=== PATIENT | female | born 1940 | race Caucasian/White ===

== ENCOUNTER → 2017-01-10 | Outpatient (CLI) | payer MEDICARE, OTHER ==
[2017-01-10 11:24] LABS: Lithium 0.5 mmol/L
[2017-01-10 13:30] LABS: Hemoglobin A1C 5.1 % (4.2-6.1)
== END | disposition home or self-care (01) ==
LOC: LABWHC1 10:14
PROVIDERS: ATTEND Psychiatry & Neurology Psychiatry
DX: E78.5 Hyperlipidemia, unspecified (principal); E03.9 Hypothyroidism, unspecified; Z51.81 Encounter for therapeutic drug level monitoring; Z79.899 Other long term (current) drug therapy
CPT/HCPCS: 36415; 80061; 80178; 83036

== ENCOUNTER → 2018-12-12 | Outpatient (CLI) | payer MEDICARE, OTHER ==
--- NOTE | 2018-12-12 15:33 | XR ---
EXAMINATION TYPE: XR chest 2V DATE OF EXAM: 12/12/2018 COMPARISON: Prior chest x-ray 07/07/2016 HISTORY: Cough and shortness of breath TECHNIQUE: Frontal and lateral views of the chest are obtained. FINDINGS: There is no focal air space opacity, pleural effusion, or pneumothorax seen. The cardiac silhouette size is within normal limits. The osseous structures are intact. There is multilevel spo ndylosis. There is dense. IMPRESSION: No acute cardiopulmonary process.
== END | disposition home or self-care (01) ==
LOC: RADXRMAIN 12:52
PROVIDERS: ATTEND Internal Medicine
DX: R05 Cough (principal); R06.02 Shortness of breath
CPT/HCPCS: 71046

== ENCOUNTER → 2019-06-05 | Outpatient (CLI) | payer MEDICARE, OTHER ==
[2019-06-05 19:51] LABS: African American GFR (CKD) 71.5 (60.0-200.0); Anion Gap 9.8 mmol/L (4.00-12.00); BUN/Creat Ratio 22.22 Ratio (12.00-20.00); Calcium 9.3 mg/dL (8.7-10.3); Carbon Dioxide 28.2 mmol/L (21.6-31.8); Lithium 0.5 mmol/L (0.5-1.2)
== END | disposition home or self-care (01) ==
LOC: LABWHC1 14:42
PROVIDERS: ATTEND Psychiatry & Neurology Psychiatry
DX: F31.60 Bipolar disorder, current episode mixed, unspecified (principal); Z79.899 Other long term (current) drug therapy
CPT/HCPCS: 36415; 80048; 80178; 84443

== ENCOUNTER 2019-10-01 18:30 | Inpatient (IN) | payer MEDICARE, OTHER ==
[2019-10-01] MEDS ORDERED: methylPREDNISolone SOD SUCCI 125 MG/2 ML VIAL IV STA (18:46)
[2019-10-01] MEDS ORDERED: IPRATROPIUM-ALBUTEROL 3 ML NEB INHALATION STA ×3 (18:46→20:35)
[2019-10-01 19:24] LABS: Basophils % (A) 0 %; Eosinophils # (A) 0.2 k/uL (0-0.7); Eosinophils % (A) 1 %; HCT 40.1 % (34.0-46.0); Lymphocytes # (A) 0.9 k/uL (1.0-4.8); Lymphocytes % (A) 7 %; MCH 30.7 pg (25.0-35.0); MCHC 32.4 g/dL (31.0-37.0); MCV 94.9 fL (80.0-100.0); Mean Platelet Volume 6.8; Monocytes # (A) 0.7 k/uL (0-1.0); Monocytes % (A) 5 %; Neutrophils # (A) 12.3 k/uL (1.3-7.7); Neutrophils % (A) 87 %; Platelet Count 243 k/uL (150-450); RBC 4.22 m/uL (3.80-5.40); RDW 12.7 % (11.5-15.5); WBC 14.2 k/uL (3.8-10.6)
[2019-10-01 19:33] LABS: ALT 17 U/L (4-34); AST 28 U/L (14-36); African American GFR (CKD) >90 (>60 ml/min/1.73 sqM); Albumin 3.6 g/dL (3.5-5.0); Alkaline Phosphatase 78 U/L (38-126); Anion Gap 6 mmol/L; Blood Urea Nitrogen 10 mg/dL (7-17); Calcium 9.1 mg/dL (8.4-10.2); Carbon Dioxide 30 mmol/L (22-30); Chloride 100 mmol/L (98-107); Creatine Kinase 60 U/L (30-135); Glucose 140 mg/dL (74-99); Non-African American GFR(CKD) 86 (>60 ml/min/1.73 sqM); Potassium 3.6 mmol/L (3.5-5.1); Sodium 136 mmol/L (137-145); Total Bilirubin 0.6 mg/dL (0.2-1.3); Total Protein 6.2 g/dL (6.3-8.2)
--- NOTE | 2019-10-01 19:37 | XR ---
EXAMINATION TYPE: XR chest 2V DATE OF EXAM: 10/01/2019 COMPARISON: 06/05/2019 HISTORY: COPD TECHNIQUE: 2 views FINDINGS: There is no heart failure nor confluent pneumonic infiltrate. Costophrenic angles are fairl y clear. There are chest leads. There is minor spurring in the thoracic spine. IMPRESSION: No active cardiopulmonary disease. No significant change compared to old exam.
--- NOTE | 2019-10-01 19:38 | ED ---
SOB HPI - General Chief Complaint: Shortness of Breath Stated Complaint: CRISTA Time Seen by Provider: 10/01/19 18:33 Source: patient, RN notes reviewed Mode of arrival: wheelchair Limitations: no limitations - History of Present Illness Initial Comments: This is a 79-year-old female with a history of COPD and still is a smoker who states she's had shortness of breath for the past 4 days that has gotten progressively worse and not responding to her home medication. She has a cough with some clear phlegm no overt fevers chills sweats chest pain or other symptoms. She does have exertional dyspnea. No other modifying factors at this time MD Complaint: shortness of breath, cough - Related Data Home Medications Medication Instructions Recorded Confirmed Ibuprofen [Motrin] 400 - 800 mg PO Q6HR PRN 07/03/16 07/04/16 Ipratropium/Albuterol Sulfate 1 - 2 puff INHALATION RT-QID 07/03/16 07/04/16 [Combivent Respimat Inhaler] Dillard Carbonate 300 mg PO BID 07/03/16 07/04/16 PARoxetine [Paxil] 20 mg PO DAILY 07/03/16 07/04/16 Potassium Chloride [K-Tab ER] 10 meq PO DAILY 07/03/16 07/04/16 Simvastatin 40 mg PO HS 07/03/16 07/04/16 risperiDONE [RisperDAL] 0.5 mg PO HS 07/03/16 07/05/16 Previous Rx's Medication Instructions Recorded Aspirin 325 mg PO DAILY #30 tab 07/05/16 Sennosides-Docusate Sodium 2 tab PO DAILY #30 tablet 07/05/16 [Senokot-S] Warfarin [Coumadin] 2.5 mg PO DIRECTED #30 tab 07/05/16 Atenolol 25 mg PO BID #0 07/07/16 Ferrous Sulfate [Iron (65 MG 325 mg PO BID #60 tab 07/07/16 Elemental)] LORazepam [Ativan] 1 mg PO BID PRN #20 tab 07/07/16 Triamterene-Hctz 37.5-25Mg 1 cap PO DAILY #0 07/07/16 [Dyazide 37.5-25 Capsule] traMADol HCl [Ultram] 50 mg PO Q4H PRN #90 tab 07/07/16 Allergies Allergy/AdvReac Type Severity Reaction Status Date / Time Penicillins Allergy Rash/Hives Verified 10/01/19 18:41 acetaminophen [From [facility]] AdvReac Nausea & Verified 10/01/19 18:41 Vomiting hydrocodone [From [facility]] AdvReac Nausea & Verified 10/01/19 18:41 Vomiting Sulfa (Sulfonamide AdvReac Nausea & Verified 10/01/19 18:41 Antibiotics) Vomiting Review of Systems ROS Statement: Those systems with pertinent positive or pertinent negative responses have been documented in the HPI. ROS Other: All systems not noted in ROS Statement are negative. Past Medical History Past Medical History: Cancer, COPD, Deep Vein Thrombosis (DVT), Eye Disorder, Hyperlipidemia, Hypertension, Pneumonia Additional Past Medical History / Comment(s): Recent kidney infection, L BREAST CANCER with SX , Bilateral MACULAR DEGENERATION, DVT R leg History of Any Multi-Drug Resistant Organisms: None Reported Past Surgical History: Breast Surgery, Joint Replacement, Tonsillectomy, Tubal Ligation Additional Past Surgical History / Comment(s): 07/04/16 Total L knee arthroplasty. Other surgical hx: LEFT MASTECTOMY, R total knee arthroplasty, bilateral cataract removal. Past Anesthesia/Blood Transfusion Reactions: Motion Sickness Past Psychological History: Anxiety, Depression Smoking Status: Current every day smoker Past Alcohol Use History: None Reported Past Drug Use History: None Reported - Past Family History Mother Family Medical History: Renal Disease Additional Family Medical History / Comment(s): Mother at the age of 84 yrs of kidney failure. Father Family Medical History: No Reported History Additional Family Medical History / Comment(s): Father at the age of 98yrs. General Exam - General Exam Comments Initial Comments: This is a well-developed well-nourished awake alert oriented 3 female Limitations: no limitations General appearance: alert, in no apparent distress Head exam: Present: atraumatic, normocephalic, normal inspection Eye exam: Present: normal appearance, PERRL, EOMI. Absent: scleral icterus, conjunctival injection, periorbital swelling ENT exam: Present: mucous membranes dry Neck exam: Present: normal inspection, full ROM, other. Absent: tenderness, meningismus, lymphadenopathy Respiratory exam: Present: wheezes, accessory muscle use, decreased breath sounds. Absent: respiratory distress, rales, rhonchi, stridor Cardiovascular Exam: Present: regular rate, normal rhythm, normal heart sounds. Absent: systolic murmur, diastolic murmur, rubs, gallop, clicks GI/Abdominal exam: Present: soft, normal bowel sounds. Absent: distended, tende rness, guarding, rebound, rigid Extremities exam: Present: normal inspection, full ROM, normal capillary refill. Absent: tenderness, pedal edema, joint swelling, calf tenderness Back exam: Present: normal inspection Neurological exam: Present: alert, oriented X3, CN II-XII intact Psychiatric exam: Present: normal affect, normal mood Skin exam: Present: warm, dry, intact, normal color. Absent: rash Course Vital Signs 10/01/19 10/01/19 10/01/19 18:41 18:46 19:42 Temperature 98.7 F Pulse Rate 95 87 Respiratory 20 20 Rate Blood Pressure 142/88 O2 Sat by Pulse 97 Oximetry 10/01/19 19:51 Temperature Pulse Rate 87 Respiratory Rate Blood Pressure O2 Sat by Pulse Oximetry Medical Decision Making - Medical Decision Making I did reevaluate patient several occasions she is not getting much relief if any from the treatment provided thus far. I did discuss the findings with the patient family patient be admitted Dr. Miguel is covering Dr. William today patient will be admitted to Dr. rubio are service I did discuss this with Dr. Miguel - Lab Data Result diagrams: 10/01/19 19:12 10/01/19 19:12 Lab Results 10/01/19 10/01/19 10/01/19 Range/Units 19:12 19:12 19:12 WBC 14.2 H (3.8-10.6) k/uL RBC 4.22 (3.80-5.40) m/uL Hgb 13.0 (11.4-16.0) gm/dL Hct 40.1 (34.0-46.0) % MCV 94.9 (80.0-100.0) fL MCH 30.7 (25.0-35.0) pg MCHC 32.4 (31.0-37.0) g/dL RDW 12.7 (11.5-15.5) % Plt Count 243 (150-450) k/uL Neutrophils % 87 % Lymphocytes % 7 % Monocytes % 5 % Eosinophils % 1 % Basophils % 0 % Neutrophils # 12.3 H (1.3-7.7) k/uL Lymphocytes # 0.9 L (1.0-4.8) k/uL Monocytes # 0.7 (0-1.0) k/uL Eosinophils # 0.2 (0-0.7) k/uL Basophils # 0.0 (0-0.2) k/uL PT (9.0-12.0) sec INR (<1.2) APTT (22.0-30.0) sec Sodium 136 L (137-145) mmol/L Potassium 3.6 (3.5-5.1) mmol/L Chloride 100 (98-107) mmol/L Carbon Dioxide 30 (22-30) mmol/L Anion Gap 6 mmol/L BUN 10 (7-17) mg/dL Creatinine 0.65 (0.52-1.04) mg/dL Est GFR (CKD-EPI)AfAm >90 (>60 ml/min/1.73 sqM) Est GFR (CKD-EPI)NonAf 86 (>60 ml/min/1.73 sqM) Glucose 140 H (74-99) mg/dL Calcium 9.1 (8.4-10.2) mg/dL Magnesium 2.0 (1.6-2.3) mg/dL Total Bilirubin 0.6 (0.2-1.3) mg/dL AST 28 (14-36) U/L ALT 17 (4-34) U/L Alkaline Phosphatase 78 (38-126) U/L Creatine Kinase 60 (30-135) U/L Troponin I (0.000-0.034) ng/mL NT-Pro-B Natriuret Pep 2440 pg/mL Total Protein 6.2 L (6.3-8.2) g/dL Albumin 3.6 (3.5-5.0) g/dL 10/01/19 10/01/19 Range/Units 19:12 19:12 WBC (3.8-10.6) k/uL RBC (3.80-5.40) m/uL Hgb (11.4-16.0) gm/dL Hct (34.0-46.0) % MCV (80.0-100.0) fL MCH (25.0-35.0) pg MCHC (31.0-37.0) g/dL RDW (11.5-15.5) % Plt Count (150-450) k/uL Neutrophils % % Lymphocytes % % Monocytes % % Eosinophils % % Basophils % % Neutrophils # (1.3-7.7) k/uL Lymphocytes # (1.0-4.8) k/uL Monocytes # (0-1.0) k/uL Eosinophils # (0-0.7) k/uL Basophils # (0-0.2) k/uL PT 9.7 (9.0-12.0) sec INR 0.9 (<1.2) APTT 25.7 (22.0-30.0) sec Sodium (137-145) mmol/L Potassium (3.5-5.1) mmol/L Chloride (98-107) mmol/L Carbon Dioxide (22-30) mmol/L Anion Gap mmol/L BUN (7-17) mg/dL Creatinine (0.52-1.04) mg/dL Est GFR (CKD-EPI)AfAm (>60 ml/min/1.73 sqM) Est GFR (CKD-EPI)NonAf (>60 ml/min/1.73 sqM) Glucose (74-99) mg/dL Calcium (8.4-10.2) mg/dL Magnesium (1.6-2.3) mg/dL Total Bilirubin (0.2-1.3) mg/dL AST (14-36) U/L ALT (4-34) U/L Alkaline Phosphatase (38-126) U/L Creatine Kinase (30-135) U/L Troponin I 0.022 (0.000-0.034) ng/mL NT-Pro-B Natriuret Pep pg/mL Total Protein (6.3-8.2) g/dL Albumin (3.5-5.0) g/dL - EKG Data -: EKG Interpreted by Me EKG Comments: Sinus rhythm with occasional PVCs rate was 93. Ago 122 QRS 92 QT since QTC 352/437 right axis deviation nonspecific ST T-wave configuration - Radiology Data Radiology results: report reviewed (I did review the imaging and report no acute findings are seen.), image reviewed Critical Care Time Critical Care Time: Yes Critical Care Time: Miguel 1 minutes of critical care time which includes initial presentation with history physical labs x-rays multiple reevaluation patient responsive therapy review of old charting's available discussed with the admitting physician admission orders and documentation of the above Disposition Clinical Impression: Acute exacerbation of chronic obstructive pulmonary disease, Acute respiratory distress syndrome in adult, Failure of outpatient treatment Disposition: ADMITTED IP TO THIS HOSP Condition: Fair Referrals: Abiola Kong MD [Primary Care Provider] - 1-2 days
[2019-10-01 19:39] LABS: INR 0.9 (<1.2); Partial Thromboplastin Time 25.7 sec (22.0-30.0); Prothrombin Time 9.7 sec (9.0-12.0)
[2019-10-01] MEDS ORDERED: traMADol 50 MG TAB PO PRN (20:37)
[2019-10-01] MEDS ORDERED: NICOTINE 21MG/24HR PATCH TRANSDERM STA (20:40)
--- NOTE | 2019-10-01 20:41 | ED ---
Medical Decision Making - Lab Data Result diagrams: 10/01/19 19:12 10/01/19 19:12 Lab Results 10/01/19 10/01/19 10/01/19 Range/Units 19:12 19:12 19:12 WBC 14.2 H (3.8-10.6) k/uL RBC 4.22 (3.80-5.40) m/uL Hgb 13.0 (11.4-16.0) gm/dL Hct 40.1 (34.0-46.0) % MCV 94.9 (80.0-100.0) fL MCH 30.7 (25.0-35.0) pg MCHC 32.4 (31.0-37.0) g/dL RDW 12.7 (11.5-15.5) % Plt Count 243 (150-450) k/uL Neutrophils % 87 % Lymphocytes % 7 % Monocytes % 5 % Eosinophils % 1 % Basophils % 0 % Neutrophils # 12.3 H (1.3-7.7) k/uL Lymphocytes # 0.9 L (1.0-4.8) k/uL Monocytes # 0.7 (0-1.0) k/uL Eosinophils # 0.2 (0-0.7) k/uL Basophils # 0.0 (0-0.2) k/uL PT (9.0-12.0) sec INR (<1.2) APTT (22.0-30.0) sec Sodium 136 L (137-145) mmol/L Potassium 3.6 (3.5-5.1) mmol/L Chloride 100 (98-107) mmol/L Carbon Dioxide 30 (22-30) mmol/L Anion Gap 6 mmol/L BUN 10 (7-17) mg/dL Creatinine 0.65 (0.52-1.04) mg/dL Est GFR (CKD-EPI)AfAm >90 (>60 ml/min/1.73 sqM) Est GFR (CKD-EPI)NonAf 86 (>60 ml/min/1.73 sqM) Glucose 140 H (74-99) mg/dL Calcium 9.1 (8.4-10.2) mg/dL Magnesium 2.0 (1.6-2.3) mg/dL Total Bilirubin 0.6 (0.2-1.3) mg/dL AST 28 (14-36) U/L ALT 17 (4-34) U/L Alkaline Phosphatase 78 (38-126) U/L Creatine Kinase 60 (30-135) U/L Troponin I (0.000-0.034) ng/mL NT-Pro-B Natriuret Pep 2440 pg/mL Total Protein 6.2 L (6.3-8.2) g/dL Albumin 3.6 (3.5-5.0) g/dL 10/01/19 10/01/19 Range/Units 19:12 19:12 WBC (3.8-10.6) k/uL RBC (3.80-5.40) m/uL Hgb (11.4-16.0) gm/dL Hct (34.0-46.0) % MCV (80.0-100.0) fL MCH (25.0-35.0) pg MCHC (31.0-37.0) g/dL RDW (11.5-15.5) % Plt Count (150-450) k/uL Neutrophils % % Lymphocytes % % Monocytes % % Eosinophils % % Basophils % % Neutrophils # (1.3-7.7) k/uL Lymphocytes # (1.0-4.8) k/uL Monocytes # (0-1.0) k/uL Eosinophils # (0-0.7) k/uL Basophils # (0-0.2) k/uL PT 9.7 (9.0-12.0) sec INR 0.9 (<1.2) APTT 25.7 (22.0-30.0) sec Sodium (137-145) mmol/L Potassium (3.5-5.1) mmol/L Chloride (98-107) mmol/L Carbon Dioxide (22-30) mmol/L Anion Gap mmol/L BUN (7-17) mg/dL Creatinine (0.52-1.04) mg/dL Est GFR (CKD-EPI)AfAm (>60 ml/min/1.73 sqM) Est GFR (CKD-EPI)NonAf (>60 ml/min/1.73 sqM) Glucose (74-99) mg/dL Calcium (8.4-10.2) mg/dL Magnesium (1.6-2.3) mg/dL Total Bilirubin (0.2-1.3) mg/dL AST (14-36) U/L ALT (4-34) U/L Alkaline Phosphatase (38-126) U/L Creatine Kinase (30-135) U/L Troponin I 0.022 (0.000-0.034) ng/mL NT-Pro-B Natriuret Pep pg/mL Total Protein (6.3-8.2) g/dL Albumin (3.5-5.0) g/dL Disposition Clinical Impression: Acute exacerbation of chronic obstructive pulmonary disease, Acute respiratory distress syndrome in adult, Failure of outpatient treatment, Smoking Disposition: ADMITTED IP TO THIS HOSP Condition: Fair Referrals: Abiola Kong MD [Primary Care Provider] - 1-2 days Procedures - Smoking Cessation Time Spent Discussing Smoking Cessation w/Patient (Minutes): 3 Patient Acknowledges Need for Cessation: Yes
[2019-10-01] MEDS ORDERED: IPRATROPIUM-ALBUTEROL 3 ML NEB INHALATION PRN (21:17)
[2019-10-01] MEDS: SODIUM CHLORIDE 0.9% 1,000 ML IV SCH (21:24)
[2019-10-01] MEDS: ATENOLOL 25 MG TAB PO SCH (22:30)
[2019-10-01] MEDS: LITHIUM CARBONATE 300 MG CAP PO SCH (22:31)
[2019-10-01] MEDS: FERROUS SULFATE 325 MG TAB PO SCH (22:31)
[2019-10-01] MEDS: FAMOTIDINE 20 MG TAB PO SCH (22:31)
[2019-10-01] MEDS: ATORVASTATIN 20 MG TAB PO SCH (22:31)
[2019-10-01] MEDS: risperiDONE 1 MG TAB PO SCH (22:31)
[2019-10-01] MEDS: LORazepam 1 MG TAB PO PRN (22:32)
[2019-10-01] MEDS: MONTELUKAST 10 MG TAB PO SCH (22:32)
[2019-10-02] MEDS ORDERED: IPRATROPIUM-ALBUTEROL 3 ML NEB INHALATION SCH
[2019-10-02] MEDS: methylPREDNISolone SOD SUCCI 125 MG/2 ML VIAL IV SCH ×4 (00:07→17:03)
[2019-10-02] MEDS: BUDESONIDE 0.5 MG/2 ML NEBU INHALATION SCH ×2 (06:22→19:53)
[2019-10-02] MEDS: IPRATROPIUM-ALBUTEROL 3 ML NEB INHALATION SCH ×4 (06:22→19:53)
[2019-10-02] MEDS: SODIUM CHLORIDE 0.9% 1,000 ML IV SCH ×2 (07:03→15:45)
--- NOTE | 2019-10-02 07:41 | HP ---
HISTORY AND PHYSICAL Teri Borrego is a 79-year-old female with increasing shortness of breath for 4-5 days' duration. She had some chills. No clear fever. She had cough with no significant sputum production. There is a known history of COPD with an asthmatic component and had severe wheezing along with shortness of breath. She was seen in the ER and was unable to complete a sentence. She was using accessory muscles for respirations and is admitted for further evaluation and management. PAST MEDICAL HISTORY: Positive for chronic obstructive pulmonary disease, possible asthma, DVT, hypertension, kidney infection, left breast cancer, breast surgery, tonsillectomy, total left knee arthroplasty, bipolar disorder with anxiety and depression. FAMILY HISTORY: Positive for renal disease in her mother. Father of old age. SOCIAL HISTORY: Patient is an everyday smoker. Smokes 1-2 packs of cigarettes per day. She does not drink alcohol excessively. MEDICATIONS: Prior to admission were ergo calciferol, albuterol, risperidone, Dyazide, Ativan, aspirin, K-Dur, Paxil, Eaton carbonate and atenolol. REVIEW OF SYSTEMS: Positive for obesity. PHYSICAL EXAMINATION: Blood pressure 121/62, respiratory rate of 22, pulse of 93, O2 saturation on 2 L by nasal cannula is 96%. HEENT: Reveals pupils are equal. CHEST: Reveals decreased breath sounds. Prolonged exhalation with expiratory wheeze. CARDIOVASCULAR SYSTEM: Reveals an S1, S2. ABDOMEN: Soft. There is 1+ pedal edema. LABS: Revealed a white count of 14.2, hemoglobin of 13, sodium 136, potassium 3.6, chloride 100, bicarb 30, BUN 10, creatinine of 0.65. NT proBNP 2004 and 40. Chest x-ray shows no discrete infiltrate. IMPRESSION: 1. Severe asthma with chronic obstructive pulmonary disease with acute exacerbation. 2. Obesity. 3. Bipolar disorder. 4. History of deep venous thrombosis. 5. Previous history of breast cancer. At this point in time, keep her on IV and aerosolized steroids. Keep her on antibiotics, leukotriene receptor antagonist. GI and DVT prophylaxis. Her prognosis at this time is guarded. She and her daughter were counseled regarding her condition and this approach and have a fair understanding of her condition. MMODL / IJN: [id number] /
[2019-10-02] MEDS: LITHIUM CARBONATE 300 MG CAP PO SCH ×2 (07:59→20:43)
[2019-10-02] MEDS: FAMOTIDINE 20 MG TAB PO SCH ×2 (07:59→20:43)
[2019-10-02] MEDS: FERROUS SULFATE 325 MG TAB PO SCH ×2 (07:59→20:43)
[2019-10-02] MEDS: SENNOSIDES-DOCUSATE SODIUM 1 EACH TAB PO SCH (07:59)
[2019-10-02] MEDS: PARoxetine 20 MG TAB PO SCH (07:59)
[2019-10-02] MEDS: ATENOLOL 25 MG TAB PO SCH ×2 (07:59→20:44)
[2019-10-02] MEDS: POTASSIUM CHLORIDE ER 10 MEQ TAB.ER.PRT PO SCH (07:59)
[2019-10-02] MEDS: TRIAMTERENE-HCTZ 37.5-25MG 1 EACH CAP PO SCH (07:59)
[2019-10-02] MEDS ORDERED: WARFARIN 2.5 MG TAB PO SCH (09:00)
--- NOTE | 2019-10-02 12:30 | PN ---
PROGRESS NOTE DATE OF SERVICE: 10/02/2019 Patient is a 79-year-old female who is seen sleeping but is easily arousable. Patient denies any pain, but does feel breathing as per improved a little bit. Patient is afebrile, hemodynamically stable, in no acute distress. PHYSICAL EXAM: VITAL SIGNS: Temperature 97.9, heart rate 76, respiration 17, blood pressure 123/78, O2 saturations 94% on 6 L O2 via nasal cannula. HEENT. Head is normocephalic, atraumatic. Neck is supple. Trachea is midline. LUNGS: With decreased breath sounds and scattered expiratory wheezes. HEART: S1, S2 are heard. Not tachycardic. ABDOMEN: Soft. Bowel sounds are positive. EXTREMITIES: With 2+ edema bilaterally. NEUROLOGIC Patient is awake and alert. LABS: No new labs to review. IMAGING: No new imaging to review. IMPRESSION: 1. Severe asthma with chronic obstructive pulmonary disease with acute exacerbation. 2. Obesity. 3. Bipolar disorder. 4. History of deep venous thrombosis. 5. Previous history of breast cancer. PLAN: Continue current medications, which have been reviewed. Continue bronchodilators and aerosol steroids. Continue IV Solu-Medrol. Continue antibiotics. Continue GI and DVT prophylaxis. Smoking cessation is highly recommended and patient verbalizes that she will quit smoking. We will continue to follow patient closely making further changes as necessary. MMODL / IJN: [id number] /
[2019-10-02] MEDS: LORazepam 1 MG TAB PO PRN (20:43)
[2019-10-02] MEDS: ATORVASTATIN 20 MG TAB PO SCH (20:43)
[2019-10-02] MEDS: MONTELUKAST 10 MG TAB PO SCH (20:44)
[2019-10-02] MEDS: risperiDONE 1 MG TAB PO SCH (20:44)
[2019-10-03] MEDS: methylPREDNISolone SOD SUCCI 125 MG/2 ML VIAL IV SCH ×4 (00:01→17:48)
[2019-10-03] MEDS: BUDESONIDE 0.5 MG/2 ML NEBU INHALATION SCH ×2 (07:04→19:32)
[2019-10-03] MEDS: IPRATROPIUM-ALBUTEROL 3 ML NEB INHALATION SCH ×4 (07:04→19:32)
[2019-10-03 10:40] LABS: Albumin 3.7 g/dL (3.5-5.0); Calcium 9.5 mg/dL (8.4-10.2); Magnesium 2.5 mg/dL (1.6-2.3); Phosphorus 5.6 mg/dL (2.5-4.5); Potassium 5.2 mmol/L (3.5-5.1); Total Bilirubin 0.4 mg/dL (0.2-1.3); Total Protein 6.2 g/dL (6.3-8.2)
[2019-10-03 11:04] LABS: Basophils # (A) 0.3 k/uL (0-0.2); Basophils % (A) 2 %; Eosinophils % (A) 0 %; HCT 44.9 % (34.0-46.0); HGB 13.7 gm/dL (11.4-16.0); Hypochromasia Marked; Lymphocytes # (A) 0.5 k/uL (1.0-4.8); Lymphocytes % (A) 4 %; MCH 31.1 pg (25.0-35.0); MCHC 30.5 g/dL (31.0-37.0); Macrocytosis Slight; Mean Platelet Volume 7.2; Monocytes # (A) 0.5 k/uL (0-1.0); Monocytes % (A) 4 %; Neutrophils # (A) 11.9 k/uL (1.3-7.7); Neutrophils % (A) 89 %; Platelet Count 357 k/uL (150-450); WBC 13.4 k/uL (3.8-10.6)
[2019-10-03 11:06] LABS: MCV 102.1 fL (80.0-100.0)
[2019-10-03 11:24] LABS: ABG Base Excess 3.9 mmol/L; ABG HCO3 33 mmol/L (21-25); ABG Oxygen Saturation 98.9 % (94-97); ABG PO2 135 mmHg (83-108); ABG TCO2 36 mmol/L (19-24); Allen Test Performed? Yes
[2019-10-03 11:29] LABS: ABG PCO2 96 mmHg (35-45); ABG PH 7.15 (7.35-7.45)
[2019-10-03] MEDS ORDERED: FLUMAZENIL 0.1 MG/ML 5 ML VIAL IVP STA ×2 (11:44→15:07)
[2019-10-03] MEDS: ATENOLOL 25 MG TAB PO SCH ×2 (11:53→21:53)
[2019-10-03] MEDS: FERROUS SULFATE 325 MG TAB PO SCH ×2 (11:53→21:54)
[2019-10-03] MEDS: FAMOTIDINE 20 MG TAB PO SCH (11:53)
[2019-10-03] MEDS: POTASSIUM CHLORIDE ER 10 MEQ TAB.ER.PRT PO SCH (11:54)
[2019-10-03] MEDS: LITHIUM CARBONATE 300 MG CAP PO SCH ×2 (11:54→21:54)
[2019-10-03] MEDS: SENNOSIDES-DOCUSATE SODIUM 1 EACH TAB PO SCH (11:54)
[2019-10-03] MEDS: PARoxetine 20 MG TAB PO SCH (11:54)
[2019-10-03] MEDS: SODIUM CHLORIDE 0.9% 1,000 ML IV SCH ×3 (11:55→23:11)
[2019-10-03] MEDS: TRIAMTERENE-HCTZ 37.5-25MG 1 EACH CAP PO SCH (11:55)
[2019-10-03 14:53] LABS: Glucose,Whole Blood 129 mg/dL (75-99)
--- NOTE | 2019-10-03 15:35 | PN ---
PROGRESS NOTE DATE OF SERVICE: 10/03/2019 Patient is a 79-year-old female who is seen lying in bed. Patient is lethargic, very difficult to arouse this morning. Contacted nursing staff. We turned down patient's oxygen and applied a BiPAP as it appeared patient was retaining CO2. The patient did receive some Ativan before going to sleep last night for some increased confusion and oxygen was at 6 L this morning. The patient's vital signs were stable. Patient was afebrile and started to arouse after being placed on BiPAP, slowly. PHYSICAL EXAM: VITAL SIGNS: Temperature 97.6, heart rate 71, blood pressure 159/90, O2 saturation 99% on 6 L via nasal cannula at that time. HEENT. Head is normocephalic, atraumatic. Neck is supple. Trachea is midline. LUNGS: With coarse breath sounds. HEART: S1, S2 are heard. Not tachycardic. ABDOMEN: Soft. Bowel sounds are positive. EXTREMITIES: With no edema. NEUROLOGIC: Patient is extremely lethargic, difficult to arouse. LABS: White count 13.4, hemoglobin 13.7, hematocrit 44.9 with 357,000 platelets. Sodium is 139, potassium is 5.2, chloride is 102, CO2 is 34, anion gap is 3, BUN is 33, creatinine 0.98, glucose is 163, calcium is 9.5, phosphorus 5.6, magnesium 2.5, total bilirubin 0.4, AST 21, ALT 22, alkaline phosphatase 85, total protein 6.2, albumin is 3.7. Blood gases that were done after patient was initially seen this morning with a pH of 7.15, pCO2 of 96, PO2 135, bicarb 33, total CO2 is 36, O2 saturation 98.9. No new imaging to review. IMPRESSION: 1. At this time acute on chronic hypercapnic respiratory failure. 2. Severe asthma with chronic obstructive pulmonary disease with acute exacerbation. 3. Obesity. 4. Bipolar disorder. 5. History of deep vein thrombosis. 6. Previous history of breast cancer. PLAN: Continue BiPAP at 15/5, decrease FiO2 to maintain saturations greater than 90%. Continue bronchodilators and aerosol steroids. Will discontinue benzodiazepines. Continue IV Solu-Medrol. Continue antibiotics. Continue GI and DVT prophylaxis with heparin, 5000 units subcu q.12 hours and restart patient's Coumadin at 2.5 mg daily, add incentive spirometry with pulmonary hygiene. Put patient on a monitor tech and we will continue to follow patient closely making further changes as necessary. MMODL / IJN: [id number] /
[2019-10-03] MEDS ORDERED: NALOXONE 0.4 MG/ML 1 ML VIAL IV PRN (16:03)
[2019-10-03] MEDS: HEPARIN SODIUM,PORCINE 5,000 UNIT/ML 1 ML VIAL SQ SCH ×2 (16:56→21:58)
[2019-10-03 17:06] LABS: INR 0.9 (<1.2)
[2019-10-03 17:27] LABS: Appearance,Urine Clear (Clear); Bilirubin,Urine Negative (Negative); Blood,Urine Negative (Negative); Color,Urine Yellow; Glucose,Urine (UA) Negative (Negative); Ketones,Urine Negative (Negative); Leukocyte Esterase,Urine Negative (Negative); Nitrite,Urine Negative (Negative); PH, Urine 5.5 (5.0-8.0); Protein,Urine Trace (Negative); Specific Gravity,Urine 1.012 (1.001-1.035); Urobilinogen,Urine <2.0 mg/dL (<2.0)
[2019-10-03] MEDS ORDERED: WARFARIN 5 MG TAB PO ONE (18:00)
[2019-10-03] MEDS: FAMOTIDINE 20 MG/2 ML VIAL IV SCH (18:01)
[2019-10-03] MEDS: ATORVASTATIN 20 MG TAB PO SCH (21:54)
[2019-10-03] MEDS: risperiDONE 1 MG TAB PO SCH (21:55)
[2019-10-03] MEDS: MONTELUKAST 10 MG TAB PO SCH (21:55)
[2019-10-04 00:14] LABS: ABG Base Excess 5.6 mmol/L; ABG HCO3 32 mmol/L (21-25); ABG Oxygen Saturation 98.9 % (94-97); ABG PCO2 68 mmHg (35-45); ABG PH 7.28 (7.35-7.45); ABG PO2 120 mmHg (83-108); ABG TCO2 34 mmol/L (19-24)
[2019-10-04 00:19] LABS: Allen Test Performed? yes
[2019-10-04] MEDS: methylPREDNISolone SOD SUCCI 125 MG/2 ML VIAL IV SCH ×5 (00:25→17:25)
[2019-10-04 02:10] LABS: Glucose,Whole Blood 117 mg/dL (75-99)
[2019-10-04 05:50] LABS: Basophils # (A) 0.1 k/uL (0-0.2); Basophils % (A) 0 %; Eosinophils # (A) 0.1 k/uL (0-0.7); Eosinophils % (A) 1 %; HCT 41.3 % (34.0-46.0); Hypochromasia Slight; Lymphocytes # (A) 0.7 k/uL (1.0-4.8); Lymphocytes % (A) 5 %; MCH 31.1 pg (25.0-35.0); MCHC 31.4 g/dL (31.0-37.0); MCV 99.1 fL (80.0-100.0); Monocytes # (A) 0.4 k/uL (0-1.0); Monocytes % (A) 3 %; Neutrophils # (A) 12.2 k/uL (1.3-7.7); Neutrophils % (A) 91 %; Platelet Count 261 k/uL (150-450); RBC 4.17 m/uL (3.80-5.40); RDW 12.9 % (11.5-15.5); WBC 13.5 k/uL (3.8-10.6)
[2019-10-04 05:55] LABS: Lactic Acid, Venous 0.7 mmol/L (0.7-2.0)
[2019-10-04 05:57] LABS: Calcium 9.2 mg/dL (8.4-10.2); Magnesium 2.4 mg/dL (1.6-2.3); Phosphorus 3.4 mg/dL (2.5-4.5); Potassium 4.5 mmol/L (3.5-5.1)
[2019-10-04 05:59] LABS: INR 0.9 (<1.2); Prothrombin Time 10.1 sec (9.0-12.0)
--- NOTE | 2019-10-04 07:39 | XR ---
EXAMINATION TYPE: XR chest 1V DATE OF EXAM: 10/04/2019 COMPARISON: 10/01/2019 HISTORY: 79-year-old female difficulty breathing TECHNIQUE: Single frontal view of the chest is obtained. FINDINGS: Heart upper limits of normal in size. Diffuse interstitial densities. Patchy peripheral and basilar o pacity may be increased. IMPRESSION: 1. Interstitial densities are similar, possible bronchitis or asthma or mild pulmonary vascular conge stion. Clinically correlate. 2. Increasing patchy atelectasis or infiltrate peripheral left base.
--- NOTE | 2019-10-04 08:01 | CT ---
EXAMINATION TYPE: CT brain wo con DATE OF EXAM: 10/04/2019 COMPARISON: None HISTORY: 79 year-old female altered mental status, loss of consciousness TECHNIQUE: Examination was done in axial plane without intravenous contrast. Coronal and sagittal r econstructions performed. CT DLP: 1260.4 mGycm Automated exposure control for dose reduction was used. FINDINGS: There is no evidence of acute intracranial hemorrhage, acute ischemic changes, mass, mass-effect, or extra-axial fluid collection. There is no effacement of cerebral sulci or basal subarachnoid cister ns. There is no hydrocephalus. There is no midline shift. Ashley-white matter distinction is preserv ed. Small air-fluid level left sphenoid sinus, slight rightward nasal septal deviation, and trace mucosal thickening floor of the left maxillary sinus. Mastoid air cells well pneumatized. Orbits and globes appear intact. Atherosclerotic calcifications within the carotid siphons and proximal V4 segment vertebral arteries. Benign basal ganglia calcifications. Moderate confluent white matter hypodensities in both cerebral hemispheres. There is mild central cerebral atrophy likely age-related change. IMPRESSION: 1. Mild age-related atrophy and moderate confluent changes of chronic small vessel ischemic disease. No acute intracranial abnormality seen. 2. Small air-fluid level left sphenoid sinus may reflect acute sinusitis.
[2019-10-04] MEDS: BUDESONIDE 0.5 MG/2 ML NEBU INHALATION SCH (08:28)
[2019-10-04] MEDS: IPRATROPIUM-ALBUTEROL 3 ML NEB INHALATION SCH ×4 (08:28→19:47)
[2019-10-04] MEDS ORDERED: FAMOTIDINE 20 MG TAB PO SCH (09:00)
[2019-10-04] MEDS: FAMOTIDINE 20 MG/2 ML VIAL IV SCH (09:54)
[2019-10-04] MEDS: HEPARIN SODIUM,PORCINE 5,000 UNIT/ML 1 ML VIAL SQ SCH ×2 (09:54→22:00)
[2019-10-04] MEDS: SODIUM CHLORIDE 0.9% 1,000 ML IV SCH ×2 (09:54→22:43)
[2019-10-04] MEDS: FERROUS SULFATE 325 MG TAB PO SCH ×2 (10:56→22:02)
[2019-10-04] MEDS: ATENOLOL 25 MG TAB PO SCH ×2 (10:56→22:01)
[2019-10-04] MEDS: LITHIUM CARBONATE 300 MG CAP PO SCH ×2 (10:56→22:02)
[2019-10-04] MEDS: SENNOSIDES-DOCUSATE SODIUM 1 EACH TAB PO SCH (10:57)
[2019-10-04] MEDS: PARoxetine 20 MG TAB PO SCH (10:57)
[2019-10-04] MEDS: POTASSIUM CHLORIDE ER 10 MEQ TAB.ER.PRT PO SCH (10:57)
[2019-10-04] MEDS: TRIAMTERENE-HCTZ 37.5-25MG 1 EACH CAP PO SCH (10:58)
[2019-10-04 11:58] LABS: Glucose,Whole Blood 127 mg/dL (75-99)
--- NOTE | 2019-10-04 12:43 | PN ---
PROGRESS NOTE DATE OF SERVICE: 10/04/2019 She has been hemodynamically stable. However, she continues to have poor mentation on physical examination, she is on BiPAP. She inconsistently opens eyes to verbal commands. Her blood pressure is 140/80, respiratory rate of 22, pulse rate of 73, O2 saturation on 35%, FiO2 is 96%. HEENT: Reveals BiPAP mask in place. CHEST: Reveals decreased breath sounds with prolonged expiration. CARDIOVASCULAR SYSTEM: Reveals an S1, S2. ABDOMEN: Soft. There is trace pedal edema. ABG showed a pH of 7.28, pCO2 of 68, pO2 of 122, bicarb of 34, O2 saturation of 98.9%. IMPRESSION: 1. Acute on chronic respiratory failure in part secondary to obstructive sleep apnea and possibly obesity hypoventilation syndrome. 2. Chronic obstructive pulmonary disease with exacerbation. 3. Metabolic encephalopathy. At this point in time, would continue to decrease the FiO2 so as to not suppress the hypoxic drive. Continue BiPAP. Continue bronchodilators, aerosolized steroids. Her medications were reviewed. Depending on how she does, we shall make further changes to her care. She apparently had been seen and follows with Dr. William in the past and a consult has been placed for him as well. We shall await his recommendations as well. MMODL / IJN: [id number] /
[2019-10-04] MEDS: INSULIN ASPART (NovoLOG) 100 UNIT/ML VIAL SQ SCH ×2 (13:18→18:17)
[2019-10-04] MEDS: AZITHROMYCIN 500 MG in SODIUM CHLORIDE 0.9% 250 ML IVPB SCH (16:14)
--- NOTE | 2019-10-04 16:24 | CONS ---
CONSULTATION PULMONARY/CRITICAL CARE CONSULTATION: DATE OF SERVICE: 10/04/2019. This is a patient who is 79 years of age. She presented to the emergency room for shortness of breath. The patient has a history of severe COPD. Actually, back in July 2017, she had a pulmonary function test which at that time showed an FEV1 that was 42% of predicted. This mean she has GOLD stage 3/severe COPD. That was back more than 2 years ago. She continues to smoke and has been smoking up until her admission. Hence, her lung function may even be worse. Anyway, she came into the emergency room on October 01. I was just consulted today. The patient apparently came in with complaints of shortness of breath. She was admitted to the general medical floor with a COPD exacerbation. Because of worsening respiratory status, she was transferred to the ICU last night. I am seeing her today for the first time. She was last seen by Dr. William in June of this year. I did have a chance to talk to the family. The family does say that she continues to smoke cigarettes. She has been really stubborn about ever quitting cigarettes. One of the family members, actually the daughter-in- law, works up in Pediatrics as a pediatric nurse. Her name is Deanna. They asked me about a central line. I do not believe the patient would lay flat and still for me to put a line in her. She has very small breast IV. I asked the current nurse to ask one of the nurses in the ICU to evaluate her for possible peripheral IV access. They did put an order in for a PICC line to be done on Sunday. She herself cannot give much history other than she is short of breath. Apparently she has also got chest congestion, coughing and wheezing. HOME MEDICATIONS: Reviewed. She is on Motrin, Combivent, Respimat, lithium, Paxil, potassium chloride, simvastatin, Risperdal, aspirin, Senna, warfarin, atenolol, iron, Ativan, Dyazide, and Ultram. ALLERGIES: Include PENICILLIN, TYLENOL, NORCO and SULFA ANTIBIOTICS. 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 Again, her last PFTs were done July 2017. Additional medical history includes deep venous thrombosis, hyperlipidemia, left breast cancer, bilateral macular degeneration and a right lower extremity DVT. Other medical problems include hyperlipidemia, hypertension, and pneumonia. SURGICAL HISTORY: Includes breast surgery on the left breast for breast cancer, joint replacement, tubal ligation, tonsillectomy, left total knee arthroplasty, left mastectomy, right total knee arthroplasty and bilateral cataract surgery. SOCIAL HISTORY: Positive for ongoing and significant tobacco use. She has been smoking for at least 60 years. She continues to smoke. No illicit drug use or alcohol use. FAMILY HISTORY: Positive for mother with chronic kidney disease and chronic kidney failure and a father who at age 98. REVIEW OF SYSTEMS: CONSTITUTIONAL: Weakness. NEUROLOGIC: Mental status changes. HEENT: Negative. CARDIOVASCULAR: Negative. PULMONARY: Shortness of breath, chest tightness, wheezing, cough, chest congestion. GI: Negative. : Negative. RHEUMATOLOGIC: Negative. IMMUNOLOGIC: Negative. ENDOCRINOLOGIC: Negative. DERMATOLOGIC: Negative. PHYSICAL EXAMINATION: Current vital signs are reviewed. Temperature is 99.5, heart rate 71, respiratory rate 19, blood pressure 140/72, mean 94. Saturations on BiPAP at 95%. She appears very restless and agitated. She is somewhat confused. She has a hard time focusing. She is currently on BiPAP with an IPAP setting of 18, EPAP of 5 and FiO2 of 25%. HEENT examination is grossly unremarkable. BiPAP mask in place. Mucous membranes are dry. NECK: Supple, full range of motion. No adenopathy. No neck vein distention. CARDIOVASCULAR examination reveals regular rhythm and rate. Heart rate 80. S1, S2 normal. Heart sounds distant. LUNGS: Reveal severely diminished breath sounds throughout. There is some expiratory rhonchi and wheezes. No crackles. ABDOMEN: Obese. Bowel sounds are heard. EXTREMITIES reveal mild edema. No cyanosis or clubbing. SKIN is thin and parchment-like. There are bruises noted throughout. There are areas of ecchymoses. NEUROLOGIC: Examination is difficult to assess. She seems very lethargic and somnolent. She does arouse though. LABS: Reviewed. White count 13.5, hemoglobin 13, hematocrit 41.3, platelet count 261,000. PT/INR is normal. Most recent blood gas showed a pO2 of 120, pCO2 of 68, pH 7.28. That was on 35%. Her prior blood gas showed a pO2 of 135, pCO2 of 96, and a pH is 7.15. That was on 50% and the FiO2 was titrated down to 35%. Sodium 139, potassium 4.5, chloride 104, CO2 is 32. Anion gap is 3. BUN and creatinine were 41 and 0.95, that suggests prerenal azotemia. Her magnesium is 2.4. Her troponin was 0.022. N terminal proBNP 2440. Her urine was negative. Her brain CT showed mild age-related atrophy and moderate confluent changes of chronic small-vessel ischemic disease. She appears also have some sphenoid sinusitis. Chest x-ray shows some bibasilar left greater than right patchy infiltrate. This probably represents atelectasis more than anything else, although could represent some pneumonia. She also may have small bilateral effusions. I do not see any alfredo heart failure. Microbiology is negative or pending. Medications are reviewed. ASSESSMENT: 1. Chronic obstructive pulmonary disease exacerbation, severe, in a patient with severe stage III and maybe stage IV chronic lung disease, currently on BiPAP therapy 18/5 and 25%. 2. Acute on chronic hypoxemic and hypercapnic respiratory failure in a patient who is a CO2 retainer. 3. Ongoing tobacco use with nicotine addiction. 4. History of breast cancer, left breast with left mastectomy. 5. History of deep venous thrombosis. 6. Macular degeneration. 7. Hyperlipidemia. 8. History of hypertension. 9. Prior history of pneumonia. 10.Recent kidney infection. 11.Probable secondary pulmonary hypertension with cor pulmonale. PLAN: Medications are reviewed. We will make sure that she is on appropriate medications including short-acting beta agonist, short-acting muscarinic antagonist, long-acting beta agonist, inhaled corticosteroids, and systemic corticosteroids. In addition, although there is no alfredo evidence of pneumonia, she may in fact have a purulent tracheobronchitis. We will add an antibiotic. I will see if one of the ICU nurses can get a peripheral IV. We did have a long discussion with the son and daughter as well as the [id number] about code status. I did mention that if she ended up on life support, she may be somebody who would be very difficult to get off. Additional recommendations and suggestions are forthcoming. Prognosis is guarded. We will continue to follow. MMODL / IJN: [id number] /
[2019-10-04 17:13] LABS: Glucose,Whole Blood 110 mg/dL (75-99)
[2019-10-04] MEDS: METOPROLOL TARTRATE 5 MG/5 ML VIAL IVP PRN ×2 (17:25→23:29)
[2019-10-04] MEDS ORDERED: WARFARIN 5 MG TAB PO SCH (18:00)
[2019-10-04] MEDS: BUDESONIDE 1 MG/2 ML NEBU INHALATION SCH (19:47)
[2019-10-04] MEDS: FORMOTEROL FUMARATE 20 MCG/2 ML NEBU INHALATION SCH (19:47)
[2019-10-04] MEDS ORDERED: BUDESONIDE 0.5 MG/2 ML NEBU INHALATION SCH (20:00)
[2019-10-04] MEDS: THEOPHYLLINE 24 HOUR 200 MG CAP.ER.24H PO SCH (22:01)
[2019-10-04] MEDS: ATORVASTATIN 20 MG TAB PO SCH (22:01)
[2019-10-04] MEDS: risperiDONE 1 MG TAB PO SCH (22:02)
[2019-10-04] MEDS: MONTELUKAST 10 MG TAB PO SCH (22:02)
[2019-10-05 00:02] LABS: Glucose,Whole Blood 133 mg/dL (75-99)
[2019-10-05] MEDS: INSULIN ASPART (NovoLOG) 100 UNIT/ML VIAL SQ SCH ×4 (00:14→17:35)
[2019-10-05] MEDS: methylPREDNISolone SOD SUCCI 125 MG/2 ML VIAL IV SCH ×4 (00:19→17:34)
[2019-10-05] MEDS: SODIUM CHLORIDE 0.9% 1,000 ML IV SCH ×2 (04:53→14:59)
[2019-10-05 05:27] LABS: Basophils # (A) 0.1 k/uL (0-0.2); Basophils % (A) 1 %; Eosinophils % (A) 0 %; HCT 38.9 % (34.0-46.0); HGB 12.8 gm/dL (11.4-16.0); Hypochromasia Slight; Lymphocytes # (A) 0.7 k/uL (1.0-4.8); Lymphocytes % (A) 7 %; MCH 32.4 pg (25.0-35.0); MCV 98.3 fL (80.0-100.0); Mean Platelet Volume 7.2; Monocytes # (A) 0.8 k/uL (0-1.0); Monocytes % (A) 7 %; Neutrophils # (A) 9.7 k/uL (1.3-7.7); Neutrophils % (A) 85 %; Platelet Count 274 k/uL (150-450); RBC 3.96 m/uL (3.80-5.40); RDW 12.7 % (11.5-15.5); WBC 11.5 k/uL (3.8-10.6)
[2019-10-05 05:36] LABS: Prothrombin Time 10.6 sec (9.0-12.0)
[2019-10-05 05:42] LABS: Calcium 8.9 mg/dL (8.4-10.2)
[2019-10-05] MEDS: METOPROLOL TARTRATE 5 MG/5 ML VIAL IVP PRN (06:04)
[2019-10-05] MEDS ORDERED: hydrALAZINE HCL 20 MG/ML 1 ML VIAL IM STA (06:26)
[2019-10-05 06:36] LABS: Glucose,Whole Blood 128 mg/dL (75-99)
[2019-10-05] MEDS ORDERED: hydrALAZINE HCL 20 MG/ML 1 ML VIAL IV STA (06:40)
[2019-10-05 07:06] LABS: ABG HCO3 34 mmol/L (21-25); ABG Oxygen Saturation 91.8 % (94-97); ABG PCO2 55 mmHg (35-45); ABG PO2 61 mmHg (83-108); ABG TCO2 36 mmol/L (19-24); Allen Test Performed? Yes
[2019-10-05] MEDS: CLEVIDIPINE BUTYRATE 25 MG in EMPTY BAG 1 BAG IV SCH ×3 (07:28→17:59)
--- NOTE | 2019-10-05 07:34 | XR ---
EXAMINATION TYPE: XR chest 1V portable DATE OF EXAM: 10/05/2019 Comparison: 10/04/2019 Clinical History: 79-year-old female COPD Findings: Heart borderline enlarged. New small right pleural effusion with right basilar opacity. Relative uppe r lung lucencies may reflect underlying emphysema. Atherosclerotic arch calcifications. Interstitium shows some improvement from prior. Improving aeration at the left base. Impression: 1. Similar borderline cardiomegaly. Improving aeration at the left base. 2. New small right pleural effusion with right basilar atelectasis and/or consolidation. 3. Possible background of COPD.
[2019-10-05] MEDS: FORMOTEROL FUMARATE 20 MCG/2 ML NEBU INHALATION SCH ×2 (07:37→20:39)
[2019-10-05] MEDS: BUDESONIDE 1 MG/2 ML NEBU INHALATION SCH ×2 (07:37→20:40)
[2019-10-05] MEDS: IPRATROPIUM-ALBUTEROL 3 ML NEB INHALATION SCH ×4 (07:37→20:40)
[2019-10-05 07:46] LABS: Lithium 0.3 mmol/L; Magnesium 2.3 mg/dL (1.6-2.3)
[2019-10-05] MEDS: FAMOTIDINE 20 MG/2 ML VIAL IV SCH (08:48)
[2019-10-05] MEDS: HEPARIN SODIUM,PORCINE 5,000 UNIT/ML 1 ML VIAL SQ SCH ×2 (08:48→21:57)
--- NOTE | 2019-10-05 08:59 | PN ---
PROGRESS NOTE DATE OF SERVICE: October 05, 2019 This is a 79-year-old female who has a history of severe COPD. She has got Gold stage III disease. FEV1 back in July 2017 was 42% of predicted. The patient initially was seen by the other group. The patient does have a relation with Dr. William and was seen by Dr. William last in June of this year. The patient continues to smoke cigarettes. I had a long talk with the family yesterday. We discussed a number of things, including code status. Apparently they have decided to make her a NO CPR, but agree to mechanical ventilation. Anyway, we will discuss this further with them. She is currently on the BiPAP. Her BiPAP settings include an IPAP of 18, EPAP of 5 with 21% FiO2. Blood gases are reasonable with a pO2 of 61, pCO2 of 55, and a pH of 7.40. She has 0.9 at 100 mL an hour and Cleviprex at 4 mg an hour for blood pressure control. She is going to get a nicotine patch at 21 mg. The patient really has not made much progress overnight. She does not have good IV access. We will go ahead and try a femoral vein triple-lumen catheter today. She is really not holding still and it would be very difficult to do a central line up in the neck area either internal jugular or subclavian. PHYSICAL EXAMINATION: VITAL SIGNS: Current vital signs are reviewed. Temperature is 99, heart rate 86, respiratory rate about 30 breaths per minute. Blood pressure 191/99 with mean of 129 prior to starting Cleviprex, and saturations are in the low 90s. Appears quite tachypneic and dyspneic. Currently BiPAP in place. HEENT examination is grossly unremarkable. Mask in place. NECK: Supple. Full range of motion. No adenopathy. CARDIOVASCULAR: Examination reveals regular rhythm and rate. Heart rate about 90 beats per minute. Heart sounds are distant. LUNGS: A few scattered rhonchi. Breath sounds are mostly clear. No wheezes. No crackles. ABDOMEN: Obese. Bowel sounds are not heard. EXTREMITIES are intact. Minimal edema. SKIN: Without rash. NEUROLOGIC: Examination is difficult to assess. She is very lethargic and somnolent. She has moaning respirations. LABS: Reviewed. White count 11.5, hemoglobin 12.8, hematocrit 38.9, platelet count 374, 000. PT/INR is normal. Sodium, potassium, chloride normal. CO2 32. Anion gap is 5. BUN and creatinine were 37 and 0.8. The rest of the labs look good. Microbiologic studies are thus far negative. X-RAY: Chest x-ray shows some borderline cardiomegaly. Small pleural effusions are noted. There is some minimal basilar atelectasis. MEDICATIONS: Current medications are reviewed. She is on all the appropriate medications from the pulmonary standpoint including Zithromax, Pulmicort 1 mg, formoterol 20 mcg, DuoNeb q.4 and p.r.n., Solu-Medrol 60 mg 2 q.6 as well as her regular medications. ASSESSMENT: 1. Chronic obstructive pulmonary disease exacerbation, severe, in a patient with severe stage III disease and maybe even stage IV disease, currently on BiPAP at 18/5 and 21% with reasonable arterial blood gases. 2. Acute on chronic hypoxemic and hypercapnic respiratory failure. 3. Ongoing tobacco use with nicotine addiction. 4. History of left breast cancer, status post left mastectomy. 5. History of deep venous thrombosis. 6. Macular degeneration. 7. Hyperlipidemia. 8. History of hypertension. 9. Prior history of pneumonia. 10.History of recent kidney infection. 11.Probable secondary pulmonary hypertension and cor pulmonale. PLAN: The patient's family apparently made the patient a DNR, but would agree to a mechanical ventilation. I tried to dissuade them from that stance. Anyway, she is on appropriate medications including short-acting beta agonist, short-acting muscarinic antagonist, inhaled corticosteroids, long-acting beta agonist, systemic corticosteroids and antibiotics. We will add a nicotine patch. Additional recommendations and suggestions are forthcoming. Blood gases are reasonable. Overall prognosis remains very poor. Again, we will see if we can talk to the family about a more reasonable approach. We have added Cleviprex at 4 mg an hour for blood pressure control. Critical care time 33 minutes. MMODL / IJN: [id number] /
[2019-10-05] MEDS: AZITHROMYCIN 500 MG in SODIUM CHLORIDE 0.9% 250 ML IVPB SCH (09:01)
--- NOTE | 2019-10-05 10:17 | PCN ---
PROCEDURE NOTE PROCEDURE PERFORMED: Left femoral vein triple-lumen catheter. PREOPERATIVE DIAGNOSIS: Administration of fluids and pressors. POSTOP DIAGNOSIS: Administration of fluids and pressors. DESULPHURIZER OPERATOR: Dr. Fang and Dr. Briceño. TRIPLE LUMEN CATHETER PLACEMENT: Indication: Hemodynamic monitoring/Intravenous access. A time-out was completed verifying correct patient, procedure, site, positioning, and implant(s) or special equipment if applicable. The patient was placed in a dependent position appropriate for triple lumen catheter placement based on the vein to be cannulated. The patient's left groin was prepped and draped in sterile fashion. 1% Lidocaine was used to anesthetize the surrounding skin area. A triple lumen 9F Cordis catheter was introduced into the common femoral vein using Seldinger technique. The catheter was threaded smoothly over the guide wire and appropriate blood return was obtained. Each lumen of the catheter was evacuated of air and flushed with sterile saline. The catheter was then sutured in place to the skin and a sterile dressing applied. Perfusion to the extremity distal to the point of catheter insertion was checked and found to be adequate. A left femoral vein triple-lumen catheter was placed. There was no immediate complication. The catheter was sutured in place. A sterile dressing was applied by the nurse. There was good blood return from all 3 ports. The patient tolerated procedure well. Sterile dressing was applied. No additional recommendations are made. MMODL / IJN: [id number] /
[2019-10-05 12:00] LABS: Glucose,Whole Blood 133 mg/dL (75-99)
[2019-10-05] MEDS: FERROUS SULFATE 325 MG TAB PO SCH ×2 (12:30→20:18)
[2019-10-05] MEDS: ATENOLOL 25 MG TAB PO SCH ×2 (12:30→20:18)
[2019-10-05] MEDS: PARoxetine 20 MG TAB PO SCH (12:32)
[2019-10-05] MEDS: LITHIUM CARBONATE 300 MG CAP PO SCH ×2 (12:32→20:18)
[2019-10-05] MEDS: POTASSIUM CHLORIDE ER 10 MEQ TAB.ER.PRT PO SCH (12:32)
[2019-10-05] MEDS: SENNOSIDES-DOCUSATE SODIUM 1 EACH TAB PO SCH (12:32)
[2019-10-05] MEDS: TRIAMTERENE-HCTZ 37.5-25MG 1 EACH CAP PO SCH (12:32)
--- NOTE | 2019-10-05 12:41 | PN ---
PROGRESS NOTE She was seen again on 10/05/2019. She continues to remain somnolent and on BiPAP PHYSICAL EXAMINATION: Her vitals are stable. She is afebrile. BiPAP is in place. Chest reveals decreased breath sounds. Cardiovascular system is S1, S2. Abdomen is soft. There is trace pedal edema. Labs and medications were reviewed. IMPRESSION: 1. Acute on chronic respiratory failure. 2. Metabolic encephalopathy. 3. Chronic obstructive pulmonary disease with exacerbation. 4. Obstructive sleep apnea and possibly obesity hypoventilation syndrome. At this point in time, would continue BiPAP, IV steroids bronchodilators, have her seen by Neurology, which we should put on consult. Depending on how she does we should make further changes to her care. She is not to be considered for CPR per her family's directives. MMODL / IJN: [id number] /
[2019-10-05 16:43] LABS: Glucose,Whole Blood 133 mg/dL (75-99)
[2019-10-05] MEDS ORDERED: WARFARIN 5 MG TAB NG-TUBE ONE (18:00)
[2019-10-05] MEDS: THEOPHYLLINE 24 HOUR 200 MG CAP.ER.24H PO SCH (20:18)
[2019-10-05] MEDS: ATORVASTATIN 20 MG TAB PO SCH (20:18)
[2019-10-05] MEDS: MONTELUKAST 10 MG TAB PO SCH (20:18)
[2019-10-05] MEDS: risperiDONE 1 MG TAB PO SCH (20:19)
[2019-10-06 01:18] LABS: Glucose,Whole Blood 130 mg/dL (75-99)
[2019-10-06] MEDS: INSULIN ASPART (NovoLOG) 100 UNIT/ML VIAL SQ SCH ×4 (01:18→17:44)
[2019-10-06] MEDS: SODIUM CHLORIDE 0.9% 1,000 ML IV SCH ×3 (01:18→22:23)
[2019-10-06] MEDS: methylPREDNISolone SOD SUCCI 125 MG/2 ML VIAL IV SCH ×3 (01:26→12:25)
[2019-10-06 05:53] LABS: Glucose,Whole Blood 133 mg/dL (75-99)
[2019-10-06] MEDS: CLEVIDIPINE BUTYRATE 25 MG in EMPTY BAG 1 BAG IV SCH ×2 (06:19→11:45)
[2019-10-06 06:21] LABS: Basophils % (A) 0 %; Eosinophils % (A) 0 %; HCT 39.9 % (34.0-46.0); HGB 12.8 gm/dL (11.4-16.0); Lymphocytes # (A) 0.8 k/uL (1.0-4.8); Lymphocytes % (A) 12 %; MCH 30.6 pg (25.0-35.0); MCHC 32.1 g/dL (31.0-37.0); MCV 95.2 fL (80.0-100.0); Mean Platelet Volume 7.2; Monocytes # (A) 0.4 k/uL (0-1.0); Monocytes % (A) 5 %; Neutrophils % (A) 82 %; Platelet Count 220 k/uL (150-450); RBC 4.19 m/uL (3.80-5.40); RDW 12.8 % (11.5-15.5); WBC 7.3 k/uL (3.8-10.6)
[2019-10-06 06:33] LABS: Albumin 3.4 g/dL (3.5-5.0); Calcium 8.6 mg/dL (8.4-10.2); Potassium 2.8 mmol/L (3.5-5.1); Total Protein 5.7 g/dL (6.3-8.2)
[2019-10-06 06:57] LABS: INR 1.2 (<1.2); Prothrombin Time 12.3 sec (9.0-12.0)
[2019-10-06] MEDS ORDERED: Potassium Replacement Protocol 1 EACH MISC MISCELLANE PRN (07:25)
[2019-10-06] MEDS ORDERED: Magnesium Replacement Protocol 1 EACH MISC MISCELLANE PRN (07:25)
[2019-10-06] MEDS: BUDESONIDE 1 MG/2 ML NEBU INHALATION SCH ×2 (07:29→20:30)
[2019-10-06] MEDS: FORMOTEROL FUMARATE 20 MCG/2 ML NEBU INHALATION SCH ×2 (07:29→20:30)
[2019-10-06] MEDS: IPRATROPIUM-ALBUTEROL 3 ML NEB INHALATION SCH ×4 (07:30→20:30)
[2019-10-06] MEDS: MAGNESIUM SULFATE-D5W PMX 1 GM in DEXTROSE/WATER 1 100ML.BAG IVPB SCH ×3 (07:52→10:25)
[2019-10-06] MEDS: POTASSIUM CHLORIDE 20 MEQ in WATER FOR INJECTION 1 100ML.BAG IVPB SCH ×3 (07:56→13:16)
[2019-10-06] MEDS: AZITHROMYCIN 500 MG in SODIUM CHLORIDE 0.9% 250 ML IVPB SCH (08:02)
[2019-10-06] MEDS: HEPARIN SODIUM,PORCINE 5,000 UNIT/ML 1 ML VIAL SQ SCH (08:13)
[2019-10-06] MEDS: FAMOTIDINE 20 MG/2 ML VIAL IV SCH (08:13)
[2019-10-06] MEDS: NICOTINE 21MG/24HR PATCH TRANSDERM SCH (08:18)
[2019-10-06] MEDS ORDERED: ACETAMINOPHEN IV (For NPO) 1,000 MG in EMPTY BAG 1 BAG IVPB PRN (08:29)
--- NOTE | 2019-10-06 09:32 | XR ---
EXAMINATION TYPE: XR chest 1V portable DATE OF EXAM: 10/06/2019 COMPARISON: 10/05/2019 HISTORY: COPD TECHNIQUE: Single frontal view of the chest is obtained. FINDINGS: Subsegmental basilar changes. No overt failure or pneumothorax. Atherosclerotic change aor ta. Arthropathy of the shoulders. Heart size stable. IMPRESSION: 1. Stable basilar atelectasis versus infiltrate.
[2019-10-06] MEDS: ATENOLOL 25 MG TAB PO SCH ×2 (10:20→21:23)
[2019-10-06] MEDS: TRIAMTERENE-HCTZ 37.5-25MG 1 EACH CAP PO SCH (10:21)
[2019-10-06] MEDS: SENNOSIDES-DOCUSATE SODIUM 1 EACH TAB PO SCH (10:21)
[2019-10-06] MEDS: FERROUS SULFATE 325 MG TAB PO SCH ×2 (10:21→21:23)
[2019-10-06] MEDS: LITHIUM CARBONATE 300 MG CAP PO SCH ×2 (10:21→21:23)
[2019-10-06] MEDS: POTASSIUM CHLORIDE ER 10 MEQ TAB.ER.PRT PO SCH (10:21)
[2019-10-06] MEDS: PARoxetine 20 MG TAB PO SCH (10:21)
[2019-10-06 12:05] LABS: Glucose,Whole Blood 174 mg/dL (75-99)
[2019-10-06] MEDS ORDERED: ENOXAPARIN 80 MG/0.8 ML SYRINGE SQ SCH (12:45)
--- NOTE | 2019-10-06 12:51 | P.PN ---
Subjective Progress Note Date: 10/06/19 79-year-old female patient with known history of COPD, severe with an FEV1 of 42% of predicted. The patient has been in intensive care unit for an acute COPD exacerbation. The patient has a DNR/DNI CODE STATUS. The patient during the course of that she required BiPAP for respiratory support. She has chronic hypoxic and hypercapnic respiratory failure. She is currently on 3 L per minute nasal cannula and she is quite comfortable. She is a chronic smoker and she is on nicotine patch for smoking cessation. She has a triple lumen catheter in her left groin. She has a previous history of left breast cancer with previous mastectomy and she has had previous history of DVT and hypertension and hyp erlipidemia and she has also a chest x-ray that showed no acute abnormalities and this shows some stable atelectatic changes in lung bases. This morning, the patient is awake and responsive and she answers with one word occasionally and this is a change compared to her condition yesterday where she was nontender responding at all. Of the brain showed mild age-related atrophy and moderate complement changes and chronic small vessel ischemic change. No other acute abnormalities was noted. 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 In terms of her COPD exacerbation, she is on DuoNeb nebulized treatments around the clock, she is on Pulmicort Respules were performed at the last 2 minutes twice a day, she is on Effexor for blood pressure control at 2 mg an hour. She is also on IV Solu Medrol 60 mg every 6 hours. Antibiotic coverage includes Zithromax. She is also on long-term articulation with warfarin for previous history of DVT and currently she is off the warfarin as the patient wasn't able to swallow and her INR today is at 1.2 Objective - Vital Signs Vital signs: Vital Signs Temp 100.9 F H 10/06/19 11:00 Pulse 87 10/06/19 11:15 Resp 25 H 10/06/19 11:00 BP 130/79 10/06/19 11:00 Pulse Ox 95 10/06/19 11:00 Intake & Output 10/05/19 10/06/19 10/06/19 18:59 06:59 18:59 Intake Total 3536.744 6663.333 1371.733 Output Total 2165 2225 1250 Balance -655.267 -875.667 121.733 Weight 87.8 kg Intake: IV 1200 1300 500 Sodium Chloride 0.9% 1, 1200 1300 500 000 ml @ 100 mls/hr IV . Q10H [facility] Rx#:[id number] Intake, IV Titration 309.733 49.333 871.733 Amount ACETAMINOPHEN IV (For NPO 100 ) 1,000 mg In Empty Bag 1 bag @ 400 mls/hr IVPB Q6HR PRN Rx#:[id number] Azithromycin 500 mg In 250 250 Sodium Chloride 0.9% 250 ml @ 250 mls/hr IVPB DAILY [facility] Rx#:[id number] Clevidipine Butyrate 25 59.733 49.333 21.733 mg In Empty Bag 1 bag @ 2 MG/HR 4 mls/hr IV . [id number] [facility] Rx#:[id number] Magnesium Sulfate-D5w Pmx 300 1 gm In Dextrose/Water 1 100ml.bag @ 100 mls/hr IVPB Q1H [facility] Rx#: [id number] Potassium Chloride 20 meq 200 In Water For Injection 1 100ml.bag @ 50 mls/hr IVPB Q2H [facility] Rx#: [id number] Output: Urine 2165 2225 1250 Other: Voiding Method Indwelling Catheter Indwelling Catheter Indwelling Catheter - Exam Gen. appearance the patient is calm and comfortable, more responsive compared to yesterday. Head exam was generally normal. There was no scleral icterus or corneal arcus. Mucous membranes were moist. Neck was supple and without jugular venous distension, thyromegaly, or carotid bruits. Carotids were easily palpable bilaterally. There was no adenopathy. Lungs are diminished breath sounds bilaterally along with prolongation of exhalation phase of breathing. Abdominal exam revealed normal bowel sounds. The abdomen was soft, non-tender, and without masses, organomegaly, or appreciable enlargement of the abdominal aorta. Cardiac exam revealed the PMI to be normally situated and sized. The rhythm was regular and no extrasystoles were noted during several minutes of auscultation. The first and second heart sounds were normal and physiologic splitting of the second heart sound was noted. There were no murmurs, rubs, clicks, or gallops. Abdominal exam revealed normal bowel sounds. The abdomen was soft, non-tender, and without masses, organomegaly, or appreciable enlargement of the abdominal aorta. Examination of the extremities revealed easily palpable radial, femoral and pedal pulses. There was no cyanosis, clubbing or edema. - Labs CBC & Chem 7: 10/06/19 05:50 10/06/19 05:50 Labs: Abnormal Lab Results - Last 24 Hours (Table) 10/05/19 10/06/19 10/06/19 Range/Units 16:42 01:17 05:50 Lymphocytes # 0.8 L (1.0-4.8) k/uL PT (9.0-12.0) sec INR (<1.2) Sodium (137-145) mmol/L Potassium (3.5-5.1) mmol/L Carbon Dioxide (22-30) mmol/L BUN (7-17) mg/dL Glucose (74-99) mg/dL POC Glucose (mg/dL) 133 H 130 H (75-99) mg/dL Total Protein (6.3-8.2) g/dL Albumin (3.5-5.0) g/dL 10/06/19 10/06/19 10/06/19 Range/Units 05:50 05:52 06:25 Lymphocytes # (1.0-4.8) k/uL PT 12.3 H (9.0-12.0) sec INR 1.2 H (<1.2) Sodium 148 H (137-145) mmol/L Potassium 2.8 L (3.5-5.1) mmol/L Carbon Dioxide 37 H (22-30) mmol/L BUN 28 H (7-17) mg/dL Glucose 139 H (74-99) mg/dL POC Glucose (mg/dL) 133 H (75-99) mg/dL Total Protein 5.7 L (6.3-8.2) g/dL Albumin 3.4 L (3.5-5.0) g/dL 10/06/19 Range/Units 12:03 Lymphocytes # (1.0-4.8) k/uL PT (9.0-12.0) sec INR (<1.2) Sodium (137-145) mmol/L Potassium (3.5-5.1) mmol/L Carbon Dioxide (22-30) mmol/L BUN (7-17) mg/dL Glucose (74-99) mg/dL POC Glucose (mg/dL) 174 H (75-99) mg/dL Total Protein (6.3-8.2) g/dL Albumin (3.5-5.0) g/dL Assessment and Plan Plan: 1 severe COPD with acute exacerbation requiring bronchodilation, IV Solu-Medrol and BiPAP for respiratory support currently she is in oxygen at 2 L per minute with a chest x-ray showing some limited atelectatic changes in lung bases 2 chronic hypoxic respiratory failure 3 chronic hypercapnic respiratory failure 4 history of 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 CAT scan of the brain is showing chronic more vessel changes. 12 increased urine output probably related to a nephrogenic DI related to her psychiatric medications. Nephrogenic DI related to low potassium level is another consideration. 13 hypernatremia likely secondary to urine output increase, consider underlying diabetes insipidus Plan 1 start the patient on Lovenox therapeutic dose 1 mg per KG every 12 hours and hold the warfarin 2 insert an NG tube 3 continue treatment of 60 COPD exacerbation with a combination of bronchodilators and steroids 4 monitor sodium level and urine output 5 continue IV fluids in the form of 0.45 at the rate of 100 mL an hour 6 replace potassium 7 consult nephrology regarding the possibility of a nephrogenic diabetes insipidus 8 we'll continue to follow
--- NOTE | 2019-10-06 12:52 | P.PN ---
Subjective Progress Note Date: 10/06/19 Patient originally presented to the ER on 10/02/2019. Patient was evaluated for increased shortness of breath. Patient does have known past medical history of advanced COPD, asthma, DVT, hypertension, kidney infection, left breast cancer, breast surgery, tonsillectomy, total left knee arthroplasty bipolar anxiety and depression. Patient also has a history of nicotine dependence. Patient was transferred to the intensive care unit for pulmonary services were consulted and patient placed on BiPAP support. Patient has had increased lethargy and neurology services consulted. Patient was started on azithromycin and Solu- Medrol. Dr. RODERICK Miguel covering for Dr. Kong untill 10/06/2019 On 10/06/2019 patient remains in the intensive care unit. Per nursing staff patient is slightly more alert today than yesterday. Critical care services are following. Potassium replacement protocol. Patient remains on Cleviprex to elevated blood pressure. Patient remains on IV Solu-Medrol and IV antibiotics. Objective - Vital Signs Vital signs: Vital Signs Temp 100.9 F H 10/06/19 11:00 Pulse 87 10/06/19 11:15 Resp 25 H 10/06/19 11:00 BP 130/79 10/06/19 11:00 Pulse Ox 95 10/06/19 11:00 Intake & Output 10/05/19 10/06/19 10/06/19 18:59 06:59 18:59 Intake Total 0515.528 5447.333 1371.733 Output Total 2165 2225 1250 Balance -655.267 -875.667 121.733 Weight 87.8 kg Intake: IV 1200 1300 500 Sodium Chloride 0.9% 1, 1200 1300 500 000 ml @ 100 mls/hr IV . Q10H [facility] Rx#:[id number] Intake, IV Titration 309.733 49.333 871.733 Amount ACETAMINOPHEN IV (For NPO 100 ) 1,000 mg In Empty Bag 1 bag @ 400 mls/hr IVPB Q6HR PRN Rx#:[id number] Azithromycin 500 mg In 250 250 Sodium Chloride 0.9% 250 ml @ 250 mls/hr IVPB DAILY [facility] Rx#:[id number] Clevidipine Butyrate 25 59.733 49.333 21.733 mg In Empty Bag 1 bag @ 2 MG/HR 4 mls/hr IV . [id number] [facility] Rx#:[id number] Magnesium Sulfate-D5w Pmx 300 1 gm In Dextrose/Water 1 100ml.bag @ 100 mls/hr IVPB Q1H [facility] Rx#: [id number] Potassium Chloride 20 meq 200 In Water For Injection 1 100ml.bag @ 50 mls/hr IVPB Q2H [facility] Rx#: [id number] Output: Urine 2165 2225 1250 Other: Voiding Method Indwelling Catheter Indwelling Catheter Indwelling Catheter - Exam Head normocephalic Neck supple Lungs clear to auscultation bilaterally no wheezing or crackles Heart regular rate and rhythm S1-S2, no rub or gallop Abdomen is soft nontender nondistended positive bowel sounds no hepatosplenomegaly Extremities no edema Neuro alert and orientated to 0. Does wake up does not follow any commands - Labs CBC & Chem 7: 10/06/19 05:50 10/06/19 05:50 Labs: Abnormal Lab Results - Last 24 Hours (Table) 10/05/19 10/06/19 10/06/19 Range/Units 16:42 01:17 05:50 Lymphocytes # 0.8 L (1.0-4.8) k/uL PT (9.0-12.0) sec INR (<1.2) Sodium (137-145) mmol/L Potassium (3.5-5.1) mmol/L Carbon Dioxide (22-30) mmol/L BUN (7-17) mg/dL Glucose (74-99) mg/dL POC Glucose (mg/dL) 133 H 130 H (75-99) mg/dL Total Protein (6.3-8.2) g/dL Albumin (3.5-5.0) g/dL 10/06/19 10/06/19 10/06/19 Range/Units 05:50 05:52 06:25 Lymphocytes # (1.0-4.8) k/uL PT 12.3 H (9.0-12.0) sec INR 1.2 H (<1.2) Sodium 148 H (137-145) mmol/L Potassium 2.8 L (3.5-5.1) mmol/L Carbon Dioxide 37 H (22-30) mmol/L BUN 28 H (7-17) mg/dL Glucose 139 H (74-99) mg/dL POC Glucose (mg/dL) 133 H (75-99) mg/dL Total Protein 5.7 L (6.3-8.2) g/dL Albumin 3.4 L (3.5-5.0) g/dL 10/06/19 Range/Units 12:03 Lymphocytes # (1.0-4.8) k/uL PT (9.0-12.0) sec INR (<1.2) Sodium (137-145) mmol/L Potassium (3.5-5.1) mmol/L Carbon Dioxide (22-30) mmol/L BUN (7-17) mg/dL Glucose (74-99) mg/dL POC Glucose (mg/dL) 174 H (75-99) mg/dL Total Protein (6.3-8.2) g/dL Albumin (3.5-5.0) g/dL Assessment and Plan Assessment: 1. Acute on chronic respiratory failure secondary to COPD exacerbation 2. Metabolic encephalopathy. Neurology services have been consulted but are unavailable until 113. EEG has been ordered 3. Acute on chronic hypoxemic and hypercapnic respiratory failure. Patient maintained on BiPAP 4. Nicotine dependence 5. History of left breast cancer status post left mastectomy 6. History of deep vein thrombosis maintained on Coumadin. Unable to take at this time. Patient on bridging Lovenox 7. History of macular degeneration 8. History of hyperlipidemia. Maintained on statin 9. History of essential hypertension. Patient currently maintained on Cleviprex for pressure control 10. Previous history of pneumonia 11. Hypokalemia. Replace per protocol 12. Febrile. Elevated temperature 100. Blood cultures have been ordered by critical care patient seen on azithromycin DVT prophylaxis Lovenox bridging until Coumadin can be given. GI prophylaxis Pepcid Critical care and pulmonary service is following. EEG has been ordered. Blood cultures ordered I performed an examination of the patient and discussed their management with the Nurse Practitioner. I have reviewed the Nurse Practitioner's notes and agree with the documented findings and plan of care
[2019-10-06] MEDS: CHLORHEXIDINE GLUCONATE 15 ML CUP MUCOUS MEM SCH ×2 (13:07→22:30)
[2019-10-06] MEDS: SODIUM CHLORIDE 0.45% 1,000 ML IV SCH (13:18)
[2019-10-06] MEDS ORDERED: DESMOPRESSIN ACETATE 2 MCG in SODIUM CHLORIDE 0.9% 50 ML IVPB ONE (13:45)
--- NOTE | 2019-10-06 14:08 | P.NPCON ---
History of Present Illness - Reason for Consult hypernatremia - History of Present Illness Reason for consultation: Hypernatremia History of present illness: Patient is a 79-year-old female seen in renal consultation for hypernatremia. Patient presented to the hospital on 10/01/2019 shortness of breath. She is being treated for COPD exacerbation. Patient is an active smoker. Currently she is resting in bed. Patient is quite confused and not a reliable historian at this time. The patient's urine output has been anywhere from 100-400 mL an hour. In the last 24 hours her urine output is documented as 4390 mL. She is not on any diuretics. However patient is maintained on lithium 300 mg twice daily. Her lithium level as of 10/05/2019 was 0.3. She is not drinking excessive amounts of water. Patient's actually nothing by mouth at this time as she failed her swallow evaluation this morning. GFR is currently at baseline. She was maintained on normal saline which was changed over to half-normal saline at 100 mL an hour this morning. Potassium level is 2.8 which is being replaced. Calcium level is normal at 8.6. She is not a diabetic. Blood sugars are not too high. Membranes CT done this admission revealed chronic small vessel ischemic disease. Vital signs are stable. General: The patient appeared well nourished and normally developed. HEENT: Head exam is unremarkable. Neck is without jugular venous distension. LUNGS: Lungs are clear to auscultation and percussion. Breath sounds decreased. HEART: Rate and Rhythm are regular. First and second heart sounds normal. No murmurs, rubs or gallops. ABDOMEN: Abdominal exam reveals normal bowel sounds. Non-tender and non-diste nded. No evidence of peritonitis. EXTREMITITES: No clubbing, cyanosis, or edema. Past Medical History Past Medical History: Cancer, COPD, Deep Vein Thrombosis (DVT), Eye Disorder, Hyperlipidemia, Hypertension, Pneumonia Additional Past Medical History / Comment(s): Recent kidney infection, L BREAST CANCER with SX , Bilateral MACULAR DEGENERATION, DVT R leg History of Any Multi-Drug Resistant Organisms: None Reported Past Surgical History: Breast Surgery, Joint Replacement, Tonsillectomy, Tubal Ligation Additional Past Surgical History / Comment(s): 07/04/16 Total L knee arthroplasty. Other surgical hx: LEFT MASTECTOMY, R total knee arthroplasty, bilateral cataract removal. Past Anesthesia/Blood Transfusion Reactions: Motion Sickness Past Psychological History: Anxiety, Depression Additional Psychological History / Comment(s): Pt states she is on meds for anxiety and depression that are helping. She sees Dr. Ortiz. She resides at home with her adult son and elderly father. She uses a walker to ambulate. She no longer drives-her girlfriend or her kaleb will take her to appts. She has a nebulizer. Smoking Status: Current every day smoker Past Alcohol Use History: None Reported Additional Past Alcohol Use History / Comment(s): STARTED SMOKING AGE 22 SMOKES over a 1PPD Past Drug Use History: None Reported - Past Family History Mother Family Medical History: Renal Disease Additional Family Medical History / Comment(s): Mother at the age of 84 yrs of kidney failure. Father Family Medical History: No Reported History Additional Family Medical History / Comment(s): Father at the age of 98yrs. Medications and Allergies Home Medications Medication Instructions Recorded Confirmed Type RX: Friendly Carbonate 300 mg PO BID 07/03/16 10/01/19 History RX: PARoxetine [Paxil] 20 mg PO DAILY 07/03/16 10/01/19 History RX: Potassium Chloride [K-Tab ER] 10 meq PO BID 07/03/16 10/01/19 History RX: Simvastatin 40 mg PO DAILY 07/03/16 10/01/19 History RX: risperiDONE [RisperDAL] 0.5 mg PO HS 07/03/16 10/01/19 History RX: Aspirin 325 mg PO DAILY #30 tab 07/05/16 10/01/19 Rx RX: LORazepam [Ativan] 1 mg PO BID PRN #20 tab 07/07/16 10/01/19 Rx Albuterol Inhaler [Ventolin Hfa 2 puff INHALATION RT-QID PRN 10/01/19 10/01/19 History Inhaler] Albuterol Nebulized [Ventolin 2.5 mg INHALATION RT-QID 10/01/19 10/01/19 History Nebulized] Ergocalciferol (Vitamin D2) 50,000 unit PO WE 10/01/19 10/01/19 History [Drisdol] RX: Atenolol 25 mg PO DAILY 10/01/19 10/01/19 History Triamterene-Hctz 37.5-25Mg 1 cap PO BID 10/01/19 10/01/19 History [Dyazide 37.5-25 Capsule] Allergies Allergy/AdvReac Type Severity Reaction Status Date / Time Penicillins Allergy Rash/Hives Verified 10/01/19 20:57 acetaminophen [From [facility]] AdvReac Nausea & Verified 10/01/19 20:57 Vomiting hydrocodone [From [facility]] AdvReac Nausea & Verified 10/01/19 20:57 Vomiting Sulfa (Sulfonamide AdvReac Nausea & Verified 10/01/19 20:57 Antibiotics) Vomiting Physical Exam Vitals: Vital Signs Temp Pulse Resp BP Pulse Ox 10/06/19 11:15 87 10/06/19 11:06 87 10/06/19 11:00 100.9 F H 87 25 H 130/79 95 10/06/19 10:00 100.8 F H 92 32 H 133/72 92 L 10/06/19 09:00 97 30 H 134/70 92 L 10/06/19 08:11 88 10/06/19 08:00 101 F H 89 27 H 122/70 97 10/06/19 07:43 83 10/06/19 07:42 83 10/06/19 07:30 85 10/06/19 07:00 84 30 H 98/56 91 L 10/06/19 06:00 87 15 106/57 91 L 10/06/19 05:00 92 12 118/60 91 L 10/06/19 04:00 97.9 F 81 22 117/59 90 L 10/06/19 03:00 85 24 123/64 91 L 10/06/19 02:00 92 22 112/59 89 L 10/06/19 01:00 91 12 92/55 90 L 10/06/19 00:00 98.4 F 79 20 103/53 92 L 10/05/19 23:01 103 H 23 117/66 90 L 10/05/19 22:00 101 H 24 126/60 90 L 10/05/19 21:30 93 16 119/62 93 L 10/05/19 21:05 84 10/05/19 21:00 90 25 H 89/47 90 L 10/05/19 20:56 80 10/05/19 20:55 80 10/05/19 20:40 84 10/05/19 20:30 82 19 129/55 89 L 10/05/19 20:05 97.6 F 79 19 131/70 90 L 10/05/19 20:00 81 14 136/73 90 L 10/05/19 19:00 99.1 F 83 23 135/62 90 L 10/05/19 18:00 89 10 L 137/78 90 L 10/05/19 17:00 77 24 132/75 91 L 10/05/19 16:15 80 10/05/19 16:01 82 10/05/19 16:00 99.1 F 81 23 156/76 89 L 10/05/19 15:00 92 23 145/73 91 L 10/05/19 14:00 67 30 H 129/72 91 L Intake and Output 10/05/19 10/06/19 10/06/19 22:59 06:59 14:59 Intake Total 923.933 333.397 9521.733 Output Total 1450 1375 1250 Balance -526.067 -525.667 121.733 Intake: IV 900 800 500 Sodium Chloride 0.9% 1, 900 800 500 000 ml @ 100 mls/hr IV . Q10H [facility] Rx#:[id number] Intake, IV Titration 23.933 49.333 871.733 Amount ACETAMINOPHEN IV (For NPO 100 ) 1,000 mg In Empty Bag 1 bag @ 400 mls/hr IVPB Q6HR PRN Rx#:[id number] Azithromycin 500 mg In 250 Sodium Chloride 0.9% 250 ml @ 250 mls/hr IVPB DAILY [facility] Rx#:[id number] Clevidipine Butyrate 25 23.933 49.333 21.733 mg In Empty Bag 1 bag @ 2 MG/HR 4 mls/hr IV . [id number] [facility] Rx#:[id number] Magnesium Sulfate-D5w Pmx 300 1 gm In Dextrose/Water 1 100ml.bag @ 100 mls/hr IVPB Q1H [facility] Rx#: [id number] Potassium Chloride 20 meq 200 In Water For Injection 1 100ml.bag @ 50 mls/hr IVPB Q2H [facility] Rx#: [id number] Output: Urine 1450 1375 1250 Other: Voiding Method Indwelling Catheter Indwelling Catheter Indwelling Catheter Weight 87.8 kg Results - Lab Results Most recent lab results ABG pH 7.40 (7.35-7.45) 10/05/19 07:05 ABG pCO2 55 mmHg (35-45) H 10/05/19 07:05 ABG pO2 61 mmHg (83-108) L 10/05/19 07:05 ABG HCO3 34 mmol/L (21-25) H 10/05/19 07:05 ABG O2 Saturation 91.8 % (94-97) L 10/05/19 07:05 Calcium 8.6 mg/dL (8.4-10.2) 10/06/19 05:50 Phosphorus 3.4 mg/dL (2.5-4.5) 10/04/19 05:29 Magnesium 2.3 mg/dL (1.6-2.3) 10/05/19 04:45 10/06/19 05:50 10/06/19 05:50 Assessment and Plan Plan: Assessment: 1. Hypernatremia. 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 Doubt primary polydipsia as the patient is currently nothing by mouth and her sodium is elevated. With primary polydipsia, patients are typically hyponatremic. 2. Hypokalemia from diuresis. 3. COPD exacerbation. 4. History of bipolar disorder and anxiety. 5. History of DVT. Plan: Check serum and urine osmolality and urine random sodium now. Since the patient is hypernatremic, ADH is maximally stimulated. I will give 2 g of IV DDAVP and recheck urine osmolality 30 minutes, 60 minutes in 2 hours after given. Replace potassium. Agree with changing from normal saline to half-normal saline. Speech eval today. Thank you for the consultation. I will continue to follow the patient with you during her hospital stay.
[2019-10-06] MEDS: ENOXAPARIN 40 MG/0.4 ML SYRINGE SQ SCH ×2 (14:46→22:20)
[2019-10-06 17:29] LABS: Glucose,Whole Blood 184 mg/dL (75-99)
[2019-10-06] MEDS ORDERED: WARFARIN 5 MG TAB NG-TUBE ONE (18:00)
[2019-10-06] MEDS: POTASSIUM CHLORIDE ER 20 MEQ TAB.ER PO SCH ×3 (19:07→22:21)
[2019-10-06] MEDS: THEOPHYLLINE 24 HOUR 200 MG CAP.ER.24H PO SCH (21:22)
[2019-10-06] MEDS: ATORVASTATIN 20 MG TAB PO SCH (21:23)
[2019-10-06] MEDS: MONTELUKAST 10 MG TAB PO SCH (21:24)
[2019-10-06] MEDS: methylPREDNISolone SOD SUCCI 40 MG/ML 1 ML VIAL IV SCH (21:24)
[2019-10-06] MEDS: risperiDONE 1 MG TAB PO SCH (21:28)
--- NOTE | 2019-10-06 23:11 | EEG ---
ELECTROENCEPHALOGRAM REPORT PROCEDURE DATED: 10/06/2019. ELECTROENCEPHALOGRAM (EEG) REPORT: TECHNIQUE: A routine 18 channel EEG was performed with video using the 10/20 international electrode placement system. HISTORY: COPD. Patient came to the ER with a cold and difficulty breathing, the patient became encephalopathic. CURRENT MEDICATIONS: Ultram, senna, Risperdal, Paxil, potassium chloride, Coumadin. STUDY DURATION: 20 minutes. FINDINGS: Please note that portions of this recording were limited interpretation by the presence of muscle artifact. BACKGROUND: The background frequencies consisted of poorly modulated 3-5 Hz waveforms. Please see section on abnormalities below. ACTIVATION: Hyperventilation: Not performed. Photic stimulation: Not performed. Sleep: Drowsy. ABNORMALITIES: 1. The most prominent abnormality of this recording was frequent runs of 2 hertz high amplitude generalized triphasic waves. During those portions, background frequencies were in the delta range. 2. The findings of number 1 alternated with periods of diffuse synchronous and asynchronous 3-6 hertz slow wave activity. IMPRESSION: Limited study, abnormal EEG. The triphasic waves mentioned above are not epileptiform in nature. Triphasic waves can be seen in the setting of a metabolic encephalopathy. The diffuse synchronous and asynchronous theta delta range slowing mentioned above is not epileptiform in nature. In combination, these findings indicate moderate to severe diffuse cerebral dysfunction as may be seen in a toxometabolic encephalopathy. No seizures were recorded. No epileptiform activity was present. MMODL / IJN: [id number] / MTDD
[2019-10-07 00:26] LABS: Glucose,Whole Blood 188 mg/dL (75-99)
[2019-10-07] MEDS: INSULIN ASPART (NovoLOG) 100 UNIT/ML VIAL SQ SCH ×4 (00:38→17:15)
[2019-10-07] MEDS: SODIUM CHLORIDE 0.45% 1,000 ML IV SCH ×2 (00:40→09:37)
[2019-10-07] MEDS: CLEVIDIPINE BUTYRATE 25 MG in EMPTY BAG 1 BAG IV SCH (00:58)
[2019-10-07] MEDS ORDERED: POTASSIUM CHLORIDE ER 20 MEQ TAB.ER PO SCH (03:00)
[2019-10-07 05:39] LABS: Basophils # (A) 0.3 k/uL (0-0.2); Basophils % (A) 3 %; Eosinophils % (A) 0 %; HCT 37.7 % (34.0-46.0); Hypochromasia Slight; Lymphocytes # (A) 1.1 k/uL (1.0-4.8); Lymphocytes % (A) 10 %; MCH 31.6 pg (25.0-35.0); MCHC 31.8 g/dL (31.0-37.0); MCV 99.3 fL (80.0-100.0); Mean Platelet Volume 7.3; Monocytes # (A) 0.7 k/uL (0-1.0); Monocytes % (A) 6 %; Neutrophils # (A) 8.9 k/uL (1.3-7.7); Neutrophils % (A) 80 %; Platelet Count 232 k/uL (150-450); RDW 12.8 % (11.5-15.5); WBC 11.2 k/uL (3.8-10.6)
[2019-10-07 05:47] LABS: INR 1.1 (<1.2); Prothrombin Time 11.8 sec (9.0-12.0)
[2019-10-07 05:51] LABS: ALT 14 U/L (4-34); AST 26 U/L (14-36); African American GFR (CKD) >90 (>60 ml/min/1.73 sqM); Albumin 2.8 g/dL (3.5-5.0); Alkaline Phosphatase 41 U/L (38-126); Anion Gap 5 mmol/L; Blood Urea Nitrogen 28 mg/dL (7-17); Carbon Dioxide 29 mmol/L (22-30); Chloride 107 mmol/L (98-107); Glucose 151 mg/dL (74-99); Magnesium 2.4 mg/dL (1.6-2.3); Non-African American GFR(CKD) 86 (>60 ml/min/1.73 sqM); Sodium 141 mmol/L (137-145); Total Bilirubin 0.9 mg/dL (0.2-1.3); Total Protein 4.9 g/dL (6.3-8.2)
[2019-10-07 06:00] LABS: Glucose,Whole Blood 149 mg/dL (75-99)
[2019-10-07] MEDS: SODIUM CHLORIDE 0.9% 1,000 ML IV SCH ×2 (07:01→09:15)
[2019-10-07] MEDS: BUDESONIDE 1 MG/2 ML NEBU INHALATION SCH ×2 (08:32→20:50)
[2019-10-07] MEDS: FORMOTEROL FUMARATE 20 MCG/2 ML NEBU INHALATION SCH ×2 (08:32→20:50)
[2019-10-07] MEDS: IPRATROPIUM-ALBUTEROL 3 ML NEB INHALATION SCH ×4 (08:33→20:50)
[2019-10-07] MEDS: NICOTINE 21MG/24HR PATCH TRANSDERM SCH (08:50)
[2019-10-07] MEDS: ATENOLOL 25 MG TAB PO SCH ×2 (08:51→20:43)
[2019-10-07] MEDS: AZITHROMYCIN 500 MG in SODIUM CHLORIDE 0.9% 250 ML IVPB SCH (08:51)
[2019-10-07] MEDS: CHLORHEXIDINE GLUCONATE 15 ML CUP MUCOUS MEM SCH (08:51)
[2019-10-07] MEDS: FAMOTIDINE 20 MG/2 ML VIAL IV SCH (08:52)
[2019-10-07] MEDS: FERROUS SULFATE 325 MG TAB PO SCH ×2 (08:52→20:44)
[2019-10-07] MEDS: PARoxetine 20 MG TAB PO SCH (08:52)
[2019-10-07] MEDS: LITHIUM CARBONATE 300 MG CAP PO SCH ×2 (08:52→20:44)
[2019-10-07] MEDS: SENNOSIDES-DOCUSATE SODIUM 1 EACH TAB PO SCH (08:52)
[2019-10-07] MEDS: methylPREDNISolone SOD SUCCI 40 MG/ML 1 ML VIAL IV SCH (08:52)
[2019-10-07] MEDS ORDERED: ENOXAPARIN 100 MG/ML SYRINGE SQ SCH (09:00)
[2019-10-07] MEDS: TRIAMTERENE-HCTZ 37.5-25MG 1 EACH CAP PO SCH (09:02)
--- NOTE | 2019-10-07 09:02 | P.PN ---
Subjective Patient is seen in follow-up for hyponatremia. Sodium level 141 today. She is currently being fed. Feels tired. Vital signs are stable. General: The patient appeared well nourished and normally developed. HEENT: Head exam is unremarkable. Neck is without jugular venous distension. LUNGS: Lungs are clear to auscultation and percussion. Breath sounds decreased. HEART: Rate and Rhythm are regular. First and second heart sounds normal. No murmurs, rubs or gallops. ABDOMEN: Abdominal exam reveals normal bowel sounds. Non-tender and non-diste nded. No evidence of peritonitis. EXTREMITITES: No clubbing, cyanosis, or edema. Objective - Vital Signs Vital signs: Vital Signs Temp 98.6 F 10/07/19 04:00 Pulse 62 10/07/19 08:34 Resp 22 10/07/19 07:00 BP 133/79 10/07/19 07:00 Pulse Ox 95 10/07/19 07:00 Intake & Output 10/06/19 10/07/19 10/07/19 18:59 06:59 18:59 Intake Total 2321.733 2454.6 100 Output Total 1723 405 20 Balance 898.713 6827.6 80 Weight 90.1 kg Intake: IV 600 Sodium Chloride 0.9% 1, 600 000 ml @ 100 mls/hr IV . Q10H [facility] Rx#:[id number] Intake, IV Titration 0493.691 0980.6 100 Amount ACETAMINOPHEN IV (For NPO 100 ) 1,000 mg In Empty Bag 1 bag @ 400 mls/hr IVPB Q6HR PRN Rx#:[id number] Azithromycin 500 mg In 250 Sodium Chloride 0.9% 250 ml @ 250 mls/hr IVPB DAILY [facility] Rx#:[id number] Clevidipine Butyrate 25 21.733 54.6 mg In Empty Bag 1 bag @ 2 MG/HR 4 mls/hr IV . [id number] [facility] Rx#:[id number] Desmopressin Acetate 2 50 mcg In Sodium Chloride 0. 9% 50 ml @ 200 mls/hr IVPB ONCE ONE Rx#: [id number] Magnesium Sulfate-D5w Pmx 300 1 gm In Dextrose/Water 1 100ml.bag @ 100 mls/hr IVPB Q1H [facility] Rx#: [id number] Potassium Chloride 20 meq 200 In Water For Injection 1 100ml.bag @ 50 mls/hr IVPB Q2H [facility] Rx#: [id number] Sodium Chloride 0.45% 1, 700 1200 100 000 ml @ 100 mls/hr IV . Q10H [facility] Rx#:[id number] Oral 100 1200 Output: Urine 1723 405 20 Other: Voiding Method Indwelling Catheter Indwelling Catheter - Labs CBC & Chem 7: 10/07/19 05:07 10/07/19 05:07 Labs: Abnormal Lab Results - Last 24 Hours (Table) 10/06/19 10/06/19 10/06/19 Range/Units 12:03 13:43 15:59 WBC (3.8-10.6) k/uL Neutrophils # (1.3-7.7) k/uL Basophils # (0-0.2) k/uL Potassium 2.9 L (3.5-5.1) mmol/L BUN (7-17) mg/dL Glucose (74-99) mg/dL POC Glucose (mg/dL) 174 H (75-99) mg/dL Osmolality 320 H (280-301) mosm/kg Calcium (8.4-10.2) mg/dL Magnesium (1.6-2.3) mg/dL Total Protein (6.3-8.2) g/dL Albumin (3.5-5.0) g/dL 10/06/19 10/06/19 10/07/19 Range/Units 15:59 17:28 00:25 WBC (3.8-10.6) k/uL Neutrophils # (1.3-7.7) k/uL Basophils # (0-0.2) k/uL Potassium (3.5-5.1) mmol/L BUN (7-17) mg/dL Glucose (74-99) mg/dL POC Glucose (mg/dL) 184 H 188 H (75-99) mg/dL Osmolality (280-301) mosm/kg Calcium (8.4-10.2) mg/dL Magnesium 2.7 H (1.6-2.3) mg/dL Total Protein (6.3-8.2) g/dL Albumin (3.5-5.0) g/dL 10/07/19 10/07/19 10/07/19 Range/Units 05:07 05:07 05:59 WBC 11.2 H (3.8-10.6) k/uL Neutrophils # 8.9 H (1.3-7.7) k/uL Basophils # 0.3 H (0-0.2) k/uL Potassium (3.5-5.1) mmol/L BUN 28 H (7-17) mg/dL Glucose 151 H (74-99) mg/dL POC Glucose (mg/dL) 149 H (75-99) mg/dL Osmolality (280-301) mosm/kg Calcium 8.0 L (8.4-10.2) mg/dL Magnesium 2.4 H (1.6-2.3) mg/dL Total Protein 4.9 L (6.3-8.2) g/dL Albumin 2.8 L (3.5-5.0) g/dL Assessment and Plan Plan: Assessment: 1. Hypernatremia. Patient's urine osmolality was 469 with no significant increase after desmopressin was given. Her urine sodium was also high at 94. This is most consistent with solute diuresis which can be from the normal saline infusion that she was receiving. 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 Doubt pr imary polydipsia as the patient has not been drinking much water and sodium would be expected to be low. 2. Hypokalemia from diuresis. Status post replacement. Better. 3. COPD exacerbation. 4. History of bipolar disorder and anxiety. 5. History of DVT. Plan: Discontinue half normal saline. Start normal saline at 50 mL an hour. Encourage oral intake.
[2019-10-07] MEDS: POTASSIUM CHLORIDE ER 10 MEQ TAB.ER.PRT PO SCH (09:31)
--- NOTE | 2019-10-07 09:40 | P.PN ---
Subjective Progress Note Date: 10/07/19 Principal diagnosis: Severe COPD exacerbation, altered mentation, improved 79-year-old female patient with known history of COPD, severe with an FEV1 of 42% of predicted. The patient has been in intensive care unit for an acute COPD exacerbation. The patient has a DNR/DNI CODE STATUS. The patient during the course of that she required BiPAP for respiratory support. She has chronic hypoxic and hypercapnic respiratory failure. She is currently on 3 L per minute nasal cannula and she is quite comfortable. She is a chronic smoker and she is on nicotine patch for smoking cessation. She has a triple lumen catheter in her left groin. She has a previous history of left breast cancer with previous mastectomy and she has had previous history of DVT and hypertension and h yperlipidemia and she has also a chest x-ray that showed no acute abnormalities and this shows some stable atelectatic changes in lung bases. This morning, the patient is awake and responsive and she answers with one word occasionally and this is a change compared to her condition yesterday where she was nontender responding at all. Of the brain showed mild age-related atrophy and moderate complement changes and chronic small vessel ischemic change. No other acute abnormalities was noted. 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 In terms of her COPD exacerbation, she is on DuoNeb nebulized treatments around the clock, she is on Pulmicort Respules were performed at the last 2 minutes twice a day, she is on Effexor for blood pressure control at 2 mg an hour. She is also on IV Solu Medrol 60 mg every 6 hours. Antibiotic coverage includes Zithromax. She is also on long-term articulation with warfarin for previous history of DVT and currently she is off the warfarin as the patient wasn't able to swallow and her INR today is at 1.2 On 10/07/2019 patient is seen in follow-up in the intensive care unit, currently off BiPAP support, she is just on 2 L of oxygen with pulse ox of 95%, as significantly improved, patient is free of any signs of distress, or dyspnea, lung sounds reveal diminished breath sounds with occasional rhonchi and end expiratory wheezing, but overall less bronchospastic and less dyspneic. Low- grade fevers last night, patient remains on Zithromax antibiotic coverage, and today's labs have been reviewed, blood cell count was 11.2, hemoglobin is 12, INR is 1.1, electrolytes are within normal limits, BUN is 28 creatinine is 0.63. Nephrology is following, will profile remains stable, with serum sodium has improved. Since mentation has improved, she is much more awake, she is able to verbally respond to simple questions, she is disoriented to place and time. Objective - Vital Signs Vital signs: Vital Signs Temp 98.6 F 10/07/19 04:00 Pulse 70 10/07/19 09:00 Resp 22 10/07/19 07:00 BP 133/79 10/07/19 07:00 Pulse Ox 95 10/07/19 07:00 Intake & Output 10/06/19 10/07/19 10/07/19 18:59 06:59 18:59 Intake Total 2321.733 2454.6 100 Output Total 1723 405 20 Balance 738.556 0983.6 80 Weight 90.1 kg Intake: IV 600 Sodium Chloride 0.9% 1, 600 000 ml @ 100 mls/hr IV . Q10H [facility] Rx#:[id number] Intake, IV Titration 7153.803 2296.6 100 Amount ACETAMINOPHEN IV (For NPO 100 ) 1,000 mg In Empty Bag 1 bag @ 400 mls/hr IVPB Q6HR PRN Rx#:[id number] Azithromycin 500 mg In 250 Sodium Chloride 0.9% 250 ml @ 250 mls/hr IVPB DAILY [facility] Rx#:[id number] Clevidipine Butyrate 25 21.733 54.6 mg In Empty Bag 1 bag @ 2 MG/HR 4 mls/hr IV . [id number] [facility] Rx#:[id number] Desmopressin Acetate 2 50 mcg In Sodium Chloride 0. 9% 50 ml @ 200 mls/hr IVPB ONCE ONE Rx#: [id number] Magnesium Sulfate-D5w Pmx 300 1 gm In Dextrose/Water 1 100ml.bag @ 100 mls/hr IVPB Q1H [facility] Rx#: [id number] Potassium Chloride 20 meq 200 In Water For Injection 1 100ml.bag @ 50 mls/hr IVPB Q2H [facility] Rx#: [id number] Sodium Chloride 0.45% 1, 700 1200 100 000 ml @ 100 mls/hr IV . Q10H [facility] Rx#:[id number] Oral 100 1200 Output: Urine 1723 405 20 Other: Voiding Method Indwelling Catheter Indwelling Catheter - Exam GENERAL EXAM: Alert, pleasant, 79-year-old white female, on 2 L of oxygen and the pulse ox of 95% comfortable in no apparent distress. HEAD: Normocephalic/atraumatic. EYES: Normal reaction of pupils, equal size. Conjunctiva pink, sclera white. NOSE: Clear with pink turbinates. THROAT: No erythema or exudates. NECK: No masses, no JVD, no thyroid enlargement, no adenopathy. CHEST: No chest wall deformity. Symmetrical expansion. LUNGS: Equal air entry with some scattered rhonchi, and minimal end expiratory wheezes CVS: Regular rate and rhythm, normal S1 and S2, no gallops, no murmurs, no rubs ABDOMEN: Soft, nontender. No hepatosplenomegaly, normal bowel sounds, no guarding or rigidity. EXTREMITIES: No clubbing, no edema, no cyanosis, 2+ pulses and upper and lower extremities. MUSCULOSKELETAL: Muscle strength and tone normal. SPINE: No scoliosis or deformity SKIN: No rashes CENTRAL NERVOUS SYSTEM: Alert and oriented -1. No focal deficits, tone is normal in all 4 extremities. PSYCHIATRIC: Alert and oriented -1. Appropriate affect. Intact judgment and insight. - Labs CBC & Chem 7: 10/07/19 05:07 10/07/19 05:07 Labs: Abnormal Lab Results - Last 24 Hours (Table) 10/06/19 10/06/19 10/06/19 Range/Units 12:03 13:43 15:59 WBC (3.8-10.6) k/uL Neutrophils # (1.3-7.7) k/uL Basophils # (0-0.2) k/uL Potassium 2.9 L (3.5-5.1) mmol/L BUN (7-17) mg/dL Glucose (74-99) mg/dL POC Glucose (mg/dL) 174 H (75-99) mg/dL Osmolality 320 H (280-301) mosm/kg Calcium (8.4-10.2) mg/dL Magnesium (1.6-2.3) mg/dL Total Protein (6.3-8.2) g/dL Albumin (3.5-5.0) g/dL 10/06/19 10/06/19 10/07/19 Range/Units 15:59 17:28 00:25 WBC (3.8-10.6) k/uL Neutrophils # (1.3-7.7) k/uL Basophils # (0-0.2) k/uL Potassium (3.5-5.1) mmol/L BUN (7-17) mg/dL Glucose (74-99) mg/dL POC Glucose (mg/dL) 184 H 188 H (75-99) mg/dL Osmolality (280-301) mosm/kg Calcium (8.4-10.2) mg/dL Magnesium 2.7 H (1.6-2.3) mg/dL Total Protein (6.3-8.2) g/dL Albumin (3.5-5.0) g/dL 10/07/19 10/07/19 10/07/19 Range/Units 05:07 05:07 05:59 WBC 11.2 H (3.8-10.6) k/uL Neutrophils # 8.9 H (1.3-7.7) k/uL Basophils # 0.3 H (0-0.2) k/uL Potassium (3.5-5.1) mmol/L BUN 28 H (7-17) mg/dL Glucose 151 H (74-99) mg/dL POC Glucose (mg/dL) 149 H (75-99) mg/dL Osmolality (280-301) mosm/kg Calcium 8.0 L (8.4-10.2) mg/dL Magnesium 2.4 H (1.6-2.3) mg/dL Total Protein 4.9 L (6.3-8.2) g/dL Albumin 2.8 L (3.5-5.0) g/dL Assessment and Plan Plan: Assessment: 1 severe COPD with acute exacerbation requiring bronchodilation, IV Solu-Medrol and BiPAP for respiratory support currently she is in oxygen at 2 L per minute with a chest x-ray showing some limited atelectatic changes in lung bases 2 chronic hypoxic respiratory failure 3 chronic hypercapnic respiratory failure 4 history of 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 CAT scan of the brain is showing chronic more vessel changes. 12 increased urine output probably related to a nephrogenic DI related to her psychiatric medications. Nephrogenic DI related to low potassium level is another consideration. 13 hypernatremia likely secondary to urine output increase, consider underlying diabetes insipidus Plan: Continue current antibiotic coverage, continue IV steroids, nebulized bronchodi lators. Breathing is improving, patient is less dyspneic and bronchospastic, off BiPAP support, may utilize IPAP support as needed, continue empiric antibiotics, collect a sputum culture, electrolytes are improving, serum sodium has improved, mentation is improved, patient is awake and responding verbally to simple questions, still remains confused, and disoriented to place and time. Continue Lovenox, INR remains subtherapeutic. Obtain a swallow evaluation, supervision with meals, maintain a modified diet per each therapy recommendations. We will continue to follow I performed a history & physical examination of the patient and discussed their management with my nurse practitioner, Miriam Mcgee. I reviewed the nurse practitioner's note and agree with the documented findings and plan of care. Lung sounds are positive for a few scattered rhonchi and minimal wheezes. The findings and the impression was discussed with the patient. I attest to the documentation by the nurse practitioner. Time with Patient: Less than 30
--- NOTE | 2019-10-07 10:56 | P.PN ---
Subjective Progress Note Date: 10/07/19 Patient originally presented to the ER on 10/02/2019. Patient was evaluated for increased shortness of breath. Patient does have known past medical history of advanced COPD, asthma, DVT, hypertension, kidney infection, left breast cancer, breast surgery, tonsillectomy, total left knee arthroplasty bipolar anxiety and depression. Patient also has a history of nicotine dependence. Patient was transferred to the intensive care unit for pulmonary services were consulted and patient placed on BiPAP support. Patient has had increased lethargy and neurology services consulted. Patient was started on azithromycin and Solu- Medrol. Dr. RODERICK Miguel covering for Dr. Kong untill 10/06/2019 On 10/06/2019 patient remains in the intensive care unit. Per nursing staff patient is slightly more alert today than yesterday. Critical care services are following. Potassium replacement protocol. Patient remains on Cleviprex to elevated blood pressure. Patient remains on IV Solu-Medrol and IV antibiotics. On 10/07/2019 patient is more awake and alert today. Patient remains in the intensive care unit. Patient is confused at times but following commands. Patient was given desmopressin per nephrology. Cleviprex has been DC'd. Patient denies chest pain or shortness of breath. Patient denies nausea vomiting or diarrhea. Patient denies any urinary burning or frequency Objective - Vital Signs Vital signs: Vital Signs Temp 98.7 F 10/07/19 08:00 Pulse 73 10/07/19 09:00 Resp 40 H 10/07/19 09:00 BP 137/78 10/07/19 09:00 Pulse Ox 97 10/07/19 09:00 Intake & Output 10/06/19 10/07/19 10/07/19 18:59 06:59 18:59 Intake Total 2321.733 2454.6 450 Output Total 1723 405 45 Balance 769.977 3436.6 405 Weight 90.1 kg Intake: IV 600 Sodium Chloride 0.9% 1, 600 000 ml @ 100 mls/hr IV . Q10H [facility] Rx#:[id number] Intake, IV Titration 1532.261 3422.6 450 Amount ACETAMINOPHEN IV (For NPO 100 ) 1,000 mg In Empty Bag 1 bag @ 400 mls/hr IVPB Q6HR PRN Rx#:[id number] Azithromycin 500 mg In 250 250 Sodium Chloride 0.9% 250 ml @ 250 mls/hr IVPB DAILY [facility] Rx#:[id number] Clevidipine Butyrate 25 21.733 54.6 mg In Empty Bag 1 bag @ 2 MG/HR 4 mls/hr IV . [id number] [facility] Rx#:[id number] Desmopressin Acetate 2 50 mcg In Sodium Chloride 0. 9% 50 ml @ 200 mls/hr IVPB ONCE ONE Rx#: [id number] Magnesium Sulfate-D5w Pmx 300 1 gm In Dextrose/Water 1 100ml.bag @ 100 mls/hr IVPB Q1H [facility] Rx#: [id number] Potassium Chloride 20 meq 200 In Water For Injection 1 100ml.bag @ 50 mls/hr IVPB Q2H [facility] Rx#: [id number] Sodium Chloride 0.45% 1, 700 1200 100 000 ml @ 100 mls/hr IV . Q10H [facility] Rx#:[id number] Sodium Chloride 0.9% 1, 100 000 ml @ 50 mls/hr IV . Q20H [facility] Rx#:[id number] Oral 100 1200 Output: Urine 1723 405 45 Other: Voiding Method Indwelling Catheter Indwelling Catheter Indwelling Catheter - Exam Head normocephalic Neck supple Lungs clear to auscultation bilaterally no wheezing or crackles Heart regular rate and rhythm S1-S2, no rub or gallop Abdomen is soft nontender nondistended positive bowel sounds no hepatosplenomegaly Extremities no edema Neuro alert and awake. Follows commands - Labs CBC & Chem 7: 10/07/19 05:07 10/07/19 05:07 Labs: Abnormal Lab Results - Last 24 Hours (Table) 10/06/19 10/06/19 10/06/19 Range/Units 12:03 13:43 15:59 WBC (3.8-10.6) k/uL Neutrophils # (1.3-7.7) k/uL Basophils # (0-0.2) k/uL Potassium 2.9 L (3.5-5.1) mmol/L BUN (7-17) mg/dL Glucose (74-99) mg/dL POC Glucose (mg/dL) 174 H (75-99) mg/dL Osmolality 320 H (280-301) mosm/kg Calcium (8.4-10.2) mg/dL Magnesium (1.6-2.3) mg/dL Total Protein (6.3-8.2) g/dL Albumin (3.5-5.0) g/dL 10/06/19 10/06/19 10/07/19 Range/Units 15:59 17:28 00:25 WBC (3.8-10.6) k/uL Neutrophils # (1.3-7.7) k/uL Basophils # (0-0.2) k/uL Potassium (3.5-5.1) mmol/L BUN (7-17) mg/dL Glucose (74-99) mg/dL POC Glucose (mg/dL) 184 H 188 H (75-99) mg/dL Osmolality (280-301) mosm/kg Calcium (8.4-10.2) mg/dL Magnesium 2.7 H (1.6-2.3) mg/dL Total Protein (6.3-8.2) g/dL Albumin (3.5-5.0) g/dL 10/07/19 10/07/19 10/07/19 Range/Units 05:07 05:07 05:59 WBC 11.2 H (3.8-10.6) k/uL Neutrophils # 8.9 H (1.3-7.7) k/uL Basophils # 0.3 H (0-0.2) k/uL Potassium (3.5-5.1) mmol/L BUN 28 H (7-17) mg/dL Glucose 151 H (74-99) mg/dL POC Glucose (mg/dL) 149 H (75-99) mg/dL Osmolality (280-301) mosm/kg Calcium 8.0 L (8.4-10.2) mg/dL Magnesium 2.4 H (1.6-2.3) mg/dL Total Protein 4.9 L (6.3-8.2) g/dL Albumin 2.8 L (3.5-5.0) g/dL Assessment and Plan Assessment: 1. Acute on chronic respiratory failure secondary to COPD exacerbation 2. Metabolic encephalopathy. Neurology services have been consulted but are unavailable until 113. EEG has been ordered. Symptoms do appear to be improving 3. Acute on chronic hypoxemic and hypercapnic respiratory failure. Patient maintained on BiPAP 4. Nicotine dependence 5. History of left breast cancer status post left mastectomy 6. History of deep vein thrombosis maintained on Coumadin. Unable to take at this time. Patient on bridging Lovenox 7. History of macular degeneration 8. History of hyperlipidemia. Maintained on statin 9. History of essential hypertension. Patient currently maintained on Cleviprex for pressure control 10. Previous history of pneumonia 11. Hypokalemia. Replace per protocol. Resolved 12. Febrile. Elevated temperature 100. Blood cultures have been ordered by critical care patient seen on azithromycin 13. Hypernatremia. Patient was given desmopressin per nephrology services. Sodium level has improved DVT prophylaxis Lovenox bridging until Coumadin can be given. GI prophylaxis Pepcid Critical care, nephrology and pulmonary service is following. EEG has been ordered. Blood cultures ordered I performed an examination of the patient and discussed their management with the Nurse Practitioner. I have reviewed the Nurse Practitioner's notes and agree with the documented findings and plan of care
[2019-10-07 12:00] LABS: Glucose,Whole Blood 124 mg/dL (75-99)
[2019-10-07 17:12] LABS: Glucose,Whole Blood 154 mg/dL (75-99)
[2019-10-07 20:38] LABS: Glucose,Whole Blood 110 mg/dL (75-99)
[2019-10-07] MEDS: risperiDONE 1 MG TAB PO SCH (20:43)
[2019-10-07] MEDS: THEOPHYLLINE 24 HOUR 200 MG CAP.ER.24H PO SCH (20:43)
[2019-10-07] MEDS: ATORVASTATIN 20 MG TAB PO SCH (20:43)
[2019-10-07] MEDS: MONTELUKAST 10 MG TAB PO SCH (20:44)
[2019-10-08 05:02] LABS: Basophils # (A) 0.2 k/uL (0-0.2); Basophils % (A) 1 %; Eosinophils # (A) 0.1 k/uL (0-0.7); Eosinophils % (A) 1 %; HGB 11.2 gm/dL (11.4-16.0); Lymphocytes # (A) 2.5 k/uL (1.0-4.8); Lymphocytes % (A) 17 %; MCH 32.2 pg (25.0-35.0); MCV 97.3 fL (80.0-100.0); Mean Platelet Volume 7.5; Monocytes # (A) 0.5 k/uL (0-1.0); Monocytes % (A) 4 %; Neutrophils # (A) 11.4 k/uL (1.3-7.7); Neutrophils % (A) 77 %; Platelet Count 177 k/uL (150-450); RBC 3.49 m/uL (3.80-5.40); RDW 12.9 % (11.5-15.5); WBC 14.9 k/uL (3.8-10.6)
[2019-10-08 05:21] LABS: Albumin 2.5 g/dL (3.5-5.0); Calcium 7.8 mg/dL (8.4-10.2); Potassium 3.7 mmol/L (3.5-5.1); Total Bilirubin 0.6 mg/dL (0.2-1.3); Total Protein 4.4 g/dL (6.3-8.2)
[2019-10-08 06:01] LABS: Prothrombin Time 10.7 sec (9.0-12.0)
[2019-10-08] MEDS: BUDESONIDE 1 MG/2 ML NEBU INHALATION SCH ×2 (06:32→20:51)
[2019-10-08] MEDS: FORMOTEROL FUMARATE 20 MCG/2 ML NEBU INHALATION SCH ×2 (06:32→20:51)
[2019-10-08] MEDS: IPRATROPIUM-ALBUTEROL 3 ML NEB INHALATION SCH ×4 (06:32→20:51)
[2019-10-08] MEDS: INSULIN ASPART (NovoLOG) 100 UNIT/ML VIAL SQ SCH ×5 (06:53→21:51)
[2019-10-08 06:59] LABS: Glucose,Whole Blood 112 mg/dL (75-99)
[2019-10-08] MEDS: CHLORHEXIDINE GLUCONATE 15 ML CUP MUCOUS MEM SCH ×3 (07:15→21:46)
[2019-10-08] MEDS: NICOTINE 21MG/24HR PATCH TRANSDERM SCH (08:43)
[2019-10-08] MEDS: SENNOSIDES-DOCUSATE SODIUM 1 EACH TAB PO SCH (08:44)
[2019-10-08] MEDS: LITHIUM CARBONATE 300 MG CAP PO SCH ×2 (08:45→21:40)
[2019-10-08] MEDS: TRIAMTERENE-HCTZ 37.5-25MG 1 EACH CAP PO SCH (08:45)
[2019-10-08] MEDS: predniSONE 20 MG TAB PO SCH (08:45)
[2019-10-08] MEDS: ATENOLOL 25 MG TAB PO SCH ×2 (08:46→21:40)
[2019-10-08] MEDS: POTASSIUM CHLORIDE ER 10 MEQ TAB.ER.PRT PO SCH (08:46)
[2019-10-08] MEDS: PARoxetine 20 MG TAB PO SCH (08:46)
[2019-10-08] MEDS: ENOXAPARIN 40 MG/0.4 ML SYRINGE SQ SCH (08:47)
[2019-10-08] MEDS: FERROUS SULFATE 325 MG TAB PO SCH ×2 (08:48→21:40)
[2019-10-08] MEDS: FAMOTIDINE 20 MG/2 ML VIAL IV SCH (08:48)
[2019-10-08] MEDS: SODIUM CHLORIDE 0.9% 1,000 ML IV SCH (08:49)
[2019-10-08] MEDS: AZITHROMYCIN 500 MG in SODIUM CHLORIDE 0.9% 250 ML IVPB SCH (08:50)
[2019-10-08] MEDS ORDERED: ERGOCALCIFEROL 50,000 UNIT CAP PO SCH (09:00)
--- NOTE | 2019-10-08 09:44 | P.PN ---
Subjective Patient is seen in follow-up for hypernatremia. Sodium level stable at 141 today. Oral intake is fair. No vomiting or diarrhea. Vital signs are stable. General: The patient appeared well nourished and normally developed. HEENT: Head exam is unremarkable. Neck is without jugular venous distension. LUNGS: Lungs are clear to auscultation and percussion. Breath sounds decreased. HEART: Rate and Rhythm are regular. First and second heart sounds normal. No murmurs, rubs or gallops. ABDOMEN: Abdominal exam reveals normal bowel sounds. Non-tender and non- distended. No evidence of peritonitis. EXTREMITITES: No clubbing, cyanosis, or edema. Objective - Vital Signs Vital signs: Vital Signs Temp 98.5 F 10/08/19 04:00 Pulse 70 10/08/19 07:00 Resp 22 10/08/19 07:00 BP 125/65 10/08/19 07:00 Pulse Ox 993 H 10/08/19 07:00 Intake & Output 10/07/19 10/08/19 10/08/19 18:59 06:59 18:59 Intake Total 2000 800 350 Output Total 230 575 375 Balance 1770 225 -25 Weight 93 kg Intake: Intake, IV Titration 900 600 200 Amount Azithromycin 500 mg In 250 Sodium Chloride 0.9% 250 ml @ 250 mls/hr IVPB DAILY [facility] Rx#:[id number] Sodium Chloride 0.45% 1, 100 000 ml @ 100 mls/hr IV . Q10H [facility] Rx#:[id number] Sodium Chloride 0.9% 1, 550 600 200 000 ml @ 50 mls/hr IV . Q20H [facility] Rx#:[id number] Oral 1100 200 150 Output: Urine 230 575 375 Other: Voiding Method Indwelling Catheter Indwelling Catheter Indwelling Catheter # Bowel Movements 1 - Labs CBC & Chem 7: 10/08/19 04:35 10/08/19 04:35 Labs: Abnormal Lab Results - Last 24 Hours (Table) 10/07/19 10/07/19 10/07/19 Range/Units 11:58 17:00 20:27 WBC (3.8-10.6) k/uL RBC (3.80-5.40) m/uL Hgb (11.4-16.0) gm/dL Neutrophils # (1.3-7.7) k/uL Chloride (98-107) mmol/L Carbon Dioxide (22-30) mmol/L BUN (7-17) mg/dL Glucose (74-99) mg/dL POC Glucose (mg/dL) 124 H 154 H 110 H (75-99) mg/dL Calcium (8.4-10.2) mg/dL Total Protein (6.3-8.2) g/dL Albumin (3.5-5.0) g/dL 10/08/19 10/08/19 10/08/19 Range/Units 04:35 04:35 06:48 WBC 14.9 H (3.8-10.6) k/uL RBC 3.49 L (3.80-5.40) m/uL Hgb 11.2 L (11.4-16.0) gm/dL Neutrophils # 11.4 H (1.3-7.7) k/uL Chloride 108 H (98-107) mmol/L Carbon Dioxide 31 H (22-30) mmol/L BUN 31 H (7-17) mg/dL Glucose 105 H (74-99) mg/dL POC Glucose (mg/dL) 112 H (75-99) mg/dL Calcium 7.8 L (8.4-10.2) mg/dL Total Protein 4.4 L (6.3-8.2) g/dL Albumin 2.5 L (3.5-5.0) g/dL Microbiology - Last 24 Hours (Table) 10/06/19 09:10 Blood Culture - Preliminary Blood No Growth after 24 hours 10/06/19 08:38 Blood Culture - Preliminary Blood No Growth after 24 hours Assessment and Plan Plan: Assessment: 1. Hypernatremia. Patient's urine osmolality was 469 with no significant increase after desmopressin was given. Her urine sodium was also high at 94. This is most consistent with solute diuresis which can be from the normal saline infusion that she was receiving. 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 Doubt primary polydipsia as the patient has not been drinking much water and sodium would be expected to be low. 2. Hypokalemia from diuresis. Status post replacement. Better. 3. COPD exacerbation. 4. History of bipolar disorder and anxiety. 5. History of DVT. Plan: Continue normal saline at 50 mL an hour. Encourage oral intake.
--- NOTE | 2019-10-08 10:19 | P.PN ---
Subjective Progress Note Date: 10/08/19 Patient originally presented to the ER on 10/02/2019. Patient was evaluated for increased shortness of breath. Patient does have known past medical history of advanced COPD, asthma, DVT, hypertension, kidney infection, left breast cancer, breast surgery, tonsillectomy, total left knee arthroplasty bipolar anxiety and depression. Patient also has a history of nicotine dependence. Patient was transferred to the intensive care unit for pulmonary services were consulted and patient placed on BiPAP support. Patient has had increased lethargy and neurology services consulted. Patient was started on azithromycin and Solu- Medrol. Dr. RODERICK Miguel covering for Dr. Kong untill 10/06/2019 On 10/06/2019 patient remains in the intensive care unit. Per nursing staff patient is slightly more alert today than yesterday. Critical care services are following. Potassium replacement protocol. Patient remains on Cleviprex to elevated blood pressure. Patient remains on IV Solu-Medrol and IV antibiotics. On 10/07/2019 patient is more awake and alert today. Patient remains in the intensive care unit. Patient is confused at times but following commands. Patient was given desmopressin per nephrology. Cleviprex has been DC'd. Patient denies chest pain or shortness of breath. Patient denies nausea vomiting or diarrhea. Patient denies any urinary burning or frequency On 10/08/2019 patient is awake and alert. Patient is oriented 2. Patient remains in the intensive care unit. Patient remains on 1 L did not require BiPAP. Sodium improving to 141. Pressure remained stable. Patient denies chest pain or shortness breath. Patient denies nausea vomiting or diarrhea. Patient urinary burning or frequency. Objective - Vital Signs Vital signs: Vital Signs Temp 98.2 F 10/08/19 09:43 Pulse 71 10/08/19 09:43 Resp 23 10/08/19 09:43 BP 110/52 10/08/19 09:43 Pulse Ox 95 10/08/19 09:43 Intake & Output 10/07/19 10/08/19 10/08/19 18:59 06:59 18:59 Intake Total 2000 800 350 Output Total 230 575 375 Balance 1770 225 -25 Weight 93 kg Intake: Intake, IV Titration 900 600 200 Amount Azithromycin 500 mg In 250 Sodium Chloride 0.9% 250 ml @ 250 mls/hr IVPB DAILY [facility] Rx#:[id number] Sodium Chloride 0.45% 1, 100 000 ml @ 100 mls/hr IV . Q10H [facility] Rx#:[id number] Sodium Chloride 0.9% 1, 550 600 200 000 ml @ 50 mls/hr IV . Q20H [facility] Rx#:[id number] Oral 1100 200 150 Output: Urine 230 575 375 Other: Voiding Method Indwelling Catheter Indwelling Catheter Indwelling Catheter # Bowel Movements 1 - Exam Head normocephalic Neck supple Lungs clear to auscultation bilaterally no wheezing or crackles Heart regular rate and rhythm S1-S2, no rub or gallop Abdomen is soft nontender nondistended positive bowel sounds no hepatosplenomegaly Extremities no edema Neuro alert and awake. Follows commands - Labs CBC & Chem 7: 10/08/19 04:35 10/08/19 04:35 Labs: Abnormal Lab Results - Last 24 Hours (Table) 10/07/19 10/07/19 10/07/19 Range/Units 11:58 17:00 20:27 WBC (3.8-10.6) k/uL RBC (3.80-5.40) m/uL Hgb (11.4-16.0) gm/dL Neutrophils # (1.3-7.7) k/uL Chloride (98-107) mmol/L Carbon Dioxide (22-30) mmol/L BUN (7-17) mg/dL Glucose (74-99) mg/dL POC Glucose (mg/dL) 124 H 154 H 110 H (75-99) mg/dL Calcium (8.4-10.2) mg/dL Total Protein (6.3-8.2) g/dL Albumin (3.5-5.0) g/dL 10/08/19 10/08/19 10/08/19 Range/Units 04:35 04:35 06:48 WBC 14.9 H (3.8-10.6) k/uL RBC 3.49 L (3.80-5.40) m/uL Hgb 11.2 L (11.4-16.0) gm/dL Neutrophils # 11.4 H (1.3-7.7) k/uL Chloride 108 H (98-107) mmol/L Carbon Dioxide 31 H (22-30) mmol/L BUN 31 H (7-17) mg/dL Glucose 105 H (74-99) mg/dL POC Glucose (mg/dL) 112 H (75-99) mg/dL Calcium 7.8 L (8.4-10.2) mg/dL Total Protein 4.4 L (6.3-8.2) g/dL Albumin 2.5 L (3.5-5.0) g/dL Microbiology - Last 24 Hours (Table) 10/06/19 09:10 Blood Culture - Preliminary Blood No Growth after 24 hours 10/06/19 08:38 Blood Culture - Preliminary Blood No Growth after 24 hours Assessment and Plan Assessment: 1. Acute on chronic respiratory failure secondary to COPD exacerbation 2. Metabolic encephalopathy. Neurology services have been consulted but are unavailable until 113. EEG has been ordered. Symptoms do appear to be improving 3. Acute on chronic hypoxemic and hypercapnic respiratory failure. Patient maintained on BiPAP 4. Nicotine dependence 5. History of left breast cancer status post left mastectomy 6. History of deep vein thrombosis maintained on Coumadin. Unable to take at this time. Patient on bridging Lovenox 7. History of macular degeneration 8. History of hyperlipidemia. Maintained on statin 9. History of essential hypertension. Patient currently maintained on Cleviprex for pressure control 10. Previous history of pneumonia 11. Hypokalemia. Replace per protocol. Resolved 12. Febrile. Elevated temperature 100. Blood cultures have been ordered by critical care patient seen on azithromycin 13. Hypernatremia. Patient was given desmopressin per nephrology services. Sodium level has improved DVT prophylaxis Lovenox bridging until Coumadin can be given. GI prophylaxis Pepcid Critical care, nephrology and pulmonary service is following. Blood cultures ordered I performed an examination of the patient and discussed their management with the Nurse Practitioner. I have reviewed the Nurse Practitioner's notes and a gree with the documented findings and plan of care
[2019-10-08 10:33] VITALS: BMI 37.5
--- NOTE | 2019-10-08 11:32 | P.PN ---
Subjective Progress Note Date: 10/08/19 Principal diagnosis: Severe COPD exacerbation, altered mentation, improved 79-year-old female patient with known history of COPD, severe with an FEV1 of 42% of predicted. The patient has been in intensive care unit for an acute COPD exacerbation. The patient has a DNR/DNI CODE STATUS. The patient during the course of that she required BiPAP for respiratory support. She has chronic hypoxic and hypercapnic respiratory failure. She is currently on 3 L per minute nasal cannula and she is quite comfortable. She is a chronic smoker and she is on nicotine patch for smoking cessation. She has a triple lumen catheter in her left groin. She has a previous history of left breast cancer with previous mastectomy and she has had previous history of DVT and hypertension and h yperlipidemia and she has also a chest x-ray that showed no acute abnormalities and this shows some stable atelectatic changes in lung bases. This morning, the patient is awake and responsive and she answers with one word occasionally and this is a change compared to her condition yesterday where she was nontender responding at all. Of the brain showed mild age-related atrophy and moderate complement changes and chronic small vessel ischemic change. No other acute abnormalities was noted. 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 In terms of her COPD exacerbation, she is on DuoNeb nebulized treatments around the clock, she is on Pulmicort Respules were performed at the last 2 minutes twice a day, she is on Effexor for blood pressure control at 2 mg an hour. She is also on IV Solu Medrol 60 mg every 6 hours. Antibiotic coverage includes Zithromax. She is also on long-term articulation with warfarin for previous history of DVT and currently she is off the warfarin as the patient wasn't able to swallow and her INR today is at 1.2 On 10/07/2019 patient is seen in follow-up in the intensive care unit, currently off BiPAP support, she is just on 2 L of oxygen with pulse ox of 95%, as significantly improved, patient is free of any signs of distress, or dyspnea, lung sounds reveal diminished breath sounds with occasional rhonchi and end expiratory wheezing, but overall less bronchospastic and less dyspneic. Low- grade fevers last night, patient remains on Zithromax antibiotic coverage, and today's labs have been reviewed, blood cell count was 11.2, hemoglobin is 12, INR is 1.1, electrolytes are within normal limits, BUN is 28 creatinine is 0.63. Nephrology is following, will profile remains stable, with serum sodium has improved. Since mentation has improved, she is much more awake, she is able to verbally respond to simple questions, she is disoriented to place and time. On 10/08/2019 patient seen in follow-up in the intensive care unit, has not utilized the BiPAP support for over 24 hours, currently on 2 L of oxygen, no signs of any respiratory distress, breathing is unlabored, patient has an occasional dry cough, lung sounds are diminished with minimal end expiratory wheezes. Remains confused, but oriented to place and person only. No fever or chills in the last 24 hours, today's labs have been reviewed, urine output is adequate, no nausea vomiting or diarrhea, patient is tolerating oral intake, she continues on nebulized bronchodilators, Zithromax, and steroids have been tapered to oral prednisone. No acute events overnight, transfer's pending Objective - Vital Signs Vital signs: Vital Signs Temp 98.2 F 10/08/19 09:43 Pulse 64 10/08/19 11:00 Resp 23 10/08/19 09:43 BP 110/52 10/08/19 09:43 Pulse Ox 95 10/08/19 09:43 Intake & Output 10/07/19 10/08/19 10/08/19 18:59 06:59 18:59 Intake Total 2000 800 350 Output Total 230 575 375 Balance 1770 225 -25 Weight 93 kg 93 kg Intake: Intake, IV Titration 900 600 200 Amount Azithromycin 500 mg In 250 Sodium Chloride 0.9% 250 ml @ 250 mls/hr IVPB DAILY [facility] Rx#:[id number] Sodium Chloride 0.45% 1, 100 000 ml @ 100 mls/hr IV . Q10H [facility] Rx#:[id number] Sodium Chloride 0.9% 1, 550 600 200 000 ml @ 50 mls/hr IV . Q20H [facility] Rx#:[id number] Oral 1100 200 150 Output: Urine 230 575 375 Other: Voiding Method Indwelling Catheter Indwelling Catheter Indwelling Catheter # Bowel Movements 1 - Exam GENERAL EXAM: Alert, pleasant, 79-year-old white female, on 2 L of oxygen and the pulse ox of 95% comfortable in no apparent distress. HEAD: Normocephalic/atraumatic. EYES: Normal reaction of pupils, equal size. Conjunctiva pink, sclera white. NOSE: Clear with pink turbinates. THROAT: No erythema or exudates. NECK: No masses, no JVD, no thyroid enlargement, no adenopathy. CHEST: No chest wall deformity. Symmetrical expansion. LUNGS: Equal air entry a few scattered rhonchi, and minimal end expiratory wheezes CVS: Regular rate and rhythm, normal S1 and S2, no gallops, no murmurs, no rubs ABDOMEN: Soft, nontender. No hepatosplenomegaly, normal bowel sounds, no guarding or rigidity. EXTREMITIES: No clubbing, no edema, no cyanosis, 2+ pulses and upper and lower extremities. MUSCULOSKELETAL: Muscle strength and tone normal. SPINE: No scoliosis or deformity SKIN: No rashes CENTRAL NERVOUS SYSTEM: Alert and oriented -1. No focal deficits, tone is normal in all 4 extremities. PSYCHIATRIC: Alert and oriented -1. Appropriate affect. Intact judgment and insight. - Labs CBC & Chem 7: 10/08/19 04:35 10/08/19 04:35 Labs: Abnormal Lab Results - Last 24 Hours (Table) 10/07/19 10/07/19 10/07/19 Range/Units 11:58 17:00 20:27 WBC (3.8-10.6) k/uL RBC (3.80-5.40) m/uL Hgb (11.4-16.0) gm/dL Neutrophils # (1.3-7.7) k/uL Chloride (98-107) mmol/L Carbon Dioxide (22-30) mmol/L BUN (7-17) mg/dL Glucose (74-99) mg/dL POC Glucose (mg/dL) 124 H 154 H 110 H (75-99) mg/dL Calcium (8.4-10.2) mg/dL Total Protein (6.3-8.2) g/dL Albumin (3.5-5.0) g/dL 10/08/19 10/08/19 10/08/19 Range/Units 04:35 04:35 06:48 WBC 14.9 H (3.8-10.6) k/uL RBC 3.49 L (3.80-5.40) m/uL Hgb 11.2 L (11.4-16.0) gm/dL Neutrophils # 11.4 H (1.3-7.7) k/uL Chloride 108 H (98-107) mmol/L Carbon Dioxide 31 H (22-30) mmol/L BUN 31 H (7-17) mg/dL Glucose 105 H (74-99) mg/dL POC Glucose (mg/dL) 112 H (75-99) mg/dL Calcium 7.8 L (8.4-10.2) mg/dL Total Protein 4.4 L (6.3-8.2) g/dL Albumin 2.5 L (3.5-5.0) g/dL Microbiology - Last 24 Hours (Table) 10/06/19 08:38 Blood Culture - Preliminary Blood No Growth after 48 hours 10/06/19 09:10 Blood Culture - Preliminary Blood No Growth after 24 hours Assessment and Plan Plan: Assessment: 1 severe COPD with acute exacerbation requiring bronchodilation, IV Solu-Medrol and BiPAP for respiratory support currently she is in oxygen at 2 L per minute with a chest x-ray showing some limited atelectatic changes in lung bases 2 chronic hypoxic respiratory failure 3 chronic hypercapnic respiratory failure 4 history of 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 CAT scan of the brain is showing chronic more vessel changes. 12 increased urine output probably related to a nephrogenic DI related to her psychiatric medications. Nephrogenic DI related to low potassium level is another consideration. 13 hypernatremia likely secondary to urine output increase, consider underlying diabetes insipidus Plan: Continue with oral prednisone, Zithromax, nebulized bronchodilators, as are stable, no fever or chills, cultures are negative, breathing is improving, did not utilize BiPAP support in last 24 hours, FiO2 is down to 2 L, dyspneic and bronchospastic, awake and alert, mentation is improving, patient still has confusion, and she is oriented to place and person. Patient is stable to go out of intensive care unit today to general medical floor. I performed a history & physical examination of the patient and discussed their management with my nurse practitioner, Miriam Mcgee. I reviewed the nurse practitioner's note and agree with the documented findings and plan of care. Lung sounds are positive for a few scattered rhonchi and minimal wheezes. The findings and the impression was discussed with the patient. I attest to the documentation by the nurse practitioner. Time with Patient: Less than 30
[2019-10-08 12:01] LABS: Glucose,Whole Blood 120 mg/dL (75-99)
[2019-10-08 15:44] LABS: Hemoglobin A1C 5.4 % (4.0-6.0)
[2019-10-08 17:15] LABS: Glucose,Whole Blood 131 mg/dL (75-99)
[2019-10-08 20:55] LABS: Glucose,Whole Blood 131 mg/dL (75-99)
[2019-10-08] MEDS: MONTELUKAST 10 MG TAB PO SCH (21:40)
[2019-10-08] MEDS: LORazepam 1 MG TAB PO PRN (21:40)
[2019-10-08] MEDS: ATORVASTATIN 20 MG TAB PO SCH (21:40)
[2019-10-08] MEDS: THEOPHYLLINE 24 HOUR 200 MG CAP.ER.24H PO SCH (21:40)
[2019-10-08] MEDS: risperiDONE 1 MG TAB PO SCH (21:40)
[2019-10-09] MEDS: SODIUM CHLORIDE 0.9% 1,000 ML IV SCH (00:43)
[2019-10-09] MEDS: INSULIN ASPART (NovoLOG) 100 UNIT/ML VIAL SQ SCH ×4 (06:41→20:51)
[2019-10-09 06:46] LABS: Glucose,Whole Blood 120 mg/dL (75-99)
[2019-10-09] MEDS: SENNOSIDES-DOCUSATE SODIUM 1 EACH TAB PO SCH (07:55)
[2019-10-09] MEDS: BUDESONIDE 1 MG/2 ML NEBU INHALATION SCH ×2 (08:12→19:40)
[2019-10-09] MEDS: IPRATROPIUM-ALBUTEROL 3 ML NEB INHALATION SCH ×4 (08:12→19:41)
[2019-10-09] MEDS: FORMOTEROL FUMARATE 20 MCG/2 ML NEBU INHALATION SCH ×2 (08:12→19:41)
--- NOTE | 2019-10-09 09:05 | P.PN ---
Subjective Patient is seen in follow-up for hypernatremia. Sodium level stable at 141 as of yesterday. Oral intake is fair. No vomiting or diarrhea. No active complaints. Vital signs are stable. General: The patient appeared well nourished and normally developed. HEENT: Head exam is unremarkable. Neck is without jugular venous distension. LUNGS: Lungs are clear to auscultation and percussion. Breath sounds decreased. HEART: Rate and Rhythm are regular. First and second heart sounds normal. No murmurs, rubs or gallops. ABDOMEN: Abdominal exam reveals normal bowel sounds. Non-tender and non- distended. No evidence of peritonitis. EXTREMITITES: No clubbing, cyanosis, or edema. Objective - Vital Signs Vital signs: Vital Signs Temp 99.1 F 10/09/19 08:00 Pulse 54 L 10/09/19 08:30 Resp 20 10/09/19 08:00 BP 109/62 10/09/19 08:00 Pulse Ox 91 L 10/09/19 08:00 Intake & Output 10/08/19 10/09/19 10/09/19 18:59 06:59 18:59 Intake Total 800 550 Output Total 1275 1150 Balance -475 -600 Weight 93 kg Intake: Intake, IV Titration 400 550 Amount Sodium Chloride 0.9% 1, 400 550 000 ml @ 50 mls/hr IV . Q20H [facility] Rx#:[id number] Oral 400 Output: Urine 1275 1150 Other: Voiding Method Indwelling Catheter Indwelling Catheter - Labs CBC & Chem 7: 10/08/19 04:35 10/08/19 04:35 Labs: Abnormal Lab Results - Last 24 Hours (Table) 10/08/19 10/08/19 10/08/19 Range/Units 11:50 17:02 20:44 POC Glucose (mg/dL) 120 H 131 H 131 H (75-99) mg/dL 10/09/19 Range/Units 06:34 POC Glucose (mg/dL) 120 H (75-99) mg/dL Microbiology - Last 24 Hours (Table) 10/06/19 09:10 Blood Culture - Preliminary Blood No Growth after 48 hours 10/06/19 08:38 Blood Culture - Preliminary Blood No Growth after 48 hours Assessment and Plan Plan: Assessment: 1. Hypernatremia. Patient's urine osmolality was 469 with no significant increase after desmopressin was given. Her urine sodium was also high at 94. This is most consistent with solute diuresis which can be from the normal saline infusion that she was receiving. 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 Doubt primary polydipsia as the patient has not been drinking much water and sodium would be expected to be low. 2. Hypokalemia from diuresis. Status post replacement. Better. 3. COPD exacerbation. 4. History of bipolar disorder and anxiety. 5. History of DVT. Plan: Hep-Lock IV fluids. Encourage oral intake. Repeat electrolytes in the morning.
[2019-10-09] MEDS: TRIAMTERENE-HCTZ 37.5-25MG 1 EACH CAP PO SCH (09:23)
[2019-10-09] MEDS: PARoxetine 20 MG TAB PO SCH (09:23)
[2019-10-09] MEDS: FERROUS SULFATE 325 MG TAB PO SCH ×2 (09:23→20:52)
[2019-10-09] MEDS: ATENOLOL 25 MG TAB PO SCH ×2 (09:23→20:52)
[2019-10-09] MEDS: LITHIUM CARBONATE 300 MG CAP PO SCH ×2 (09:23→20:52)
[2019-10-09] MEDS: predniSONE 20 MG TAB PO SCH (09:23)
[2019-10-09] MEDS: FAMOTIDINE 20 MG/2 ML VIAL IV SCH (09:23)
[2019-10-09] MEDS: AZITHROMYCIN 500 MG in SODIUM CHLORIDE 0.9% 250 ML IVPB SCH (09:23)
[2019-10-09] MEDS: POTASSIUM CHLORIDE ER 10 MEQ TAB.ER.PRT PO SCH (09:23)
[2019-10-09] MEDS: ENOXAPARIN 40 MG/0.4 ML SYRINGE SQ SCH (09:24)
[2019-10-09] MEDS: NICOTINE 21MG/24HR PATCH TRANSDERM SCH (09:24)
--- NOTE | 2019-10-09 09:27 | P.PN ---
Subjective Progress Note Date: 10/09/19 Patient originally presented to the ER on 10/02/2019. Patient was evaluated for increased shortness of breath. Patient does have known past medical history of advanced COPD, asthma, DVT, hypertension, kidney infection, left breast cancer, breast surgery, tonsillectomy, total left knee arthroplasty bipolar anxiety and depression. Patient also has a history of nicotine dependence. Patient was transferred to the intensive care unit for pulmonary services were consulted and patient placed on BiPAP support. Patient has had increased lethargy and neurology services consulted. Patient was started on azithromycin and Solu- Medrol. Dr. RODERICK Miguel covering for Dr. Kong untill 10/06/2019 On 10/06/2019 patient remains in the intensive care unit. Per nursing staff patient is slightly more alert today than yesterday. Critical care services are following. Potassium replacement protocol. Patient remains on Cleviprex to elevated blood pressure. Patient remains on IV Solu-Medrol and IV antibiotics. On 10/07/2019 patient is more awake and alert today. Patient remains in the intensive care unit. Patient is confused at times but following commands. Patient was given desmopressin per nephrology. Cleviprex has been DC'd. Patient denies chest pain or shortness of breath. Patient denies nausea vomiting or diarrhea. Patient denies any urinary burning or frequency On 10/08/2019 patient is awake and alert. Patient is oriented 2. Patient remains in the intensive care unit. Patient remains on 1 L did not require BiPAP. Sodium improving to 141. Pressure remained stable. Patient denies chest pain or shortness breath. Patient denies nausea vomiting or diarrhea. Patient urinary burning or frequency. On 10/09/2019 patient's awake and alert 2. Patient is less agitated than yes terday sitting calmly in chair able to follow commands and answer questions. Did discuss case with patient psychiatry Dr. Ortiz. Home medications were reviewed including Paxil lithium and Risperdal reviewed. Repeat lithium level this a.m. 0.6. This time patient denies chest pain or shortness breath. Patient denies nausea vomiting or diarrhea. Patient denies any urinary burning or frequency. Social work consult and plans for discharge to [facility] or [facility]. Patient has been ordered out of the intensive care unit Objective - Vital Signs Vital signs: Vital Signs Temp 99.1 F 10/09/19 08:00 Pulse 54 L 10/09/19 08:30 Resp 20 10/09/19 08:00 BP 109/62 10/09/19 08:00 Pulse Ox 91 L 10/09/19 08:00 Intake & Output 10/08/19 10/09/19 10/09/19 18:59 06:59 18:59 Intake Total 800 550 Output Total 1275 1150 Balance -475 -600 Weight 93 kg Intake: Intake, IV Titration 400 550 Amount Sodium Chloride 0.9% 1, 400 550 000 ml @ 50 mls/hr IV . Q20H [facility] Rx#:[id number] Oral 400 Output: Urine 1275 1150 Other: Voiding Method Indwelling Catheter Indwelling Catheter - Exam Head normocephalic Neck supple Lungs clear to auscultation bilaterally no wheezing or crackles Heart regular rate and rhythm S1-S2, no rub or gallop Abdomen is soft nontender nondistended positive bowel sounds no hepatosplenomegaly Extremities no edema Neuro alert and awake. Follows commands - Labs CBC & Chem 7: 10/08/19 04:35 10/08/19 04:35 Labs: Abnormal Lab Results - Last 24 Hours (Table) 10/08/19 10/08/19 10/08/19 Range/Units 11:50 17:02 20:44 POC Glucose (mg/dL) 120 H 131 H 131 H (75-99) mg/dL 10/09/19 Range/Units 06:34 POC Glucose (mg/dL) 120 H (75-99) mg/dL Microbiology - Last 24 Hours (Table) 10/06/19 09:10 Blood Culture - Preliminary Blood No Growth after 48 hours 10/06/19 08:38 Blood Culture - Preliminary Blood No Growth after 48 hours Assessment and Plan Assessment: 1. Acute on chronic respiratory failure secondary to COPD exacerbation. Patient has been transitioned to oral prednisone per pulmonary 2. Metabolic encephalopathy. Neurology services have been consulted but are unavailable until 113. EEG has been ordered. Symptoms do appear to be improving 3. Acute on chronic hypoxemic and hypercapnic respiratory failure. Patient maintained on BiPAP. resolved 4. Nicotine dependence 5. History of left breast cancer status post left mastectomy 6. History of deep vein thrombosis maintained on Coumadin. Unable to take at this time. Patient on bridging Lovenox. Per patient's family and PCP patient is no longer on Coumadin. Bridging Lovenox has been DC'd. 7. History of macular degeneration 8. History of hyperlipidemia. Maintained on statin 9. History of essential hypertension. Patient currently maintained on Cleviprex for pressure control. Blood pressure has improved Cleviprex DC'd 10. Previous history of pneumonia 11. Hypokalemia. Replace per protocol. Resolved 12. Febrile. Elevated temperature 100. Blood cultures have been ordered by critical care patient seen on azithromycin 13. Hypernatremia. Patient was given desmopressin per nephrology services. Sodium level has improved 14. History of bipolar depression. Patient is maintained on lithium Paxil and Risperdal. [place] level this a.m. 0.6. Did discuss case with patient's psychiatrist Dr. Ortiz. Home meds were reviewed and case discussed. DVT prophylaxis Lovenox . GI prophylaxis Pepcid Critical care, nephrology and pulmonary service is following. Blood cultures ordered Social work consult at plans for ECF at discharge [facility] or [facility] Patient has been medically stable for transfer out of intensive care unit I performed an examination of the patient and discussed their management with the Nurse Practitioner. I have reviewed the Nurse Practitioner's notes and agre e with the documented findings and plan of care
--- NOTE | 2019-10-09 11:01 | P.PN ---
Subjective Progress Note Date: 10/09/19 Principal diagnosis: Severe COPD exacerbation, altered mentation, improved 79-year-old female patient with known history of COPD, severe with an FEV1 of 42% of predicted. The patient has been in intensive care unit for an acute COPD exacerbation. The patient has a DNR/DNI CODE STATUS. The patient during the course of that she required BiPAP for respiratory support. She has chronic hypoxic and hypercapnic respiratory failure. She is currently on 3 L per minute nasal cannula and she is quite comfortable. She is a chronic smoker and she is on nicotine patch for smoking cessation. She has a triple lumen catheter in her left groin. She has a previous history of left breast cancer with previous mastectomy and she has had previous history of DVT and hypertension and h yperlipidemia and she has also a chest x-ray that showed no acute abnormalities and this shows some stable atelectatic changes in lung bases. This morning, the patient is awake and responsive and she answers with one word occasionally and this is a change compared to her condition yesterday where she was nontender responding at all. Of the brain showed mild age-related atrophy and moderate complement changes and chronic small vessel ischemic change. No other acute abnormalities was noted. 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 In terms of her COPD exacerbation, she is on DuoNeb nebulized treatments around the clock, she is on Pulmicort Respules were performed at the last 2 minutes twice a day, she is on Effexor for blood pressure control at 2 mg an hour. She is also on IV Solu Medrol 60 mg every 6 hours. Antibiotic coverage includes Zithromax. She is also on long-term articulation with warfarin for previous history of DVT and currently she is off the warfarin as the patient wasn't able to swallow and her INR today is at 1.2 On 10/07/2019 patient is seen in follow-up in the intensive care unit, currently off BiPAP support, she is just on 2 L of oxygen with pulse ox of 95%, as significantly improved, patient is free of any signs of distress, or dyspnea, lung sounds reveal diminished breath sounds with occasional rhonchi and end expiratory wheezing, but overall less bronchospastic and less dyspneic. Low- grade fevers last night, patient remains on Zithromax antibiotic coverage, and today's labs have been reviewed, blood cell count was 11.2, hemoglobin is 12, INR is 1.1, electrolytes are within normal limits, BUN is 28 creatinine is 0.63. Nephrology is following, will profile remains stable, with serum sodium has improved. Since mentation has improved, she is much more awake, she is able to verbally respond to simple questions, she is disoriented to place and time. On 10/08/2019 patient seen in follow-up in the intensive care unit, has not utilized the BiPAP support for over 24 hours, currently on 2 L of oxygen, no signs of any respiratory distress, breathing is unlabored, patient has an occasional dry cough, lung sounds are diminished with minimal end expiratory wheezes. Remains confused, but oriented to place and person only. No fever or chills in the last 24 hours, today's labs have been reviewed, urine output is adequate, no nausea vomiting or diarrhea, patient is tolerating oral intake, she continues on nebulized bronchodilators, Zithromax, and steroids have been tapered to oral prednisone. No acute events overnight, transfer's pending On 10/09/2019 patient seen in follow-up in the intensive care unit, she is awaiting a bed on general medical floor, she's had no acute events overnight, she sits up in the recliner, in no acute distress, patient is on 2 L of oxygen the pulse ox of 91%, has not utilized BiPAP support in the last 48 hours, no fever or chills, hemodynamically patient remains stable, she states her breathing is improving, lung sounds are diminished, with basilar crackles, no major wheezing, or congestion, no new labs other than lithium level at 0.6, low end of therapeutic range. Cultures have shown no growth, patient remains on empiric antibiotics, Zithromax, patient is on nebulized bronchodilators, and oral prednisone at 40 mg daily. Objective - Vital Signs Vital signs: Vital Signs Temp 99.1 F 10/09/19 08:00 Pulse 54 L 10/09/19 08:30 Resp 20 10/09/19 08:00 BP 109/62 10/09/19 08:00 Pulse Ox 91 L 10/09/19 08:00 Intake & Output 10/08/19 10/09/19 10/09/19 18:59 06:59 18:59 Intake Total 800 550 Output Total 1275 1150 Balance -475 -600 Weight 93 kg Intake: Intake, IV Titration 400 550 Amount Sodium Chloride 0.9% 1, 400 550 000 ml @ 50 mls/hr IV . Q20H [facility] Rx#:[id number] Oral 400 Output: Urine 1275 1150 Other: Voiding Method Indwelling Catheter Indwelling Catheter - Exam GENERAL EXAM: Alert, pleasant, 79-year-old white female, on 2 L of oxygen and the pulse ox of 91% comfortable in no apparent distress. HEAD: Normocephalic/atraumatic. EYES: Normal reaction of pupils, equal size. Conjunctiva pink, sclera white. NOSE: Clear with pink turbinates. THROAT: No erythema or exudates. NECK: No masses, no JVD, no thyroid enlargement, no adenopathy. CHEST: No chest wall deformity. Symmetrical expansion. LUNGS: Equal air entry a few basilar rales no wheezes CVS: Regular rate and rhythm, normal S1 and S2, no gallops, no murmurs, no rubs ABDOMEN: Soft, nontender. No hepatosplenomegaly, normal bowel sounds, no guarding or rigidity. EXTREMITIES: No clubbing, no edema, no cyanosis, 2+ pulses and upper and lower extremities. MUSCULOSKELETAL: Muscle strength and tone normal. SPINE: No scoliosis or deformity SKIN: No rashes CENTRAL NERVOUS SYSTEM: Alert and oriented -2. No focal deficits, tone is normal in all 4 extremities. PSYCHIATRIC: Alert and oriented -2. Appropriate affect. Intact judgment and insight. - Labs CBC & Chem 7: 10/08/19 04:35 10/08/19 04:35 Labs: Abnormal Lab Results - Last 24 Hours (Table) 10/08/19 10/08/19 10/08/19 Range/Units 11:50 17:02 20:44 POC Glucose (mg/dL) 120 H 131 H 131 H (75-99) mg/dL 10/09/19 Range/Units 06:34 POC Glucose (mg/dL) 120 H (75-99) mg/dL Microbiology - Last 24 Hours (Table) 10/06/19 09:10 Blood Culture - Preliminary Blood No Growth after 48 hours 10/06/19 08:38 Blood Culture - Preliminary Blood No Growth after 48 hours Assessment and Plan Plan: Assessment: 1 severe COPD with acute exacerbation requiring bronchodilation, IV Solu-Medrol and BiPAP for respiratory support currently she is in oxygen at 2 L per minute with a chest x-ray showing some limited atelectatic changes in lung bases 2 chronic hypoxic respiratory failure 3 chronic hypercapnic respiratory failure 4 history of 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 CAT scan of the brain is showing chronic more vessel changes. 12 increased urine output probably related to a nephrogenic DI related to her psychiatric medications. Nephrogenic DI related to low potassium level is another consideration. 13 hypernatremia likely secondary to urine output increase, consider underlying diabetes insipidus Plan: Patient continues to improve, no signs of any respiratory difficulty, patient is on 2 L of oxygen, maintaining stable oxygenation, no BiPAP support in last 48 hours, no cough or congestion, increase activity as tolerated, vital signs are stable, no fever or chills, cultures are negative, continue oral Zithromax, prednisone and bronchodilators, physical therapy, patient can be transferred out of intensive care unit to general medical floor. No new labs today other than the lithium level, yesterday's labs showed a sodium 141, potassium is 3.7, BUN of 31 creatinine 0.89, is producing sufficient amount of urine, we'll discontinue the Zepeda I performed a history & physical examination of the patient and discussed their management with my nurse practitioner, Miriam Mcgee. I reviewed the nurse practitioner's note and agree with the documented findings and plan of care. Lung sounds are positive for a few scattered rhonchi and minimal wheezes. The findings and the impression was discussed with the patient. I attest to the documentation by the nurse practitioner. Time with Patient: Less than 30
[2019-10-09 13:44] LABS: Glucose,Whole Blood 94 mg/dL (75-99)
[2019-10-09 17:18] LABS: Glucose,Whole Blood 125 mg/dL (75-99)
[2019-10-09 20:44] LABS: Glucose,Whole Blood 191 mg/dL (75-99)
[2019-10-09] MEDS: THEOPHYLLINE 24 HOUR 200 MG CAP.ER.24H PO SCH (20:52)
[2019-10-09] MEDS: MONTELUKAST 10 MG TAB PO SCH (20:52)
[2019-10-09] MEDS: ATORVASTATIN 20 MG TAB PO SCH (20:52)
[2019-10-09] MEDS: risperiDONE 1 MG TAB PO SCH (20:52)
[2019-10-09] MEDS: LORazepam 1 MG TAB PO PRN (20:52)
[2019-10-10 05:01] VITALS: TEMP 98.3
[2019-10-10 07:11] LABS: Glucose,Whole Blood 91 mg/dL (75-99)
[2019-10-10] MEDS: INSULIN ASPART (NovoLOG) 100 UNIT/ML VIAL SQ SCH ×5 (07:27→17:39)
[2019-10-10] MEDS: ENOXAPARIN 40 MG/0.4 ML SYRINGE SQ SCH (07:50)
[2019-10-10] MEDS: AZITHROMYCIN 500 MG in SODIUM CHLORIDE 0.9% 250 ML IVPB SCH (07:51)
[2019-10-10] MEDS: NICOTINE 21MG/24HR PATCH TRANSDERM SCH (07:52)
[2019-10-10] MEDS: FAMOTIDINE 20 MG/2 ML VIAL IV SCH (07:52)
[2019-10-10] MEDS: LITHIUM CARBONATE 300 MG CAP PO SCH (07:53)
[2019-10-10] MEDS: TRIAMTERENE-HCTZ 37.5-25MG 1 EACH CAP PO SCH (07:53)
[2019-10-10] MEDS: ATENOLOL 25 MG TAB PO SCH (07:53)
[2019-10-10] MEDS: POTASSIUM CHLORIDE ER 10 MEQ TAB.ER.PRT PO SCH (07:53)
[2019-10-10] MEDS: FERROUS SULFATE 325 MG TAB PO SCH (07:53)
[2019-10-10] MEDS: SENNOSIDES-DOCUSATE SODIUM 1 EACH TAB PO SCH (07:53)
[2019-10-10] MEDS: PARoxetine 20 MG TAB PO SCH (07:53)
[2019-10-10] MEDS: predniSONE 20 MG TAB PO SCH (07:53)
[2019-10-10] MEDS: IPRATROPIUM-ALBUTEROL 3 ML NEB INHALATION SCH ×3 (09:15→15:26)
[2019-10-10] MEDS: BUDESONIDE 1 MG/2 ML NEBU INHALATION SCH (09:15)
[2019-10-10] MEDS: FORMOTEROL FUMARATE 20 MCG/2 ML NEBU INHALATION SCH (09:15)
[2019-10-10 09:51] LABS: Basophils # (A) 0.3 k/uL (0-0.2); Basophils % (A) 1 %; Eosinophils # (A) 0.2 k/uL (0-0.7); Eosinophils % (A) 1 %; HCT 33.9 % (34.0-46.0); HGB 11.5 gm/dL (11.4-16.0); Lymphocytes # (A) 3.2 k/uL (1.0-4.8); Lymphocytes % (A) 17 %; MCH 32.4 pg (25.0-35.0); MCHC 33.8 g/dL (31.0-37.0); MCV 95.7 fL (80.0-100.0); Mean Platelet Volume 9.2; Monocytes # (A) 0.7 k/uL (0-1.0); Monocytes % (A) 4 %; Neutrophils # (A) 13.8 k/uL (1.3-7.7); Neutrophils % (A) 76 %; Platelet Count 135 k/uL (150-450); RBC 3.54 m/uL (3.80-5.40); RDW 12.7 % (11.5-15.5); WBC 18.2 k/uL (3.8-10.6)
[2019-10-10 10:26] LABS: Calcium 8.5 mg/dL (8.4-10.2); Magnesium 2.1 mg/dL (1.6-2.3); Potassium 3.7 mmol/L (3.5-5.1)
--- NOTE | 2019-10-10 11:08 | P.PN ---
Subjective Patient is seen in follow-up for hypernatremia. Sodium level stable. Oral intake is fair. No vomiting or diarrhea. No active complaints. Vital signs are stable. General: The patient appeared well nourished and normally developed. HEENT: Head exam is unremarkable. Neck is without jugular venous distension. LUNGS: Lungs are clear to auscultation and percussion. Breath sounds decreased. HEART: Rate and Rhythm are regular. First and second heart sounds normal. No murmurs, rubs or gallops. ABDOMEN: Abdominal exam reveals normal bowel sounds. Non-tender and non- distended. No evidence of peritonitis. EXTREMITITES: No clubbing, cyanosis, or edema. Objective - Vital Signs Vital signs: Vital Signs Temp 98.3 F 10/10/19 05:00 Pulse 65 10/10/19 05:00 Resp 18 10/10/19 05:00 BP 137/64 10/10/19 05:00 Pulse Ox 94 L 10/10/19 05:00 Intake & Output 10/09/19 10/10/19 10/10/19 18:59 06:59 18:59 Output Total 365 Balance -365 Weight 93 kg Output: Urine 365 Other: Voiding Method Indwelling Catheter Bedpan # Voids 2 - Labs CBC & Chem 7: 10/10/19 08:23 10/10/19 08:23 Labs: Abnormal Lab Results - Last 24 Hours (Table) 10/09/19 10/09/19 10/10/19 Range/Units 17:07 20:43 08:23 WBC (3.8-10.6) k/uL RBC (3.80-5.40) m/uL Hct (34.0-46.0) % Plt Count (150-450) k/uL Neutrophils # (1.3-7.7) k/uL Basophils # (0-0.2) k/uL Carbon Dioxide 31 H (22-30) mmol/L BUN 24 H (7-17) mg/dL POC Glucose (mg/dL) 125 H 191 H (75-99) mg/dL 10/10/19 Range/Units 08:23 WBC 18.2 H (3.8-10.6) k/uL RBC 3.54 L (3.80-5.40) m/uL Hct 33.9 L (34.0-46.0) % Plt Count 135 L (150-450) k/uL Neutrophils # 13.8 H (1.3-7.7) k/uL Basophils # 0.3 H (0-0.2) k/uL Carbon Dioxide (22-30) mmol/L BUN (7-17) mg/dL POC Glucose (mg/dL) (75-99) mg/dL Microbiology - Last 24 Hours (Table) 10/06/19 08:38 Blood Culture - Preliminary Blood No Growth after 96 hours 10/06/19 09:10 Blood Culture - Preliminary Blood No Growth after 72 hours Assessment and Plan Plan: Assessment: 1. Hypernatremia. Patient's urine osmolality was 469 with no significant increase after desmopressin was given. Her urine sodium was also high at 94. This is most consistent with solute diuresis which can be from the normal saline infusion that she was receiving. 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 Doubt [employer] polydipsia as the patient has not been drinking much water and sodium would be expected to be low. 2. Hypokalemia from diuresis. Status post replacement. Better. 3. COPD exacerbation. 4. History of bipolar disorder and anxiety. 5. History of DVT. Plan: Remains off IV fluids. Polyuria resolved. Encouraged oral intake.
[2019-10-10 12:18] LABS: Glucose,Whole Blood 104 mg/dL (75-99)
[2019-10-10 13:59] VITALS: BP 132/80; RESP 16
[2019-10-10 14:15] LABS: Amorphous Sediment,Urine Rare /hpf; Appearance,Urine Cloudy (Clear); Bacteria,Urine Many /hpf; Bilirubin,Urine Negative (Negative); Blood,Urine Moderate (Negative); Color,Urine Yellow; Glucose,Urine (UA) Negative (Negative); Ketones,Urine Negative (Negative); Leukocyte Esterase,Urine Moderate (Negative); Nitrite,Urine Negative (Negative); Protein,Urine Negative (Negative); RBC,Urine 9 /hpf (0-5); Specific Gravity,Urine 1.009 (1.001-1.035); Squamous Epithelial Cell,Urine <1 /hpf (0-4); WBC,Urine 6 /hpf (0-5)
--- NOTE | 2019-10-10 15:06 | P.PN ---
Subjective Progress Note Date: 10/10/19 Principal diagnosis: Severe COPD exacerbation, altered mentation, improved 79-year-old female patient with known history of COPD, severe with an FEV1 of 42% of predicted. The patient has been in intensive care unit for an acute COPD exacerbation. The patient has a DNR/DNI CODE STATUS. The patient during the course of that she required BiPAP for respiratory support. She has chronic hypoxic and hypercapnic respiratory failure. She is currently on 3 L per minute nasal cannula and she is quite comfortable. She is a chronic smoker and she is on nicotine patch for smoking cessation. She has a triple lumen catheter in her left groin. She has a previous history of left breast cancer with previous mastectomy and she has had previous history of DVT and hypertension and h yperlipidemia and she has also a chest x-ray that showed no acute abnormalities and this shows some stable atelectatic changes in lung bases. This morning, the patient is awake and responsive and she answers with one word occasionally and this is a change compared to her condition yesterday where she was nontender responding at all. Of the brain showed mild age-related atrophy and moderate complement changes and chronic small vessel ischemic change. No other acute abnormalities was noted. 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 In terms of her COPD exacerbation, she is on DuoNeb nebulized treatments around the clock, she is on Pulmicort Respules were performed at the last 2 minutes twice a day, she is on Effexor for blood pressure control at 2 mg an hour. She is also on IV Solu Medrol 60 mg every 6 hours. Antibiotic coverage includes Zithromax. She is also on long-term articulation with warfarin for previous history of DVT and currently she is off the warfarin as the patient wasn't able to swallow and her INR today is at 1.2 On 10/07/2019 patient is seen in follow-up in the intensive care unit, currently off BiPAP support, she is just on 2 L of oxygen with pulse ox of 95%, as significantly improved, patient is free of any signs of distress, or dyspnea, lung sounds reveal diminished breath sounds with occasional rhonchi and end expiratory wheezing, but overall less bronchospastic and less dyspneic. Low- grade fevers last night, patient remains on Zithromax antibiotic coverage, and today's labs have been reviewed, blood cell count was 11.2, hemoglobin is 12, INR is 1.1, electrolytes are within normal limits, BUN is 28 creatinine is 0.63. Nephrology is following, will profile remains stable, with serum sodium has improved. Since mentation has improved, she is much more awake, she is able to verbally respond to simple questions, she is disoriented to place and time. On 10/08/2019 patient seen in follow-up in the intensive care unit, has not utilized the BiPAP support for over 24 hours, currently on 2 L of oxygen, no signs of any respiratory distress, breathing is unlabored, patient has an occasional dry cough, lung sounds are diminished with minimal end expiratory wheezes. Remains confused, but oriented to place and person only. No fever or chills in the last 24 hours, today's labs have been reviewed, urine output is adequate, no nausea vomiting or diarrhea, patient is tolerating oral intake, she continues on nebulized bronchodilators, Zithromax, and steroids have been tapered to oral prednisone. No acute events overnight, transfer's pending On 10/09/2019 patient seen in follow-up in the intensive care unit, she is awaiting a bed on general medical floor, she's had no acute events overnight, she sits up in the recliner, in no acute distress, patient is on 2 L of oxygen the pulse ox of 91%, has not utilized BiPAP support in the last 48 hours, no fever or chills, hemodynamically patient remains stable, she states her breathing is improving, lung sounds are diminished, with basilar crackles, no major wheezing, or congestion, no new labs other than lithium level at 0.6, low end of therapeutic range. Cultures have shown no growth, patient remains on empiric antibiotics, Zithromax, patient is on nebulized bronchodilators, and oral prednisone at 40 mg daily. On 10/10/2019 patient seen in follow-up on the regular medical surgical floor, doing well, no difficulty breathing, room air pulse ox is 96%, lung sounds without significant congestion, some scattered rales, no wheezing, patient c ontinues on oral prednisone, and nebulized treatments, she has been afebrile, is awake and alert, still on and off confused, not sure if this is related to her underlying history of psychiatric disorder. today's labs have been reviewed, increase in patient's white blood cell count, but there has been no fever no chills, urinalysis is negative for any signs of infection. Serum sodium is 141, the rest of the electrolytes are unremarkable with the exception of CO2 which is at 31, renal profile is unremarkable, no nausea, no vomiting, no diarrhea, patient is tolerating oral intake, no other acute events overnight, patient is generally weak, and the recommendation was to go to subacute rehab at discharge Objective - Vital Signs Vital signs: Vital Signs Temp 98.3 F 10/10/19 13:58 Pulse 66 10/10/19 13:58 Resp 16 10/10/19 13:58 BP 132/80 10/10/19 13:58 Pulse Ox 96 10/10/19 13:58 Intake & Output 10/09/19 10/10/19 10/10/19 18:59 06:59 18:59 Output Total 365 700 Balance -365 -700 Weight 93 kg Output: Urine 365 700 Other: Voiding Method Indwelling Catheter Bedpan # Voids 2 - Exam GENERAL EXAM: Alert, pleasant, 79-year-old white female, on room air with pulse ox of 91% comfortable in no apparent distress. HEAD: Normocephalic/atraumatic. EYES: Normal reaction of pupils, equal size. Conjunctiva pink, sclera white. NOSE: Clear with pink turbinates. THROAT: No erythema or exudates. NECK: No masses, no JVD, no thyroid enlargement, no adenopathy. CHEST: No chest wall deformity. Symmetrical expansion. LUNGS: Equal air entry a few basilar rales no wheezes CVS: Regular rate and rhythm, normal S1 and S2, no gallops, no murmurs, no rubs ABDOMEN: Soft, nontender. No hepatosplenomegaly, normal bowel sounds, no guarding or rigidity. EXTREMITIES: No clubbing, no edema, no cyanosis, 2+ pulses and upper and lower extremities. MUSCULOSKELETAL: Muscle strength and tone normal. SPINE: No scoliosis or deformity SKIN: No rashes CENTRAL NERVOUS SYSTEM: Alert and oriented -2. No focal deficits, tone is normal in all 4 extremities. PSYCHIATRIC: Alert and oriented -2. Appropriate affect. Intact judgment and insight. - Labs CBC & Chem 7: 10/10/19 08:23 10/10/19 08:23 Labs: Abnormal Lab Results - Last 24 Hours (Table) 10/09/19 10/09/19 10/10/19 Range/Units 17:07 20:43 08:23 WBC (3.8-10.6) k/uL RBC (3.80-5.40) m/uL Hct (34.0-46.0) % Plt Count (150-450) k/uL Neutrophils # (1.3-7.7) k/uL Basophils # (0-0.2) k/uL Carbon Dioxide 31 H (22-30) mmol/L BUN 24 H (7-17) mg/dL POC Glucose (mg/dL) 125 H 191 H (75-99) mg/dL Urine Appearance (Clear) Urine Blood (Negative) Ur Leukocyte Esterase (Negative) Urine RBC (0-5) /hpf Urine WBC (0-5) /hpf Amorphous Sediment (None) /hpf Urine Bacteria (None) /hpf 10/10/19 10/10/19 10/10/19 Range/Units 08:23 12:14 13:22 WBC 18.2 H (3.8-10.6) k/uL RBC 3.54 L (3.80-5.40) m/uL Hct 33.9 L (34.0-46.0) % Plt Count 135 L (150-450) k/uL Neutrophils # 13.8 H (1.3-7.7) k/uL Basophils # 0.3 H (0-0.2) k/uL Carbon Dioxide (22-30) mmol/L BUN (7-17) mg/dL POC Glucose (mg/dL) 104 H (75-99) mg/dL Urine Appearance Cloudy H (Clear) Urine Blood Moderate H (Negative) Ur Leukocyte Esterase Moderate H (Negative) Urine RBC 9 H (0-5) /hpf Urine WBC 6 H (0-5) /hpf Amorphous Sediment Rare H (None) /hpf Urine Bacteria Many H (None) /hpf Microbiology - Last 24 Hours (Table) 10/06/19 09:10 Blood Culture - Preliminary Blood No Growth after 96 hours 10/06/19 08:38 Blood Culture - Preliminary Blood No Growth after 96 hours Assessment and Plan Plan: Assessment: 1 severe COPD with acute exacerbation requiring bronchodilation, IV Solu-Medrol and BiPAP for respiratory support currently she is in oxygen at 2 L per minute with a chest x-ray showing some limited atelectatic changes in lung bases 2 chronic hypoxic respiratory failure 3 chronic hypercapnic respiratory failure 4 history of 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 CAT scan of the brain is showing chronic more vessel changes. 12 increased urine output probably related to a nephrogenic DI related to her psychiatric medications. Nephrogenic DI related to low potassium level is another consideration. 13 hypernatremia likely secondary to urine output increase, consider underlying diabetes insipidus, normalized Plan: Patient is doing well, clinically stable, no fever or chills, no worsening dyspnea, she has been transitioned to oral prednisone, no specific complaints, on and off confused, but alert and responsive, patient is being sent to subacute rehab at [facility] after discharge. Patient can follow-up in the outpatient setting in the 1-[address] Price I performed a history & physical examination of the patient and discussed their management with my nurse practitioner, Miriam Mcgee. I reviewed the nurse practitioner's note and agree with the documented findings and plan of care. Neha ng sounds are positive for a few scattered rhonchi and minimal wheezes. The findings and the impression was discussed with the patient. I attest to the documentation by the nurse practitioner. Time with Patient: Less than 30
--- NOTE | 2019-10-10 15:22 | P.DS ---
Providers Date of admission: 10/01/19 20:36 Expected date of discharge: 10/10/19 Attending physician: Abiola Kong Consults: 10/04/19 10:29 Consult Physician Urgent Consulting Provider: Gil Fang Consult Reason/Comments: Consult for ICU management Do you want consulting provider notified?: Yes 10/06/19 13:26 Consult Physician Urgent Consulting Provider: Genaro Holland Consult Reason/Comments: polyuria Do you want consulting provider notified?: Yes Primary care physician: Abiola Kong Hospital Course: Discharge diagnosis 1. Acute on chronic respiratory failure secondary to COPD exacerbation. Patient has been transitioned to oral prednisone per pulmonary. She will be DC'd on prednisone taper 2. Metabolic encephalopathy. Neurology services have been consulted but are unavailable until 113. EEG has been ordered. Symptoms do appear to be improving 3. Acute on chronic hypoxemic and hypercapnic respiratory failure. Patient maintained on BiPAP. resolved 4. Nicotine dependence. She will be DC'd on nicotine patch 5. History of left breast cancer status post left mastectomy 6. History of deep vein thrombosis. Per patient's family and PCP patient is no longer on Coumadin. Bridging Lovenox has been DC'd. 7. History of macular degeneration 8. History of hyperlipidemia. Maintained on statin 9. History of essential hypertension. Patient currently maintained on Cleviprex for pressure control. Blood pressure has improved Cleviprex DC'd 10. Previous history of pneumonia 11. Hypokalemia. Replace per protocol. Resolved 12. Febrile. Elevated temperature 100. Blood cultures have been ordered by critical care patient seen on azithromycin. Blood culture showing no growth fevers have resolved. Patient will be DC'd on clindamycin for urinary tract infection 13. Hypernatremia. Patient was given desmopressin per nephrology services. Sodium level has improved 14. History of bipolar depression. Patient is maintained on lithium Paxil and Risperdal. [place] level this a.m. 0.6. Did discuss case with patient's psychiatrist Dr. Ortiz. Home meds were reviewed and case discussed. 15. Urinary tract infection. Due to ALLERGIES and patient's psych meds patient will be DC'd on clindamycin culture pending. Hospital course Patient originally presented to the ER on 10/02/2019. Patient was evaluated for increased shortness of breath. Patient does have known past medical history of advanced COPD, asthma, DVT, hypertension, kidney infection, left breast cancer, breast surgery, tonsillectomy, total left knee arthroplasty bipolar anxiety and depression. Patient also has a history of nicotine dependence. Patient was transferred to the intensive care unit for pulmonary services were consulted and patient placed on BiPAP support. Patient has had increased lethargy and neurology services consulted. Patient was started on azithromycin and Solu- Medrol. Dr. RODERICK Miguel covering for Dr. Kong untill 10/06/2019 On 10/06/2019 patient remains in the intensive care unit. Per nursing staff patient is slightly more alert today than yesterday. Critical care services are following. Potassium replacement protocol. Patient remains on Cleviprex to elevated blood pressure. Patient remains on IV Solu-Medrol and IV antibiotics. On 10/07/2019 patient is more awake and alert today. Patient remains in the intensive care unit. Patient is confused at times but following commands. Patient was given desmopressin per nephrology. Cleviprex has been DC'd. Isamare nt denies chest pain or shortness of breath. Patient denies nausea vomiting or diarrhea. Patient denies any urinary burning or frequency On 10/08/2019 patient is awake and alert. Patient is oriented 2. Patient remains in the intensive care unit. Patient remains on 1 L did not require BiPAP. Sodium improving to 141. Pressure remained stable. Patient denies chest pain or shortness breath. Patient denies nausea vomiting or diarrhea. Patient urinary burning or frequency. On 10/09/2019 patient's awake and alert 2. Patient is less agitated than yesterday sitting calmly in chair able to follow commands and answer questions. Did discuss case with patient psychiatry Dr. Ortiz. Home medications were reviewed including Paxil lithium and Risperdal reviewed. Repeat lithium level this a.m. 0.6. This time patient denies chest pain or shortness breath. Patient denies nausea vomiting or diarrhea. Patient denies any urinary burning or frequency. Social work consult and plans for discharge to [facility] or [facility]. Patient has been ordered out of the intensive care unit On 10/10/2019 patient is alert and awake patient still having intermittent episodes of confusion. Patient's daughter in law at bedside. Plan to DC to [facility] for rehab today. Patient does have a urinary tract infection. Due to ALLERGIES and patient's psych medication will DC patient on clindamycin culture pending. She also to be DC'd on prednisone taper. Discussed case with nurse practitioner per pulmonary team ok for discharge. At this time patient denies any chest pain or shortness of breath. Patient denies nausea vomiting or diarrhea. Patient denies any urinary burning or frequency. Patient has not required BiPAP pressure support. I performed an examination of the patient and discussed their management with the Nurse Practitioner. I have reviewed the Nurse Practitioner's notes and agree with the documented findings and plan of care Patient Condition at Discharge: Stable Plan - Discharge Summary Discharge Rx Participant: Yes New Discharge Prescriptions: New Triamterene-Hctz 37.5-25Mg [Dyazide 37.5-25 Capsule] 1 each PO DAILY cap Nicotine 21Mg/24Hr Patch [Habitrol] 1 patch TRANSDERM DAILY patch Ferrous Sulfate [Iron (65 MG Elemental)] 325 mg PO BID tab predniSONE 10 mg PO DIRECTED 12 Days #30 tab Montelukast [Singulair] 10 mg PO HS tab Atenolol [Tenormin] 25 mg PO BID tab Theophylline 24 Hour [Sancho-24] 200 mg PO 2000 cap.er.24h traMADol HCl [Ultram] 50 mg PO Q4H PRN tab PRN Reason: Pain Clindamycin [Cleocin] 150 mg PO TID 7 Days #21 capsule Continue risperiDONE [RisperDAL] 0.5 mg PO HS [place] Carbonate 300 mg PO BID Potassium Chloride [K-Tab ER] 10 meq PO BID PARoxetine [Paxil] 20 mg PO DAILY Simvastatin 40 mg PO DAILY Aspirin 325 mg PO DAILY #30 tab LORazepam [Ativan] 1 mg PO BID PRN #20 tab PRN Reason: Anxiety Ergocalciferol (Vitamin D2) [Drisdol] 50,000 unit PO WE Albuterol Nebulized [Ventolin Nebulized] 2.5 mg INHALATION RT-QID Albuterol Inhaler [Ventolin Hfa Inhaler] 2 puff INHALATION RT-QID PRN PRN Reason: Shortness Of Breath Discontinued Triamterene-Hctz 37.5-25Mg [Dyazide 37.5-25 Capsule] 1 cap PO BID Atenolol 25 mg PO DAILY Discharge Medication List [place] Carbonate 300 mg PO BID 07/03/16 [History] PARoxetine [Paxil] 20 mg PO DAILY 07/03/16 [History] Potassium Chloride [K-Tab ER] 10 meq PO BID 07/03/16 [History] Simvastatin 40 mg PO DAILY 07/03/16 [History] risperiDONE [RisperDAL] 0.5 mg PO HS 07/03/16 [History] Aspirin 325 mg PO DAILY #30 tab 07/05/16 [Rx] LORazepam [Ativan] 1 mg PO BID PRN #20 tab 07/07/16 [Rx] Albuterol Inhaler [Ventolin Hfa Inhaler] 2 puff INHALATION RT-QID PRN 10/01/19 [History] Albuterol Nebulized [Ventolin Nebulized] 2.5 mg INHALATION RT-QID 10/01/19 [History] Ergocalciferol (Vitamin D2) [Drisdol] 50,000 unit PO WE 10/01/19 [History] Atenolol [Tenormin] 25 mg PO BID tab 10/10/19 [Rx] Clindamycin [Cleocin] 150 mg PO TID 7 Days #21 capsule 10/10/19 [Rx] Ferrous Sulfate [Iron (65 MG Elemental)] 325 mg PO BID tab 10/10/19 [Rx] Montelukast [Singulair] 10 mg PO HS tab 10/10/19 [Rx] Nicotine 21Mg/24Hr Patch [Habitrol] 1 patch TRANSDERM DAILY patch 10/10/19 [Rx] Theophylline 24 Hour [Sancho-24] 200 mg PO 2000 cap.er.24h 10/10/19 [Rx] Triamterene-Hctz 37.5-25Mg [Dyazide 37.5-25 Capsule] 1 each PO DAILY cap 10/10/19 [Rx] predniSONE 10 mg PO DIRECTED 12 Days #30 tab 10/10/19 [Rx] traMADol HCl [Ultram] 50 mg PO Q4H PRN tab 10/10/19 [Rx] Follow up Appointment(s)/Referral(s): Abiola Kong MD [Primary Care Provider] - 1-2 days Den Ortiz MD [STAFF PHYSICIAN] - 1 Week Patient Instructions/Handouts: COPD (Chronic Obstructive Pulmonary Disease) (DC) Activity/Diet/Wound Care/Special Instructions: activity as tolerated chopped diet lee removed 10/09/19, voiding without difficulty
[2019-10-10 15:29] VITALS: PULSE 72
--- NOTE | 2019-10-14 07:30 | CDI ---
Documentation Clarification Form Date: 10/14/19 From: Nellie Juares Phone: If you have a question about this query, please contact Emily Kidd, News Correspondent at [phone] between 8am and 5pm. Admit Date: 10/01/19 Discharge Date:10/10/19 Patient Name: Teri Borrego Visit Number: [id number] ATTENTION: The Clinical Documentation Specialists (CDI) and [facility] Coding Staff appreciate your assistance in clarifying documentation. Please respond to the clarification below the line at the bottom and electronically sign. The CDI & [facility] Coding staff will review the response and follow-up if needed. Please note: Queries are made part of the Legal Health Record. If you have any questions, please contact the author of this message via ITS. Dear Dr. Kong Severe asthma with chronic obstructive pulmonary disease with acute exacerbation is documented in the H&P and 10/02 - 10/03 progress notes. Asthma is also documented in the the past medical history. History/risk factors: Cigarette smoker, obese, COPD Clinical Indicators: Shortness of breath, chest tightness, wheezing, cough, chest congestion Radiology: CXR 10/04: Interstitial densities are similar, possible bronchitis or asthma or mild pulmonary vascular congestion. Clinically correlate. Vital Signs: T. 98.7, P. 95, R. 20, BP 142/88 Treatment: Bronchodilation, IV Solu-Medrol, O2 therapy In your professional opinion, can you please further specify the following, if known? With Acute Exacerbation Status asthmaticus Other, please specify ___ Unable to determine Severity Mild intermittent Mild persistent Moderate persistent Severe persistent Other, please specify ____ Unable to determine Form or Type Cough variant Childhood Exercise induced bronchospasm Extrinsic allergic Idiosyncratic Intrinsic nonallergic Late-onset Mixed Other, please specify____ Unable to determine MTDD
--- NOTE | 2019-10-16 11:10 | CDI ---
Documentation Clarification Form Date: 10/16/19 From: Nellie Juares Phone: If you have a question about this query, please contact Emily Kidd, Ceramic Chemist at [phone] between 8am and 5pm. Admit Date: 10/01/19 Discharge Date:10/10/19 Patient Name: Teri Borrego Visit Number: [id number] ATTENTION: The Clinical Documentation Specialists (CDI) and [facility] Coding Staff appreciate your assistance in clarifying documentation. Please respond to the clarification below the line at the bottom and electronically sign. The CDI & [facility] Coding staff will review the response and follow-up if needed. Please note: Queries are made part of the Legal Health Record. If you have any questions, please contact the author of this message via ITS. Dear Dr. Price Severe asthma with chronic obstructive pulmonary disease with acute exacerbation is documented in the H&P and 10/02 - 10/03 progress notes. Asthma is also documented in the the past medical history. History/risk factors: Cigarette smoker, obese, COPD Clinical Indicators: Shortness of breath, chest tightness, wheezing, cough, chest congestion Radiology: CXR 10/04: Interstitial densities are similar, possible bronchitis or asthma or mild pulmonary vascular congestion. Clinically correlate. Vital Signs: T. 98.7, P. 95, R. 20, BP 142/88 Treatment: Bronchodilation, IV Solu-Medrol, O2 therapy In your professional opinion, can you please further specify the following, if known? With Acute Exacerbation Status asthmaticus Other, please specify ___ Unable to determine Severity Mild intermittent Mild persistent Moderate persistent Severe persistent Other, please specify ____ Unable to determine Form or Type Cough variant Childhood Exercise induced bronchospasm Extrinsic allergic Idiosyncratic Intrinsic nonallergic Late-onset Mixed Other, please specify____ Unable to determine MTDD
--- NOTE | 2019-10-23 10:21 | CDI ---
Documentation Clarification Form Date: 10/23/19 From: Nellie Juares Phone: If you have a question about this query, please contact Emily Kidd, [employer]cer at [phone] between 8am and 5pm. Admit Date: 10/01/19 Discharge Date:10/10/19 Patient Name: Teri Borrego Visit Number: [id number] ATTENTION: The Clinical Documentation Specialists (CDI) and [facility] Coding Staff appreciate your assistance in clarifying documentation. Please respond to the clarification below the line at the bottom and electronically sign. The CDI & [facility] Coding staff will review the response and follow-up if needed. Please note: Queries are made part of the Legal Health Record. If you have any questions, please contact the author of this message via ITS. Dear Dr. Price Thank you for signing your query. Please document a response before signing this query. Severe asthma with chronic obstructive pulmonary disease with acute exacerbation is documented in the H&P and 10/02 - 10/03 progress notes. Asthma is also documented in the the past medical history. History/risk factors: Cigarette smoker, obese, COPD Clinical Indicators: Shortness of breath, chest tightness, wheezing, cough, chest congestion Radiology: CXR 10/04: Interstitial densities are similar, possible bronchitis or asthma or mild pulmonary vascular congestion. Clinically correlate. Vital Signs: T. 98.7, P. 95, R. 20, BP 142/88 Treatment: Bronchodilation, IV Solu-Medrol, O2 therapy In your professional opinion, can you please further specify the following, if known? With Acute Exacerbation Status asthmaticus Other, please specify ___ Unable to determine Severity Mild intermittent Mild persistent Moderate persistent Severe persistent Other, please specify ____ Unable to determine Form or Type Cough variant Childhood Exercise induced bronchospasm Extrinsic allergic Idiosyncratic Intrinsic nonallergic Late-onset Mixed Other, please specify____ Unable to determine acute exacerbation of COPD MTDD
== END 2019-10-10 17:59 | DRG 190 ==
LOC: EC 18:30 → 4SSUR 20:36 → 2SICU 10-03 14:35 → 6NMEDSUR 10-09 20:47
PROVIDERS: ADMIT Internal Medicine; ATTEND Internal Medicine
PROC: 5A09457 Assistance with Respiratory Ventilation, 24-96 Consecutive Hours, Continuous Positive Airway Pressure (ICD-10-PCS; principal; 2019-10-03 15:55)
PROC: 06HN33Z Insertion of Infusion Device into Left Femoral Vein, Percutaneous Approach (ICD-10-PCS; 2019-10-08 13:20)
DX: J44.1 Chronic obstructive pulmonary disease with (acute) exacerbation (principal); G93.41 Metabolic encephalopathy; J96.21 Acute and chronic respiratory failure with hypoxia; J96.22 Acute and chronic respiratory failure with hypercapnia; E87.0 Hyperosmolality and hypernatremia; E87.1 Hypo-osmolality and hyponatremia; N25.1 Nephrogenic diabetes insipidus; N39.0 Urinary tract infection, site not specified; J98.11 Atelectasis; I27.29 Other secondary pulmonary hypertension; E78.5 Hyperlipidemia, unspecified; E87.6 Hypokalemia; F17.210 Nicotine dependence, cigarettes, uncomplicated; H35.30 Unspecified macular degeneration; I10 Essential (primary) hypertension; E66.9 Obesity, unspecified; F32.9 Major depressive disorder, single episode, unspecified; F41.9 Anxiety disorder, unspecified; G47.33 Obstructive sleep apnea (adult) (pediatric); T50.2X5A Adverse effect of carbonic-anhydrase inhibitors, benzothiadiazides and other diuretics, initial encounter; Z66 Do not resuscitate; Z79.01 Long term (current) use of anticoagulants; Z79.82 Long term (current) use of aspirin; Z79.899 Other long term (current) drug therapy; Z88.6 Allergy status to analgesic agent; Z88.5 Allergy status to narcotic agent; Z88.0 Allergy status to penicillin; Z88.2 Allergy status to sulfonamides; Z96.653 Presence of artificial knee joint, bilateral; Z90.12 Acquired absence of left breast and nipple; Z87.01 Personal history of pneumonia (recurrent); Z86.718 Personal history of other venous thrombosis and embolism; Z85.3 Personal history of malignant neoplasm of breast; Z98.51 Tubal ligation status; Z98.42 Cataract extraction status, left eye; Z98.41 Cataract extraction status, right eye; Z96.1 Presence of intraocular lens; Z84.1 Family history of disorders of kidney and ureter
CPT/HCPCS: 36410; 36415; 36600; 70450; 71045; 71046; 76937; 80048; 80053; 80178; 81001; 81003; 82140; 82550; 82805; 83036; 83605; 83735; 83880; 83930; 83935; 84100; 84132; 84300; 84484; 85025; 85610; 85730; 87040; 93005; 94640; 94660; 95816; 96374; 99285

== ENCOUNTER 2019-10-21 15:48 | Inpatient (IN) | payer MEDICARE, OTHER ==
[2019-10-21] MEDS ORDERED: DEXAMETHASONE SOD PHOSPHATE 10 MG/ML 1 ML VIAL IV STA (16:34)
[2019-10-21] MEDS ORDERED: IPRATROPIUM-ALBUTEROL 3 ML NEB INHALATION STA (16:34)
[2019-10-21] MEDS ORDERED: ALBUTEROL NEBULIZED 2.5 MG/3 ML INHALATION STA (16:34)
--- NOTE | 2019-10-21 16:37 | ED ---
General Adult HPI - General Chief complaint: Altered Mental Status Stated complaint: Sob Time Seen by Provider: 10/21/19 16:17 Source: patient, RN notes reviewed, old records reviewed Mode of arrival: EMS Limitations: no limitations - History of Present Illness Initial comments: 79-year-old female history COPD presents for evaluation of confusion. Symptoms have been waxing and waning over the past several weeks. She's had recent admission was COPD exacerbation requiring BiPAP for hypercapnic respiratory failure. [facility] with increased tachypnea. Patient is alert and oriented x 2. No complaints. No chest pain. No abdominal pain. No reported fever. - Related Data Home Medications Medication Instructions Recorded Confirmed [place] Carbonate 300 mg PO BID@0800,1700 07/03/16 10/21/19 PARoxetine [Paxil] 20 mg PO DAILY@0800 07/03/16 10/21/19 Potassium Chloride [K-Tab ER] 10 meq PO DAILY@1700 07/03/16 10/21/19 Simvastatin 40 mg PO HS@2100 07/03/16 10/21/19 Albuterol Inhaler [Ventolin Hfa 2 puff INHALATION RT-QID PRN 10/01/19 10/21/19 Inhaler] Albuterol Nebulized [Ventolin 2.5 mg INHALATION RT-QID 10/01/19 10/21/19 Nebulized] Ergocalciferol (Vitamin D2) 50,000 unit PO WE 10/01/19 10/21/19 [Drisdol] Aspirin 325 mg PO DAILY@0800 10/21/19 10/21/19 Atenolol [Tenormin] 25 mg PO BID@0800,1700 10/21/19 10/21/19 Bisacodyl [Dulcolax] 10 mg RECTAL DAILY PRN 10/21/19 10/21/19 Ferrous Sulfate [Iron (65 MG 325 mg PO BID@0800,1700 10/21/19 10/21/19 Elemental)] Loratadine [Claritin] 10 mg PO DAILY@1200 10/21/19 10/21/19 Magnesium Hydroxide [Milk of 2,400 mg PO DAILY PRN 10/21/19 10/21/19 Magnesia] Montelukast [Singulair] 10 mg PO HS@2100 10/21/19 10/21/19 Na Phos,M-B/Na Phos,Di-Ba [Fleet 133 ml RECTAL DAILY PRN 10/21/19 10/21/19 Adult] Nicotine 21Mg/24Hr Patch [Habitrol] 1 patch TRANSDERM DAILY@0800 10/21/19 10/21/19 Potassium Chloride ER [K-Dur 10] 20 meq PO DAILY@0800 10/21/19 10/21/19 Theophylline 24 Hour [Sancho-24] 200 mg PO DAILY@0800 10/21/19 10/21/19 Triamterene-Hctz 37.5-25Mg 1 cap PO DAILY@0800 10/21/19 10/21/19 [Dyazide 37.5-25 Capsule] guaiFENesin [Mucinex] 600 mg PO Q12H 10/21/19 10/21/19 guaiFENesin [guaiFENesin Oral 100 mg PO Q4H PRN 10/21/19 10/21/19 Solution] predniSONE See Taper PO DAILY 10/21/19 10/21/19 risperiDONE [RisperDAL] 0.5 mg PO HS@2100 10/21/19 10/21/19 Previous Rx's Medication Instructions Recorded LORazepam [Ativan] 1 mg PO BID PRN #20 tab 07/07/16 traMADol HCl [Ultram] 50 mg PO Q4H PRN tab 10/10/19 Allergies Allergy/AdvReac Type Severity Reaction Status Date / Time Penicillins Allergy Rash/Hives Verified 10/21/19 16:59 acetaminophen [From [place]] AdvReac Nausea & Verified 10/21/19 16:59 Vomiting hydrocodone [From [place]] AdvReac Nausea & Verified 10/21/19 16:59 Vomiting Sulfa (Sulfonamide AdvReac Nausea & Verified 10/21/19 16:59 Antibiotics) Vomiting Review of Systems ROS Statement: Those systems with pertinent positive or pertinent negative responses have been documented in the HPI. ROS Other: All systems not noted in ROS Statement are negative. Past Medical History Past Medical History: Cancer, COPD, Deep Vein Thrombosis (DVT), Eye Disorder, Hyperlipidemia, Hypertension, Pneumonia Additional Past Medical History / Comment(s): Recent kidney infection, L BREAST CANCER with SX , Bilateral MACULAR DEGENERATION, DVT R leg History of Any Multi-Drug Resistant Organisms: None Reported Past Surgical History: Breast Surgery, Joint Replacement, Tonsillectomy, Tubal Ligation Additional Past Surgical History / Comment(s): 07/04/16 Total L knee arthroplasty. Other surgical hx: LEFT MASTECTOMY, R total knee arthroplasty, bilateral cataract removal. Past Anesthesia/Blood Transfusion Reactions: Motion Sickness Past Psychological History: Anxiety, Depression Smoking Status: Current every day smoker Past Alcohol Use History: None Reported Past Drug Use History: None Reported - Past Family History Mother Family Medical History: Renal Disease Additional Family Medical History / Comment(s): Mother at the age of 84 yrs of kidney failure. Father Family Medical History: No Reported History Additional Family Medical History / Comment(s): Father at the age of 98yrs. General Exam Limitations: no limitations General appearance: alert Head exam: Present: atraumatic, normocephalic Eye exam: Present: normal appearance, PERRL ENT exam: Present: normal exam Neck exam: Present: normal inspection. Absent: tenderness, meningismus Respiratory exam: Present: wheezes, decreased breath sounds. Absent: respiratory distress Cardiovascular Exam: Present: regular rate, normal rhythm GI/Abdominal exam: Present: soft. Absent: distended, tenderness, guarding Extremities exam: Present: normal inspection, normal capillary refill. Absent: pedal edema Neurological exam: Present: alert, CN II-XII intact. Absent: oriented X3, motor sensory deficit Skin exam: Present: warm, dry, intact. Absent: cyanosis, diaphoretic Course Vital Signs 10/21/19 10/21/19 10/21/19 16:02 16:20 16:47 Temperature 99.7 F H Pulse Rate 90 70 86 Respiratory 16 25 H Rate Blood Pressure 133/74 133/74 O2 Sat by Pulse 96 95 Oximetry 10/21/19 10/21/19 17:00 17:03 Temperature Pulse Rate 75 76 Respiratory 29 H Rate Blood Pressure 133/74 O2 Sat by Pulse 99 Oximetry EKG Findings - EKG Comments: EKG Findings:: EKG: Sinus rhythm with frequent PVCs, I-Malena any, rate of 92, MN interval 136, QRS duration 86, QTC [address] segment elevation Medical Decision Making - Medical Decision Making 71-year-old female [facility] with worsening confusion. Patient is tachypneic with wheezing throughout lung toscano. Recent admission with COPD and hypercarbia. Patient placed on BiPAP for respiratory support, venous gas does indicate a CO2 of 63. She has normal CBC. Normal electrolytes. Influenza testing is negative. Chest x-ray concerning for interstitial pneumonia. Head CT is negative for intracranial hemorrhage or mass effect. Urinalysis pending. Patient is initiated on antibiotics, IV steroids, albuterol and Atrovent. She'll be detained on BiPAP for respiratory support. I did have a long discussion with the patient's 2 children who are at bedside and patient was made a no code, DO NOT RESUSCITATE. Case discussed with Dr. Kong, he will admit with pulmonology on consult. - Lab Data Result diagrams: 10/21/19 16:10 10/21/19 16:10 Lab Results 10/21/19 10/21/19 10/21/19 Range/Units 16:10 16:10 16:10 WBC 9.5 (3.8-10.6) k/uL RBC 3.56 L (3.80-5.40) m/uL Hgb 11.5 (11.4-16.0) gm/dL Hct 34.2 (34.0-46.0) % MCV 96.1 (80.0-100.0) fL MCH 32.2 (25.0-35.0) pg MCHC 33.5 (31.0-37.0) g/dL RDW 14.7 (11.5-15.5) % Plt Count 191 (150-450) k/uL Neutrophils % 90 % Lymphocytes % 3 % Monocytes % 4 % Eosinophils % 1 % Basophils % 1 % Neutrophils # 8.6 H (1.3-7.7) k/uL Lymphocytes # 0.3 L (1.0-4.8) k/uL Monocytes # 0.4 (0-1.0) k/uL Eosinophils # 0.1 (0-0.7) k/uL Basophils # 0.1 (0-0.2) k/uL Poikilocytosis Slight PT (9.0-12.0) sec INR (<1.2) APTT (22.0-30.0) sec VBG pH (7.31-7.41) VBG pCO2 (37-51) mmHg VBG HCO3 (24-28) mmol/L Sodium 136 L (137-145) mmol/L Potassium 3.9 (3.5-5.1) mmol/L Chloride 94 L (98-107) mmol/L Carbon Dioxide 37 H (22-30) mmol/L Anion Gap 5 mmol/L BUN 24 H (7-17) mg/dL Creatinine 0.81 (0.52-1.04) mg/dL Est GFR (CKD-EPI)AfAm 81 (>60 ml/min/1.73 sqM) Est GFR (CKD-EPI)NonAf 70 (>60 ml/min/1.73 sqM) Glucose 113 H (74-99) mg/dL Plasma Lactic Acid Shashank (0.7-2.0) mmol/L Calcium 8.9 (8.4-10.2) mg/dL Magnesium 2.0 (1.6-2.3) mg/dL Total Bilirubin 1.3 (0.2-1.3) mg/dL AST 22 (14-36) U/L ALT 15 (4-34) U/L Alkaline Phosphatase 56 (38-126) U/L Total Protein 5.5 L (6.3-8.2) g/dL Albumin 3.4 L (3.5-5.0) g/dL Influenza Type A RNA Not Detected (Not Detectd) Influenza Type B (PCR) Not Detected (Not Detectd) 10/21/19 10/21/19 10/21/19 Range/Units 16:10 16:10 16:10 WBC (3.8-10.6) k/uL RBC (3.80-5.40) m/uL Hgb (11.4-16.0) gm/dL Hct (34.0-46.0) % MCV (80.0-100.0) fL MCH (25.0-35.0) pg MCHC (31.0-37.0) g/dL RDW (11.5-15.5) % Plt Count (150-450) k/uL Neutrophils % % Lymphocytes % % Monocytes % % Eosinophils % % Basophils % % Neutrophils # (1.3-7.7) k/uL Lymphocytes # (1.0-4.8) k/uL Monocytes # (0-1.0) k/uL Eosinophils # (0-0.7) k/uL Basophils # (0-0.2) k/uL Poikilocytosis PT 10.0 (9.0-12.0) sec INR 1.0 (<1.2) APTT 22.1 (22.0-30.0) sec VBG pH 7.41 (7.31-7.41) VBG pCO2 63 H (37-51) mmHg VBG HCO3 40 H (24-28) mmol/L Sodium (137-145) mmol/L Potassium (3.5-5.1) mmol/L Chloride (98-107) mmol/L Carbon Dioxide (22-30) mmol/L Anion Gap mmol/L BUN (7-17) mg/dL Creatinine (0.52-1.04) mg/dL Est GFR (CKD-EPI)AfAm (>60 ml/min/1.73 sqM) Est GFR (CKD-EPI)NonAf (>60 ml/min/1.73 sqM) Glucose (74-99) mg/dL Plasma Lactic Acid Shashank 0.9 (0.7-2.0) mmol/L Calcium (8.4-10.2) mg/dL Magnesium (1.6-2.3) mg/dL Total Bilirubin (0.2-1.3) mg/dL AST (14-36) U/L ALT (4-34) U/L Alkaline Phosphatase (38-126) U/L Total Protein (6.3-8.2) g/dL Albumin (3.5-5.0) g/dL Influenza Type A RNA (Not Detectd) Influenza Type B (PCR) (Not Detectd) Critical Care Time Critical Care Time: Yes Total Critical Care Time: 35 Disposition Clinical Impression: Acute exacerbation of chronic obstructive pulmonary disease, Altered mental status, Hypercapnic respiratory failure Disposition: ADMITTED IP TO THIS [facility] Condition: Stable Is patient prescribed a controlled substance at d/c from ED?: No Referrals: Abiola Kong MD [Primary Care Provider] - 1-2 days Decision to Admit Reason: Admit from EC Decision Date: 10/21/19 Decision Time: 17:53
[2019-10-21 16:40] LABS: Basophils # (A) 0.1 k/uL (0-0.2); Basophils % (A) 1 %; Eosinophils # (A) 0.1 k/uL (0-0.7); Eosinophils % (A) 1 %; HCT 34.2 % (34.0-46.0); HGB 11.5 gm/dL (11.4-16.0); Lymphocytes # (A) 0.3 k/uL (1.0-4.8); Lymphocytes % (A) 3 %; MCH 32.2 pg (25.0-35.0); MCHC 33.5 g/dL (31.0-37.0); MCV 96.1 fL (80.0-100.0); Mean Platelet Volume 7.5; Monocytes # (A) 0.4 k/uL (0-1.0); Monocytes % (A) 4 %; Neutrophils # (A) 8.6 k/uL (1.3-7.7); Neutrophils % (A) 90 %; Platelet Count 191 k/uL (150-450); Poikilocytosis Slight; RBC 3.56 m/uL (3.80-5.40); RDW 14.7 % (11.5-15.5); WBC 9.5 k/uL (3.8-10.6)
[2019-10-21 16:44] LABS: VBG PH 7.41 (7.31-7.41)
[2019-10-21 16:48] LABS: Partial Thromboplastin Time 22.1 sec (22.0-30.0)
[2019-10-21 16:53] LABS: Albumin 3.4 g/dL (3.5-5.0); Calcium 8.9 mg/dL (8.4-10.2); Potassium 3.9 mmol/L (3.5-5.1); Total Bilirubin 1.3 mg/dL (0.2-1.3); Total Protein 5.5 g/dL (6.3-8.2)
--- NOTE | 2019-10-21 16:53 | XR ---
EXAMINATION TYPE: XR chest 2V DATE OF EXAM: 10/21/2019 COMPARISON: 10/06/2019 HISTORY: Altered mental status. COPD. TECHNIQUE: FINDINGS: There is mild coarsening of interstitial markings. There is no heart failure. Heart size is normal. Costophrenic angles are clear. There is poor inspiration. Bony thorax is intact. Thoracic ao rta is atheromatous. IMPRESSION: Slight increased interstitial markings compared to last exam could relate to subsegmental atelectasis and mild interstitial pneumonia. No heart failure seen.
--- NOTE | 2019-10-21 16:58 | CT ---
EXAMINATION TYPE: CT brain wo con DATE OF EXAM: 10/21/2019 COMPARISON: 10/04/2019 HISTORY: Weakness and decreased mental status CT DLP: 1202.4 mGycm Automated exposure control for dose reduction was used. There is some cerebral cortical atrophy. There is mild hypodensity in the periventricular white matte r. There is no mass effect nor midline shift. There is no sign of intracranial hemorrhage. The calvar ium is intact. There is some mucosal thickening in the ethmoid and sphenoid sinuses. IMPRESSION: Cerebral atrophy and mild chronic small vessel ischemia. Sinusitis. Sinusitis appears increased guillermina red to old exam.Brain appears unchanged.
[2019-10-21] MEDS ORDERED: AZITHROMYCIN 500 MG in SODIUM CHLORIDE 0.9% 250 ML IVPB STA (17:39)
[2019-10-21] MEDS ORDERED: cefTRIAXone IN SWFI 1,000 MG/10 ML SYRINGE IVP STA (17:39)
[2019-10-21] MEDS ORDERED: IPRATROPIUM-ALBUTEROL 3 ML NEB INHALATION PRN (17:48)
[2019-10-21] MEDS: methylPREDNISolone SOD SUCCI 125 MG/2 ML VIAL IV SCH ×2 (18:19→22:51)
[2019-10-21] MEDS ORDERED: MAGNESIUM HYDROXIDE 2,400 MG/10 ML CUP PO PRN (19:09)
[2019-10-21] MEDS ORDERED: guaiFENesin SYRUP 100MG/5ML 200 MG/10 ML CUP PO PRN (19:09)
[2019-10-21] MEDS ORDERED: LORazepam 1 MG TAB PO PRN (19:09)
[2019-10-21] MEDS ORDERED: NA PHOS,M-B/NA PHOS,DI-BA 133 ML ENEMA RECTAL PRN (19:09)
[2019-10-21] MEDS ORDERED: BISACODYL 10 MG SUPP RECTAL PRN (19:09)
[2019-10-21] MEDS ORDERED: traMADol 50 MG TAB PO PRN (19:09)
[2019-10-21] MEDS: IPRATROPIUM-ALBUTEROL 3 ML NEB INHALATION SCH (19:27)
[2019-10-21] MEDS: ALBUTEROL NEBULIZED 2.5 MG/3 ML INHALATION SCH (19:27)
[2019-10-21] MEDS: MONTELUKAST 10 MG TAB PO SCH (22:51)
[2019-10-21] MEDS: ATORVASTATIN 20 MG TAB PO SCH (22:51)
[2019-10-21] MEDS: risperiDONE 0.5 MG TAB PO SCH (22:51)
[2019-10-21] MEDS: guaiFENesin 600 MG TABLET.ER PO SCH (22:51)
[2019-10-22] MEDS: methylPREDNISolone SOD SUCCI 125 MG/2 ML VIAL IV SCH ×2 (05:57→12:53)
[2019-10-22 06:13] LABS: HCT 35.6 % (34.0-46.0); HGB 11.4 gm/dL (11.4-16.0); MCHC 31.9 g/dL (31.0-37.0); MCV 97.2 fL (80.0-100.0); Mean Platelet Volume 7.5; Platelet Count 163 k/uL (150-450); RBC 3.66 m/uL (3.80-5.40); RDW 14.6 % (11.5-15.5); WBC 6.9 k/uL (3.8-10.6)
[2019-10-22 06:35] LABS: Calcium 9.2 mg/dL (8.4-10.2); Potassium 3.8 mmol/L (3.5-5.1)
[2019-10-22] MEDS: IPRATROPIUM-ALBUTEROL 3 ML NEB INHALATION SCH ×4 (08:58→20:58)
[2019-10-22] MEDS: ALBUTEROL NEBULIZED 2.5 MG/3 ML INHALATION SCH ×2 (08:58→12:25)
[2019-10-22] MEDS ORDERED: ERGOCALCIFEROL 50,000 UNIT CAP PO SCH (09:00)
--- NOTE | 2019-10-22 09:48 | P.HPIM ---
History of Present Illness H&P Date: 10/22/19 Chief Complaint: AMSC, COPD exacerbation This is a 79-year-old female patient who presented to the ER with increased confusion and concerns for possible pneumonia and COPD exacerbation. Patient had been currently residing at [facility] and has been having intermittent confusio n with increased pulmonary congestion. Patient was sent to ER with concerns of COPD exacerbation elevated CO2 and concerns for possible pneumonia. Patient has a past medical history of breast cancer, COPD, DVT, hyperlipidemia, hypertension, pneumonia anxiety, depression and ex-smoker until a couple weeks ago. Patient was recently admitted for COPD exacerbation. Chest x-ray completed showing slight increased interstitial markings compared subsegmental atelectasis and mild interstitial pneumoni. no heart failure seen. Head CT completed showing cerebral atrophy and mild chronic small vessel ischemia. Sinusitis. Sinusitis appears increased compared to old exam brain appears unchanged. EKG completed showing sinus rhythm with frequent premature ventricular complexes in a pattern of bigeminy. Influenza negative. She was started on Solu-Medrol, BiPAP azithromycin and Rocephin. Pulmonary services have been consulted. Cardiology services for bigeminy. At this time patient does appear improved. Patient is alert and oriented 2. Patient follows commands and answers questions appropriately. Patient denies chest pain or shortness breath. Patient denies nausea, vomiting or diarrhea. Patient denies any urinary burning or frequency. Review of Systems Please refer to HPI otherwise unremarkable Past Medical History Past Medical History: Cancer, COPD, Deep Vein Thrombosis (DVT), Eye Disorder, Hyperlipidemia, Hypertension, Pneumonia Additional Past Medical History / Comment(s): Recent kidney infection, L BREAST CANCER with SX , Bilateral MACULAR DEGENERATION, DVT R leg History of Any Multi-Drug Resistant Organisms: None Reported Past Surgical History: Breast Surgery, Joint Replacement, Tonsillectomy, Tubal Ligation Additional Past Surgical History / Comment(s): 07/04/16 Total L knee arthroplasty. Other surgical hx: LEFT MASTECTOMY, R total knee arthroplasty, bilateral cataract removal. Past Anesthesia/Blood Transfusion Reactions: Motion Sickness Smoking Status: Former smoker - Past Family History Mother Family Medical History: Renal Disease Additional Family Medical History / Comment(s): Mother at the age of 84 yrs of kidney failure. Father Family Medical History: No Reported History Additional Family Medical History / Comment(s): Father at the age of 98yrs. Medications and Allergies Home Medications Medication Instructions Recorded Confirmed Type [place] Carbonate 300 mg PO BID@0800,1700 07/03/16 10/21/19 History PARoxetine [Paxil] 20 mg PO DAILY@0800 07/03/16 10/21/19 History Potassium Chloride [K-Tab ER] 10 meq PO DAILY@1700 07/03/16 10/21/19 History Simvastatin 40 mg PO HS@2100 07/03/16 10/21/19 History LORazepam [Ativan] 1 mg PO BID PRN #20 tab 07/07/16 10/21/19 Rx Albuterol Inhaler [Ventolin Hfa 2 puff INHALATION RT-QID PRN 10/01/19 10/21/19 History Inhaler] Albuterol Nebulized [Ventolin 2.5 mg INHALATION RT-QID 10/01/19 10/21/19 History Nebulized] Ergocalciferol (Vitamin D2) 50,000 unit PO WE 10/01/19 10/21/19 History [Drisdol] traMADol HCl [Ultram] 50 mg PO Q4H PRN tab 10/10/19 10/21/19 Rx Aspirin 325 mg PO DAILY@0800 10/21/19 10/21/19 History Atenolol [Tenormin] 25 mg PO BID@0800,1700 10/21/19 10/21/19 History Bisacodyl [Dulcolax] 10 mg RECTAL DAILY PRN 10/21/19 10/21/19 History Ferrous Sulfate [Iron (65 MG 325 mg PO BID@0800,1700 10/21/19 10/21/19 History Elemental)] Loratadine [Claritin] 10 mg PO DAILY@1200 10/21/19 10/21/19 History Magnesium Hydroxide [Milk of 2,400 mg PO DAILY PRN 10/21/19 10/21/19 History Magnesia] Montelukast [Singulair] 10 mg PO HS@209910/21/19 10/21/19 History Na Phos,M-B/Na Phos,Di-Ba [Fleet 133 ml RECTAL DAILY PRN 10/21/19 10/21/19 History Adult] Nicotine 21Mg/24Hr Patch [Habitrol] 1 patch TRANSDERM DAILY@0800 10/21/19 10/21/19 History Potassium Chloride ER [K-Dur 10] 20 meq PO DAILY@0800 10/21/19 10/21/19 History Theophylline 24 Hour [Sancho-24] 200 mg PO DAILY@0800 10/21/19 10/21/19 History Triamterene-Hctz 37.5-25Mg 1 cap PO DAILY@0800 10/21/19 10/21/19 History [Dyazide 37.5-25 Capsule] guaiFENesin [Mucinex] 600 mg PO Q12H 10/21/19 10/21/19 History guaiFENesin [guaiFENesin Oral 100 mg PO Q4H PRN 10/21/19 10/21/19 History Solution] predniSONE See Taper PO DAILY 10/21/19 10/21/19 History risperiDONE [RisperDAL] 0.5 mg PO HS@2100 10/21/19 10/21/19 History Allergies Allergy/AdvReac Type Severity Reaction Status Date / Time Penicillins Allergy Rash/Hives Verified 10/21/19 16:59 acetaminophen [From [place]] AdvReac Nausea & Verified 10/21/19 16:59 Vomiting hydrocodone [From [place]] AdvReac Nausea & Verified 10/21/19 16:59 Vomiting Sulfa (Sulfonamide AdvReac Nausea & Verified 10/21/19 16:59 Antibiotics) Vomiting Physical Exam Vitals: Vital Signs Temp Pulse Pulse Resp BP BP Pulse Ox 10/22/19 07:56 98.5 F 47 L 27 H 111/56 94 L 10/22/19 03:52 98 F 74 27 H 120/65 95 10/22/19 00:00 98.2 F 68 19 103/58 94 L 10/21/19 23:06 69 10/21/19 22:50 69 10/21/19 20:00 97.7 F 56 L 25 H 110/50 93 L 10/21/19 19:37 78 10/21/19 19:31 75 10/21/19 19:13 98 F 10/21/19 18:30 98.9 F 10/21/19 18:00 79 23 124/68 96 10/21/19 17:03 76 10/21/19 17:00 75 29 H 133/74 99 10/21/19 16:47 86 10/21/19 16:20 70 25 H 133/74 95 10/21/19 16:02 99.7 F H 90 16 133/74 96 Intake and Output 10/21/19 10/22/19 10/22/19 22:59 06:59 14:59 Intake Total 240 Output Total 100 Balance -100 240 Intake: Oral 240 Output: Urine 100 Other: Voiding Method Bedpan Bedpan Bedside Commode # Voids 1 Weight 83.915 kg 82.1 kg Head normocephalic Neck supple Lungs diminished bilaterally left lower lobe crackles slight expiratory wheezing cardiac regular rate and rhythm S1-S2, no rub or gallop Abdomen is soft nontender nondistended positive bowel sounds no hepatosplenomeg mitesh Extremities no edema Neuro alert and orientated to 3 Results CBC & Chem 7: 10/22/19 05:38 10/22/19 05:38 Labs: Abnormal Lab Results - Last 24 Hours (Table) 10/21/19 10/21/19 10/21/19 Range/Units 16:10 16:10 16:10 RBC 3.56 L (3.80-5.40) m/uL Neutrophils # 8.6 H (1.3-7.7) k/uL Lymphocytes # 0.3 L (1.0-4.8) k/uL VBG pCO2 63 H (37-51) mmHg VBG HCO3 40 H (24-28) mmol/L Sodium 136 L (137-145) mmol/L Chloride 94 L (98-107) mmol/L Carbon Dioxide 37 H (22-30) mmol/L BUN 24 H (7-17) mg/dL Glucose 113 H (74-99) mg/dL Total Protein 5.5 L (6.3-8.2) g/dL Albumin 3.4 L (3.5-5.0) g/dL 10/22/19 10/22/19 Range/Units 05:38 05:38 RBC 3.66 L (3.80-5.40) m/uL Neutrophils # (1.3-7.7) k/uL Lymphocytes # (1.0-4.8) k/uL VBG pCO2 (37-51) mmHg VBG HCO3 (24-28) mmol/L Sodium (137-145) mmol/L Chloride 94 L (98-107) mmol/L Carbon Dioxide 35 H (22-30) mmol/L BUN 29 H (7-17) mg/dL Glucose 161 H (74-99) mg/dL Total Protein (6.3-8.2) g/dL Albumin (3.5-5.0) g/dL Thrombosis Risk Factor Assmnt - Choose All That Apply Each Risk Factor Represents 3 Points: Age 75 years or older Thrombosis Risk Factor Assessment Total Risk Factor Score: 3 Thrombosis Risk Factor Assessment Level: Moderate Risk Assessment and Plan Assessment: 1. Increased shortness of breath likely secondary to acute exacerbation of COPD and pneumonia. Chest x-ray completed showing slight increased interstitial markings compared to last exam could relate to subsegmental atelectasis with mild interstitial pneumonia no heart failure seen. At it started on Solu-Medrol DuoNeb breathing treatments and IV antibiotics. Pulmonary services have been consulted. Continue BiPAP 2. Metabolic encephalopathy likely secondary to hypercapnia. Head CT completed showing cerebral atrophy and mild chronic small vessel ischemia. Sinusitis. Sinusitis appears increased compared to old exam brain appears unchanged. Will order a lithium level 3. Acute on chronic hypoxemic and hypercapnic respiratory failure secondary to COPD exacerbation. Pulmonary services have been consulted 4. History of nicotine dependence. Patient has stopped smoking couple weeks ago. Nicotine patch has been ordered 5. History of left breast cancer status post left mastectomy 6. History of deep vein thrombosis. Patient has completed treatment no longer on anticoagulation 7. History of macular degeneration 8. History of hyperlipidemia. Patient maintained on statin 9. History of essential hypertension 10. History of bipolar depression. Patient follows with Dr. Downey regularly. Patient is maintained on lithium Paxil and Risperdal. Will order a lithium level 11. Bigeminy seen on EKG. Cardiology services have been consulted. Potassium and magnesium within normal limits. Will order TSH level DVT prophylaxis Lovenox. GI prophylaxis Pepcid Time with Patient: Greater than 30 (Greater than 60% of the total time spent in counseling and coordination of care. I performed an examination of the patient and discussed their management with the Nurse Practitioner. I have reviewed the Nurse Practitioner's notes and agree with the documented findings and plan of care)
[2019-10-22] MEDS: NICOTINE 21MG/24HR PATCH TRANSDERM SCH (10:00)
[2019-10-22] MEDS: guaiFENesin 600 MG TABLET.ER PO SCH ×2 (10:01→21:47)
[2019-10-22] MEDS: POTASSIUM CHLORIDE ER 20 MEQ TAB.ER PO SCH (10:01)
[2019-10-22] MEDS: LITHIUM CARBONATE 300 MG CAP PO SCH ×2 (10:01→17:28)
[2019-10-22] MEDS: PARoxetine 20 MG TAB PO SCH (10:01)
[2019-10-22] MEDS: TRIAMTERENE-HCTZ 37.5-25MG 1 EACH CAP PO SCH (10:01)
[2019-10-22] MEDS: ASPIRIN 325 MG TAB PO SCH (10:02)
[2019-10-22] MEDS: ATENOLOL 25 MG TAB PO SCH ×2 (10:02→17:28)
[2019-10-22] MEDS: FERROUS SULFATE 325 MG TAB PO SCH ×2 (10:02→17:28)
[2019-10-22] MEDS: THEOPHYLLINE 24 HOUR 200 MG CAP.ER.24H PO SCH (10:02)
--- NOTE | 2019-10-22 11:08 | P.CRDCN ---
History of Present Illness Consult date: 10/22/19 Requesting physician: Abiola Kong Reason for Consult (text): PAC's Chief complaint: Shortness of breath, productive cough History of present illness: This is a 79-year-old female with history of COPD, she just recently quit smoking, history of breast cancer, prior DVT, hypertension, hyperlipidemia, recurrent pneumonias, anxiety and depression. She was recently in the hospital for COPD exacerbation and possible pneumonia. Her chest x-ray performed on this admission showed increase in interstitial markings consistent with possible interstitial pneumonia. No heart failure seen on x-ray. CT of the head was also performed which revealed cerebral atrophy and mild chronic small vessel ischemia. Patient had some mild confusion as well which was part of the reason she was brought to the hospital. Her EKG which was performed here shows a normal sinus rhythm with frequent PACs and for this reason a cardiology consultation was requested. Blood pressure 110/60, heart rate in the 70s, 94% on 30% BiPAP. White blood cell count 6.9, hemoglobin 11.4, platelet count 163. PH 7.4, pCO2 63, HCO3 40. Sodium 137, potassium 3.8, BUN 29, creatinine 0.8. Magnesium 2.0. Influenza A and B are negative. At the time of my examination this morning, patient is sitting up in her chair at bedside, alert and oriented 2, continues to have significant productive cough of dark sputum this morning. Otherwise is quite comfortable. She denies any palpitations, no dizziness or lightheadedness, no chest discomfort. Past Medical History Past Medical History: Cancer, COPD, Deep Vein Thrombosis (DVT), Eye Disorder, Hyperlipidemia, Hypertension, Pneumonia Additional Past Medical History / Comment(s): Recent kidney infection, L BREAST CANCER with SX , Bilateral MACULAR DEGENERATION, DVT R leg History of Any Multi-Drug Resistant Organisms: None Reported Past Surgical History: Breast Surgery, Joint Replacement, Tonsillectomy, Tubal Ligation Additional Past Surgical History / Comment(s): 07/04/16 Total L knee arthroplasty. Other surgical hx: LEFT MASTECTOMY, R total knee arthroplasty, bilateral cataract removal. Past Anesthesia/Blood Transfusion Reactions: Motion Sickness Smoking Status: Former smoker - Past Family History Mother Family Medical History: Renal Disease Additional Family Medical History / Comment(s): Mother at the age of 84 yrs of kidney failure. Father Family Medical History: No Reported History Additional Family Medical History / Comment(s): Father at the age of 98yrs. Medications and Allergies Home Medications Medication Instructions Recorded Confirmed Type [place] Carbonate 300 mg PO BID@0800,1700 07/03/16 10/21/19 History PARoxetine [Paxil] 20 mg PO DAILY@0800 07/03/16 10/21/19 History Potassium Chloride [K-Tab ER] 10 meq PO DAILY@1700 07/03/16 10/21/19 History Simvastatin 40 mg PO HS@209907/03/16 10/21/19 History LORazepam [Ativan] 1 mg PO BID PRN #20 tab 07/07/16 10/21/19 Rx Albuterol Inhaler [Ventolin Hfa 2 puff INHALATION RT-QID PRN 10/01/19 10/21/19 History Inhaler] Albuterol Nebulized [Ventolin 2.5 mg INHALATION RT-QID 10/01/19 10/21/19 History Nebulized] Ergocalciferol (Vitamin D2) 50,000 unit PO WE 10/01/19 10/21/19 History [Drisdol] traMADol HCl [Ultram] 50 mg PO Q4H PRN tab 10/10/19 10/21/19 Rx Aspirin 325 mg PO DAILY@0800 10/21/19 10/21/19 History Atenolol [Tenormin] 25 mg PO BID@0800,1700 10/21/19 10/21/19 History Bisacodyl [Dulcolax] 10 mg RECTAL DAILY PRN 10/21/19 10/21/19 History Ferrous Sulfate [Iron (65 MG 325 mg PO BID@0800,1700 10/21/19 10/21/19 History Elemental)] Loratadine [Claritin] 10 mg PO DAILY@1200 10/21/19 10/21/19 History Magnesium Hydroxide [Milk of 2,400 mg PO DAILY PRN 10/21/19 10/21/19 History Magnesia] Montelukast [Singulair] 10 mg PO HS@2100 10/21/19 10/21/19 History Na Phos,M-B/Na Phos,Di-Ba [Fleet 133 ml RECTAL DAILY PRN 10/21/19 10/21/19 Hist ory Adult] Nicotine 21Mg/24Hr Patch [Habitrol] 1 patch TRANSDERM DAILY@0800 10/21/19 10/21/19 History Potassium Chloride ER [K-Dur 10] 20 meq PO DAILY@0800 10/21/19 10/21/19 History Theophylline 24 Hour [Sancho-24] 200 mg PO DAILY@0800 10/21/19 10/21/19 History Triamterene-Hctz 37.5-25Mg 1 cap PO DAILY@0800 10/21/19 10/21/19 History [Dyazide 37.5-25 Capsule] guaiFENesin [Mucinex] 600 mg PO Q12H 10/21/19 10/21/19 History guaiFENesin [guaiFENesin Oral 100 mg PO Q4H PRN 10/21/19 10/21/19 History Solution] predniSONE See Taper PO DAILY 10/21/19 10/21/19 History risperiDONE [RisperDAL] 0.5 mg PO HS@2100 10/21/19 10/21/19 History Allergies Allergy/AdvReac Type Severity Reaction Status Date / Time Penicillins Allergy Rash/Hives Verified 10/21/19 16:59 acetaminophen [From [place]] AdvReac Nausea & Verified 10/21/19 16:59 Vomiting hydrocodone [From [place]] AdvReac Nausea & Verified 10/21/19 16:59 Vomiting Sulfa (Sulfonamide AdvReac Nausea & Verified 10/21/19 16:59 Antibiotics) Vomiting Physical Exam Vitals: Vital Signs Temp Pulse Pulse Resp BP BP Pulse Ox 10/22/19 07:56 98.5 F 47 L 27 H 111/56 94 L 10/22/19 03:52 98 F 74 27 H 120/65 95 10/22/19 00:00 98.2 F 68 19 103/58 94 L 10/21/19 23:06 69 10/21/19 22:50 69 10/21/19 20:00 97.7 F 56 L 25 H 110/50 93 L 10/21/19 19:37 78 10/21/19 19:31 75 10/21/19 19:13 98 F 10/21/19 18:30 98.9 F 10/21/19 18:00 79 23 124/68 96 10/21/19 17:03 76 10/21/19 17:00 75 29 H 133/74 99 10/21/19 16:47 86 10/21/19 16:20 70 25 H 133/74 95 10/21/19 16:02 99.7 F H 90 16 133/74 96 Intake and Output 10/21/19 10/22/19 10/22/19 22:59 06:59 14:59 Intake Total 240 Output Total 100 Balance -100 240 Intake: Oral 240 Output: Urine 100 Other: Voiding Method Bedpan Bedpan Bedside Commode # Voids 1 Weight 83.915 kg 82.1 kg PHYSICAL EXAMINATION: GENERAL: 79-year-old female in no acute distress at the time of my examination HEENT: Head is atraumatic, normocephalic. Pupils equal, round. Sclera anicteric. Conjunctiva are clear. Mucous membranes of the mouth are moist. Neck is supple. There is no elevated jugular venous pressure. No carotid bruit is heard. HEART EXAMINATION: Heart S1 and S2 systolic murmur is heard CHEST EXAMINATION: And's reveal scattered coarse rhonchi and wheezing throughout ABDOMEN: Soft, nontender. Bowel sounds are heard. No organomegaly noted. EXTREMITIES: 2+ peripheral pulses with no evidence of peripheral edema and no calf tenderness noted. NEUROLOGIC patient is awake, alert and oriented 2 . . Results 10/22/19 05:38 10/22/19 05:38 Cardiac Enzymes 10/21/19 Range/Units 16:10 AST 22 (14-36) U/L Coagulation 10/21/19 Range/Units 16:10 PT 10.0 (9.0-12.0) sec APTT 22.1 (22.0-30.0) sec CBC 10/21/19 10/22/19 Range/Units 16:10 05:38 WBC 9.5 6.9 (3.8-10.6) k/uL RBC 3.56 L 3.66 L (3.80-5.40) m/uL Hgb 11.5 11.4 (11.4-16.0) gm/dL Hct 34.2 35.6 (34.0-46.0) % Plt Count 191 163 (150-450) k/uL Comprehensive Metabolic Panel 10/21/19 10/22/19 Range/Units 16:10 05:38 Sodium 136 L 137 (137-145) mmol/L Potassium 3.9 3.8 (3.5-5.1) mmol/L Chloride 94 L 94 L (98-107) mmol/L Carbon Dioxide 37 H 35 H (22-30) mmol/L BUN 24 H 29 H (7-17) mg/dL Creatinine 0.81 0.87 (0.52-1.04) mg/dL Glucose 113 H 161 H (74-99) mg/dL Calcium 8.9 9.2 (8.4-10.2) mg/dL AST 22 (14-36) U/L ALT 15 (4-34) U/L Alkaline Phosphatase 56 (38-126) U/L Total Protein 5.5 L (6.3-8.2) g/dL Albumin 3.4 L (3.5-5.0) g/dL Current Medications Generic Name Dose Route Start Last Admin Trade Name Freq PRN Reason Stop Dose Admin Albuterol Sulfate 2.5 mg 10/21/19 20:00 10/22/19 08:58 Ventolin Nebulized INHALATION Not Given RT-QID [facility] Albuterol/Ipratropium 3 ml 10/21/19 17:48 10/21/19 22:50 Duoneb 0.5 Mg-3 Mg/3 Ml Soln INHALATION 3 ml RT-Q4H PRN Administration Shortness Of Breath Or Wheezing Albuterol/Ipratropium 3 ml 10/21/19 20:00 10/22/19 08:58 Duoneb 0.5 Mg-3 Mg/3 Ml Soln INHALATION Not Given RT-QID [facility] Aspirin 325 mg 10/22/19 08:00 10/22/19 10:02 Aspirin PO 325 mg DAILY@0800 [facility] Administration Atenolol 25 mg 10/22/19 08:00 10/22/19 10:02 Tenormin PO 25 mg BID@0800,1700 [facility] Administration Atorvastatin Calcium 20 mg 10/21/19 21:00 10/21/19 22:51 Lipitor PO 20 mg HS@2100 [facility] Administration Bisacodyl 10 mg 10/21/19 19:09 Dulcolax RECTAL DAILY PRN Constipation Enoxaparin Sodium 40 mg 10/23/19 09:00 Lovenox SQ DAILY [facility] Ergocalciferol 50,000 unit 10/22/19 09:00 01/22/20 10:01 Vitamin D2 PO 50,000 unit WE [facility] Administration Famotidine 20 mg 10/23/19 09:00 Pepcid PO DAILY [facility] Ferrous Sulfate 325 mg 10/22/19 08:00 10/22/19 10:02 Feosol PO 325 mg BID@0800,1700 [facility] Administration Guaifenesin 100 mg 10/21/19 19:09 Robitussin PO Q4H PRN Cough Guaifenesin 600 mg 10/21/19 20:00 10/22/19 10:01 Mucinex PO 600 mg Q12H [facility] Administration Insulin Aspart 0 unit 10/22/19 12:30 Novolog SQ ACHS [facility] Protocol Roxobel Carbonate 300 mg 10/22/19 08:00 10/22/19 10:01 Rox[place]el Carbonate PO 300 mg BID@0800,1700 [facility] Administration Loratadine 10 mg 10/22/19 12:00 Claritin PO DAILY@1200 [facility] Lorazepam 1 mg 10/21/19 19:09 Ativan PO BID PRN Anxiety Magnesium Hydroxide 2,400 mg 10/21/19 19:09 Milk Of Magnesia PO DAILY PRN Constipation Methylprednisolone Sodium Succinate 60 mg 10/21/19 18:00 10/22/19 05:57 Solu-Medrol IV 60 mg Q6HR [facility] Administration Montelukast Sodium 10 mg 10/21/19 21:00 10/21/19 22:51 Singulair PO 10 mg HS@2100 [facility] Administration Nicotine 1 patch 10/22/19 08:00 10/22/19 10:00 Habitrol 21mg/24hr Patch TRANSDERM 1 patch DAILY@0800 [facility] Administration Paroxetine HCl 20 mg 10/22/19 08:00 10/22/19 10:01 Paxil PO 20 mg DAILY@0800 [facility] Administration Potassium Chloride 10 meq 10/22/19 17:00 K-Dur 10 PO DAILY@1700 [facility] Potassium Chloride 20 meq 10/22/19 08:00 10/22/19 10:01 K-Dur 20 PO 20 meq DAILY@0800 [facility] Administration Risperidone 0.5 mg 10/21/19 21:00 10/21/19 22:51 Risperdal PO 0.5 mg HS@2100 [facility] Administration Sodium Biphosphate/Sodium Phosphate 133 ml 10/21/19 19:09 [place] Adult RECTAL DAILY PRN Constipation Theophylline 200 mg 10/22/19 08:00 10/22/19 10:02 Sancho-24 PO 200 mg DAILY@0800 [facility] Administration Tramadol HCl 50 mg 10/21/19 19:09 Ultram PO Q4H PRN Pain Triamterene/HCTZ 1 each 10/22/19 08:00 10/22/19 10:01 Dyazide PO 1 each DAILY@0800 [facility] Administration Intake and Output 10/21/19 10/22/19 10/22/19 22:59 06:59 14:59 Intake Total 240 Output Total 100 Balance -100 240 Intake: Oral 240 Output: Urine 100 Other: Voiding Method Bedpan Bedpan Bedside Commode # Voids 1 Weight 83.915 kg 82.1 kg 10/22/19 05:38 10/22/19 05:38 EKG Interpretations (text) EKG shows a normal sinus rhythm with bigeminal PACs. Assessment and Plan Plan: Assessment and plan #1 COPD exacerbation and pneumonia #2 history of COPD #3 patient recently quit smoking about 2 weeks ago #4 history of DVT #5 bigeminal PACs #6 hypertension #7 hyperlipidemia #8 history of bipolar Plan We will obtain an echocardiogram with Doppler study. Repeat EKG this morning. Continue atenolol 25 mg by mouth twice a day. DNP note has been reviewed, I agree with a documented findings and plan of care. Patient was seen and examined.
[2019-10-22 12:10] LABS: Glucose,Whole Blood 191 mg/dL (75-99)
[2019-10-22] MEDS: LORATADINE 10 MG TAB PO SCH (12:52)
[2019-10-22] MEDS: INSULIN ASPART (NovoLOG) 100 UNIT/ML VIAL SQ SCH ×3 (12:52→21:47)
[2019-10-22 13:01] LABS: T4, Free (Free Thyroxine) 1.15 ng/dL (0.78-2.19)
[2019-10-22 15:10] LABS: ABG HCO3 39 mmol/L (21-25); ABG Oxygen Saturation 86.7 % (94-97); ABG PCO2 54 mmHg (35-45); ABG PH 7.47 (7.35-7.45); ABG TCO2 40 mmol/L (19-24); Allen Test Performed? Yes
[2019-10-22 15:14] LABS: ABG PO2 49 mmHg (83-108)
--- NOTE | 2019-10-22 15:49 | CONS ---
CONSULTATION PULMONARY/CRITICAL CARE CONSULTATION: DATE OF SERVICE: 10/22/2019 This is for mental status changes. This is a 79-year-old female with a history of quite severe COPD. I believe her FEV1 is in the range of about 40% to 45%. Anyway, the patient comes in with apparent confusion. She is brought in by EMS to the emergency room. She currently resides at [facility]. I saw the patient on her last admission. She was actually in the ICU for a period of time. At that time, she was on BiPAP for a number of days for hypercapnic and hypoxemic respiratory failure. She seemed to do okay over that period of time and actually was discharged to [facility]. The patient apparently is doing much better now. She is sitting up in the chair. She is alert and awake. I suspect she received too much oxygen therapy which caused worsening hypercapnia and mental status changes, which is why she was admitted to the hospital. She is alert and oriented x3 at the current time. She denies any difficulty breathing, coughing, wheezing or phlegm production. There is no fever or chills. No chest pain or chest discomfort. No nausea, vomiting, diarrhea, or any genitourinary complaints. The patient is currently just on a couple liters of O2. She is currently not on BiPAP. When she was on BiPAP, the settings were 10, 5 and 30%. Again, currently, according to her daughter, she is back to baseline. [facility] medications include lithium, Paxil, potassium chloride, Zocor, albuterol inhaler, albuterol updrafts, vitamin D2, aspirin, Tenormin, Dulcolax, ferrous sulfate, Claritin, milk of magnesia, Singulair, Fleets enema, nicotine patch, potassium chloride, theophylline, Dyazide, guaifenesin, prednisone and Risperdal. She is also apparently on Ativan and Ultram. ALLERGIES: Multiple and include PENICILLIN, TYLENOL, HYDROCODONE, AND SULFA ANTIBIOTICS. PAST MEDICAL HISTORY: Positive for breast cancer, COPD from previous tobacco use, DVT, macular degeneration, hyperlipidemia, hypertension, pneumonia and chronic hypoxemic respiratory failure. She also has a history of recent kidney infection and DVT as mentioned above in the right leg. SURGICAL HISTORY: Includes breast surgery, joint replacement, tonsillectomy, tubal ligation, left total knee arthroplasty, left mastectomy, right total knee arthroplasty, and bilateral cataract surgery. SOCIAL HISTORY: Positive for ongoing tobacco use. She denies any alcohol use or illicit drug use. FAMILY HISTORY: Positive for mother who had kidney disease and kidney failure and father who apparently was healthy and at age 98. REVIEW OF SYSTEMS: CONSTITUTIONAL: Confusion. NEUROLOGIC: Confusion and disorientation. HEENT: Negative. CARDIOVASCULAR: Negative. PULMONARY: Chronic shortness of breath, pretty much at baseline. GI: Negative. : Negative. RHEUMATOLOGIC: Negative. IMMUNOLOGIC: Negative. ENDOCRINOLOGIC: Negative. DERMATOLOGIC: Negative. PHYSICAL EXAMINATION: Current vital signs are reviewed. Temperature 98.4, heart rate 57, respiratory rate 20, blood pressure 130/69, mean 89 and 2 L saturation 92%. She appears in no acute distress. HEENT examination is grossly unremarkable. Nasal O2 in place. NECK: Supple. Full range of motion. No adenopathy, thyromegaly or neck vein distention. CARDIOVASCULAR examination reveals regular rhythm and rate. S1, S2 normal. No S3, S4, or murmur. LUNGS: Reveal relatively clear but diminished breath sounds. No wheezes, rhonchi, or crackles. ABDOMEN: Soft. Bowel sounds are heard. EXTREMITIES are intact. No cyanosis, clubbing, or edema. SKIN: Without rash. NEUROLOGIC examination is brief but nonfocal. Her mental status has returned to normal. LABS: Reviewed. White count 6.9, hemoglobin 11.4, hematocrit 35.6, platelet count 163,000. PT/INR PTT all normal. Sodium 137, potassium 3.8, chloride 94, CO2 35, anion gap is 8. BUN and creatinine were 29 and 0.87. The rest of the labs look okay. Albumin 3.4. TSH 0.232. Free T4 was normal. Kidron 0.9. Influenza was negative. The chest x-ray that was done shows some mild basilar atelectasis. Brain CT was done and showed cerebral atrophy with mild chronic small-vessel ischemia. Medications are reviewed. They will be adjusted accordingly. ASSESSMENT: 1. Acute mental status changes, likely related to worsening hypercapnic respiratory failure from excessive oxygen administration and/or complicated by sedatives, hypnotics, narcotics or tranquilizers. CT scan of the brain was unchanged. 2. History of severe chronic obstructive pulmonary disease. FEV1 42% of predicted with current ongoing tobacco use. 3. Chronic hypoxemic respiratory failure. 4. History of breast cancer, left breast, status post surgery. 5. Deep venous thrombosis, right lower extremity. 6. History of bilateral cataracts. 7. History of bilateral macular degeneration and bilateral cataract surgery. 8. Hyperlipidemia. 9. Benign essential hypertension. 10.Prior history of pneumonia. 11.Recent pyelonephritis. PLAN: The patient's medications are reviewed. We will put her on appropriate medications for her COPD. There is no active infection at this time. Antibiotics should be discontinued. She is to get 1-2 L of O2. Saturations are perfectly acceptable between 88 and 92%. We will do room air resting blood gas and see if we can qualify her for nocturnal CPAP or BiPAP therapy. Additional recommendations and suggestions are forthcoming. Prognosis is guarded. MMODL / IJN: [id number] /
[2019-10-22 17:20] LABS: Glucose,Whole Blood 180 mg/dL (75-99)
[2019-10-22] MEDS: POTASSIUM CHLORIDE ER 10 MEQ TAB.ER.PRT PO SCH (17:28)
[2019-10-22 20:47] LABS: Glucose,Whole Blood 194 mg/dL (75-99)
[2019-10-22] MEDS: SYMBICORT 160-4.5 MCG INHALER INHALATION SCH (20:58)
[2019-10-22] MEDS: ATORVASTATIN 20 MG TAB PO SCH (21:47)
[2019-10-22] MEDS: MONTELUKAST 10 MG TAB PO SCH (21:47)
[2019-10-22] MEDS: risperiDONE 0.5 MG TAB PO SCH (21:47)
[2019-10-23 05:57] LABS: Glucose,Whole Blood 144 mg/dL (75-99)
[2019-10-23 06:21] LABS: Basophils # (A) 0.1 k/uL (0-0.2); Basophils % (A) 1 %; Eosinophils % (A) 0 %; HCT 35.3 % (34.0-46.0); HGB 11.1 gm/dL (11.4-16.0); Lymphocytes # (A) 0.7 k/uL (1.0-4.8); Lymphocytes % (A) 8 %; MCH 30.7 pg (25.0-35.0); MCHC 31.4 g/dL (31.0-37.0); MCV 97.7 fL (80.0-100.0); Mean Platelet Volume 7.6; Monocytes # (A) 0.7 k/uL (0-1.0); Monocytes % (A) 7 %; Neutrophils # (A) 7.9 k/uL (1.3-7.7); Neutrophils % (A) 83 %; Platelet Count 169 k/uL (150-450); RBC 3.62 m/uL (3.80-5.40); RDW 14.8 % (11.5-15.5); WBC 9.4 k/uL (3.8-10.6)
[2019-10-23] MEDS: INSULIN ASPART (NovoLOG) 100 UNIT/ML VIAL SQ SCH ×4 (06:22→20:18)
[2019-10-23 06:38] LABS: Albumin 3.4 g/dL (3.5-5.0); Calcium 9.4 mg/dL (8.4-10.2); Potassium 3.7 mmol/L (3.5-5.1); Total Protein 5.7 g/dL (6.3-8.2)
[2019-10-23] MEDS: SYMBICORT 160-4.5 MCG INHALER INHALATION SCH ×2 (07:15→19:53)
[2019-10-23] MEDS: IPRATROPIUM-ALBUTEROL 3 ML NEB INHALATION SCH ×4 (07:15→19:52)
[2019-10-23] MEDS: ATENOLOL 25 MG TAB PO SCH ×2 (08:43→17:40)
[2019-10-23] MEDS: ASPIRIN 325 MG TAB PO SCH (08:43)
[2019-10-23] MEDS: ENOXAPARIN 40 MG/0.4 ML SYRINGE SQ SCH (08:43)
[2019-10-23] MEDS: FERROUS SULFATE 325 MG TAB PO SCH ×2 (08:43→17:40)
[2019-10-23] MEDS: guaiFENesin 600 MG TABLET.ER PO SCH ×2 (08:43→20:17)
[2019-10-23] MEDS: FAMOTIDINE 20 MG TAB PO SCH (08:43)
[2019-10-23] MEDS: POTASSIUM CHLORIDE ER 20 MEQ TAB.ER PO SCH (08:43)
[2019-10-23] MEDS: PARoxetine 20 MG TAB PO SCH (08:43)
[2019-10-23] MEDS: NICOTINE 21MG/24HR PATCH TRANSDERM SCH (08:44)
[2019-10-23] MEDS: THEOPHYLLINE 24 HOUR 200 MG CAP.ER.24H PO SCH (08:44)
[2019-10-23] MEDS: TRIAMTERENE-HCTZ 37.5-25MG 1 EACH CAP PO SCH (08:44)
[2019-10-23] MEDS: LITHIUM CARBONATE 300 MG CAP PO SCH ×2 (08:45→17:40)
--- NOTE | 2019-10-23 09:52 | P.PN ---
Subjective Progress Note Date: 10/23/19 This is a 79-year-old female patient who presented to the ER with increased confusion and concerns for possible pneumonia and COPD exacerbation. Patient had been currently residing at [facility] and has been having intermittent confusion with increased pulmonary congestion. Patient was sent to ER with conc erns of COPD exacerbation elevated CO2 and concerns for possible pneumonia. Patient has a past medical history of breast cancer, COPD, DVT, hyperlipidemia, hypertension, pneumonia anxiety, depression and ex-smoker until a couple weeks ago. Patient was recently admitted for COPD exacerbation. Chest x-ray completed showing slight increased interstitial markings compared subsegmental atelectasis and mild interstitial pneumoni. no heart failure seen. Head CT completed showing cerebral atrophy and mild chronic small vessel ischemia. Sinusitis. Sinusitis appears increased compared to old exam brain appears unchanged. EKG completed showing sinus rhythm with frequent premature ventricular complexes in a pattern of bigeminy. Influenza negative. She was started on Solu-Medrol, BiPAP azithromycin and Rocephin. Pulmonary services have been consulted. Cardiology services for bigeminy. At this time patient does appear improved. Patient is alert and oriented 2. Patient follows commands and answers questions appropriately. Patient denies chest pain or shortness breath. Patient denies nausea, vomiting or diarrhea. Patient denies any urinary burning or frequency. On 10/23/2019 patient is alert and oriented 2 lightly more confused than yesterday. Per nursing staff patient fluctuates with her confusion. Discussed case with pulmonary team. Patient to qualify for CPAP based on ABG testing. Goal for SpO2 level upon discharge 88-92%. CO2 elevated today at 40. Cardiology and pulmonary services are following. Patient denies chest pain or shortness of breath. Patient denies nausea vomiting or diarrhea. Patient denies any urinary burning or frequency. Objective - Vital Signs Vital signs: Vital Signs Temp 98.5 F 10/23/19 08:00 Pulse 64 10/23/19 08:00 Resp 20 10/23/19 08:00 BP 133/70 10/23/19 08:00 Pulse Ox 94 L 10/23/19 08:06 Intake & Output 10/22/19 10/23/19 10/23/19 18:59 06:59 18:59 Intake Total 720 Output Total 500 250 300 Balance 220 -250 -300 Weight 81.4 kg Intake: Oral 720 Output: Urine 500 250 300 Other: Voiding Method Bedside Commode Bedside Commode # Voids 1 1 - Exam Head normocephalic Neck supple Lungs diminished bilaterally left lower lobe crackles slight expiratory wheezing cardiac regular rate and rhythm S1-S2, no rub or gallop Abdomen is soft nontender nondistended positive bowel sounds no hepatosplenomegaly Extremities no edema Neuro alert and orientated to 3 - Labs CBC & Chem 7: 10/23/19 05:45 10/23/19 05:45 Labs: Abnormal Lab Results - Last 24 Hours (Table) 10/22/19 10/22/19 10/22/19 Range/Units 05:38 12:07 15:07 RBC (3.80-5.40) m/uL Hgb (11.4-16.0) gm/dL Neutrophils # (1.3-7.7) k/uL Lymphocytes # (1.0-4.8) k/uL ABG pH 7.47 H (7.35-7.45) ABG pCO2 54 H (35-45) mmHg ABG pO2 49 L* (83-108) mmHg ABG HCO3 39 H (21-25) mmol/L ABG Total CO2 40 H (19-24) mmol/L ABG O2 Saturation 86.7 L (94-97) % Chloride (98-107) mmol/L Carbon Dioxide (22-30) mmol/L BUN (7-17) mg/dL Glucose (74-99) mg/dL POC Glucose (mg/dL) 191 H (75-99) mg/dL Total Protein (6.3-8.2) g/dL Albumin (3.5-5.0) g/dL TSH 0.232 L (0.465-4.680) mIU/L 10/22/19 10/22/19 10/23/19 Range/Units 17:19 20:45 05:45 RBC 3.62 L (3.80-5.40) m/uL Hgb 11.1 L (11.4-16.0) gm/dL Neutrophils # 7.9 H (1.3-7.7) k/uL Lymphocytes # 0.7 L (1.0-4.8) k/uL ABG pH (7.35-7.45) ABG pCO2 (35-45) mmHg ABG pO2 (83-108) mmHg ABG HCO3 (21-25) mmol/L ABG Total CO2 (19-24) mmol/L ABG O2 Saturation (94-97) % Chloride (98-107) mmol/L Carbon Dioxide (22-30) mmol/L BUN (7-17) mg/dL Glucose (74-99) mg/dL POC Glucose (mg/dL) 180 H 194 H (75-99) mg/dL Total Protein (6.3-8.2) g/dL Albumin (3.5-5.0) g/dL TSH (0.465-4.680) mIU/L 10/23/19 10/23/19 Range/Units 05:45 05:55 RBC (3.80-5.40) m/uL Hgb (11.4-16.0) gm/dL Neutrophils # (1.3-7.7) k/uL Lymphocytes # (1.0-4.8) k/uL ABG pH (7.35-7.45) ABG pCO2 (35-45) mmHg ABG pO2 (83-108) mmHg ABG HCO3 (21-25) mmol/L ABG Total CO2 (19-24) mmol/L ABG O2 Saturation (94-97) % Chloride 94 L (98-107) mmol/L Carbon Dioxide 40 H (22-30) mmol/L BUN 39 H (7-17) mg/dL Glucose 120 H (74-99) mg/dL POC Glucose (mg/dL) 144 H (75-99) mg/dL Total Protein 5.7 L (6.3-8.2) g/dL Albumin 3.4 L (3.5-5.0) g/dL TSH (0.465-4.680) mIU/L Microbiology - Last 24 Hours (Table) 10/21/19 16:10 Blood Culture - Preliminary Blood No Growth after 24 hours Assessment and Plan Assessment: 1. Increased shortness of breath likely secondary to acute exacerbation of COPD . Chest x-ray completed showing slight increased interstitial markings compared to last exam could relate to subsegmental atelectasis with mild interstitial pneumonia no heart failure seen. Pulmonary services have been consulted. Continue BiPAP. Per pulmonary no signs of infection at this time antibiotics DC'd 2. Metabolic encephalopathy likely secondary to hypercapnia. Head CT completed showing cerebral atrophy and mild chronic small vessel ischemia. Sinusitis. Sinusitis appears increased compared to old exam brain appears unchanged. Dorris level 0.9 3. Acute on chronic hypoxemic and hypercapnic respiratory failure secondary to COPD exacerbation. Per pulmonary goal of oxygen saturations to be 88-92%. Room air resting blood gas will be done to see patient qualifies for nocturnal CPAP upon discharge. 4. History of nicotine dependence. Patient has stopped smoking couple weeks ago. Nicotine patch has been ordered 5. History of left breast cancer status post left mastectomy 6. History of deep vein thrombosis. Patient has completed treatment no longer on anticoagulation 7. History of macular degeneration 8. History of hyperlipidemia. Patient maintained on statin 9. History of essential hypertension 10. History of bipolar depression. Patient follows with Dr. Ortiz regularly. Patient is maintained on lithium Paxil and Risperdal. Will order a lithium level 11. Bigeminy seen on EKG. Cardiology services have been consulted. Potassium and magnesium within normal limits. Will order TSH level DVT prophylaxis Lovenox. GI prophylaxis Pepcid I performed an examination of the patient and discussed their management with the Nurse Practitioner. I have reviewed the Nurse Practitioner's notes and agree with the documented findings and plan of care
[2019-10-23] MEDS: LORATADINE 10 MG TAB PO SCH (12:26)
--- NOTE | 2019-10-23 12:47 | P.PN ---
Subjective Progress Note Date: 10/23/19 Principal diagnosis: Acute COPD exacerbation, and acute on chronic hypoxemic respiratory failure On 10/23/2019 patient seen in follow-up on selective care unit, she is more fatigued today, less upbeat on today's exam, but she responds appropriately, she states she did not sleep well last night, she could not tolerate the BiPAP mask very well, she states she coughed a lot last night. Currently at 2 L of oxygen with a pulse ox of 93%, afebrile, hemodynamically stable, lung sounds are positive for diminished breath sounds, not significantly bronchospastic on today's exam. Yesterday's blood gas was reviewed showing pO2 of 49, pCO2 54, and pH of 7.47, consistent with acute hypoxemic and chronic hypercapnic respiratory failure, and patient does qualify for home BiPAP device for diagnosis of COPD. Patient is on nebulized bronchodilators, Mucinex Objective - Vital Signs Vital signs: Vital Signs Temp 98.3 F 10/23/19 11:34 Pulse 68 10/23/19 11:34 Resp 20 10/23/19 11:34 BP 134/71 10/23/19 11:34 Pulse Ox 93 L 10/23/19 11:34 Intake & Output 10/22/19 10/23/19 10/23/19 18:59 06:59 18:59 Intake Total 720 180 Output Total 500 250 300 Balance 220 -250 -120 Weight 81.4 kg Intake: Oral 720 180 Output: Urine 500 250 300 Other: Voiding Method Bedside Commode Bedside Commode # Voids 1 1 - Exam GENERAL EXAM: Alert, fatigue, 79-year-old white female, on 2 L of oxygen and the pulse ox of 93% comfortable in no apparent distress. HEAD: Normocephalic/atraumatic. EYES: Normal reaction of pupils, equal size. Conjunctiva pink, sclera white. NOSE: Clear with pink turbinates. THROAT: No erythema or exudates. NECK: No masses, no JVD, no thyroid enlargement, no adenopathy. CHEST: No chest wall deformity. Symmetrical expansion. LUNGS: Diminished air entry with no crackles, wheeze, rhonchi or dullness. CVS: Regular rate and rhythm, normal S1 and S2, no gallops, no murmurs, no rubs ABDOMEN: Soft, nontender. No hepatosplenomegaly, normal bowel sounds, no guarding or rigidity. EXTREMITIES: No clubbing, no edema, no cyanosis, 2+ pulses and upper and lower extremities. MUSCULOSKELETAL: Muscle strength and tone normal. SPINE: No scoliosis or deformity SKIN: No rashes CENTRAL NERVOUS SYSTEM: Alert and oriented -3. No focal deficits, tone is normal in all 4 extremities. PSYCHIATRIC: Alert and oriented -3. Appropriate affect. Intact judgment and insight. - Labs CBC & Chem 7: 10/23/19 05:45 10/23/19 05:45 Labs: Abnormal Lab Results - Last 24 Hours (Table) 10/22/19 10/22/19 10/22/19 Range/Units 15:07 17:19 20:45 RBC (3.80-5.40) m/uL Hgb (11.4-16.0) gm/dL Neutrophils # (1.3-7.7) k/uL Lymphocytes # (1.0-4.8) k/uL ABG pH 7.47 H (7.35-7.45) ABG pCO2 54 H (35-45) mmHg ABG pO2 49 L* (83-108) mmHg ABG HCO3 39 H (21-25) mmol/L ABG Total CO2 40 H (19-24) mmol/L ABG O2 Saturation 86.7 L (94-97) % Chloride (98-107) mmol/L Carbon Dioxide (22-30) mmol/L BUN (7-17) mg/dL Glucose (74-99) mg/dL POC Glucose (mg/dL) 180 H 194 H (75-99) mg/dL Total Protein (6.3-8.2) g/dL Albumin (3.5-5.0) g/dL 10/23/19 10/23/19 10/23/19 Range/Units 05:45 05:45 05:55 RBC 3.62 L (3.80-5.40) m/uL Hgb 11.1 L (11.4-16.0) gm/dL Neutrophils # 7.9 H (1.3-7.7) k/uL Lymphocytes # 0.7 L (1.0-4.8) k/uL ABG pH (7.35-7.45) ABG pCO2 (35-45) mmHg ABG pO2 (83-108) mmHg ABG HCO3 (21-25) mmol/L ABG Total CO2 (19-24) mmol/L ABG O2 Saturation (94-97) % Chloride 94 L (98-107) mmol/L Carbon Dioxide 40 H (22-30) mmol/L BUN 39 H (7-17) mg/dL Glucose 120 H (74-99) mg/dL POC Glucose (mg/dL) 144 H (75-99) mg/dL Total Protein 5.7 L (6.3-8.2) g/dL Albumin 3.4 L (3.5-5.0) g/dL Microbiology - Last 24 Hours (Table) 10/21/19 16:10 Blood Culture - Preliminary Blood No Growth after 24 hours Assessment and Plan Plan: Assessment: #1. Acute mental status changes likely related to worsening hypercapnic restaurant failure from excessive oxygen administration and complicated by sedatives, hypnotics and narcotics and tranquilizers, computed tomography scan of the brain was unchanged #2. History of severe chronic obstructive pulmonary disease with baseline FEV1 of 42% of predicted with current ongoing tobacco use #3. Chronic hypoxemic restaurant failure #4. History of breast cancer in the left breast, status post surgery #5. Hx Deep venous thrombosis in the right lower extremity #6. History of bilateral cataracts #7. History of bilateral macular degeneration and bilateral cataract surgery #8. Hyperlipidemia #9. Benign essential hypertension #10. Prior history of pneumonia #11. Recent pyelonephritis Plan: Continue current medical treatment, BiPAP support as needed, based on her blood gas patient does qualify for home BiPAP unit with pressures of 10/5 and FiO2 of 30% for a diagnosis of COPD with chronic hypercapnic respiratory failure. Patient will need a nasal pillow as she is unable to tolerate a full facemask. No evidence of infection, not significantly bronchospastic, continue with ne bulized bronchodilators, Symbicort, theophylline I performed a history & physical examination of the patient and discussed their management with my nurse practitioner, Miriam Mcgee. I reviewed the nurse practitioner's note and agree with the documented findings and plan of care. Lung sounds are positive for diminished breath sounds throughout the lung toscano. The findings and the impression was discussed with the patient. I attest to the documentation by the nurse practitioner. Time with Patient: Less than 30
[2019-10-23 12:57] LABS: Glucose,Whole Blood 105 mg/dL (75-99)
[2019-10-23 17:23] LABS: Glucose,Whole Blood 90 mg/dL (75-99)
--- NOTE | 2019-10-23 17:36 | P.PN ---
Subjective This is Alissa Saenz PA-C dictating a progress note on this patient The patient was interviewed and examined by me as well as by Dr. Ramey Case discussed with Dr. Ramey and he agrees with the plan of care IMPRESSION / ASSESSMENT: COPD exacerbation and pneumonia on the symptoms improving Former smoker History of DVT Frequent PACs Hypertension, blood pressure fairly well controlled Dyslipidemia TSH is suppressed PLAN: From a cardiology standpoint she will go to the medical floor Obtain 2-D echocardiogram and Doppler study Continue atenolol Management of abnormal TSH per medicine HPI/interval history Patient is a 79-year-old female with a history of COPD DVT, hypertension, dyslipidemia who is admitted for treatment of COPD exacerbation. Cardiology was consulted because her EKG showed sinus rhythm with frequent PACs. Patient seen and examined resting in her chair. States her breathing has improved. She is still coughing. Denies any palpitations, dizziness, chest pain EXAMINATION Patient is afebrile pulse 60, respirations 20, blood pressure 123/59, oxygen saturation 92% on 2 L nasal cannula Patient seen and examined sitting in her chair, appears comfortable Expiratory wheezing bilaterally Heart is irregular, no audible murmurs REVIEW OF LABS, ECG Labs reviewed, WBC 94, hemoglobin 11.1, platelets 169, potassium 3.7, BUN 39, creatinine 0.97 Objective - Vital Signs Vital signs: Vital Signs Temp 98.3 F 10/23/19 15:28 Pulse 60 10/23/19 15:50 Resp 20 10/23/19 15:28 BP 123/59 10/23/19 15:28 Pulse Ox 92 L 10/23/19 15:28 Intake & Output 10/22/19 10/23/19 10/23/19 18:59 06:59 18:59 Intake Total 720 180 Output Total 500 250 300 Balance 220 -250 -120 Weight 81.4 kg Intake: Oral 720 180 Output: Urine 500 250 300 Other: Voiding Method Bedside Commode Bedside Commode # Voids 1 1 - Labs CBC & Chem 7: 10/23/19 05:45 10/23/19 05:45 Labs: Abnormal Lab Results - Last 24 Hours (Table) 10/22/19 10/23/19 10/23/19 Range/Units 20:45 05:45 05:45 RBC 3.62 L (3.80-5.40) m/uL Hgb 11.1 L (11.4-16.0) gm/dL Neutrophils # 7.9 H (1.3-7.7) k/uL Lymphocytes # 0.7 L (1.0-4.8) k/uL Chloride 94 L (98-107) mmol/L Carbon Dioxide 40 H (22-30) mmol/L BUN 39 H (7-17) mg/dL Glucose 120 H (74-99) mg/dL POC Glucose (mg/dL) 194 H (75-99) mg/dL Total Protein 5.7 L (6.3-8.2) g/dL Albumin 3.4 L (3.5-5.0) g/dL 10/23/19 10/23/19 Range/Units 05:55 12:18 RBC (3.80-5.40) m/uL Hgb (11.4-16.0) gm/dL Neutrophils # (1.3-7.7) k/uL Lymphocytes # (1.0-4.8) k/uL Chloride (98-107) mmol/L Carbon Dioxide (22-30) mmol/L BUN (7-17) mg/dL Glucose (74-99) mg/dL POC Glucose (mg/dL) 144 H 105 H (75-99) mg/dL Total Protein (6.3-8.2) g/dL Albumin (3.5-5.0) g/dL Microbiology - Last 24 Hours (Table) 10/21/19 16:10 Blood Culture - Preliminary Blood No Growth after 24 hours
[2019-10-23] MEDS: POTASSIUM CHLORIDE ER 10 MEQ TAB.ER.PRT PO SCH (17:40)
[2019-10-23] MEDS: ATORVASTATIN 20 MG TAB PO SCH (20:17)
[2019-10-23 20:18] LABS: Glucose,Whole Blood 104 mg/dL (75-99)
[2019-10-23] MEDS: MONTELUKAST 10 MG TAB PO SCH (20:18)
[2019-10-23] MEDS: risperiDONE 0.5 MG TAB PO SCH (20:18)
[2019-10-23 21:44] VITALS: RESP 16
[2019-10-24 06:55] LABS: Glucose,Whole Blood 104 mg/dL (75-99)
[2019-10-24] MEDS: INSULIN ASPART (NovoLOG) 100 UNIT/ML VIAL SQ SCH ×2 (07:46→12:22)
[2019-10-24 08:00] LABS: Albumin 3.1 g/dL (3.5-5.0); Calcium 8.9 mg/dL (8.4-10.2); Potassium 3.6 mmol/L (3.5-5.1); Total Protein 5.2 g/dL (6.3-8.2)
[2019-10-24] MEDS ORDERED: ASPIRIN 81 MG PO SCH (08:00)
[2019-10-24 08:01] VITALS: BP 127/74; TEMP 98.7
[2019-10-24] MEDS: guaiFENesin 600 MG TABLET.ER PO SCH (08:01)
[2019-10-24] MEDS: FAMOTIDINE 20 MG TAB PO SCH (08:01)
[2019-10-24] MEDS: FERROUS SULFATE 325 MG TAB PO SCH (08:01)
[2019-10-24] MEDS: ATENOLOL 25 MG TAB PO SCH (08:01)
[2019-10-24] MEDS: PARoxetine 20 MG TAB PO SCH (08:01)
[2019-10-24] MEDS: ENOXAPARIN 40 MG/0.4 ML SYRINGE SQ SCH (08:01)
[2019-10-24] MEDS: LITHIUM CARBONATE 300 MG CAP PO SCH (08:01)
[2019-10-24] MEDS: POTASSIUM CHLORIDE ER 20 MEQ TAB.ER PO SCH (08:02)
[2019-10-24] MEDS: NICOTINE 21MG/24HR PATCH TRANSDERM SCH (08:02)
[2019-10-24] MEDS: THEOPHYLLINE 24 HOUR 200 MG CAP.ER.24H PO SCH (08:02)
[2019-10-24] MEDS: TRIAMTERENE-HCTZ 37.5-25MG 1 EACH CAP PO SCH (08:02)
[2019-10-24 08:15] LABS: Basophils # (A) 0.1 k/uL (0-0.2); Basophils % (A) 1 %; Eosinophils # (A) 0.2 k/uL (0-0.7); Eosinophils % (A) 3 %; HCT 35.5 % (34.0-46.0); HGB 11.2 gm/dL (11.4-16.0); Hypochromasia Slight; Lymphocytes # (A) 1.5 k/uL (1.0-4.8); Lymphocytes % (A) 22 %; MCH 31.2 pg (25.0-35.0); MCHC 31.5 g/dL (31.0-37.0); MCV 99.1 fL (80.0-100.0); Macrocytosis Slight; Mean Platelet Volume 7.5; Monocytes # (A) 0.4 k/uL (0-1.0); Monocytes % (A) 6 %; Neutrophils # (A) 4.7 k/uL (1.3-7.7); Neutrophils % (A) 67 %; Platelet Count 147 k/uL (150-450); RBC 3.58 m/uL (3.80-5.40); WBC 7.1 k/uL (3.8-10.6)
[2019-10-24] MEDS: IPRATROPIUM-ALBUTEROL 3 ML NEB INHALATION SCH ×2 (08:45→12:01)
[2019-10-24] MEDS: SYMBICORT 160-4.5 MCG INHALER INHALATION SCH (08:45)
--- NOTE | 2019-10-24 10:17 | P.PN ---
Subjective Progress Note Date: 10/24/19 This is a 79-year-old female patient who presented to the ER with increased confusion and concerns for possible pneumonia and COPD exacerbation. Patient had been currently residing at [facility] and has been having intermittent confusion with increased pulmonary congestion. Patient was sent to ER with conc erns of COPD exacerbation elevated CO2 and concerns for possible pneumonia. Patient has a past medical history of breast cancer, COPD, DVT, hyperlipidemia, hypertension, pneumonia anxiety, depression and ex-smoker until a couple weeks ago. Patient was recently admitted for COPD exacerbation. Chest x-ray completed showing slight increased interstitial markings compared subsegmental atelectasis and mild interstitial pneumoni. no heart failure seen. Head CT completed showing cerebral atrophy and mild chronic small vessel ischemia. Sinusitis. Sinusitis appears increased compared to old exam brain appears unchanged. EKG completed showing sinus rhythm with frequent premature ventricular complexes in a pattern of bigeminy. Influenza negative. She was started on Solu-Medrol, BiPAP azithromycin and Rocephin. Pulmonary services have been consulted. Cardiology services for bigeminy. At this time patient does appear improved. Patient is alert and oriented 2. Patient follows commands and answers questions appropriately. Patient denies chest pain or shortness breath. Patient denies nausea, vomiting or diarrhea. Patient denies any urinary burning or frequency. On 10/23/2019 patient is alert and oriented 2 lightly more confused than yesterday. Per nursing staff patient fluctuates with her confusion. Discussed case with pulmonary team. Patient to qualify for CPAP based on ABG testing. Goal for SpO2 level upon discharge 88-92%. CO2 elevated today at 40. Cardiology and pulmonary services are following. Patient denies chest pain or shortness of breath. Patient denies nausea vomiting or diarrhea. Patient denies any urinary burning or frequency. On 10/24/2019 patient is alert and oriented 3. Patient appears less confused than yesterday. CO2 remains elevated at 40. At this time patient denies chest pain or shortness of breath. Patient denies nausea vomiting or diarrhea. Patient denies any urinary burning or frequency. Cardiology and pulmonary services are following. 2-D echo has been completed results pending Objective - Vital Signs Vital signs: Vital Signs Temp 98.7 F 10/24/19 08:00 Pulse 80 10/24/19 08:57 Resp 16 10/24/19 08:00 BP 127/74 10/24/19 08:00 Pulse Ox 93 L 10/24/19 08:00 Intake & Output 10/23/19 10/24/19 10/24/19 18:59 06:59 18:59 Intake Total 360 Output Total 900 200 Balance -540 -200 Weight 82.1 kg Intake: Oral 360 Output: Urine 900 200 Other: Voiding Method Toilet Toilet # Voids 1 - Exam Head normocephalic Neck supple Lungs diminished bilaterally left lower lobe crackles slight expiratory wheezing cardiac regular rate and rhythm S1-S2, no rub or gallop Abdomen is soft nontender nondistended positive bowel sounds no hepatosplenomegaly Extremities no edema Neuro alert and orientated to 2. Intermittent episodes of confusion - Labs CBC & Chem 7: 10/24/19 07:17 10/24/19 07:17 Labs: Abnormal Lab Results - Last 24 Hours (Table) 10/23/19 10/23/19 10/24/19 Range/Units 12:18 20:17 06:53 RBC (3.80-5.40) m/uL Hgb (11.4-16.0) gm/dL Plt Count (150-450) k/uL Chloride (98-107) mmol/L Carbon Dioxide (22-30) mmol/L BUN (7-17) mg/dL POC Glucose (mg/dL) 105 H 104 H 104 H (75-99) mg/dL Total Protein (6.3-8.2) g/dL Albumin (3.5-5.0) g/dL 10/24/19 10/24/19 Range/Units 07:17 07:17 RBC 3.58 L (3.80-5.40) m/uL Hgb 11.2 L (11.4-16.0) gm/dL Plt Count 147 L (150-450) k/uL Chloride 97 L (98-107) mmol/L Carbon Dioxide 40 H (22-30) mmol/L BUN 32 H (7-17) mg/dL POC Glucose (mg/dL) (75-99) mg/dL Total Protein 5.2 L (6.3-8.2) g/dL Albumin 3.1 L (3.5-5.0) g/dL Microbiology - Last 24 Hours (Table) 10/21/19 16:10 Blood Culture - Preliminary Blood No Growth after 48 hours Assessment and Plan Assessment: 1. Increased shortness of breath likely secondary to acute exacerbation of COPD . Chest x-ray completed showing slight increased interstitial markings compared to last exam could relate to subsegmental atelectasis with mild interstitial pneumonia no heart failure seen. Pulmonary services have been consulted. Continue BiPAP. Per pulmonary no signs of infection at this time antibiotics DC'd 2. Metabolic encephalopathy likely secondary to hypercapnia. Head CT completed showing cerebral atrophy and mild chronic small vessel ischemia. Sinusitis. Sinusitis appears increased compared to old exam brain appears unchanged. [place] level 0.9 3. Acute on chronic hypoxemic and hypercapnic respiratory failure secondary to COPD exacerbation. Per pulmonary goal of oxygen saturations to be 88-92%. Room air resting blood gas will be done to see patient qualifies for nocturnal CPAP upon discharge. 4. History of nicotine dependence. Patient has stopped smoking couple weeks ago. Nicotine patch has been ordered 5. History of left breast cancer status post left mastectomy 6. History of deep vein thrombosis. Patient has completed treatment no longer on anticoagulation 7. History of macular degeneration 8. History of hyperlipidemia. Patient maintained on statin 9. History of essential hypertension 10. History of bipolar depression. Patient follows with Dr. Ortiz regularly. Patient is maintained on lithium Paxil and Risperdal. Will order a lithium level 11. Bigeminy seen on EKG. Cardiology services have been consulted. Potassium and magnesium within normal limits. 2-D echo has been ordered 12. Hyperthyroidism. TSH elevated at 0.232. Patient will be arranged to follow-up with endocrinology outpatient for further management DVT prophylaxis Lovenox. GI prophylaxis Pepcid Pulmonary and cardiology services following 2-D echo has been ordered Social consulted for discharge planning to [facility] I performed an examination of the patient and discussed their management with the Nurse Practitioner. I have reviewed the Nurse Practitioner's notes and agree with the documented findings and plan of care
[2019-10-24 11:45] LABS: Glucose,Whole Blood 94 mg/dL (75-99)
[2019-10-24] MEDS: LORATADINE 10 MG TAB PO SCH (12:22)
[2019-10-24 13:32] VITALS: PULSE 63
--- NOTE | 2019-10-24 13:46 | P.DS ---
Providers Date of admission: 10/21/19 17:48 Expected date of discharge: 10/24/19 Attending physician: Abiola Kong Consults: 10/21/19 17:48 Consult Physician Routine Consulting Provider: Roland William Consult Reason/Comments: COPD Do you want consulting provider notified?: Yes 10/22/19 08:22 Consult Physician Routine Consulting Provider: Masoud Mckeon Consult Reason/Comments: bigemeny Do you want consulting provider notified?: Yes Primary care physician: Abiola Kong [place] [facility] Course: Discharge diagnosis 1. Increased shortness of breath likely secondary to acute exacerbation of COPD . Chest x-ray completed showing slight increased interstitial markings compared to last exam could relate to subsegmental atelectasis with mild interstitial pneumonia no heart failure seen. Pulmonary services have been consulted. Continue BiPAP. Per pulmonary no signs of infection at this time antibiotics DC'd. BiPAP upon discharge has been arranging per pulmonary discussed with social work. Patient has been cleared for discharge from pulmonary standpoint 2. Metabolic encephalopathy likely secondary to hypercapnia. Head CT completed showing cerebral atrophy and mild chronic small vessel ischemia. Sinusitis. Sinusitis appears increased compared to old exam brain appears unchanged. [place] level 0.9 3. Acute on chronic hypoxemic and hypercapnic respiratory failure secondary to COPD exacerbation. Per pulmonary goal of oxygen saturations to be 88-92%. Room air resting blood gas will be done to see patient qualifies for nocturnal CPAP u haydee discharge. 4. History of nicotine dependence. Patient has stopped smoking couple weeks ago. Nicotine patch has been ordered 5. History of left breast cancer status post left mastectomy 6. History of deep vein thrombosis. Patient has completed treatment no longer on anticoagulation 7. History of macular degeneration 8. History of hyperlipidemia. Patient maintained on statin 9. History of essential hypertension 10. History of bipolar depression. Patient follows with Dr. Ortiz regularly. Patient is maintained on lithium Paxil and Risperdal. [place] level 0.9 11. Bigeminy seen on EKG. Cardiology services have been consulted. Potassium and magnesium within normal limits. 2-D echo has been ordered. She has been cleared for discharge from cardiology standpoint. 2-D echo reviewed per cardiology 12. Hyperthyroidism. TSH elevated at 0.232. Patient will be arranged to follow-up with endocrinology outpatient for further management Hospital course This is a 79-year-old female patient who presented to the ER with increased confusion and concerns for possible pneumonia and COPD exacerbation. Patient had been currently residing at [facility] and has been having intermittent confusion with increased pulmonary congestion. Patient was sent to ER with concerns of COPD exacerbation elevated CO2 and concerns for possible pneumonia. Patient has a past medical history of breast cancer, COPD, DVT, hyperlipidemia, hypertension, pneumonia anxiety, depression and ex-smoker until a couple weeks ago. Patient was recently admitted for COPD exacerbation. Chest x-ray completed showing slight increased interstitial markings compared subsegmental atelectasis and mild interstitial pneumoni. no heart failure seen. Head CT completed showing cerebral atrophy and mild chronic small vessel ischemia. Sinusitis. Sinusitis appears increased compared to old exam brain appears unchanged. EKG completed showing sinus rhythm with frequent premature ventricular complexes in a pattern of bigeminy. Influenza negative. She was started on Solu-Medrol, BiPAP azithromycin and Rocephin. Pulmonary services have been consulted. Cardiology services for bigeminy. At this time patient does appear improved. Patient is alert and oriented 2. Patient follows commands and answers questions appropriately. Patient denies chest pain or shortness breath. Patient denies nausea, vomiting or diarrhea. Patient denies any urinary burning or frequency. On 10/23/2019 patient is alert and oriented 2 lightly more confused than yesterday. Per nursing staff patient fluctuates with her confusion. Discussed case with pulmonary team. Patient to qualify for CPAP based on ABG testing. Goal for SpO2 level upon discharge 88-92%. CO2 elevated today at 40. Cardiology and pulmonary services are following. Patient denies chest pain or shortness of breath. Patient denies nausea vomiting or diarrhea. Patient denies any urinary burning or frequency. On 10/24/2019 patient is alert and oriented 3. Patient appears less confused than yesterday. CO2 remains elevated at 40. At this time patient denies chest pain or shortness of breath. Patient denies nausea vomiting or diarrhea. Patient denies any urinary burning or frequency. Cardiology and pulmonary services are following. 2-D echo has been completed results pending Patient has been cleared for discharge from pulmonary and cardiology services. No need for antibiotics or steroids per pulmonary upon discharge. Patient has been set up for home BiPAP per pulmonary discussed with social work has been arranged. Patient denies chest pain or shortness of breath. Patient denies nausea vomiting or diarrhea. Patient denies urinary burning or frequency I performed an examination of the patient and discussed their management with the Nurse Practitioner. I have reviewed the Nurse Practitioner's notes and agree with the documented findings and plan of care Patient Condition at Discharge: Stable Plan - Discharge Summary Discharge Rx Participant: No New Discharge Prescriptions: New Aspirin 81 mg PO DAILY@0800 chew Continue [place] Carbonate 300 mg PO BID@0800,1700 Potassium Chloride [K-Tab ER] 10 meq PO DAILY@1700 PARoxetine [Paxil] 20 mg PO DAILY@0800 Simvastatin 40 mg PO HS@2100 LORazepam [Ativan] 1 mg PO BID PRN #20 tab PRN Reason: Anxiety Ergocalciferol (Vitamin D2) [Drisdol] 50,000 unit PO WE Albuterol Nebulized [Ventolin Nebulized] 2.5 mg INHALATION RT-QID Albuterol Inhaler [Ventolin Hfa Inhaler] 2 puff INHALATION RT-QID PRN PRN Reason: Shortness Of Breath Atenolol [Tenormin] 25 mg PO BID@0800,1700 Bisacodyl [Dulcolax] 10 mg RECTAL DAILY PRN PRN Reason: Constipation Ferrous Sulfate [Iron (65 MG Elemental)] 325 mg PO BID@0800,1700 guaiFENesin [guaiFENesin Oral Solution] 100 mg PO Q4H PRN PRN Reason: Cough guaiFENesin [Mucinex] 600 mg PO Q12H Loratadine [Claritin] 10 mg PO DAILY@1200 Magnesium Hydroxide [Milk of Magnesia] 2,400 mg PO DAILY PRN PRN Reason: Constipation Montelukast [Singulair] 10 mg PO HS@2100 Na Phos,M-B/Na Phos,Di-Ba [Fleet Adult] 133 ml RECTAL DAILY PRN PRN Reason: Constipation Nicotine 21Mg/24Hr Patch [Habitrol] 1 patch TRANSDERM DAILY@0800 Potassium Chloride ER [K-Dur 10] 20 meq PO DAILY@0800 risperiDONE [RisperDAL] 0.5 mg PO HS@2100 Theophylline 24 Hour [Sancho-24] 200 mg PO DAILY@0800 Triamterene-Hctz 37.5-25Mg [Dyazide 37.5-25 Capsule] 1 cap PO DAILY@0800 Discontinued traMADol HCl [Ultram] 50 mg PO Q4H PRN tab PRN Reason: Pain Aspirin 325 mg PO DAILY@0800 predniSONE See Taper PO DAILY Discharge Medication List [place] Carbonate 300 mg PO BID@0800,1700 07/03/16 [History] PARoxetine [Paxil] 20 mg PO DAILY@0800 07/03/16 [History] Potassium Chloride [K-Tab ER] 10 meq PO DAILY@1700 07/03/16 [History] Simvastatin 40 mg PO HS@2100 07/03/16 [History] LORazepam [Ativan] 1 mg PO BID PRN #20 tab 07/07/16 [Rx] Albuterol Inhaler [Ventolin Hfa Inhaler] 2 puff INHALATION RT-QID PRN 10/01/19 [History] Albuterol Nebulized [Ventolin Nebulized] 2.5 mg INHALATION RT-QID 10/01/19 [History] Ergocalciferol (Vitamin D2) [Drisdol] 50,000 unit PO WE 10/01/19 [History] Atenolol [Tenormin] 25 mg PO BID@0800,1700 10/21/19 [History] Bisacodyl [Dulcolax] 10 mg RECTAL DAILY PRN 10/21/19 [History] Ferrous Sulfate [Iron (65 MG Elemental)] 325 mg PO BID@0800,1700 10/21/19 [History] Loratadine [Claritin] 10 mg PO DAILY@1200 10/21/19 [History] Magnesium Hydroxide [Milk of Magnesia] 2,400 mg PO DAILY PRN 10/21/19 [History] Montelukast [Singulair] 10 mg PO HS@209910/21/19 [History] Na Phos,M-B/Na Phos,Di-Ba [Fleet Adult] 133 ml RECTAL DAILY PRN 10/21/19 [History] Nicotine 21Mg/24Hr Patch [Habitrol] 1 patch TRANSDERM DAILY@0800 10/21/19 [History] Potassium Chloride ER [K-Dur 10] 20 meq PO DAILY@0800 10/21/19 [History] Theophylline 24 Hour [Sancho-24] 200 mg PO DAILY@0800 10/21/19 [History] Triamterene-Hctz 37.5-25Mg [Dyazide 37.5-25 Capsule] 1 cap PO DAILY@0800 10/21/19 [History] guaiFENesin [Mucinex] 600 mg PO Q12H 10/21/19 [History] guaiFENesin [guaiFENesin Oral Solution] 100 mg PO Q4H PRN 10/21/19 [History] risperiDONE [RisperDAL] 0.5 mg PO HS@2100 10/21/19 [History] Aspirin 81 mg PO DAILY@0800 chew 10/24/19 [Rx] Follow up Appointment(s)/Referral(s): Armin Omer MD [REFERRING] - 1 Week Abiola Kong MD [Primary Care Provider] - 1-2 days Activity/Diet/Wound Care/Special Instructions: BiPAP has been arranged for pulmonary discussed with social work Activity as tolerated Diet heart healthy Patient to follow-up with endocrinology for hyperthyroidism Discharge Disposition: TRANSFER TO SNF/ECF
--- NOTE | 2019-10-24 15:31 | P.PN ---
Subjective Progress Note Date: 10/24/19 Principal diagnosis: Acute COPD exacerbation, and acute on chronic hypoxemic respiratory failure On 10/23/2019 patient seen in follow-up on selective care unit, she is more fatigued today, less upbeat on today's exam, but she responds appropriately, she states she did not sleep well last night, she could not tolerate the BiPAP mask very well, she states she coughed a lot last night. Currently at 2 L of oxygen with a pulse ox of 93%, afebrile, hemodynamically stable, lung sounds are positive for diminished breath sounds, not significantly bronchospastic on today's exam. Yesterday's blood gas was reviewed showing pO2 of 49, pCO2 54, and pH of 7.47, consistent with acute hypoxemic and chronic hypercapnic respiratory failure, and patient does qualify for home BiPAP device for diagnosis of COPD. Patient is on nebulized bronchodilators, Mucinex. On 10/24/2019 patient seen in follow-up on general medical floor. She sits up in the recliner, in no acute distress, not aware on BiPAP support last night, she is on 2 L of oxygen per pulse ox is 93-95%, diminished breath sounds, no significant rhonchi or wheezing, patient remains on nebulized bronchodilators, theophylline, Mucinex. Patient is being discharged to senior care facility today. Objective - Vital Signs Vital signs: Vital Signs Temp 98.7 F 10/24/19 08:00 Pulse 76 10/24/19 12:12 Resp 16 10/24/19 12:00 BP 127/74 10/24/19 08:00 Pulse Ox 93 L 10/24/19 08:00 Intake & Output 10/23/19 10/24/19 10/24/19 18:59 06:59 18:59 Intake Total 360 Output Total 900 200 Balance -540 -200 Weight 82.1 kg Intake: Oral 360 Output: Urine 900 200 Other: Voiding Method Toilet Toilet # Voids 1 1 - Exam GENERAL EXAM: Alert, fatigue, 79-year-old white female, on 2 L of oxygen and the pulse ox of 93% comfortable in no apparent distress. HEAD: Normocephalic/atraumatic. EYES: Normal reaction of pupils, equal size. Conjunctiva pink, sclera white. NOSE: Clear with pink turbinates. THROAT: No erythema or exudates. NECK: No masses, no JVD, no thyroid enlargement, no adenopathy. CHEST: No chest wall deformity. Symmetrical expansion. LUNGS: Diminished air entry with no crackles, wheeze, rhonchi or dullness. CVS: Regular rate and rhythm, normal S1 and S2, no gallops, no murmurs, no rubs ABDOMEN: Soft, nontender. No hepatosplenomegaly, normal bowel sounds, no guarding or rigidity. EXTREMITIES: No clubbing, no edema, no cyanosis, 2+ pulses and upper and lower extremities. MUSCULOSKELETAL: Muscle strength and tone normal. SPINE: No scoliosis or deformity SKIN: No rashes CENTRAL NERVOUS SYSTEM: Alert and oriented -3. No focal deficits, tone is normal in all 4 extremities. PSYCHIATRIC: Alert and oriented -3. Appropriate affect. Intact judgment and insight. - Labs CBC & Chem 7: 10/24/19 07:17 10/24/19 07:17 Labs: Abnormal Lab Results - Last 24 Hours (Table) 10/23/19 10/24/19 10/24/19 Range/Units 20:17 06:53 07:17 RBC 3.58 L (3.80-5.40) m/uL Hgb 11.2 L (11.4-16.0) gm/dL Plt Count 147 L (150-450) k/uL Chloride (98-107) mmol/L Carbon Dioxide (22-30) mmol/L BUN (7-17) mg/dL POC Glucose (mg/dL) 104 H 104 H (75-99) mg/dL Total Protein (6.3-8.2) g/dL Albumin (3.5-5.0) g/dL 10/24/19 Range/Units 07:17 RBC (3.80-5.40) m/uL Hgb (11.4-16.0) gm/dL Plt Count (150-450) k/uL Chloride 97 L (98-107) mmol/L Carbon Dioxide 40 H (22-30) mmol/L BUN 32 H (7-17) mg/dL POC Glucose (mg/dL) (75-99) mg/dL Total Protein 5.2 L (6.3-8.2) g/dL Albumin 3.1 L (3.5-5.0) g/dL Microbiology - Last 24 Hours (Table) 10/21/19 16:10 Blood Culture - Preliminary Blood No Growth after 48 hours Assessment and Plan Plan: Assessment: #1. Acute mental status changes likely related to worsening hypercapnic restaurant failure from excessive oxygen administration and complicated by sedatives, hypnotics and narcotics and tranquilizers, computed tomography scan of the brain was unchanged #2. History of severe chronic obstructive pulmonary disease with baseline FEV1 of 42% of predicted with current ongoing tobacco use #3. Chronic hypoxemic and chronic hypercapnic respiratory failure due to history of COPD #4. History of breast cancer in the left breast, status post surgery #5. Hx Deep venous thrombosis in the right lower extremity #6. History of bilateral cataracts #7. History of bilateral macular degeneration and bilateral cataract surgery #8. Hyperlipidemia #9. Benign essential hypertension #10. Prior history of pneumonia #11. Recent pyelonephritis Plan: Patient is stable for discharge to senior care facility today, no acute events overnight, she will be discharged on BiPAP 10/5 FiO2 of 30% at bedtime, signs are stable, she is on 2 L of oxygen, no significant rhonchi or wheezing, no significant congestion. I performed a history & physical examination of the patient and discussed their management with my nurse practitioner, Miriam Mcgee. I reviewed the nurse practitioner's note and agree with the documented findings and plan of care. Lung sounds are positive for diminished breath sounds throughout the lung toscano. The findings and the impression was discussed with the patient. I attest to the documentation by the nurse practitioner. Time with Patient: Less than 30
--- NOTE | 2019-10-26 13:59 | ECHOF ---
Referral Reason:sob MEASUREMENTS -------- HEIGHT: 157.5 cm WEIGHT: 81.2 kg BP: 153/76 RVIDd: 3.2 cm (< 3.3) IVSd: 1.3 cm (0.6 - 1.1) LVIDd: 4.0 cm (3.9 - 5.3) LVPWd: 1.3 cm (0.6 - 1.1) IVSs: 1.7 cm LVIDs: 2.9 cm LVPWs: 1.6 cm LA Diam: 2.9 cm (2.7 - 3.8) LAESV Index (A-L): 21.20 ml/m Ao Diam: 3.5 cm (2.0 - 3.7) AV Cusp: 2.1 cm (1.5 - 2.6) MV EXCURSION: 11.388 mm (> 18.000) MV EF SLOPE: 26 mm/s (70 - 150) EPSS: 0.7 cm MV E Kwabena: 0.60 m/s MV DecT: 334 ms MV A Kwabena: 0.92 m/s MV E/A Ratio: 0.66 AR PHT: 768 ms RAP: 5.00 mmHg RVSP: 34.50 mmHg TAPSE: 16.66 mm FINDINGS -------- Sinus rhythm. This was a technically adequate study. The left ventricular size is normal. There is mild concentric left ventricular hypertrophy. Overa ll left ventricular systolic function is normal with, an EF between 60 - 65 %. The right ventricle is normal in size. Normal LA size by volume 22+/-6 ml/m2. The right atrium is normal in size. Interatrial and interventricular septum intact. There is mild aortic valve sclerosis. Trace to mild aortic regurgitation. Mild mitral annular calcification present. There is trace to mild mitral regurgitation. Mild tricuspid regurgitation present. There is mild pulmonary hypertension. The right ventricular systolic pressure, as measured by Doppler, is 34.50mmHg. Trace/mild (physiologic) pulmonic regurgitation. The aortic root size is normal. Normal inferior vena cava with normal inspiratory collapse consistent with estimated right atrial pre ssure of 5 mmHg. There is no pericardial effusion. CONCLUSIONS -------- 1. Sinus rhythm. 2. This was a technically adequate study. 3. The left ventricular size is normal. 4. There is mild concentric left ventricular hypertrophy. 5. Overall left ventricular systolic function is normal with, an EF between 60 - 65 %. 6. The right ventricle is normal in size. 7. Normal LA size by volume 22+/-6 ml/m2. 8. The right atrium is normal in size. 9. Interatrial and interventricular septum intact. 10. There is mild aortic valve sclerosis. 11. Trace to mild aortic regurgitation. 12. Mild mitral annular calcification present. 13. There is trace to mild mitral regurgitation. 14. Mild tricuspid regurgitation present. 15. There is mild pulmonary hypertension. 16. The right ventricular systolic pressure, as measured by Doppler, is 34.50mmHg. 17. Trace/mild (physiologic) pulmonic regurgitation. 18. The aortic root size is normal. 19. Normal inferior vena cava with normal inspiratory collapse consistent with estimated right atrial pressure of 5 mmHg. 20. There is no pericardial effusion. DETAIL TECHNICIAN: Sammie Knight RDCS
== END 2019-10-24 15:57 | DRG 190 ==
LOC: EC 15:48 → 3SCARD 17:48 → 4SSUR 10-23 20:53
PROVIDERS: ADMIT Internal Medicine; ATTEND Internal Medicine
PROC: 5A09357 Assistance with Respiratory Ventilation, Less than 24 Consecutive Hours, Continuous Positive Airway Pressure (ICD-10-PCS; principal; 2019-10-21)
DX: J44.1 Chronic obstructive pulmonary disease with (acute) exacerbation (principal); J18.9 Pneumonia, unspecified organism; J96.21 Acute and chronic respiratory failure with hypoxia; J96.22 Acute and chronic respiratory failure with hypercapnia; G93.41 Metabolic encephalopathy; J44.0 Chronic obstructive pulmonary disease with (acute) lower respiratory infection; I49.3 Ventricular premature depolarization; I10 Essential (primary) hypertension; E05.90 Thyrotoxicosis, unspecified without thyrotoxic crisis or storm; E78.5 Hyperlipidemia, unspecified; F32.9 Major depressive disorder, single episode, unspecified; F41.9 Anxiety disorder, unspecified; H35.30 Unspecified macular degeneration; R00.8 Other abnormalities of heart beat; J32.9 Chronic sinusitis, unspecified; Z66 Do not resuscitate; Z79.82 Long term (current) use of aspirin; Z79.899 Other long term (current) drug therapy; Z79.52 Long term (current) use of systemic steroids; Z85.3 Personal history of malignant neoplasm of breast; Z86.718 Personal history of other venous thrombosis and embolism; Z87.01 Personal history of pneumonia (recurrent); Z90.12 Acquired absence of left breast and nipple; Z96.653 Presence of artificial knee joint, bilateral; Z88.6 Allergy status to analgesic agent; Z88.5 Allergy status to narcotic agent; Z88.0 Allergy status to penicillin; Z88.2 Allergy status to sulfonamides; Z98.42 Cataract extraction status, left eye; Z98.41 Cataract extraction status, right eye; Z96.1 Presence of intraocular lens; Z98.51 Tubal ligation status; Z84.1 Family history of disorders of kidney and ureter; Z87.440 Personal history of urinary (tract) infections
CPT/HCPCS: 36415; 36600; 70450; 71046; 80048; 80053; 80178; 82803; 82805; 83605; 83735; 84439; 84443; 85025; 85027; 85610; 85730; 87040; 87502; 93005; 93306; 94640; 94660; 94760; 94762; 96365; 96375; 99291

== ENCOUNTER → 2021-04-25 | Day surgery (SDC) | payer MEDICARE, OTHER | LOC: CATHCVL 13:34 | PROVIDERS: ATTEND Internal Medicine Geriatric Medicine | DX: J44.9 Chronic obstructive pulmonary disease, unspecified (principal) | CPT/HCPCS: 36410; 76937; C1751 ==

== ENCOUNTER 2022-03-16 08:04 | Inpatient (IN) | payer MEDICARE, OTHER ==
--- NOTE | 2022-03-16 08:27 | ED ---
General Adult HPI - General Chief complaint: Altered Mental Status Stated complaint: Altered Mental Status Time Seen by Provider: 03/16/22 08:06 Source: EMS, RN notes reviewed, old records reviewed Mode of arrival: EMS Limitations: altered mental status - History of Present Illness Initial comments: 81-year-old female from group home presenting for evaluation of altered mental status. Symptoms have progressed over the past several days. Apparently the patient has had episodes similar to this in the past. She is instructed to wear CPAP at night but has not been wearing this. Patient is on supplemental oxygen at baseline. She is normally conversant at baseline but was minimally responsive according to paramedics. No respiratory distress noted. No fever. No history of vomiting. Patient does seem to say no when asked about pain. - Related Data Home Medications Medication Instructions Recorded Confirmed [place] Carbonate 300 mg PO BID@0800,1700 07/03/16 03/16/22 PARoxetine [Paxil] 20 mg PO DAILY@0800 07/03/16 03/16/22 Albuterol Nebulized [Ventolin 2.5 mg INHALATION RT-QID 10/01/19 03/16/22 Nebulized] Loratadine [Claritin] 10 mg PO DAILY@0800 10/21/19 03/16/22 Montelukast [Singulair] 10 mg PO HS@209910/21/19 03/16/22 Na Phos,M-B/Na Phos,Di-Ba [Fleet 133 ml RECTAL DAILY PRN 10/21/19 03/16/22 Adult] Potassium Chloride ER [K-Dur 10] 40 meq PO BID@0800,1700 10/21/19 03/16/22 Theophylline 24 Hour [Sancho-24] 200 mg PO DAILY@0800 10/21/19 03/16/22 Triamterene-Hctz 37.5-25Mg 1 cap PO DAILY@0800 10/21/19 03/16/22 [Dyazide 37.5-25 Capsule] atenoloL [Tenormin] 25 mg PO BID@0800,1700 10/21/19 03/16/22 bisacodyL [Dulcolax] 10 mg RECTAL DAILY PRN 10/21/19 03/16/22 risperiDONE [RisperDAL] 0.5 mg PO HS@2100 10/21/19 03/16/22 Acetaminophen Tab [Tylenol] 650 mg PO Q4H PRN 03/16/22 03/16/22 Albuterol Inhaler [Ventolin Hfa 2 puff INHALATION RT-QID PRN 03/16/22 03/16/22 Inhaler] Atorvastatin [Lipitor] 10 mg PO HS 03/16/22 03/16/22 Ergocalciferol [Vitamin D2 (1250 1,250 mcg PO WE@1700 03/16/22 03/16/22 Mcg = 46150 Iu)] Furosemide [Lasix] 40 mg PO BID@0800,1700 03/16/22 03/16/22 LORazepam [Ativan] 0.5 mg PO BID PRN 03/16/22 03/16/22 Loperamide HCl [Imodium A-D] 2 - 4 mg PO DIRECTED PRN 03/16/22 03/16/22 Mag Hydrox/Al Hydrox/Simeth 30 ml PO Q6H PRN 03/16/22 03/16/22 [Maalox] Magnesium Hydroxide [Milk of 7,200 mg PO DAILY PRN 03/16/22 03/16/22 Magnesia Concentrate] Ocusoft Lid Cleaning 1 applic TOPICAL DAILY@0800 03/16/22 03/16/22 Polyethylene Glycol 3350 [Miralax] 17 gm PO DAILY@0800 03/16/22 03/16/22 Sennosides/Docusate Sodium 2 tab PO HS PRN 03/16/22 03/16/22 [Senna-S 8.6-50 mg Tablet] guaiFENesin [Tussin] 100 mg PO Q4H PRN 03/16/22 03/16/22 traMADol HCl [Ultram] 50 mg PO Q6H PRN 03/16/22 03/16/22 Previous Rx's Medication Instructions Recorded Aspirin 81 mg PO DAILY@0800 chew 10/24/19 Allergies Allergy/AdvReac Type Severity Reaction Status Date / Time Penicillins Allergy Rash/Hives Verified 03/16/22 08:13 hydrocodone [From [place]] AdvReac Nausea & Verified 03/16/22 08:13 Vomiting Sulfa (Sulfonamide AdvReac Nausea & Verified 03/16/22 08:13 Antibiotics) Vomiting Review of Systems ROS Statement: Those systems with pertinent positive or pertinent negative responses have been documented in the HPI. ROS Other: All systems not noted in ROS Statement are negative. Past Medical History Past Medical History: Cancer, COPD, Deep Vein Thrombosis (DVT), Eye Disorder, Hyperlipidemia, Hypertension, Pneumonia Additional Past Medical History / Comment(s): Recent kidney infection, L BREAST CANCER with SX , Bilateral MACULAR DEGENERATION, DVT R leg History of Any Multi-Drug Resistant Organisms: ESBL Date of last positivie culture/infection: 02/24/22 ESBL E.coli MDRO Source:: Urine Past Surgical History: Breast Surgery, Joint Replacement, Tonsillectomy, Tubal Ligation Additional Past Surgical History / Comment(s): 07/04/16 Total L knee arthroplasty. Other surgical hx: LEFT MASTECTOMY, R total knee arthroplasty, bilateral cataract removal. Past Anesthesia/Blood Transfusion Reactions: Motion Sickness Past Psychological History: Anxiety, Depression Smoking Status: Unknown if ever smoked Past Alcohol Use History: None Reported Past Drug Use History: None Reported - Past Family History Mother Family Medical History: Renal Disease Additional Family Medical History / Comment(s): Mother at the age of 84 yrs of kidney failure. Father Family Medical History: No Reported History Additional Family Medical History / Comment(s): Father at the age of 98yrs. General Exam Limitations: altered mental status General appearance: in no apparent distress, lethargic Head exam: Present: atraumatic, normocephalic Eye exam: Absent: PERRL ([place] bilaterally) Respiratory exam: Present: wheezes, decreased breath sounds. Absent: respiratory distress Cardiovascular Exam: Present: normal rhythm, bradycardia GI/Abdominal exam: Present: soft. Absent: distended, tenderness, guarding Neurological exam: Absent: oriented X3, motor sensory deficit Skin exam: Present: warm, dry, intact. Absent: cyanosis, diaphoretic Course Vital Signs 03/16/22 03/16/22 03/16/22 08:05 09:20 09:24 Temperature 96.8 F L Pulse Rate 55 L 69 Respiratory 20 Rate Blood Pressure 112/88 109/70 O2 Sat by Pulse 93 L 95 Oximetry Fraction of Inspired Oxygen (FIO2) 03/16/22 09:26 Temperature Pulse Rate Respiratory Rate Blood Pressure O2 Sat by Pulse Oximetry Fraction of 40 Inspired Oxygen (FIO2) EKG Findings - EKG Comments: EKG Findings:: EKG: Status seemed to be a regular bradycardia likely sinus bradycardia the baseline has significant artifact limiting assessment. There is no ST segment elevation. Rate 51, MI interval 177, QRS duration 92, QTC 400 Medical Decision Making - Medical Decision Making 81-year-old female with increased confusion over the past several days. Patient will follow commands and answer some simple questions but is unable to give a detailed history. She has stable vitals. There is concern for CO2 narcosis because the patient is supposed to wear a CPAP machine and has not been wearing this. Venous gas does reveal a CO2 of 83. Suspect this may be the major underlying issue currently she is placed on BiPAP. Chest x-ray shows COPD with questionable infiltrate. Head CT is negative for intracranial hemorrhage or mass effect. She has a mild leukocytosis. She has an acute kidney injury with a creatinine of 1.66. She will be admitted for respiratory support and reevaluation. Case discussed with Dr. Morrison. - Lab Data Result diagrams: 03/16/22 08:17 03/16/22 08:17 Lab Results 03/16/22 03/16/22 03/16/22 Range/Units 08:17 08:17 08:17 WBC 12.1 H (3.8-10.6) k/uL RBC 3.93 (3.80-5.40) m/uL Hgb 12.1 (11.4-16.0) gm/dL Hct 37.9 (34.0-46.0) % MCV 96.4 (80.0-100.0) fL MCH 30.7 (25.0-35.0) pg MCHC 31.8 (31.0-37.0) g/dL RDW 13.6 (11.5-15.5) % Plt Count 207 (150-450) k/uL MPV 8.0 Neutrophils % 82 % Lymphocytes % 9 % Monocytes % 6 % Eosinophils % 2 % Basophils % 1 % Neutrophils # 9.9 H (1.3-7.7) k/uL Lymphocytes # 1.1 (1.0-4.8) k/uL Monocytes # 0.7 (0-1.0) k/uL Eosinophils # 0.2 (0-0.7) k/uL Basophils # 0.1 (0-0.2) k/uL Hypochromasia Slight PT 9.8 (9.0-12.0) sec INR 0.9 (<1.2) APTT 22.1 (22.0-30.0) sec VBG pH 7.40 (7.31-7.41) VBG pCO2 83 H* (37-51) mmHg VBG HCO3 50 H (24-28) mmol/L Sodium (137-145) mmol/L Potassium (3.5-5.1) mmol/L Chloride (98-107) mmol/L Carbon Dioxide (22-30) mmol/L Anion Gap mmol/L BUN (7-17) mg/dL Creatinine (0.52-1.04) mg/dL Est GFR (CKD-EPI)AfAm (>60 ml/min/1.73 sqM) Est GFR (CKD-EPI)NonAf (>60 ml/min/1.73 sqM) Glucose (74-99) mg/dL Calcium (8.4-10.2) mg/dL Total Bilirubin (0.2-1.3) mg/dL AST (14-36) U/L ALT (4-34) U/L Alkaline Phosphatase (38-126) U/L Troponin I (0.000-0.034) ng/mL Total Protein (6.3-8.2) g/dL Albumin (3.5-5.0) g/dL Urine Color Urine Appearance (Clear) Urine pH (5.0-8.0) Ur Specific [place] (1.001-1.035) Urine Protein (Negative) Urine Glucose (UA) (Negative) Urine Ketones (Negative) Urine Blood (Negative) Urine Nitrite (Negative) Urine Bilirubin (Negative) Urine Urobilinogen (<2.0) mg/dL Ur Leukocyte Esterase (Negative) Urine RBC (0-5) /hpf Urine WBC (0-5) /hpf Urine WBC Clumps (None) /hpf Ur Squamous Epith Cells (0-4) /hpf Amorphous Sediment (None) /hpf Urine Bacteria (None) /hpf Urine Opiates Screen (NotDetected) Ur Oxycodone Screen (NotDetected) Urine Methadone Screen (NotDetected) Ur Propoxyphene Screen (NotDetected) Ur Barbiturates Screen (NotDetected) U Tricyclic Antidepress (NotDetected) Ur Phencyclidine Scrn (NotDetected) Ur Amphetamines Screen (NotDetected) U Methamphetamines Scrn (NotDetected) U Benzodiazepines Scrn (NotDetected) Urine Cocaine Screen (NotDetected) U Marijuana (THC) Screen (NotDetected) 03/16/22 03/16/22 03/16/22 Range/Units 08:17 08:17 08:17 WBC (3.8-10.6) k/uL RBC (3.80-5.40) m/uL Hgb (11.4-16.0) gm/dL Hct (34.0-46.0) % MCV (80.0-100.0) fL MCH (25.0-35.0) pg MCHC (31.0-37.0) g/dL RDW (11.5-15.5) % Plt Count (150-450) k/uL MPV Neutrophils % % Lymphocytes % % Monocytes % % Eosinophils % % Basophils % % Neutrophils # (1.3-7.7) k/uL Lymphocytes # (1.0-4.8) k/uL Monocytes # (0-1.0) k/uL Eosinophils # (0-0.7) k/uL Basophils # (0-0.2) k/uL Hypochromasia PT (9.0-12.0) sec INR (<1.2) APTT (22.0-30.0) sec VBG pH (7.31-7.41) VBG pCO2 (37-51) mmHg VBG HCO3 (24-28) mmol/L Sodium 138 (137-145) mmol/L Potassium 4.0 (3.5-5.1) mmol/L Chloride 87 L (98-107) mmol/L Carbon Dioxide 48 H* (22-30) mmol/L Anion Gap 3 mmol/L BUN 58 H (7-17) mg/dL Creatinine 1.66 H (0.52-1.04) mg/dL Est GFR (CKD-EPI)AfAm 33 (>60 ml/min/1.73 sqM) Est GFR (CKD-EPI)NonAf 29 (>60 ml/min/1.73 sqM) Glucose 91 (74-99) mg/dL Calcium 9.7 (8.4-10.2) mg/dL Total Bilirubin 0.6 (0.2-1.3) mg/dL AST 12 L (14-36) U/L ALT 6 (4-34) U/L Alkaline Phosphatase 233 H (38-126) U/L Troponin I <0.012 (0.000-0.034) ng/mL Total Protein 5.7 L (6.3-8.2) g/dL Albumin 3.7 (3.5-5.0) g/dL Urine Color Yellow Urine Appearance Turbid H (Clear) Urine pH 8.0 (5.0-8.0) Ur Specific [place] 1.010 (1.001-1.035) Urine Protein Trace H (Negative) Urine Glucose (UA) Negative (Negative) Urine Ketones Negative (Negative) Urine Blood Negative (Negative) Urine Nitrite Negative (Negative) Urine Bilirubin Negative (Negative) Urine Urobilinogen 2.0 (<2.0) mg/dL Ur Leukocyte Esterase Large H (Negative) Urine RBC 1 (0-5) /hpf Urine WBC 20 H (0-5) /hpf Urine WBC Clumps Occasional H (None) /hpf Ur Squamous Epith Cells 5 H (0-4) /hpf Amorphous Sediment Rare H (None) /hpf Urine Bacteria Moderate H (None) /hpf Urine Opiates Screen Not Detected (NotDetected) Ur Oxycodone Screen Not Detected (NotDetected) Urine Methadone Screen Not Detected (NotDetected) Ur Propoxyphene Screen Not Detected (NotDetected) Ur Barbiturates Screen Not Detected (NotDetected) U Tricyclic Antidepress Not Detected (NotDetected) Ur Phencyclidine Scrn Not Detected (NotDetected) Ur Amphetamines Screen Not Detected (NotDetected) U Methamphetamines Scrn Not Detected (NotDetected) U Benzodiazepines Scrn Not Detected (NotDetected) Urine Cocaine Screen Not Detected (NotDetected) U Marijuana (THC) Screen Not Detected (NotDetected) Critical Care Time Critical Care Time: Yes Total Critical Care Time: 35 Disposition Clinical Impression: Severe chronic obstructive pulmonary disease, Hypercapnic respiratory failure, Altered mental status Disposition: ADMITTED IP TO THIS [facility] Condition: Stable Is patient prescribed a controlled substance at d/c from ED?: No Referrals: Naif Negron MD [Primary Care Provider] - 1-2 days Time of Disposition: 09:51
[2022-03-16 08:44] LABS: Basophils # (A) 0.1 k/uL (0-0.2); Basophils % (A) 1 %; Eosinophils # (A) 0.2 k/uL (0-0.7); Eosinophils % (A) 2 %; HCT 37.9 % (34.0-46.0); HGB 12.1 gm/dL (11.4-16.0); Hypochromasia Slight; Lymphocytes # (A) 1.1 k/uL (1.0-4.8); Lymphocytes % (A) 9 %; MCH 30.7 pg (25.0-35.0); MCHC 31.8 g/dL (31.0-37.0); MCV 96.4 fL (80.0-100.0); Monocytes # (A) 0.7 k/uL (0-1.0); Monocytes % (A) 6 %; Neutrophils # (A) 9.9 k/uL (1.3-7.7); Neutrophils % (A) 82 %; Platelet Count 207 k/uL (150-450); RBC 3.93 m/uL (3.80-5.40); RDW 13.6 % (11.5-15.5); WBC 12.1 k/uL (3.8-10.6)
[2022-03-16 08:48] LABS: VBG PH 7.4 (7.31-7.41)
[2022-03-16 08:49] LABS: Amorphous Sediment,Urine Rare /hpf; Appearance,Urine Turbid (Clear); Bacteria,Urine Moderate /hpf; Bilirubin,Urine Negative (Negative); Blood,Urine Negative (Negative); Color,Urine Yellow; Glucose,Urine (UA) Negative (Negative); Ketones,Urine Negative (Negative); Leukocyte Esterase,Urine Large (Negative); Nitrite,Urine Negative (Negative); Protein,Urine Trace (Negative); RBC,Urine 1 /hpf (0-5); Squamous Epithelial Cell,Urine 5 /hpf (0-4); WBC,Urine 20 /hpf (0-5)
[2022-03-16 08:56] LABS: Amphetamine Screen,Urine Not Detected (NotDetected); Barbiturate Screen,Urine Not Detected (NotDetected); Benzodiazepines Screen,Urine Not Detected (NotDetected); Cocaine Screen,Urine Not Detected (NotDetected); INR 0.9 (<1.2); Methadone Screen, Urine Not Detected (NotDetected); Opiate Screen,Urine Not Detected (NotDetected); Oxycodone Screen, Urine Not Detected (NotDetected); Partial Thromboplastin Time 22.1 sec (22.0-30.0); Phencyclidine Screen,Urine Not Detected (NotDetected); Prothrombin Time 9.8 sec (9.0-12.0); Tricyclic Antidepressant,Urine Not Detected (NotDetected); Urn Cannabinoid Scrn Not Detected (NotDetected)
[2022-03-16 09:00] LABS: Albumin 3.7 g/dL (3.5-5.0); Calcium 9.7 mg/dL (8.4-10.2); Total Bilirubin 0.6 mg/dL (0.2-1.3); Total Protein 5.7 g/dL (6.3-8.2)
--- NOTE | 2022-03-16 09:23 | XR ---
EXAMINATION TYPE: XR chest 2V DATE OF EXAM: 03/16/2022 COMPARISON: 10/21/2019 HISTORY: 81-year-old female confusion, altered mental status TECHNIQUE: AP and lateral views FINDINGS: Patient rotated towards the left altering the normal cardiac and mediastinal contours. Heart appears upper limits of normal in size. Hyperinflation. There is some patchy opacity posterior lower third ch est on the lateral view and additional patchy changes left perihilar region. IMPRESSION: Cardiomegaly. Limited, rotated exam. Suspect underlying COPD. Patchy left perihilar density and also, patchy posterior mid to lower lung density on the lateral view. Unable to exclude underlying infiltr ates.
--- NOTE | 2022-03-16 09:30 | CT ---
EXAMINATION TYPE: CT brain wo con DATE OF EXAM: 03/16/2022 COMPARISON: CT dated 10/21/2021 HISTORY: Altered mental status CT DLP: 1117.4 mGycm Automated exposure control for dose reduction was used. TECHNIQUE: CT scan of the brain is performed without IV contrast administration. FINDINGS: Bilateral cerebral white matter hypodensities, likely representing chronic microvascular ischemic isabela nges. Scattered arterial atherosclerotic calcifications. No acute intracranial hemorrhage. No gross acute cortical infarct. No midline shift or herniation. Un remarkable basal cisterns, sella and CP angles. No gross space-occupying lesion, vasogenic edema or m ass effect. Unremarkable orbits. Asymmetrical soft tissue thickening along the left side of the nasopharynx assoc iated with opacified left mastoid air cells and to a lesser extent the right inferior mastoid air [place] ls, underlying nasopharyngeal lesion cannot be excluded. Recommend clinical correlation and ENT consu ltation. Clear visualized paranasal sinuses. Osteopenia. IMPRESSION: No acute intracranial abnormality or gross space-occupying lesion by this nonenhanced CT scan. Asymmetrical soft tissue thickening along the left side of the nasopharynx with opacified mastoid or cells, more on the left side, underlying nasopharyngeal lesion cannot be excluded. Recommend clinical correlation and ENT consultation. Other findings as described above.
[2022-03-16] MEDS ORDERED: IPRATROPIUM-ALBUTEROL 3 ML NEB INHALATION PRN (09:48)
[2022-03-16] MEDS: SODIUM CHLORIDE 0.9% 1,000 ML IV SCH (10:25)
[2022-03-16] MEDS ORDERED: predniSONE 20 MG TAB PO SCH (10:30)
[2022-03-16] MEDS ORDERED: LEVOFLOXACIN 500 MG TAB PO SCH (10:30)
[2022-03-16] MEDS ORDERED: methylPREDNISolone SOD SUCCI 125 MG/2 ML VIAL IV STA (10:33)
[2022-03-16] MEDS ORDERED: LEVOFLOXACIN 500MG-D5W PMX 500 MG in DEXTROSE/WATER 1 100ML.BAG IVPB STA (10:33)
[2022-03-16] MEDS: IPRATROPIUM-ALBUTEROL 3 ML NEB INHALATION SCH ×3 (14:10→19:32)
[2022-03-16] MEDS ORDERED: SENNOSIDES-DOCUSATE SODIUM 1 EACH TAB PO PRN (15:06)
[2022-03-16] MEDS ORDERED: NA PHOS,M-B/NA PHOS,DI-BA 133 ML ENEMA RECTAL PRN (15:06)
[2022-03-16] MEDS ORDERED: ACETAMINOPHEN TAB 325 MG TAB PO PRN (15:06)
[2022-03-16] MEDS: HEPARIN SODIUM,PORCINE/PF 5,000 UNIT/0.5 ML SYRINGE SQ SCH (16:27)
[2022-03-16] MEDS: methylPREDNISolone SOD SUCCI 40 MG/ML 1 ML VIAL IV SCH (16:28)
[2022-03-16] MEDS ORDERED: SODIUM CHLORIDE 0.9% 500 ML 500 ML IV ONE (19:22)
[2022-03-16] MEDS: ATORVASTATIN 10 MG TAB PO SCH (20:32)
--- NOTE | 2022-03-16 21:41 | P.HPIM ---
History of Present Illness H&P Date: 03/16/22 Chief Complaint: Altered mental status Patient is a 81-year-old female with a known history of COPD on home oxygen, hypertension, hyperlipidemia, history of breast cancer status post surgery, ESBL urinary tract infection, anxiety/depression and other medical problems was bro ught to the hospital due to altered mental status. Patient has been having worsening mental status with patient be increasingly lethargic for the past few days. Patient was afebrile. No complaints of nausea vomiting or abdominal pain or diarrhea. Patient is supposed to wear CPAP at night but she has not wearing at home. Patient is on oxygen at baseline. Patient was minimally responsive when pa ramedics arrival. Denied any complaints of pain. Patient cannot provide any history at this time. CT head showed no acute intracranial abnormality or gross space-occupying lesion by the nonenhanced CT scan. Asymmetrical soft tissue thickening along the left side of the nasopharynx with opacified mastoid air cells more on the left side and Nasopharyngeal lesion cannot be excluded. Recommend clinical correlation and ENT consultation. Chest x-ray showed cardiomegaly. Limited rotation exam. Suspect underlying COPD. Patchy left perihilar density also patchy posterior mid to lower lung density on the lateral view. Unable to exclude underlying infiltrates. EKG showed sinus bradycardia with occasional ventricular premature complexes. Laboratory showed WBC 12.1 hemoglobin 12.1 and platelets 207 ABG showed pH 7.4 PCO2 83 and bicarb is 50. Sodium 138 potassium 4.0 chloride 87 bicarb is a 48 BUN 58 and creatinine 1.66 and AST 12 ALT 6 and alk phos 233 troponin x1 negative and albumin 3.7 ur inalysis showed turbid with large leukocyte esterase and elevated WBCs. UDS negative Review of Systems Complete review of systems could not be obtained from the patient. Past Medical History Past Medical History: Cancer, COPD, Deep Vein Thrombosis (DVT), Eye Disorder, Hyperlipidemia, Hypertension, Pneumonia Additional Past Medical History / Comment(s): Recent kidney infection, L BREAST CANCER with SX , Bilateral MACULAR DEGENERATION, DVT R leg History of Any Multi-Drug Resistant Organisms: ESBL Date of last positivie culture/infection: 02/24/22 ESBL E.coli MDRO Source:: Urine Past Surgical History: Breast Surgery, Joint Replacement, Tonsillectomy, Tubal Ligation Additional Past Surgical History / Comment(s): 07/04/16 Total L knee arthroplasty. Other surgical hx: LEFT MASTECTOMY, R total knee arthroplasty, bilateral cataract removal. Past Anesthesia/Blood Transfusion Reactions: Motion Sickness Past Psychological History: Anxiety, Depression Smoking Status: Unknown if ever smoked Past Alcohol Use History: None Reported Past Drug Use History: None Reported - Past Family History Mother Family Medical History: Renal Disease Additional Family Medical History / Comment(s): Mother at the age of 84 yrs of kidney failure. Father Family Medical History: No Reported History Additional Family Medical History / Comment(s): Father at the age of 98yrs. Medications and Allergies Home Medications Medication Instructions Recorded Confirmed Type [place] Carbonate 300 mg PO BID@0800,1700 07/03/16 03/16/22 History PARoxetine [Paxil] 20 mg PO DAILY@0800 07/03/16 03/16/22 History Albuterol Nebulized [Ventolin 2.5 mg INHALATION RT-QID 10/01/19 03/16/22 History Nebulized] Loratadine [Claritin] 10 mg PO DAILY@0800 10/21/19 03/16/22 History Montelukast [Singulair] 10 mg PO HS@209910/21/19 03/16/22 History Na Phos,M-B/Na Phos,Di-Ba [Fleet 133 ml RECTAL DAILY PRN 10/21/19 03/16/22 History Adult] Potassium Chloride ER [K-Dur 10] 40 meq PO BID@0800,1700 10/21/19 03/16/22 History Theophylline 24 Hour [Sancho-24] 200 mg PO DAILY@0800 10/21/19 03/16/22 History Triamterene-Hctz 37.5-25Mg 1 cap PO DAILY@0800 10/21/19 03/16/22 History [Dyazide 37.5-25 Capsule] atenoloL [Tenormin] 25 mg PO BID@0800,1700 10/21/19 03/16/22 History bisacodyL [Dulcolax] 10 mg RECTAL DAILY PRN 10/21/19 03/16/22 History risperiDONE [RisperDAL] 0.5 mg PO HS@209910/21/19 03/16/22 History Aspirin 81 mg PO DAILY@0800 chew 10/24/19 03/16/22 Rx Acetaminophen Tab [Tylenol] 650 mg PO Q4H PRN 03/16/22 03/16/22 History Albuterol Inhaler [Ventolin Hfa 2 puff INHALATION RT-QID PRN 03/16/22 03/16/22 History Inhaler] Atorvastatin [Lipitor] 10 mg PO HS 03/16/22 03/16/22 History Ergocalciferol [Vitamin D2 (1250 1,250 mcg PO WE@1700 03/16/22 03/16/22 History Mcg = 40361 Iu)] Furosemide [Lasix] 40 mg PO BID@0800,1700 03/16/22 03/16/22 History LORazepam [Ativan] 0.5 mg PO BID PRN 03/16/22 03/16/22 History Loperamide HCl [Imodium A-D] 2 - 4 mg PO DIRECTED PRN 03/16/22 03/16/22 History Mag Hydrox/Al Hydrox/Simeth 30 ml PO Q6H PRN 03/16/22 03/16/22 History [Maalox] Magnesium Hydroxide [Milk of 7,200 mg PO DAILY PRN 03/16/22 03/16/22 History Magnesia Concentrate] Ocusoft Lid Cleaning 1 applic TOPICAL DAILY@0800 03/16/22 03/16/22 History Sennosides/Docusate Sodium 2 tab PO HS PRN 03/16/22 03/16/22 History [Senna-S 8.6-50 mg Tablet] guaiFENesin [Tussin] 100 mg PO Q4H PRN 03/16/22 03/16/22 History polyethylene glycoL 3350 [Miralax] 17 gm PO DAILY@0800 03/16/22 03/16/22 History traMADol HCl [Ultram] 50 mg PO Q6H PRN 03/16/22 03/16/22 History Allergies Allergy/AdvReac Type Severity Reaction Status Date / Time Penicillins Allergy Rash/Hives Verified 03/16/22 08:13 hydrocodone [From [place]] AdvReac Nausea & Verified 03/16/22 08:13 Vomiting Sulfa (Sulfonamide AdvReac Nausea & Verified 03/16/22 08:13 Antibiotics) Vomiting Physical Exam Vitals: Vital Signs Temp Pulse Resp BP Pulse Ox FiO2 03/16/22 11:31 98 03/16/22 11:28 40 03/16/22 11:21 55 L 106/61 90 L 03/16/22 10:04 53 L 15 94/50 95 03/16/22 09:26 40 03/16/22 09:24 95 03/16/22 09:20 69 109/70 03/16/22 08:05 96.8 F L 55 L 20 112/88 93 L Intake and Output 03/16/22 03/16/22 03/16/22 06:59 14:59 22:59 Other: Weight 79.379 kg PHYSICAL EXAMINATION: Patient is lying in the bed awake alert but confused and lethargic. On BiPAP. HEENT: Normocephalic. Neck is supple. Pupils reactive. Nostrils clear. Oral c avity is moist. Neck reveals no JVD, carotid bruits, or thyromegaly. Bibasilar diminished sounds. Nonlabored breathing. CARDIAC: Normal S1, S2 with no gallops. No murmurs ABDOMEN: Soft. Bowel sounds normal. No organomegaly. No abdominal bruits. Extremities: reveal no edema. No clubbing or cyanosis Neurologically awake, alert, oriented x 1 with well-coordinated movements. No focal deficits noted Skin: No rash or skin lesions. Psychiatric: Coperative. Could not be assessed completely. Musculoskeletal: No joint swelling or deformity. Normal range of motion. Results CBC & Chem 7: 03/17/22 09:09 03/17/22 09:09 Labs: Abnormal Lab Results - Last 24 Hours (Table) 03/16/22 03/16/22 03/16/22 Range/Units 08:17 08:17 08:17 WBC 12.1 H (3.8-10.6) k/uL Neutrophils # 9.9 H (1.3-7.7) k/uL VBG pCO2 83 H* (37-51) mmHg VBG HCO3 50 H (24-28) mmol/L Chloride (98-107) mmol/L Carbon Dioxide (22-30) mmol/L BUN (7-17) mg/dL Creatinine (0.52-1.04) mg/dL AST (14-36) U/L Alkaline Phosphatase (38-126) U/L Total Protein (6.3-8.2) g/dL Urine Appearance Turbid H (Clear) Urine Protein Trace H (Negative) Ur Leukocyte Esterase Large H (Negative) Urine WBC 20 H (0-5) /hpf Urine WBC Clumps Occasional H (None) /hpf Ur Squamous Epith Cells 5 H (0-4) /hpf Amorphous Sediment Rare H (None) /hpf Urine Bacteria Moderate H (None) /hpf 03/16/22 Range/Units 08:17 WBC (3.8-10.6) k/uL Neutrophils # (1.3-7.7) k/uL VBG pCO2 (37-51) mmHg VBG HCO3 (24-28) mmol/L Chloride 87 L (98-107) mmol/L Carbon Dioxide 48 H* (22-30) mmol/L BUN 58 H (7-17) mg/dL Creatinine 1.66 H (0.52-1.04) mg/dL AST 12 L (14-36) U/L Alkaline Phosphatase 233 H (38-126) U/L Total Protein 5.7 L (6.3-8.2) g/dL Urine Appearance (Clear) Urine Protein (Negative) Ur Leukocyte Esterase (Negative) Urine WBC (0-5) /hpf Urine WBC Clumps (None) /hpf Ur Squamous Epith Cells (0-4) /hpf Amorphous Sediment (None) /hpf Urine Bacteria (None) /hpf Microbiology - Last 24 Hours (Table) 03/16/22 08:17 Urine Culture - Preliminary Urine,Catheterized Thrombosis Risk Factor Assmnt - DVT/VTE Prophylaxis DVT/VTE Prophylaxis: Pharmacologic Prophylaxis ordered Assessment and Plan Assessment: Acute on chronic hypercapnic respiratory failure. Requiring BiPAP Altered mental status likely due to CO2 narcosis. Chronic hypoxic respiratory failure secondary COPD on home oxygen Obstructive sleep apnea on CPAP at home. Patient is not wearing CPAP at night as recommended. Possible left perihilar infiltrate/pneumonia Acute urinary tract infection Possible left-sided nasopharyngeal lesion. Follow-up with ENT as outpatient. Hypertension Hyperlipidemia History of right leg DVT History of left breast cancer s/p surgery Anxiety/depression bipolar disorder DVT prophylaxis with heparin subcu Plan: Patient was placed on BiPAP and current with oxygen supplementation. Was given a dose of Levaquin and continued ceftriaxone and IV steroids and duo nebs. Current with home medications and avoidance status. Gentle IV hydration and follow closely. Pulmonary will be consulted. Prognosis is guarded at this time. Time with Patient: Greater than 30
[2022-03-17] MEDS: methylPREDNISolone SOD SUCCI 40 MG/ML 1 ML VIAL IV SCH ×3 (00:04→17:43)
[2022-03-17] MEDS: HEPARIN SODIUM,PORCINE/PF 5,000 UNIT/0.5 ML SYRINGE SQ SCH ×3 (00:12→17:43)
[2022-03-17] MEDS: SODIUM CHLORIDE 0.9% 1,000 ML IV SCH ×3 (00:27→19:57)
[2022-03-17] MEDS: IPRATROPIUM-ALBUTEROL 3 ML NEB INHALATION SCH ×4 (08:02→19:24)
[2022-03-17] MEDS: PARoxetine 20 MG TAB PO SCH (09:07)
[2022-03-17] MEDS: ASPIRIN 81 MG PO SCH (09:07)
[2022-03-17 10:17] LABS: Basophils % (A) 1 %; Eosinophils % (A) 0 %; HCT 37.6 % (34.0-46.0); HGB 11.6 gm/dL (11.4-16.0); Hypochromasia Slight; Lymphocytes # (A) 0.7 k/uL (1.0-4.8); Lymphocytes % (A) 11 %; MCH 30.1 pg (25.0-35.0); MCHC 30.8 g/dL (31.0-37.0); MCV 97.7 fL (80.0-100.0); Mean Platelet Volume 8.3; Monocytes # (A) 0.4 k/uL (0-1.0); Monocytes % (A) 6 %; Neutrophils # (A) 5.5 k/uL (1.3-7.7); Neutrophils % (A) 81 %; Platelet Count 196 k/uL (150-450); RBC 3.85 m/uL (3.80-5.40); RDW 13.7 % (11.5-15.5); WBC 6.8 k/uL (3.8-10.6)
[2022-03-17 10:34] LABS: Calcium 9.7 mg/dL (8.4-10.2); Potassium 3.9 mmol/L (3.5-5.1)
[2022-03-17] MEDS ORDERED: LEVOFLOXACIN 500MG-D5W PMX 500 MG in DEXTROSE/WATER 1 100ML.BAG IVPB SCH (12:00)
--- NOTE | 2022-03-17 14:18 | P.CNPUL ---
History of Present Illness Consult date: 03/17/22 Requesting physician: Danilo Morrison Reason for consult: COPD, other Chief complaint: Altered mental status History of present illness: This is an 81-year-old female with history of severe COPD, FEV1 is in the range of 42%. chronic hypoxic respiratory failure, on home oxygen, history of benign essential hypertension, previous breast cancer surgery/mastectomy, ESBL urinary tract infection, generalized anxiety disorder and depression, patient was brought into the ER with altered mental status. Patient was getting more confused and lethargic over the last few days. Patient had no idea why she was in the hospital. She is presently on BiPAP during my evaluation, but she has no clue how she ended up in the hospital. Apparently patient is supposed to wear CPAP at night at home, but she is not using it. When EMS arrived she was minimally responsive, and could not provide adequate history. Workup in the ER showed normal CT of the brain. She had questionable left side nasopharyngeal lesion with opacified mastoid air cells poor on the left side. At any rate ENT consultation was recommended and that being addressed by the admitting physician. Chest x-ray showed cardiomegaly, and patchy left upper lobe and left lower lobe infiltrate. Patient had a venous gas in the ER, and her pCO2 was 83 pH was 7.40, apparently the patient is compensating for her chronic respiratory acidosis, her bicarb is 48. Nonetheless the patient was placed on BiPAP, and she is now on IPAP of 12 and EPAP of 6, and she is on 30% FiO2. Apparently her mental status has improved, the patient is awake today during my evaluation, but again she had no idea how she ended up in the hospital. She is relatively asymptomatic, no cough no wheezing no chest pain no fever no chills no hemoptysis no nausea no vomiting and no abdominal pain. Labs today showed relatively normal CBC. Normal basic metabolic profile however her BUN is 66 creatinine of 1.79, clinically the patient seems to be dehydrated. IV fluid is relatively at 75 mL per hour, pro-calcitonin is 0.19 consistent with the findings noted on the chest x-ray Review of Systems Constitutional: Negative HEENT: Negative Pulmonary: As noted in HPI Cardiac: Negative GI: Negative Genitourinary: Negative Musculoskeletal: Negative Skin: Chronic bruising and ecchymosis most likely related to chronic steroid use. Neurologic: Negative Psychiatric: Negative Hematologic: Negative however the patient did have history of breast cancer. Past Medical History Past Medical History: Cancer, COPD, Deep Vein Thrombosis (DVT), Eye Disorder, Hyperlipidemia, Hypertension, Pneumonia Additional Past Medical History / Comment(s): Recent kidney infection, L BREAST CANCER with SX , Bilateral MACULAR DEGENERATION, DVT R leg History of Any Multi-Drug Resistant Organisms: ESBL Date of last positivie culture/infection: 02/24/22 ESBL E.coli MDRO Source:: Urine Past Surgical History: Breast Surgery, Joint Replacement, Tonsillectomy, Tubal Ligation Additional Past Surgical History / Comment(s): 07/04/16 Total L knee arthroplasty. Other surgical hx: LEFT MASTECTOMY, R total knee arthroplasty, bilateral cataract removal. Past Anesthesia/Blood Transfusion Reactions: Motion Sickness Past Psychological History: Anxiety, Depression Smoking Status: Unknown if ever smoked Past Alcohol Use History: None Reported Past Drug Use History: None Reported - Past Family History Mother Family Medical History: Renal Disease Additional Family Medical History / Comment(s): Mother at the age of 84 yrs of kidney failure. Father Family Medical History: No Reported History Additional Family Medical History / Comment(s): Father at the age of 98yrs. Medications and Allergies Home Medications Medication Instructions Recorded Confirmed Type Sula Carbonate 300 mg PO BID@0800,1700 07/03/16 03/16/22 History PARoxetine [Paxil] 20 mg PO DAILY@0800 07/03/16 03/16/22 History Albuterol Nebulized [Ventolin 2.5 mg INHALATION RT-QID 10/01/19 03/16/22 History Nebulized] Loratadine [Claritin] 10 mg PO DAILY@0800 10/21/19 03/16/22 History Montelukast [Singulair] 10 mg PO HS@2100 10/21/19 03/16/22 History Na Phos,M-B/Na Phos,Di-Ba [Fleet 133 ml RECTAL DAILY PRN 10/21/19 03/16/22 History Adult] Potassium Chloride ER [K-Dur 10] 40 meq PO BID@0800,1700 10/21/19 03/16/22 History Theophylline 24 Hour [Sancho-24] 200 mg PO DAILY@0800 10/21/19 03/16/22 History Triamterene-Hctz 37.5-25Mg 1 cap PO DAILY@0800 10/21/19 03/16/22 History [Dyazide 37.5-25 Capsule] atenoloL [Tenormin] 25 mg PO BID@0800,1700 10/21/19 03/16/22 History bisacodyL [Dulcolax] 10 mg RECTAL DAILY PRN 10/21/19 03/16/22 History risperiDONE [RisperDAL] 0.5 mg PO HS@2100 10/21/19 03/16/22 History Aspirin 81 mg PO DAILY@0800 chew 10/24/19 03/16/22 Rx Acetaminophen Tab [Tylenol] 650 mg PO Q4H PRN 03/16/22 03/16/22 History Albuterol Inhaler [Ventolin Hfa 2 puff INHALATION RT-QID PRN 03/16/22 03/16/22 History Inhaler] Atorvastatin [Lipitor] 10 mg PO HS 03/16/22 03/16/22 History Ergocalciferol [Vitamin D2 (1250 1,250 mcg PO WE@169903/16/22 03/16/22 History Mcg = 66921 Iu)] Furosemide [Lasix] 40 mg PO BID@0800,1700 03/16/22 03/16/22 History LORazepam [Ativan] 0.5 mg PO BID PRN 03/16/22 03/16/22 History Loperamide HCl [Imodium A-D] 2 - 4 mg PO DIRECTED PRN 03/16/22 03/16/22 History Mag Hydrox/Al Hydrox/Simeth 30 ml PO Q6H PRN 03/16/22 03/16/22 History [Maalox] Magnesium Hydroxide [Milk of 7,200 mg PO DAILY PRN 03/16/22 03/16/22 History Magnesia Concentrate] Ocusoft Lid Cleaning 1 applic TOPICAL DAILY@0800 03/16/22 03/16/22 History Sennosides/Docusate Sodium 2 tab PO HS PRN 03/16/22 03/16/22 History [Senna-S 8.6-50 mg Tablet] guaiFENesin [Tussin] 100 mg PO Q4H PRN 03/16/22 03/16/22 History polyethylene glycoL 3350 [Miralax] 17 gm PO DAILY@0800 03/16/22 03/16/22 History traMADol HCl [Ultram] 50 mg PO Q6H PRN 03/16/22 03/16/22 History Allergies Allergy/AdvReac Type Severity Reaction Status Date / Time Penicillins Allergy Rash/Hives Verified 03/16/22 08:13 hydrocodone [From [place]] AdvReac Nausea & Verified 03/16/22 08:13 Vomiting Sulfa (Sulfonamide AdvReac Nausea & Verified 03/16/22 08:13 Antibiotics) Vomiting Physical Exam Vitals: Vital Signs Temp Pulse Pulse Resp BP BP Pulse Ox 03/17/22 11:32 72 03/17/22 11:18 64 03/17/22 09:05 97.4 F L 55 L 24 110/57 95 03/17/22 08:20 48 L 03/17/22 08:03 69 03/17/22 04:00 98.3 F 65 16 106/63 96 03/17/22 02:59 03/17/22 00:00 98.4 F 63 14 108/58 92 L 03/16/22 23:13 03/16/22 19:43 64 03/16/22 19:41 98.5 F 70 14 118/63 94 L 03/16/22 19:33 56 L 94 L 03/16/22 19:01 03/16/22 17:48 98 03/16/22 17:39 97.6 F 52 L 17 114/57 03/16/22 15:55 60 03/16/22 15:40 58 L 03/16/22 15:39 FiO2 03/17/22 11:32 03/17/22 11:18 30 03/17/22 09:05 03/17/22 08:20 03/17/22 08:03 30 03/17/22 04:00 03/17/22 02:59 30 03/17/22 00:00 03/16/22 23:13 30 03/16/22 19:43 03/16/22 19:41 03/16/22 19:33 30 03/16/22 19:01 40 03/16/22 17:48 03/16/22 17:39 03/16/22 15:55 03/16/22 15:40 03/16/22 15:39 40 Intake and Output 0603/17/22 03/17/22 22:59 06:59 14:59 Intake Total 125 Balance 125 Intake: Intake, IV Titration 125 Amount Sodium Chloride 0.9% 500 75 ml 500 ml @ 999 mls/hr IV .Q31M ONE Rx#:[id number] cefTRIAXone 1 gm In 50 Sodium Chloride 0.9% 50 ml @ 100 mls/hr IVPB Q24HR [facility] Rx#:[id number] Other: Voiding Method Diaper Diaper Diaper # Voids 1 Weight 79.379 kg Physical Exam: Revealed 81-year-old female on BiPAP, awake, however she seems to be very slow, and she seems to be dehydrated, on BiPAP. Head: Atraumatic, normocephalic. HEENT:[Neck is supple.] [No neck masses.] [No thyromegaly.] [No JVD.] Dry mucous membranes noted. Chest: Diminished breath sound bilaterally crackles at the left base. No rhonchi and no wheezes Cardiac Exam: Distant S1 and S2, no S3 gallop. Abdomen: [Soft, nontender, no megaly, no rebound, no guarding, normal bowel sounds.] Extremities: [No clubbing, no edema, no cyanosis.] Neurological Exam: [No focal neurologic deficit.] Alert oriented 3, patient is rather slow. Skin: Multiple areas of ecchymosis and she has extremely dry skin. Psychiatric: Normal mood affect and normal mental status examination. Results - Laboratory Findings CBC and BMP: 03/17/22 09:09 03/17/22 09:09 PT/INR, D-dimer PT 9.8 sec (9.0-12.0) 03/16/22 08:17 INR 0.9 (<1.2) 03/16/22 08:17 Abnormal lab findings: Abnormal Labs 03/16/22 03/16/22 03/16/22 08:17 08:17 08:17 WBC 12.1 H MCHC Neutrophils # 9.9 H Lymphocytes # VBG pCO2 83 H* VBG HCO3 50 H Chloride Carbon Dioxide BUN Creatinine AST Alkaline Phosphatase Total Protein Procalcitonin Urine Appearance Turbid H Urine Protein Trace H Ur Leukocyte Esterase Large H Urine WBC 20 H Urine WBC Clumps Occasional H Ur Squamous Epith Cells 5 H Amorphous Sediment Rare H Urine Bacteria Moderate H 03/16/22 03/16/2222 08:17 19:39 09:09 WBC MCHC 30.8 L Neutrophils # Lymphocytes # 0.7 L VBG pCO2 VBG HCO3 Chloride 87 L Carbon Dioxide 48 H* BUN 58 H Creatinine 1.66 H AST 12 L Alkaline Phosphatase 233 H Total Protein 5.7 L Procalcitonin 0.19 H Urine Appearance Urine Protein Ur Leukocyte Esterase Urine WBC Urine WBC Clumps Ur Squamous Epith Cells Amorphous Sediment Urine Bacteria 03/17/22 09:09 WBC MCHC Neutrophils # Lymphocytes # VBG pCO2 VBG HCO3 Chloride 91 L Carbon Dioxide 40 H BUN 66 H Creatinine 1.79 H AST Alkaline Phosphatase Total Protein Procalcitonin Urine Appearance Urine Protein Ur Leukocyte Esterase Urine WBC Urine WBC Clumps Ur Squamous Epith Cells Amorphous Sediment Urine Bacteria - Diagnostic Findings Chest x-ray: image reviewed (As noted in HPI consistent with pneumonia involving the left upper lobe and left lower lobe) Assessment and Plan Assessment: Impression: Acute on chronic hypoxic and hypercapnic respiratory failure secondary to acute exacerbation of COPD and secondary to healthcare acquired pneumonia, patient is a retirement resident. Chronic hypoxic and chronic hypercapnic respiratory failure, patient is supposedly on BiPAP at home, questionable compliance. Altered mental status secondary to acute metabolic encephalopathy secondary to CO2 narcosis. 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 Benign essential hypertension. Dyslipidemia. Dehydration, suspect prerenal azotemia, patient's baseline creatinine is 1.0 and this was in late January of 2022 Recommendation: Continue BiPAP as needed, titrate FiO2 accordingly. Continue oxygen. Antibiotics in the form of Levaquin, patient is ALLERGIC to p enicillin. Continue bronchodilators including ipratropium bromide and albuterol updrafts. Agree with methylprednisolone 40 mg every 8 hours. Agree with Symbicort 160/4.52 puffs twice a day. Continue IV fluids and monitor electrolytes and renal profile. Monitor x-rays of the chest in the next couple of days. Prognosis is definitely guarded. We'll continue to follow. CODE STATUS needs to be addressed again, previously on previous admissions patient was DO NOT RESUSCITATE. Time with Patient: Greater than 30
[2022-03-17] MEDS: SYMBICORT 160-4.5 MCG INHALER INHALATION SCH (19:24)
[2022-03-17] MEDS: ATORVASTATIN 10 MG TAB PO SCH (19:51)
[2022-03-18] MEDS: HEPARIN SODIUM,PORCINE/PF 5,000 UNIT/0.5 ML SYRINGE SQ SCH ×4 (00:39→23:33)
[2022-03-18] MEDS: methylPREDNISolone SOD SUCCI 40 MG/ML 1 ML VIAL IV SCH ×4 (00:39→23:33)
[2022-03-18] MEDS: ASPIRIN 81 MG PO SCH (07:41)
[2022-03-18] MEDS: PARoxetine 20 MG TAB PO SCH (07:41)
[2022-03-18] MEDS: SYMBICORT 160-4.5 MCG INHALER INHALATION SCH ×2 (08:00→20:08)
[2022-03-18] MEDS: IPRATROPIUM-ALBUTEROL 3 ML NEB INHALATION SCH ×4 (08:00→20:08)
--- NOTE | 2022-03-18 10:47 | P.PN ---
Subjective Progress Note Date: 03/17/22 Patient is a 81-year-old female with a known history of COPD on home oxygen, hypertension, hyperlipidemia, history of breast cancer status post surgery, ESBL urinary tract infection, anxiety/depression and other medical problems was brought to the hospital due to altered mental status. Patient has been having worsening mental status with patient be increasingly lethargic for the past few days. Patient was afebrile. No complaints of nausea vomiting or abdominal pain or diarrhea. Patient is supposed to wear CPAP at night but she has not wearing at home. Patient is on oxygen at baseline. Patient was minimally responsive when paramedics arrival. Denied any complaints of pain. Patient cannot provide any history at this time. CT head showed no acute intracranial abnormality or gross space-occupying lesion by the nonenhanced CT scan. Asymmetrical soft tissue thickening along the left side of the nasopharynx with opacified mastoid air cells more on the left side and Nasopharyngeal lesion cannot be excluded. Recommend clinical correlation and ENT consultation. Chest x-ray showed cardiomegaly. Limited rotation exam. Suspect underlying COPD. Patchy left perihilar density also patchy posterior mid to lower lung density on the lateral view. Unable to exclude underlying infiltrates. EKG showed sinus bradycardia with occasional ventricular premature complexes. Laboratory showed WBC 12.1 hemoglobin 12.1 and platelets 207 ABG showed pH 7.4 PCO2 83 and bicarb is 50. Sodium 138 potassium 4.0 chloride 87 bicarb is a 48 BUN 58 and creatinine 1.66 and AST 12 ALT 6 and alk phos 233 troponin x1 negative and albumin 3.7 urinalysis showed turbid with large leukocyte esterase and elevated WBCs. UDS negative 03/17/2022 Patient is currently lying in the bed. Awake alert and oriented 1-2. Requiring oxygen at 2 L per nasal cannula. Patient did use BiPAP last night. Patient is less agitated today. Patient has been afebrile. Does have cough without sputum production. No chest pain. No nausea vomiting or abdominal pain or diarrhea. Laboratory data showed WBC 6.8 hemoglobin 11.6 and platelets 196 Sodium 140 potassium 3.9 chloride 91 bicarb is 40 BUN 66 and creatinine 1.79, pro calcitonin level is 0.19 Patient is being continued on antibiotics, Levaquin. Current medications reviewed. Objective - Vital Signs Vital signs: Vital Signs Temp 97.9 F 03/17/22 12:50 Pulse 72 03/17/22 15:51 Resp 20 03/17/22 12:50 BP 115/55 03/17/22 12:50 Pulse Ox 95 03/17/22 12:50 FiO2 30 03/17/22 11:18 Intake & Output 03/16/22 03/17/22 03/17/22 18:59 06:59 18:59 Intake Total 125 Balance 125 Weight 79.379 kg 79.379 kg Intake: Intake, IV Titration 125 Amount Sodium Chloride 0.9% 500 75 ml 500 ml @ 999 mls/hr IV .Q31M [facility] Rx#:[id number] cefTRIAXone 1 gm In 50 Sodium Chloride 0.9% 50 ml @ 100 mls/hr IVPB Q24HR [facility] Rx#:[id number] Other: Voiding Method Diaper Diaper # Voids 1 - Exam PHYSICAL EXAMINATION: Patient is lying in the bed no acute distress, awake alert and oriented 1.. HEENT: Normocephalic. Neck is supple. Pupils reactive. Nostrils clear. Oral cavity is moist. Neck reveals no JVD, carotid bruits, or thyromegaly. CHEST EXAMINATION: Trachea is central. Symmetrical expansion. Bibasilar diminished sounds and minimal left basilar crackles. No wheezing. CARDIAC: Normal S1, S2 with no gallops. No murmurs ABDOMEN: Soft. Bowel sounds normal. No organomegaly. No abdominal bruits. Extremities: reveal no edema. No clubbing or cyanosis Neurologically awake, alert, oriented x1-2 red no gross focal deficits noted Skin: No rash or skin lesions. Psychiatric: Coperative. Could not be assessed completely. Musculoskeletal: No joint swelling or deformity. Normal range of motion. - Labs CBC & Chem 7: 03/17/22 09:09 03/17/22 09:09 Labs: Abnormal Lab Results - Last 24 Hours (Table) 03/16/22 03/17/22 03/17/22 Range/Units 19:39 09:09 09:09 MCHC 30.8 L (31.0-37.0) g/dL Lymphocytes # 0.7 L (1.0-4.8) k/uL Chloride 91 L (98-107) mmol/L Carbon Dioxide 40 H (22-30) mmol/L BUN 66 H (7-17) mg/dL Creatinine 1.79 H (0.52-1.04) mg/dL Procalcitonin 0.19 H (0.02-0.09) ng/mL Microbiology - Last 24 Hours (Table) 03/16/22 08:17 Urine Culture - Preliminary Urine,Catheterized Gram Neg Bacilli Assessment and Plan Assessment: Acute on chronic hypercapnic respiratory failure. Requiring BiPAP Altered mental status likely due to CO2 narcosis. Chronic hypoxic respiratory failure secondary COPD on home oxygen Obstructive sleep apnea on CPAP at home. Patient is not wearing CPAP at night as recommended. left perihilar infiltrate/pneumonia likely hospital-acquired. Acute kidney injury on CKD stage III. Acute urinary tract infection Possible left-sided nasopharyngeal lesion. Follow-up with ENT as outpatient. Hypertension Hyperlipidemia History of right leg DVT History of left breast cancer s/p surgery Anxiety/depression bipolar disorder DVT prophylaxis with heparin subcu Plan: Patient was placed on BiPAP and current with oxygen supplementation. Was given a dose of Levaquin continue with antibiotics, IV steroids and duo nebs. Current with home medications and avoidance status. Gentle IV hydration and follow closely. Pulmonary is on board.. Prognosis is guarded at this time.
[2022-03-18] MEDS: LEVOFLOXACIN 250MG-D5W PMX 250 MG in DEXTROSE/WATER 1 50ML.BAG IVPB SCH (11:41)
[2022-03-18] MEDS: SODIUM CHLORIDE 0.9% 1,000 ML IV SCH ×2 (11:41→23:34)
[2022-03-18 12:31] LABS: Calcium 9.2 mg/dL (8.4-10.2); Potassium 3.3 mmol/L (3.5-5.1)
--- NOTE | 2022-03-18 13:09 | P.PN ---
Subjective Progress Note Date: 03/18/22 This is an 81-year-old female with history of severe COPD, FEV1 is in the range of 42%. chronic hypoxic respiratory failure, on home oxygen, history of benign essential hypertension, previous breast cancer surgery/mastectomy, ESBL urinary tract infection, generalized anxiety disorder and depression, patient was brought into the ER with altered mental status. Patient was getting more confused and lethargic over the last few days. Patient had no idea why she was in the hospital. She is presently on BiPAP during my evaluation, but she has no clue how she ended up in the hospital. Apparently patient is supposed to wear CPAP at night at home, but she is not using it. When EMS arrived she was mini shirin responsive, and could not provide adequate history. Workup in the ER showed normal CT of the brain. She had questionable left side nasopharyngeal lesion with opacified mastoid air cells poor on the left side. At any rate ENT consultation was recommended and that being addressed by the admitting physician. Chest x-ray showed cardiomegaly, and patchy left upper lobe and left lower lobe infiltrate. Patient had a venous gas in the ER, and her pCO2 was 83 pH was 7.40, apparently the patient is compensating for her chronic respiratory acidosis, her bicarb is 48. Nonetheless the patient was placed on BiPAP, and she is now on IPAP of 12 and EPAP of 6, and she is on 30% FiO2. Apparently her mental status has improved, the patient is awake today during my evaluation, but again she had no idea how she ended up in the hospital. She is relatively asymptomatic, no cough no wheezing no chest pain no fever no chills no hemoptysis no nausea no vomiting and no abdominal pain. Labs today showed relatively normal CBC. Normal basic metabolic profile however her BUN is 66 creatinine of 1.79, clinically the patient seems to be dehydrated. IV fluid is relatively at 75 mL per hour, pro-calcitonin is 0.19 consistent with the findings noted on the chest x-ray. The patient is seen today 03/18/2022 in follow-up on the selective care unit. She is currently resting comfortably in bed. Awake and alert in no acute distress. She is oriented to person. She did utilize the BiPAP last night 12/6 and 30% FiO2 but is currently on 2 L nasal cannula and doing well. Maintaining O2 saturations in the 90s. She had normal saline at 75 ML's per hour. Urine culture is positive for Proteus mirabilis. Sodium 134. Potassium 3.3. BUN 60. Creatinine 1.51. She is continued on Levaquin, IV Solu-Medrol, Symbicort, DuoNeb inhalations. Heparin for DVT prophylaxis. Objective - Vital Signs Vital signs: Vital Signs Temp 97.5 F L 03/18/22 07:33 Pulse 64 03/18/22 12:21 Resp 16 03/18/22 12:21 BP 94/48 03/18/22 07:33 Pulse Ox 92 L 03/18/22 08:00 FiO2 30 03/18/22 12:11 Intake & Output 03/17/22 03/18/22 03/18/22 18:59 06:59 18:59 Intake Total 243 100 Balance 243 100 Intake: Intake, IV Titration 125 Amount Sodium Chloride 0.9% 500 75 ml 500 ml @ 999 mls/hr IV .Q31M [facility] Rx#:[id number] cefTRIAXone 1 gm In 50 Sodium Chloride 0.9% 50 ml @ 100 mls/hr IVPB Q24HR [facility] Rx#:[id number] Oral 118 100 Other: Voiding Method Diaper Diaper Diaper External Catheter # Voids 2 1 - Exam GENERAL EXAM: Alert, pleasant 81-year-old female patient, somewhat slow to respond, on 3 L nasal cannula alternating with BiPAP, comfortable in no apparent distress. HEAD: Normocephalic. EYES: Normal reaction of pupils, equal size. NOSE: Clear with pink turbinates. THROAT: No erythema or exudates. NECK: No masses, no JVD. CHEST: No chest wall deformity. LUNGS: Equal air entry with crackles in the left base. CVS: S1 and S2 normal with no audible murmur, regular rhythm. ABDOMEN: No hepatosplenomegaly, normal bowel sounds, no guarding or rigidity. SPINE: No scoliosis or deformity SKIN: No rashes CENTRAL NERVOUS SYSTEM: Somewhat slow to respond. No focal deficits, tone is normal in all 4 extremities. EXTREMITIES: There is no peripheral edema. No clubbing, no cyanosis. Peripheral pulses are intact. - Labs CBC & Chem 7: 03/17/22 09:09 03/18/22 11:43 Labs: Abnormal Lab Results - Last 24 Hours (Table) 03/18/22 Range/Units 11:43 Sodium 134 L (137-145) mmol/L Potassium 3.3 L (3.5-5.1) mmol/L Chloride 95 L (98-107) mmol/L Carbon Dioxide 35 H (22-30) mmol/L BUN 60 H (7-17) mg/dL Creatinine 1.51 H (0.52-1.04) mg/dL Glucose 111 H (74-99) mg/dL Microbiology - Last 24 Hours (Table) 03/16/22 08:17 Urine Culture - Final Urine,Catheterized Proteus mirabilis Assessment and Plan Assessment: 1 Acute on chronic hypoxic and hypercapnic respiratory failure secondary to acute exacerbation of COPD and secondary to healthcare acquired pneumonia, patient is a half-way resident. 2 Chronic hypoxic and chronic hypercapnic respiratory failure, patient is supposedly on BiPAP at home, questionable compliance. 3 Altered mental status secondary to acute metabolic encephalopathy secondary to CO2 narcosis. 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 7 Benign essential hypertension. 8 Dyslipidemia. 9 Dehydration, suspect prerenal azotemia, patient's baseline creatinine is 1.0 and this was in late January of 2022 Plan: The patient was seen and evaluated Improved but not quite back to her baseline Continue oxygen alternating with BiPAP at night and as needed during the day Continue bronchodilators Continue Solu-Medrol Remains on antibiotics in the form of Levaquin Follow-up chest x-ray in the a.m. We will continue to follow I have personally seen and examined the patient, performed the documentation and the assessment and plan as written. Number of minutes spent on the visit: 10.
[2022-03-18] MEDS: ATORVASTATIN 10 MG TAB PO SCH (19:54)
[2022-03-19] MEDS ORDERED: Potassium Replacement Protocol 1 EACH MISC MISCELLANE PRN (01:30)
[2022-03-19] MEDS ORDERED: POTASSIUM CHLORIDE ER 20 MEQ TAB.ER PO SCH (02:00)
[2022-03-19] MEDS: POTASSIUM CHLORIDE 10 MEQ in WATER FOR INJECTION 1 100ML.BAG IVPB SCH ×4 (02:08→05:53)
[2022-03-19 05:13] LABS: Basophils % (A) 0 %; Eosinophils % (A) 0 %; HCT 32.7 % (34.0-46.0); HGB 10.9 gm/dL (11.4-16.0); Lymphocytes # (A) 0.5 k/uL (1.0-4.8); Lymphocytes % (A) 8 %; MCH 31.7 pg (25.0-35.0); MCHC 33.2 g/dL (31.0-37.0); MCV 95.4 fL (80.0-100.0); Mean Platelet Volume 8.1; Monocytes # (A) 0.2 k/uL (0-1.0); Monocytes % (A) 3 %; Neutrophils # (A) 5.1 k/uL (1.3-7.7); Neutrophils % (A) 88 %; Platelet Count 151 k/uL (150-450); RBC 3.43 m/uL (3.80-5.40); WBC 5.8 k/uL (3.8-10.6)
[2022-03-19 05:38] LABS: Calcium 8.9 mg/dL (8.4-10.2); Potassium 3.9 mmol/L (3.5-5.1)
[2022-03-19] MEDS: SYMBICORT 160-4.5 MCG INHALER INHALATION SCH ×2 (07:43→19:47)
[2022-03-19] MEDS: IPRATROPIUM-ALBUTEROL 3 ML NEB INHALATION SCH ×4 (07:43→19:47)
--- NOTE | 2022-03-19 08:00 | XR ---
EXAMINATION TYPE: XR chest 1V portable DATE OF EXAM: 03/19/2022 7:10 AM COMPARISON: Chest radiograph from 03/16/2022. TECHNIQUE: XR chest 1V portable Portable AP radiograph of the chest.. CLINICAL INDICATION:Female, 81 years old with history of Pneumonia follow up; FINDINGS: Lungs/Pleura: There is improved appearance of the left lung airspace opacities seen on prior given pa tient positioning. There is no evidence of pleural effusion, focal consolidation, or pneumothorax. Pulmonary vascularity: Unremarkable. Heart/mediastinum: Cardiomediastinal silhouette is enlarged and stable. Musculoskeletal: No acute osseous pathology. IMPRESSION: 1. Improved airspace opacities seen on prior. Overall exam is felt to be near the patient's baseline . 2. Stable Cardiomegaly
[2022-03-19] MEDS: ASPIRIN 81 MG PO SCH (08:13)
[2022-03-19] MEDS: HEPARIN SODIUM,PORCINE/PF 5,000 UNIT/0.5 ML SYRINGE SQ SCH ×3 (08:13→23:12)
[2022-03-19] MEDS: PARoxetine 20 MG TAB PO SCH (08:13)
[2022-03-19] MEDS: methylPREDNISolone SOD SUCCI 40 MG/ML 1 ML VIAL IV SCH ×3 (08:13→23:12)
--- NOTE | 2022-03-19 10:28 | P.PN ---
Subjective Progress Note Date: 03/19/22 This is an 81-year-old female with history of severe COPD, FEV1 is in the range of 42%. chronic hypoxic respiratory failure, on home oxygen, history of benign essential hypertension, previous breast cancer surgery/mastectomy, ESBL urinary tract infection, generalized anxiety disorder and depression, patient was brought into the ER with altered mental status. Patient was getting more confused and lethargic over the last few days. Patient had no idea why she was in the hospital. She is presently on BiPAP during my evaluation, but she has no clue how she ended up in the hospital. Apparently patient is supposed to wear CPAP at night at home, but she is not using it. When EMS arrived she was mini shirin responsive, and could not provide adequate history. Workup in the ER showed normal CT of the brain. She had questionable left side nasopharyngeal lesion with opacified mastoid air cells poor on the left side. At any rate ENT consultation was recommended and that being addressed by the admitting physician. Chest x-ray showed cardiomegaly, and patchy left upper lobe and left lower lobe infiltrate. Patient had a venous gas in the ER, and her pCO2 was 83 pH was 7.40, apparently the patient is compensating for her chronic respiratory acidosis, her bicarb is 48. Nonetheless the patient was placed on BiPAP, and she is now on IPAP of 12 and EPAP of 6, and she is on 30% FiO2. Apparently her mental status has improved, the patient is awake today during my evaluation, but again she had no idea how she ended up in the hospital. She is relatively asymptomatic, no cough no wheezing no chest pain no fever no chills no hemoptysis no nausea no vomiting and no abdominal pain. Labs today showed relatively normal CBC. Normal basic metabolic profile however her BUN is 66 creatinine of 1.79, clinically the patient seems to be dehydrated. IV fluid is relatively at 75 mL per hour, pro-calcitonin is 0.19 consistent with the findings noted on the chest x-ray. The patient is seen today 03/18/2022 in follow-up on the selective care unit. She is currently resting comfortably in bed. Awake and alert in no acute distress. She is oriented to person. She did utilize the BiPAP last night 12/6 and 30% FiO2 but is currently on 2 L nasal cannula and doing well. Maintaining O2 saturations in the 90s. She had normal saline at 75 ML's per hour. Urine culture is positive for Proteus mirabilis. Sodium 134. Potassium 3.3. BUN 60. Creatinine 1.51. She is continued on Levaquin, IV Solu-Medrol, Symbicort, DuoNeb inhalations. Heparin for DVT prophylaxis. The patient is seen today 03/19/2022 in follow-up on the selective care unit. She is awake and alert in no acute distress. Resting comfortably in bed. She is currently containing O2 saturations in the low 90s on 2 L/m per nasal cannula. Afebrile. Hemodynamically stable. Follow-up chest x-ray reveals improved airspace opacities. Stable cardiomegaly. Urine culture was positive for Proteus mirabilis. White count 5.8. Hemoglobin 10.9. Sodium 133. Potassium 3.9. BUN 53. Creatinine 1.60. Glucose 159. She is continued on DuoNeb inhalations, Symbicort, IV Solu-Medrol. Antibiotics in the form of Levaquin. Heparin for DVT prophylaxis. Objective - Vital Signs Vital signs: Vital Signs Temp 99.1 F 03/19/22 08:09 Pulse 64 03/19/22 08:09 Resp 18 03/19/22 08:09 BP 102/61 03/19/22 08:09 Pulse Ox 94 L 03/19/22 08:09 FiO2 30 03/19/22 03:17 Intake & Output 03/18/22 03/19/22 03/19/22 18:59 06:59 18:59 Intake Total 1190 Output Total 300 240 Balance 890 -240 Intake: Intake, IV Titration 950 Amount Levofloxacin 250Mg-D5w 50 Pmx 250 mg In Dextrose/ Water 1 50ml.bag @ 50 mls /hr IVPB Q24H [facility] Rx#: [id number] Sodium Chloride 0.9% 1, 900 000 ml @ 75 mls/hr IV . [id number] [facility] Rx#:[id number] Oral 240 Output: Urine 300 240 Other: Voiding Method Diaper Diaper Diaper External Catheter External Catheter External Catheter # Voids 1 - Exam GENERAL EXAM: Alert, pleasant 81-year-old female patient, somewhat slow to respond, on 2 L nasal cannula alternating with BiPAP, comfortable in no apparent distress. HEAD: Normocephalic. EYES: Normal reaction of pupils, equal size. NOSE: Clear with pink turbinates. THROAT: No erythema or exudates. NECK: No masses, no JVD. CHEST: No chest wall deformity. LUNGS: Equal air entry with no crackles, wheeze or rhonchi.. CVS: S1 and S2 normal with no audible murmur, regular rhythm. ABDOMEN: No hepatosplenomegaly, normal bowel sounds, no guarding or rigidity. SPINE: No scoliosis or deformity SKIN: No rashes CENTRAL NERVOUS SYSTEM: Somewhat slow to respond. No focal deficits, tone is normal in all 4 extremities. EXTREMITIES: There is no peripheral edema. No clubbing, no cyanosis. Peripheral pulses are intact. - Labs CBC & Chem 7: 03/19/22 04:33 03/19/22 04:33 Labs: Abnormal Lab Results - Last 24 Hours (Table) 03/18/22 03/19/22 03/19/22 Range/Units 11:43 04:33 04:33 RBC 3.43 L (3.80-5.40) m/uL Hgb 10.9 L (11.4-16.0) gm/dL Hct 32.7 L (34.0-46.0) % Lymphocytes # 0.5 L (1.0-4.8) k/uL Sodium 134 L 133 L (137-145) mmol/L Potassium 3.3 L (3.5-5.1) mmol/L Chloride 95 L 96 L (98-107) mmol/L Carbon Dioxide 35 H 35 H (22-30) mmol/L BUN 60 H 53 H (7-17) mg/dL Creatinine 1.51 H 1.60 H (0.52-1.04) mg/dL Glucose 111 H 159 H (74-99) mg/dL Microbiology - Last 24 Hours (Table) 03/16/22 08:17 Urine Culture - Final Urine,Catheterized Proteus mirabilis Assessment and Plan Assessment: 1 Acute on chronic hypoxic and hypercapnic respiratory failure secondary to acute exacerbation of COPD and secondary to healthcare acquired pneumonia, patient is a snf resident. Treated with Levaquin. Follow-up chest x- ray reveals resolution. 2 Chronic hypoxic and chronic hypercapnic respiratory failure, patient is supposedly on BiPAP at home, questionable compliance. 3 Altered mental status secondary to acute metabolic encephalopathy secondary to CO2 narcosis. 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 7 Benign essential hypertension. 8 Dyslipidemia. 9 Dehydration, suspect prerenal azotemia, patient's baseline creatinine is 1.0 and this was in late January of 2022 10 Urinary tract infection secondary to Proteus mirabilis currently on Levaquin Plan: The patient was seen and evaluated Chest x-ray showing improvement, labs and medications reviewed Continue oxygen alternating with BiPAP at night and as needed during the day Continue bronchodilators, Solu-Medrol Remains on antibiotics in the form of Levaquin Probable return to ECF tomorrow We will continue to follow I have personally seen and examined the patient, performed the documentation and the assessment and plan as written. Number of minutes spent on the visit: 10.
[2022-03-19] MEDS: LEVOFLOXACIN 250MG-D5W PMX 250 MG in DEXTROSE/WATER 1 50ML.BAG IVPB SCH (12:46)
[2022-03-19] MEDS: SODIUM CHLORIDE 0.9% 1,000 ML IV SCH (15:21)
[2022-03-19] MEDS: ATORVASTATIN 10 MG TAB PO SCH (21:25)
--- NOTE | 2022-03-19 23:03 | P.PN ---
Subjective Progress Note Date: 03/18/22 Patient is a 81-year-old female with a known history of COPD on home oxygen, hypertension, hyperlipidemia, history of breast cancer status post surgery, ESBL urinary tract infection, anxiety/depression and other medical problems was brought to the hospital due to altered mental status. Patient has been having worsening mental status with patient be increasingly lethargic for the past few days. Patient was afebrile. No complaints of nausea vomiting or abdominal pain or diarrhea. Patient is supposed to wear CPAP at night but she has not wearing at home. Patient is on oxygen at baseline. Patient was minimally responsive when paramedics arrival. Denied any complaints of pain. Patient cannot provide any history at this time. CT head showed no acute intracranial abnormality or gross space-occupying lesion by the nonenhanced CT scan. Asymmetrical soft tissue thickening along the left side of the nasopharynx with opacified mastoid air cells more on the left side and Nasopharyngeal lesion cannot be excluded. Recommend clinical correlation and ENT consultation. Chest x-ray showed cardiomegaly. Limited rotation exam. Suspect underlying COPD. Patchy left perihilar density also patchy posterior mid to lower lung density on the lateral view. Unable to exclude underlying infiltrates. EKG showed sinus bradycardia with occasional ventricular premature complexes. Laboratory showed WBC 12.1 hemoglobin 12.1 and platelets 207 ABG showed pH 7.4 PCO2 83 and bicarb is 50. Sodium 138 potassium 4.0 chloride 87 bicarb is a 48 BUN 58 and creatinine 1.66 and AST 12 ALT 6 and alk phos 233 troponin x1 negative and albumin 3.7 urinalysis showed turbid with large leukocyte esterase and elevated WBCs. UDS negative 03/17/2022 Patient is currently lying in the bed. Awake alert and oriented 1-2. Requiring oxygen at 2 L per nasal cannula. Patient did use BiPAP last night. Patient is less agitated today. Patient has been afebrile. Does have cough without sputum production. No chest pain. No nausea vomiting or abdominal pain or diarrhea. Laboratory data showed WBC 6.8 hemoglobin 11.6 and platelets 196 Sodium 140 potassium 3.9 chloride 91 bicarb is 40 BUN 66 and creatinine 1.79, pro calcitonin level is 0.19 Patient is being continued on antibiotics, Levaquin. 03/18/2022 Patient is resting in bed. Awake alert but seems to be confused. Did not use BiPAP last night. Currently on oxygen at 2 L via nasal cannula. Also on IV hydration with normal saline. Patient does have minimal oral intake. Otherwise patient is afebrile. No cough or sputum production. Denies any nausea vomiting abdominal diarrhea. Patient is being continued on antibiotics in the form of Levaquin. Urine culture showed Proteus mirabilis. Laboratory data showed sodium 134 potassium 3.3 chloride 95 bicarb is 25 BUN 16 and creatinine improved to 1.5. Current medications reviewed. Objective - Vital Signs Vital signs: Vital Signs Temp 97.8 F 03/18/22 15:49 Pulse 64 03/18/22 16:06 Resp 18 03/18/22 15:49 BP 101/55 03/18/22 15:49 Pulse Ox 95 03/18/22 15:49 FiO2 30 03/18/22 12:11 Intake & Output 03/17/22 03/18/22 03/18/22 18:59 06:59 18:59 Intake Total 542 102 1031 Balance 811 227 2744 Intake: Intake, IV Titration 125 950 Amount Levofloxacin 250Mg-D5w 50 Pmx 250 mg In Dextrose/ Water 1 50ml.bag @ 50 mls /hr IVPB Q24H [facility] Rx#: [id number] Sodium Chloride 0.9% 1, 900 000 ml @ 75 mls/hr IV . [id number] [facility] Rx#:[id number] Sodium Chloride 0.9% 500 75 ml 500 ml @ 999 mls/hr IV .Q31M [facility] Rx#:[id number] cefTRIAXone 1 gm In 50 Sodium Chloride 0.9% 50 ml @ 100 mls/hr IVPB Q24HR [facility] Rx#:[id number] Oral 118 100 120 Other: Voiding Method Diaper Diaper Diaper External Catheter # Voids 2 1 - Exam PHYSICAL EXAMINATION: Patient is lying in the bed no acute distress, awake alert and oriented 1.. HEENT: Normocephalic. Neck is supple. Pupils reactive. Nostrils clear. Oral cavity is moist. Neck reveals no JVD, carotid bruits, or thyromegaly. CHEST EXAMINATION: Trachea is central. Symmetrical expansion. Bibasilar diminished sounds and minimal left basilar crackles. No wheezing. CARDIAC: Normal S1, S2 with no gallops. No murmurs ABDOMEN: Soft. Bowel sounds normal. No organomegaly. No abdominal bruits. Extremities: reveal no edema. No clubbing or cyanosis Neurologically awake, alert, oriented x1-2 red no gross focal deficits noted Skin: No rash or skin lesions. Psychiatric: Coperative. Could not be assessed completely. Musculoskeletal: No joint swelling or deformity. Normal range of motion. - Labs CBC & Chem 7: 03/19/22 04:33 03/19/22 04:33 Labs: Abnormal Lab Results - Last 24 Hours (Table) 03/18/22 Range/Units 11:43 Sodium 134 L (137-145) mmol/L Potassium 3.3 L (3.5-5.1) mmol/L Chloride 95 L (98-107) mmol/L Carbon Dioxide 35 H (22-30) mmol/L BUN 60 H (7-17) mg/dL Creatinine 1.51 H (0.52-1.04) mg/dL Glucose 111 H (74-99) mg/dL Microbiology - Last 24 Hours (Table) 03/16/22 08:17 Urine Culture - Final Urine,Catheterized Proteus mirabilis Assessment and Plan Assessment: Acute on chronic hypercapnic respiratory failure. Requiring BiPAP Altered mental status likely due to CO2 narcosis. improving Chronic hypoxic respiratory failure secondary COPD on home oxygen Obstructive sleep apnea on CPAP at home. Patient is not wearing CPAP at night as recommended. left perihilar infiltrate/pneumonia likely hospital-acquired. Acute kidney injury on CKD stage III. Acute urinary tract infection with Proteus Possible left-sided nasopharyngeal lesion. Follow-up with ENT as outpatient. Hypertension Hyperlipidemia History of right leg DVT History of left breast cancer s/p surgery Anxiety/depression bipolar disorder DVT prophylaxis with heparin subcu Plan: Patient was placed on BiPAP and current with oxygen supplementation. Currently titrated down to 2 L. Patient was using BiPAP last night. Was given a dose of Levaquin continue with antibiotics, IV steroids and duo nebs. Current with home medications and avoidance status. Gentle IV hydration and follow closely. Pulmonary is on board.. Prognosis is guarded at this time. Time with Patient: Greater than 30
--- NOTE | 2022-03-19 23:07 | P.PN ---
Subjective Progress Note Date: 03/19/22 Patient is a 81-year-old female with a known history of COPD on home oxygen, hypertension, hyperlipidemia, history of breast cancer status post surgery, ESBL urinary tract infection, anxiety/depression and other medical problems was brought to the hospital due to altered mental status. Patient has been having worsening mental status with patient be increasingly lethargic for the past few days. Patient was afebrile. No complaints of nausea vomiting or abdominal pain or diarrhea. Patient is supposed to wear CPAP at night but she has not wearing at home. Patient is on oxygen at baseline. Patient was minimally responsive when paramedics arrival. Denied any complaints of pain. Patient cannot provide any history at this time. CT head showed no acute intracranial abnormality or gross space-occupying lesion by the nonenhanced CT scan. Asymmetrical soft tissue thickening along the left side of the nasopharynx with opacified mastoid air cells more on the left side and Nasopharyngeal lesion cannot be excluded. Recommend clinical correlation and ENT consultation. Chest x-ray showed cardiomegaly. Limited rotation exam. Suspect underlying COPD. Patchy left perihilar density also patchy posterior mid to lower lung density on the lateral view. Unable to exclude underlying infiltrates. EKG showed sinus bradycardia with occasional ventricular premature complexes. Laboratory showed WBC 12.1 hemoglobin 12.1 and platelets 207 ABG showed pH 7.4 PCO2 83 and bicarb is 50. Sodium 138 potassium 4.0 chloride 87 bicarb is a 48 BUN 58 and creatinine 1.66 and AST 12 ALT 6 and alk phos 233 troponin x1 negative and albumin 3.7 urinalysis showed turbid with large leukocyte esterase and elevated WBCs. UDS negative 03/17/2022 Patient is currently lying in the bed. Awake alert and oriented 1-2. Requiring oxygen at 2 L per nasal cannula. Patient did use BiPAP last night. Patient is less agitated today. Patient has been afebrile. Does have cough without sputum production. No chest pain. No nausea vomiting or abdominal pain or diarrhea. Laboratory data showed WBC 6.8 hemoglobin 11.6 and platelets 196 Sodium 140 potassium 3.9 chloride 91 bicarb is 40 BUN 66 and creatinine 1.79, pro calcitonin level is 0.19 Patient is being continued on antibiotics, Levaquin. 03/18/2022 Patient is resting in bed. Awake alert but seems to be confused. Did not use BiPAP last night. Currently on oxygen at 2 L via nasal cannula. Also on IV hydration with normal saline. Patient does have minimal oral intake. Otherwise patient is afebrile. No cough or sputum production. Denies any nausea vomiting abdominal diarrhea. Patient is being continued on antibiotics in the form of Levaquin. Urine culture showed Proteus mirabilis. Laboratory data showed sodium 134 potassium 3.3 chloride 95 bicarb is 25 BUN 16 and creatinine improved to 1.5. 03/19/2022 Patient is currently resting in bed. Seems to be more awake and oriented today. On oxygen via nasal cannula at 2 L. Chest x-ray today showed improved airspace opacities seen on prior. Oral exam is felt to be the near patient's baseline. Stable cardiomegaly. Patient remains on antibiotics of Levaquin. Urine culture showed Proteus mirabilis. Laboratory data showed sodium 133 potassium 3.9 chloride 96 bicarb 35 BUN 53 and creatinine 1.60. Patient remains on normal saline at 75 cc/h. WBC 5.8 hemoglobin 10.9 and platelets 141. Pulmonary is on board. Current medications reviewed. Objective - Vital Signs Vital signs: Vital Signs Temp 98.5 F 03/19/22 20:00 Pulse 66 03/19/22 20:00 Resp 18 03/19/22 20:00 BP 93/55 03/19/22 20:00 Pulse Ox 93 L 03/19/22 20:00 FiO2 30 03/19/22 03:17 Intake & Output 03/19/22 03/19/22 03/20/22 06:59 18:59 06:59 Intake Total 950 Output Total 240 Balance -240 950 Intake: Intake, IV Titration 950 Amount Levofloxacin 250Mg-D5w 50 Pmx 250 mg In Dextrose/ Water 1 50ml.bag @ 50 mls /hr IVPB Q24H [facility] Rx#: [id number] Sodium Chloride 0.9% 1, 900 000 ml @ 75 mls/hr IV . [id number] [facility] Rx#:[id number] Output: Urine 240 Other: Voiding Method Diaper Diaper External Catheter External Catheter # Voids 1 - Exam PHYSICAL EXAMINATION: Patient is lying in the bed no acute distress, awake alert and oriented 1.. HEENT: Normocephalic. Neck is supple. Pupils reactive. Nostrils clear. Oral cavity is moist. Neck reveals no JVD, carotid bruits, or thyromegaly. CHEST EXAMINATION: Trachea is central. Symmetrical expansion. Bibasilar diminished sounds and minimal left basilar crackles. No wheezing. CARDIAC: Normal S1, S2 with no gallops. No murmurs ABDOMEN: Soft. Bowel sounds normal. No organomegaly. No abdominal bruits. Extremities: reveal no edema. No clubbing or cyanosis Neurologically awake, alert, oriented x1-2 no gross focal deficits noted Skin: No rash or skin lesions. Psychiatric: Coperative. Could not be assessed completely. Musculoskeletal: No joint swelling or deformity. Normal range of motion. - Labs CBC & Chem 7: 03/19/22 04:33 03/19/22 04:33 Labs: Abnormal Lab Results - Last 24 Hours (Table) 03/19/22 03/19/22 Range/Units 04:33 04:33 RBC 3.43 L (3.80-5.40) m/uL Hgb 10.9 L (11.4-16.0) gm/dL Hct 32.7 L (34.0-46.0) % Lymphocytes # 0.5 L (1.0-4.8) k/uL Sodium 133 L (137-145) mmol/L Chloride 96 L (98-107) mmol/L Carbon Dioxide 35 H (22-30) mmol/L BUN 53 H (7-17) mg/dL Creatinine 1.60 H (0.52-1.04) mg/dL Glucose 159 H (74-99) mg/dL Assessment and Plan Assessment: Acute on chronic hypercapnic respiratory failure. Requiring BiPAP-->2L Altered mental status likely due to CO2 narcosis. improving Chronic hypoxic respiratory failure secondary COPD on home oxygen Obstructive sleep apnea on CPAP at home. Patient is not wearing CPAP at night as recommended. left perihilar infiltrate/pneumonia likely hospital-acquired. Acute kidney injury on CKD stage III. Acute urinary tract infection with Proteus Possible left-sided nasopharyngeal lesion. Follow-up with ENT as outpatient. Hypertension Hyperlipidemia History of right leg DVT History of left breast cancer s/p surgery Anxiety/depression bipolar disorder DVT prophylaxis with heparin subcu Plan: Patient was placed on BiPAP and current with oxygen supplementation. Currently titrated down to 2 L. Patient was using BiPAP last night. Was given a dose of Levaquin continue with antibiotics, IV steroids and duo nebs. Current with home medications and Encourage oral intake.. Gentle IV hydration and follow closely. Pulmonary is on board.. Anticipate discharge to extended-care facility. Prognosis is guarded at this time. Time with Patient: Greater than 30
[2022-03-20] MEDS: SYMBICORT 160-4.5 MCG INHALER INHALATION SCH (07:47)
[2022-03-20] MEDS: IPRATROPIUM-ALBUTEROL 3 ML NEB INHALATION SCH ×3 (07:47→15:04)
[2022-03-20] MEDS: methylPREDNISolone SOD SUCCI 40 MG/ML 1 ML VIAL IV SCH (09:20)
[2022-03-20] MEDS: HEPARIN SODIUM,PORCINE/PF 5,000 UNIT/0.5 ML SYRINGE SQ SCH ×2 (09:20→17:41)
[2022-03-20] MEDS: ASPIRIN 81 MG PO SCH (09:20)
[2022-03-20] MEDS: PARoxetine 20 MG TAB PO SCH (09:21)
[2022-03-20 09:23] LABS: Basophils % (A) 0 %; Eosinophils % (A) 0 %; HGB 11.5 gm/dL (11.4-16.0); Lymphocytes # (A) 0.7 k/uL (1.0-4.8); Lymphocytes % (A) 12 %; MCH 31.7 pg (25.0-35.0); MCHC 32.9 g/dL (31.0-37.0); MCV 96.3 fL (80.0-100.0); Mean Platelet Volume 8.1; Monocytes # (A) 0.4 k/uL (0-1.0); Monocytes % (A) 6 %; Neutrophils % (A) 80 %; Platelet Count 131 k/uL (150-450); RBC 3.63 m/uL (3.80-5.40); RDW 13.6 % (11.5-15.5); WBC 6.2 k/uL (3.8-10.6)
[2022-03-20 09:38] LABS: Potassium 3.5 mmol/L (3.5-5.1)
[2022-03-20 11:11] VITALS: RESP 16
--- NOTE | 2022-03-20 11:17 | P.PN ---
Subjective Progress Note Date: 03/20/22 This is an 81-year-old female with history of severe COPD, FEV1 is in the range of 42%. chronic hypoxic respiratory failure, on home oxygen, history of benign essential hypertension, previous breast cancer surgery/mastectomy, ESBL urinary tract infection, generalized anxiety disorder and depression, patient was brought into the ER with altered mental status. Patient was getting more confused and lethargic over the last few days. Patient had no idea why she was in the hospital. She is presently on BiPAP during my evaluation, but she has no clue how she ended up in the hospital. Apparently patient is supposed to wear CPAP at night at home, but she is not using it. When EMS arrived she was mini shirin responsive, and could not provide adequate history. Workup in the ER showed normal CT of the brain. She had questionable left side nasopharyngeal lesion with opacified mastoid air cells poor on the left side. At any rate ENT consultation was recommended and that being addressed by the admitting physician. Chest x-ray showed cardiomegaly, and patchy left upper lobe and left lower lobe infiltrate. Patient had a venous gas in the ER, and her pCO2 was 83 pH was 7.40, apparently the patient is compensating for her chronic respiratory acidosis, her bicarb is 48. Nonetheless the patient was placed on BiPAP, and she is now on IPAP of 12 and EPAP of 6, and she is on 30% FiO2. Apparently her mental status has improved, the patient is awake today during my evaluation, but again she had no idea how she ended up in the hospital. She is relatively asymptomatic, no cough no wheezing no chest pain no fever no chills no hemoptysis no nausea no vomiting and no abdominal pain. Labs today showed relatively normal CBC. Normal basic metabolic profile however her BUN is 66 creatinine of 1.79, clinically the patient seems to be dehydrated. IV fluid is relatively at 75 mL per hour, pro-calcitonin is 0.19 consistent with the findings noted on the chest x-ray. The patient is seen today 03/18/2022 in follow-up on the selective care unit. She is currently resting comfortably in bed. Awake and alert in no acute distress. She is oriented to person. She did utilize the BiPAP last night 12/6 and 30% FiO2 but is currently on 2 L nasal cannula and doing well. Maintaining O2 saturations in the 90s. She had normal saline at 75 ML's per hour. Urine culture is positive for Proteus mirabilis. Sodium 134. Potassium 3.3. BUN 60. Creatinine 1.51. She is continued on Levaquin, IV Solu-Medrol, Symbicort, DuoNeb inhalations. Heparin for DVT prophylaxis. The patient is seen today 03/19/2022 in follow-up on the selective care unit. She is awake and alert in no acute distress. Resting comfortably in bed. She is currently containing O2 saturations in the low 90s on 2 L/m per nasal cannula. Afebrile. Hemodynamically stable. Follow-up chest x-ray reveals improved airspace opacities. Stable cardiomegaly. Urine culture was positive for Proteus mirabilis. White count 5.8. Hemoglobin 10.9. Sodium 133. Potassium 3.9. BUN 53. Creatinine 1.60. Glucose 159. She is continued on DuoNeb inhalations, Symbicort, IV Solu-Medrol. Antibiotics in the form of Levaquin. Heparin for DVT prophylaxis. The patient is seen today 03/20/2022 in follow-up on the selective care unit. She remains awake and alert in no acute distress. Currently on 2 L nasal cannula. No IV fluids. BiPAP at the bedside said at 12/6 and 30% FiO2. She's been afebrile. Hemodynamically stable. Urine culture was positive for Proteus mirabilis. White count 6.2. Hemoglobin 11.5. Platelets 131. Sodium 137. Potassium 3.5. BUN 41. Creatinine 1.24. Glucose 123. She remains on Levaquin. Continue on Symbicort, DuoNeb inhalations, IV Solu-Medrol. Objective - Vital Signs Vital signs: Vital Signs Temp 97.6 F 03/20/22 09:01 Pulse 60 03/20/22 09:01 Resp 16 03/20/22 09:01 BP 96/60 03/20/22 09:01 Pulse Ox 95 03/20/22 09:01 FiO2 30 03/20/22 07:47 Intake & Output 03/19/22 03/20/22 03/20/22 18:59 06:59 18:59 Intake Total 950 118 Output Total 450 Balance 950 -450 118 Intake: Intake, IV Titration 950 Amount Levofloxacin 250Mg-D5w 50 Pmx 250 mg In Dextrose/ Water 1 50ml.bag @ 50 mls /hr IVPB Q24H [facility] Rx#: [id number] Sodium Chloride 0.9% 1, 900 000 ml @ 75 mls/hr IV . [id number] [facility] Rx#:[id number] Oral 118 Output: Urine 450 Other: Voiding Method Diaper Diaper External Catheter External Catheter - Exam GENERAL EXAM: Alert, pleasant 81-year-old female, somewhat slow to respond, on 2 L nasal cannula alternating with BiPAP, comfortable in no apparent distress. HEAD: Normocephalic. EYES: Normal reaction of pupils, equal size. NOSE: Clear with pink turbinates. THROAT: No erythema or exudates. NECK: No masses, no JVD. CHEST: No chest wall deformity. LUNGS: Equal air entry with no crackles, wheeze or rhonchi.. CVS: S1 and S2 normal with no audible murmur, regular rhythm. ABDOMEN: No hepatosplenomegaly, normal bowel sounds, no guarding or rigidity. SPINE: No scoliosis or deformity SKIN: No rashes CENTRAL NERVOUS SYSTEM: Somewhat slow to respond. No focal deficits, tone is normal in all 4 extremities. EXTREMITIES: There is no peripheral edema. No clubbing, no cyanosis. Peripheral pulses are intact. - Labs CBC & Chem 7: 03/20/22 08:40 03/20/22 08:40 Labs: Abnormal Lab Results - Last 24 Hours (Table) 03/20/22 03/20/22 Range/Units 08:40 08:40 RBC 3.63 L (3.80-5.40) m/uL Plt Count 131 L (150-450) k/uL Lymphocytes # 0.7 L (1.0-4.8) k/uL Carbon Dioxide 33 H (22-30) mmol/L BUN 41 H (7-17) mg/dL Creatinine 1.24 H (0.52-1.04) mg/dL Glucose 123 H (74-99) mg/dL Assessment and Plan Assessment: 1 Acute on chronic hypoxic and hypercapnic respiratory failure secondary to acute exacerbation of COPD and secondary to healthcare acquired pneumonia, patient is a [place]. Treated with Levaquin. Follow-up chest x- ray reveals resolution. 2 Chronic hypoxic and chronic hypercapnic respiratory failure, patient is supposedly on BiPAP at home, questionable compliance. 3 Altered mental status secondary to acute metabolic encephalopathy secondary to CO2 narcosis. 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 7 Benign essential hypertension. 8 Dyslipidemia. 9 Dehydration, suspect prerenal azotemia, patient's baseline creatinine is 1.0 and this was in late January of 2022 10 Urinary tract infection secondary to Proteus mirabilis currently on Levaquin Plan: The patient was seen and evaluated Labs and medications reviewed Complete a course of Levaquin Complete a Medrol Dosepak Cleared for return to ECF today I have personally seen and examined the patient, performed the documentation and the assessment and plan as written. Number of minutes spent on the visit: 10.
[2022-03-20] MEDS: SODIUM CHLORIDE 0.9% 1,000 ML IV SCH (12:56)
[2022-03-20] MEDS: LEVOFLOXACIN 250MG-D5W PMX 250 MG in DEXTROSE/WATER 1 50ML.BAG IVPB SCH (13:02)
--- NOTE | 2022-03-20 13:38 | CDI ---
Documentation Clarification Form Date: 03/20/2022 01:17:54 PM From: Nadia Orozco RN CCDS Admit Date: 03/16/2022 09:48:00 AM Patient Name: Teri Borrego Visit Number: [id number] Discharge Date: ATTENTION: The Clinical Documentation Specialists (CDI) and [facility] Coding Staff appreciate your assistance in clarifying documentation. Please respond to the clarification below the line at the bottom and electronically sign. The CDI & [facility] Coding staff will review the response and follow-up if needed. Please note: Queries are made part of the Legal Health Record. If you have any questions, please contact the author of this message via ITS. Dr. Danilo Morrison [facility] acquired is documented 03/17 - 03/19, Internal medicine progress notes. Additional clarification regarding the type of pneumonia is requested. History/Risk Factors: 81-year-old female presents to the ED with worsening mental status and increasing lethargy. Medical History: COPD, Pneumonia. 03/16, H&P. Clinical Indicators: 03/18 thru 03/20, Pulmonary progress notes Acute on chronic hypoxic and hypercapnic respiratory failure secondary t acute exacerbation of COPD and secondary to healthcare acquired pneumonia, patient is a [place]. 03/16: Wbc 12.1; Neutrophils 9.9 X-ray: 03/16 Patchy left perihilar density and also patchy posterior mid to lower lung density on the lateral view. Unable to exclude underlying infiltrates. Lung/Breathing assessment: 03/20, Pulmonary consult: Diminished breath sound bilaterally crackles at the left base. Treatment: Antibiotics: 03/17 Ceftriaxone 1gm IVPB x 1; 03/16 Levofloxacin 500mg IVPB x 1; 03/17 Levofloxacin 500mg IVPB x 1; 03/18 current Levofloxacin 250mg IVPB Q24H O2: 03/16 4L nasal cannula: 03/16 03/17 BiPAP then only at night . 03/17 03/20 2L to 3L nasal cannula . Breathing Tx: 03/16 current Albuterol Inhalation QID Scheduled; 03/16 - current Albuterol Inhalation Q4H PRN; 03/17to current Symbicort Inhaler BID. Please clarify the type of pneumonia, if known: [ ] Gram Negative Bacterial Pneumonia [ ] Other bacteria (please specify) [ ] Other, please specify [ x ] Unable to determine (Template Last Revised: November 2020) MTDD
--- NOTE | 2022-03-20 14:26 | P.DS ---
Providers Date of admission: 03/16/22 09:48 Expected date of discharge: 03/20/22 Attending physician: Danilo Morrison Consults: 03/16/22 21:40 Consult Physician Routine Consulting Provider: Roland William Consult Reason/Comments: Hypercapnea Do you want consulting provider notified?: Yes, Notify in am Primary care physician: [facility] Course: Final diagnosis Shortness of breath possibly secondary to Hospital-acquired pneumonia Acute on chronic hypercapnic respiratory failure. Altered mental status likely due to CO2 narcosis. improving Chronic hypoxic respiratory failure secondary COPD on home oxygen Obstructive sleep apnea on CPAP at home. Patient is not wearing CPAP at night as recommended. left perihilar infiltrate/pneumonia likely hospital-acquired. Acute kidney injury on CKD stage III. Acute urinary tract infection with Proteus Possible left-sided nasopharyngeal lesion. Follow-up with ENT as outpatient. Hypertension Hyperlipidemia History of right leg DVT History of left breast cancer s/p surgery Anxiety/depression bipolar disorder DVT prophylaxis No code Discharge disposition Patient is being discharged in a stable condition with guarded prognosis to [facility]. Patient will follow-up with Dr. Dawson in the outpatient setting upon discharge. Patient is to follow up with pulmonary in 1-2 weeks. Patient will continue on oral Levaquin 500 mg daily for the next 5 days along with a Medrol Dosepak and recommend continue with breathing inhalational treatments and steroids and inhalers along with BiPAP at night. Total time taken is greater than 35 minutes. Hospital course This is an 81-year-old female who was recently admitted with increasing shortness of breath and altered mental status possibly CO2 narcosis. Patient does have history of sleep apnea and does not wear CPAP as recommended. Patient is oxygen dependent currently on 2 L and was evaluated by pulmonary and started on IV steroids along with breathing inhalational treatments and antibiotics. Patient will continue on oral Levaquin 500 milligrams daily for the next 5 days along with a Medrol Dosepak and patient needs follow-up with pulmonary in the outpatient setting. Patient to continue with CPAP and/or BiPAP as needed at night. Patient's blood pressures on the lower side as well and recommending holding blood pressure medication at this time. Currently no reports of chest pain, shortness of breath, or palpitations. Patient is afebrile. No reports of nausea or vomiting and patient is tolerating diet. Recommend aspiration precautions and head of the bed elevated 30-45 at all times and supervision with meals. Recommend avoiding narcotics and [employer] agents. Patient will be returning to [facility] today. Guarded prognosis. On exam vital signs are stable. Cardio S1, S2 are muffled. Respiratory system shows diminished breath sounds at the bases with no wheezing, some scattered rhonchi noted. Abdomen is soft and nontender. Nervous system shows diffuse weakness. Please refer to medication reconciliation sheet for a list of medications. The impression and plan of care has been dictated by Sara Muñoz, Nurse Practitioner as directed. Dr. Micah MD I have performed a history and examination and MDM of this patient, discussed the same with the dictator, and agree with the dictator's assessment and plan as written ,documented as a scribe. Based on total visit time, I have performed more than 50% of the visit. Patient Condition at Discharge: Fair Plan - Discharge Summary New Discharge Prescriptions: New Ipratropium-Albuterol Nebulize [Duoneb 0.5 mg-3 mg/3 ml Soln] 3 ml INHALATION RT-Q4H PRN each PRN Reason: Shortness Of Breath Or Wheezing Ipratropium-Albuterol Nebulize [Duoneb 0.5 mg-3 mg/3 ml Soln] 3 ml INHALATION RT-QID each Levofloxacin [Levaquin] 500 mg PO DAILY 5 Days #5 tab methylPREDNISolone Dose Pack [Medrol Dose Pack] 24 mg PO DAILY tab Budesonide-Formot 160-4.5 Mcg [Symbicort 160-4.5 Mcg Inhaler] 2 puff INHALATION RT-BID each Continue PARoxetine [Paxil] 20 mg PO DAILY@0800 bisacodyL [Dulcolax] 10 mg RECTAL DAILY PRN PRN Reason: Constipation Loratadine [Claritin] 10 mg PO DAILY@0800 Montelukast [Singulair] 10 mg PO HS@2100 Na Phos,M-B/Na Phos,Di-Ba [Fleet Adult] 133 ml RECTAL DAILY PRN PRN Reason: Constipation Potassium Chloride ER [K-Dur 10] 40 meq PO BID@0800,1700 Theophylline 24 Hour [Sancho-24] 200 mg PO DAILY@0800 Aspirin 81 mg PO DAILY@0800 chew Albuterol Inhaler [Ventolin Hfa Inhaler] 2 puff INHALATION RT-QID PRN PRN Reason: Shortness Of Breath Magnesium Hydroxide [Milk of Magnesia Concentrate] 7,200 mg PO DAILY PRN PRN Reason: Constipation Mag Hydrox/Al Hydrox/Simeth [Maalox] 30 ml PO Q6H PRN PRN Reason: Gi Upset Loperamide HCl [Imodium A-D] 2 - 4 mg PO DIRECTED PRN PRN Reason: Diarrhea guaiFENesin [Tussin] 100 mg PO Q4H PRN PRN Reason: Cough Acetaminophen Tab [Tylenol] 650 mg PO Q4H PRN PRN Reason: Pain Or Fever > 100.5 Ergocalciferol [Vitamin D2 (1250 Mcg = 96242 Iu)] 1,250 mcg PO WE@1700 Sennosides/Docusate Sodium [Senna-S 8.6-50 mg Tablet] 2 tab PO HS PRN PRN Reason: Constipation Ocusoft Lid Cleaning 1 applic TOPICAL DAILY@0800 polyethylene glycoL 3350 [Miralax] 17 gm PO DAILY@0800 Atorvastatin [Lipitor] 10 mg PO HS Discontinued [place] Carbonate 300 mg PO BID@0800,1700 Albuterol Nebulized [Ventolin Nebulized] 2.5 mg INHALATION RT-QID atenoloL [Tenormin] 25 mg PO BID@0800,1700 risperiDONE [RisperDAL] 0.5 mg PO HS@2100 Triamterene-Hctz 37.5-25Mg [Dyazide 37.5-25 Capsule] 1 cap PO DAILY@0800 traMADol HCl [Ultram] 50 mg PO Q6H PRN PRN Reason: Pain LORazepam [Ativan] 0.5 mg PO BID PRN PRN Reason: Anxiety Furosemide [Lasix] 40 mg PO BID@0800,1700 Discharge Medication List PARoxetine [Paxil] 20 mg PO DAILY@0800 07/03/16 [History] Loratadine [Claritin] 10 mg PO DAILY@0800 10/21/19 [History] Montelukast [Singulair] 10 mg PO HS@2100 10/21/19 [History] Na Phos,M-B/Na Phos,Di-Ba [Fleet Adult] 133 ml RECTAL DAILY PRN 10/21/19 [History] Potassium Chloride ER [K-Dur 10] 40 meq PO BID@0800,1700 10/21/19 [History] Theophylline 24 Hour [Sancho-24] 200 mg PO DAILY@0800 10/21/19 [History] bisacodyL [Dulcolax] 10 mg RECTAL DAILY PRN 10/21/19 [History] Aspirin 81 mg PO DAILY@0800 chew 10/24/19 [Rx] Acetaminophen Tab [Tylenol] 650 mg PO Q4H PRN 03/16/22 [History] Albuterol Inhaler [Ventolin Hfa Inhaler] 2 puff INHALATION RT-QID PRN 03/16/22 [History] Atorvastatin [Lipitor] 10 mg PO HS 03/16/22 [History] Ergocalciferol [Vitamin D2 (1250 Mcg = 98833 Iu)] 1,250 mcg PO WE@1700 03/16/22 [History] Loperamide HCl [Imodium A-D] 2 - 4 mg PO DIRECTED PRN 03/16/22 [History] Mag Hydrox/Al Hydrox/Simeth [Maalox] 30 ml PO Q6H PRN 03/16/22 [History] Magnesium Hydroxide [Milk of Magnesia Concentrate] 7,200 mg PO DAILY PRN 03/16/22 [History] Ocusoft Lid Cleaning 1 applic TOPICAL DAILY@0803/16/22 [History] Sennosides/Docusate Sodium [Senna-S 8.6-50 mg Tablet] 2 tab PO HS PRN 03/16/22 [History] guaiFENesin [Tussin] 100 mg PO Q4H PRN 03/16/22 [History] polyethylene glycoL 3350 [Miralax] 17 gm PO DAILY@0803/16/22 [History] Budesonide-Formot 160-4.5 Mcg [Symbicort 160-4.5 Mcg Inhaler] 2 puff INHALATION RT-BID each 03/20/22 [Rx] Ipratropium-Albuterol Nebulize [Duoneb 0.5 mg-3 mg/3 ml Soln] 3 ml INHALATION RT-Q4H PRN each 03/20/22 [Rx] Ipratropium-Albuterol Nebulize [Duoneb 0.5 mg-3 mg/3 ml Soln] 3 ml INHALATION RT-QID each 03/20/22 [Rx] Levofloxacin [Levaquin] 500 mg PO DAILY 5 Days #5 tab 03/20/22 [Rx] methylPREDNISolone Dose Pack [Medrol Dose Pack] 24 mg PO DAILY tab 03/20/22 [Rx] Follow up Appointment(s)/Referral(s): Milo Harrell DO [Doctor of Osteopathic Medicine] - 1 Week Naif Negron MD [Primary Care Provider] - 1-2 days Activity/Diet/Wound Care/Special Instructions: Patient is returning to [facility] Activity as tolerated Continue antibiotics for 5 days until finished Continue with oxygen supplementation and BiPAP at night and as needed Follow-up with primary care provider on discharge Continue breathing inhalational treatments Continue Medrol Dosepak until finished Recommend CBC BMP in 2-3 days Recommend regular diet and aspiration precautions with head of the bed elevated at least 30-45 at all times and supervision with meals Discharge Disposition: TRANSFER TO SNF/ECF
[2022-03-20 18:05] VITALS: BP 108/71; PULSE 76; TEMP 98.2
[2022-03-21] MEDS ORDERED: methylPREDNISolone 4 MG TAB TAPER PO SCH (09:00)
== END 2022-03-20 19:31 | DRG 190 ==
LOC: EC 08:04 → 3SCARD 09:48
PROVIDERS: ADMIT Internal Medicine; ATTEND Internal Medicine
PROC: 5A09457 Assistance with Respiratory Ventilation, 24-96 Consecutive Hours, Continuous Positive Airway Pressure (ICD-10-PCS; principal; 2022-03-16)
DX: J44.1 Chronic obstructive pulmonary disease with (acute) exacerbation (principal); J96.22 Acute and chronic respiratory failure with hypercapnia; J18.9 Pneumonia, unspecified organism; G93.41 Metabolic encephalopathy; J96.21 Acute and chronic respiratory failure with hypoxia; Z16.12 Extended spectrum beta lactamase (ESBL) resistance; N39.0 Urinary tract infection, site not specified; E87.2 Acidosis; N17.9 Acute kidney failure, unspecified; Z20.822 Contact with and (suspected) exposure to COVID-19; J44.0 Chronic obstructive pulmonary disease with (acute) lower respiratory infection; H35.30 Unspecified macular degeneration; N18.30 Chronic kidney disease, stage 3 unspecified; J34.89 Other specified disorders of nose and nasal sinuses; R00.1 Bradycardia, unspecified; I12.9 Hypertensive chronic kidney disease with stage 1 through stage 4 chronic kidney disease, or unspecified chronic kidney disease; B96.4 Proteus (mirabilis) (morganii) as the cause of diseases classified elsewhere; E86.0 Dehydration; I49.3 Ventricular premature depolarization; F41.1 Generalized anxiety disorder; G47.33 Obstructive sleep apnea (adult) (pediatric); E78.5 Hyperlipidemia, unspecified; F31.9 Bipolar disorder, unspecified; F41.9 Anxiety disorder, unspecified; Z85.3 Personal history of malignant neoplasm of breast; Z79.01 Long term (current) use of anticoagulants; Z86.718 Personal history of other venous thrombosis and embolism; Z99.81 Dependence on supplemental oxygen; Y95 Nosocomial condition; Z79.82 Long term (current) use of aspirin; Z79.899 Other long term (current) drug therapy; Z90.12 Acquired absence of left breast and nipple; Z96.653 Presence of artificial knee joint, bilateral; Z88.2 Allergy status to sulfonamides; Z88.0 Allergy status to penicillin; Z88.5 Allergy status to narcotic agent; Z98.42 Cataract extraction status, left eye; Z98.41 Cataract extraction status, right eye
CPT/HCPCS: 36415; 70450; 71045; 71046; 80048; 80053; 80306; 81001; 82803; 84145; 84484; 85025; 85610; 85730; 87077; 87086; 87186; 87635; 93005; 94003; 94640; 94660; 94760; 96361; 96365; 96372; 96375; 96376; 99291

== ENCOUNTER 2024-04-15 10:12 | Emergency (ER) | payer MEDICARE, OTHER ==
[2024-04-15 10:23] VITALS: RESP 18; TEMP 97.5
--- NOTE | 2024-04-15 10:32 | ED ---
Recheck HPI - General Chief Complaint: Recheck/Abnormal Lab/Rx Stated Complaint: CRISTA Time Seen by Provider: 04/15/24 10:31 Source: patient, EMS, RN notes reviewed Mode of arrival: EMS Limitations: no limitations - History of Present Illness Initial Comments: This is an 83-year-old female with a past history of COPD on 2 L oxygen presents emergency department via EMS for chief dyspnea. Patient states that she has been experiencing shortness of breath over the past month and endorses episodes of dry cough. Currently she denies fevers, chills, chest pain, chest pressure, palpitations, dizziness, lightheadedness. Patient denies use of blood thinners and history of PA, CVA, DVT or PE. She states that she has been experiencing bilateral lower extremity edema for approximately a year and receives diuretic therapy via Lasix. - Related Data Home Medications Medication Instructions Recorded Confirmed PARoxetine [Paxil] 20 mg PO DAILY@0800 07/03/16 03/16/22 Loratadine [Claritin] 10 mg PO DAILY@0800 10/21/19 03/16/22 Montelukast [Singulair] 10 mg PO HS@2100 10/21/19 03/16/22 Na Phos,M-B/Na Phos,Di-Ba [Fleet 133 ml RECTAL DAILY PRN 10/21/19 03/16/22 Adult] Potassium Chloride ER [K-Dur 10] 40 meq PO BID@0800,1700 10/21/19 03/16/22 Theophylline 24 Hour [Sancho-24] 200 mg PO DAILY@0800 10/21/19 03/16/22 bisacodyL [Dulcolax] 10 mg RECTAL DAILY PRN 10/21/19 03/16/22 Acetaminophen Tab [Tylenol] 650 mg PO Q4H PRN 03/16/22 03/16/22 Albuterol Inhaler [Ventolin Hfa 2 puff INHALATION RT-QID PRN 03/16/22 03/16/22 Inhaler] Atorvastatin [Lipitor] 10 mg PO HS 03/16/22 03/16/22 Ergocalciferol [Vitamin D2 (1250 1,250 mcg PO WE@1700 03/16/22 03/16/22 Mcg = 61208 Iu)] Loperamide HCl [Imodium A-D] 2 - 4 mg PO DIRECTED PRN 03/16/22 03/16/22 Mag Hydrox/Al Hydrox/Simeth 30 ml PO Q6H PRN 03/16/22 03/16/22 [Maalox] Magnesium Hydroxide [Milk of 7,200 mg PO DAILY PRN 03/16/22 03/16/22 Magnesia Concentrate] Ocusoft Lid Cleaning 1 applic TOPICAL DAILY@0800 03/16/22 03/16/22 Sennosides/Docusate Sodium 2 tab PO HS PRN 03/16/22 03/16/22 [Senna-S 8.6-50 mg Tablet] guaiFENesin [Tussin] 100 mg PO Q4H PRN 03/16/22 03/16/22 polyethylene glycoL 3350 [Miralax] 17 gm PO DAILY@0800 03/16/22 03/16/22 Previous Rx's Medication Instructions Recorded Aspirin 81 mg PO DAILY@0800 chew 10/24/19 Budesonide-Formot 160-4.5 Mcg 2 puff INHALATION RT-BID each 03/20/22 [Symbicort 160-4.5 Mcg Inhaler] Ipratropium-Albuterol Nebulize 3 ml INHALATION RT-Q4H PRN each 03/20/22 [Duoneb 0.5 mg-3 mg/3 ml Soln] Ipratropium-Albuterol Nebulize 3 ml INHALATION RT-QID each 03/20/22 [Duoneb 0.5 mg-3 mg/3 ml Soln] Levofloxacin [Levaquin] 500 mg PO DAILY 5 Days #5 tab 03/20/22 methylPREDNISolone Dose Pack 24 mg PO DAILY tab 03/20/22 [Medrol Dose Pack] Cephalexin [Keflex] 500 mg PO Q6HR #40 cap 04/15/24 Allergies Allergy/AdvReac Type Severity Reaction Status Date / Time Penicillins Allergy Rash/Hives Verified 03/16/22 08:13 hydrocodone [From [place]] AdvReac Nausea & Verified 03/16/22 08:13 Vomiting Sulfa (Sulfonamide AdvReac Nausea & Verified 03/16/22 08:13 Antibiotics) Vomiting Review of Systems ROS Statement: Those systems with pertinent positive or pertinent negative responses have been documented in the HPI. ROS Other: All systems not noted in ROS Statement are negative. Past Medical History Past Medical History: Cancer, COPD, Deep Vein Thrombosis (DVT), Eye Disorder, Hyperlipidemia, Hypertension, Pneumonia Additional Past Medical History / Comment(s): Recent kidney infection, L BREAST CANCER with SX , Bilateral MACULAR DEGENERATION, DVT R leg History of Any Multi-Drug Resistant Organisms: ESBL Date of last positivie culture/infection: 02/24/22 ESBL E.coli MDRO Source:: Urine Past Surgical History: Breast Surgery, Joint Replacement, Tonsillectomy, Tubal Ligation Additional Past Surgical History / Comment(s): 07/04/16 Total L knee arthroplasty. Other surgical hx: LEFT MASTECTOMY, R total knee arthroplasty, bilateral cataract removal. Past Anesthesia/Blood Transfusion Reactions: Motion Sickness Past Psychological History: Anxiety, Depression Smoking Status: Unknown if ever smoked Past Alcohol Use History: None Reported Past Drug Use History: None Reported - Past Family History Mother Family Medical History: Renal Disease Additional Family Medical History / Comment(s): Mother at the age of 84 yrs of kidney failure. Father Family Medical History: No Reported History Additional Family Medical History / Comment(s): Father at the age of 98yrs. General Exam Limitations: no limitations General appearance: alert, in no apparent distress Head exam: Present: atraumatic, normocephalic, normal inspection Eye exam: Present: normal appearance, PERRL, EOMI. Absent: scleral icterus, conjunctival injection, periorbital swelling ENT exam: Present: normal exam, mucous membranes moist Neck exam: Present: normal inspection. Absent: tenderness, meningismus, lymphadenopathy Respiratory exam: Present: normal lung sounds bilaterally, wheezes (diffuse), decreased breath sounds. Absent: respiratory distress, rales, rhonchi, stridor Cardiovascular Exam: Present: regular rate, normal rhythm, normal heart sounds. Absent: systolic murmur, diastolic murmur, rubs, gallop, clicks GI/Abdominal exam: Present: soft, normal bowel sounds. Absent: distended, tenderness, guarding, rebound, rigid Extremities exam: Present: other (bilateral LE edema, non-pitting, no erythema/redness, no palpable cord) Back exam: Present: normal inspection Neurological exam: Present: alert, oriented X3, CN II-XII intact Skin exam: Present: warm, dry, intact, normal color. Absent: rash Course Vital Signs 0704/15/24 04/15/24 10:17 10:24 12:45 Temperature 97.5 F L Pulse Rate 76 88 Respiratory 18 18 Rate Blood Pressure 152/76 O2 Sat by Pulse 96 Oximetry 04/15/24 13:00 Temperature Pulse Rate 90 Respiratory Rate Blood Pressure O2 Sat by Pulse Oximetry Medical Decision Making - Medical Decision Making Was pt. sent in by a medical professional or institution (, PA, DIGITAL FIELD SERVICE TECHNICIAN, urgent care, hospital, or shelter...) When possible be specific @ -No Did you speak to anyone other than the patient for history (EMS, parent, family, police, friend...)? What history was obtained from this source @ -The patient's family at bedside states the patient has been mildly more confused as compared to recent. Family states that patient expressing signs of confusion historically when she has a urinary tract infection and/or when her CO2 was high. Family states that patient tends to refuse her BiPAP at night which resulted in elevated CO2. Did you review nursing and triage notes (agree or disagree)? Why? @ -I reviewed and agree with nursing and triage notes Were old charts reviewed (outside hosp., previous admission, EMS record, old EK G, old radiological studies, urgent care reports/EKG's, shelter records)? Report findings @ -The patient's previous emergency department visit notes were she was found to elevated CO2 yet no signs of respiratory or metabolic acidosis/alkalosis. Differential Diagnosis (chest pain, altered mental status, abdominal pain women, abdominal pain men, vaginal bleeding, weakness, fever, dyspnea, syncope, headache, dizziness, GI bleed, back pain, seizure, CVA, palpatations, mental health, musculoskeletal)? @ -Differential Dyspnea: Coronary syndrome, arrhythmia, tamponade, asthma, COPD, pulmonary embolism, pneumonia, pneumothorax, pulmonary effusion, anaphylaxis, diabetic ketoacidosis, flailed chest, pulmonary contusion, diaphragmatic rupture, anemia, neuromuscular, this is not meant to be an all-inclusive list. EKG interpreted by me (3pts min.). @ -Completed at 1102, sinus rhythm, rate 75, IA interval 141, QTc 408. No acute signs of ischemia. X-rays interpreted by me (1pt min.). @ -chest XR: mildly enlarged heart with mild pulmonary vascular congestion. CT interpreted by me (1pt min.). @ -None done U/S interpreted by me (1pt. min.). @ -None done What testing was considered but not performed or refused? (CT, X-rays, U/S, labs)? Why? @ -None What meds were considered but not given or refused? Why? @ -None Did you discuss the management of the patient with other professionals (professionals i.e. Dr., PA, DIGITAL FIELD SERVICE TECHNICIAN, lab, RT, psych nurse, manager social responsibility, creative services producer, teacher, juvenile justice officer, returned case inspector)? Give summary @ -No Was smoking cessation discussed for >3mins.? @ -No Was critical care preformed (if so, how long)? @ -No Were there social determinants of health that impacted care today? How? (Homelessness, low income, unemployed, alcoholism, drug addiction, tr ansportation, low edu. Level, literacy, decrease access to med. care, custodial, rehab)? @ -No Was there de-escalation of care discussed even if they declined (Discuss DNR or withdrawal of care, Hospice)? DNR status @ -No What co-morbidities impacted this encounter? (DM, HTN, Smoking, COPD, CAD, Cancer, CVA, ARF, Chemo, Hep., AIDS, mental health diagnosis, sleep apnea, morbid obesity)? @ -None Was patient admitted / discharged? Hospital course, mention meds given and route, prescriptions, significant lab abnormalities, going to OR and other pertinent info. @ -Discharged. 83-year-old female with dyspnea brought in via EMS from [facility]. On my examination the patient her vitals are within normal limits and she is resting comfortably on 2 L of oxygen via nasal cannula. Patient states that she chronically experiences shortness of breath but denies worsening symptoms. Due to patient's history of COPD and CHF she will be evaluated via chest xr and labs. On discussion with family, they state that the patient also been acting slightly more confused than her baseline which tends to occur when she is experiencing elevated CO2 and has a history of chronic urinary tract infections. Therefore an order was placed for straight catheterization urinalysis due to patient being unable to leave a urine sample. BC reveals anemia which is unchanged as compared to previous. Coagulation profile within normal limits. CMP reveals elevated CO2 of 38, troponin and BNP nonelevated. Patient's history of CHF and her being on Lasix outpatient with vascular congestion she was provided with an IV dose of Lasix in the emergency department. Patient's CO2 is most likely chronic as compared to previous labs. Urinalysis remarkable for infection including large leukocyte esterase, many white blood cells and white blood cell clumps. Patient will be evaluated dose of IV Rocephin and a outpatient prescription for Keflex for urinary tract infection. Additionally urine will be sent for culture. All questions answered at bedside and strict return parameters discussed with patient she is verbalized understanding. Additionally patient's family has verbalized understanding of return parameters and requirement to complete full course of antibiotics. States that antibiotics may be changed or additional dose may be ordered when urine culture results. Discussed with Dr. Lawrence. Undiagnosed new problem with uncertain prognosis? @ -No Drug Therapy requiring intensive monitoring for toxicity (Heparin, Nitro, Insulin, Cardizem)? @ -No Were any procedures done? @ -No Diagnosis/symptom? @ -Respiratory failure, COPD, congestive heart failure, pulmonary vascular congestion, urinary tract infection Acute, or Chronic, or Acute on Chronic? @ -acute, Acute on chronic Uncomplicated (without systemic symptoms) or Complicated (systemic symptoms)? @ -Complicated Side effects of treatment? @ -No Exacerbation, Progression, or Severe Exacerbation? @ -No Poses a threat to life or bodily function? How? (Chest pain, USA, PA, pneumonia, PE, COPD, DKA, ARF, appy, cholecystitis, CVA, Diverticulitis, Homicidal, Suicidal, threat to staff... and all critical care pts) @ -No - Lab Data Result diagrams: 04/15/24 11:14 04/15/24 11:14 Lab Results 04/15/24 04/15/24 04/15/24 Range/Units 11:14 11:14 11:14 WBC 8.6 (3.8-10.6) k/uL RBC 3.13 L (3.80-5.40) m/uL Hgb 8.6 L (11.4-16.0) gm/dL Hct 28.4 L (34.0-46.0) % MCV 90.9 (80.0-100.0) fL MCH 27.5 (25.0-35.0) pg MCHC 30.3 L (31.0-37.0) g/dL RDW 15.1 (11.5-15.5) % Plt Count 202 (150-450) k/uL MPV 8.0 Neutrophils % 79 % Lymphocytes % 12 % Monocytes % 6 % Eosinophils % 2 % Basophils % 0 % Neutrophils # 6.9 (1.3-7.7) k/uL Lymphocytes # 1.0 (1.0-4.8) k/uL Monocytes # 0.5 (0-1.0) k/uL Eosinophils # 0.2 (0-0.7) k/uL Basophils # 0.0 (0-0.2) k/uL Hypochromasia Marked PT 9.9 L (10.0-12.5) sec INR 0.9 (<1.2) APTT 22.7 (22.0-30.0) sec Sodium 142 (137-145) mmol/L Potassium 4.4 (3.5-5.1) mmol/L Chloride 100 (98-107) mmol/L Carbon Dioxide 38 H (22-30) mmol/L Anion Gap 4 mmol/L BUN 18 H (7-17) mg/dL Creatinine 1.03 (0.52-1.04) mg/dL Est GFR (CKD-EPI)AfAm 59 (>60 ml/min/1.73 sqM) Est GFR (CKD-EPI)NonAf 51 (>60 ml/min/1.73 sqM) Glucose 111 H (74-99) mg/dL Calcium 8.7 (8.4-10.2) mg/dL Magnesium 2.4 H (1.6-2.3) mg/dL Total Bilirubin 0.4 (0.2-1.3) mg/dL AST 17 (14-36) U/L ALT 10 (4-34) U/L Alkaline Phosphatase 79 (38-126) U/L Troponin I (0.000-0.034) ng/mL NT-Pro-B Natriuret Pep 1500 pg/mL Total Protein 5.5 L (6.3-8.2) g/dL Albumin 3.4 L (3.5-5.0) g/dL Urine Color Urine Appearance (Clear) Urine pH (5.0-8.0) Ur Specific B[place] (1.001-1.035) Urine Protein (Negative) Urine Glucose (UA) (Negative) Urine Ketones (Negative) Urine Blood (Negative) Urine Nitrite (Negative) Urine Bilirubin (Negative) Urine Urobilinogen (<2.0) mg/dL Ur Leukocyte Esterase (Negative) Urine RBC (0-5) /hpf Urine WBC (0-5) /hpf Urine WBC Clumps (None) /hpf Urine Bacteria (None) /hpf 04/15/24 04/15/24 Range/Units 11:14 12:43 WBC (3.8-10.6) k/uL RBC (3.80-5.40) m/uL Hgb (11.4-16.0) gm/dL Hct (34.0-46.0) % MCV (80.0-100.0) fL MCH (25.0-35.0) pg MCHC (31.0-37.0) g/dL RDW (11.5-15.5) % Plt Count (150-450) k/uL MPV Neutrophils % % Lymphocytes % % Monocytes % % Eosinophils % % Basophils % % Neutrophils # (1.3-7.7) k/uL Lymphocytes # (1.0-4.8) k/uL Monocytes # (0-1.0) k/uL Eosinophils # (0-0.7) k/uL Basophils # (0-0.2) k/uL Hypochromasia PT (10.0-12.5) sec INR (<1.2) APTT (22.0-30.0) sec Sodium (137-145) mmol/L Potassium (3.5-5.1) mmol/L Chloride (98-107) mmol/L Carbon Dioxide (22-30) mmol/L Anion Gap mmol/L BUN (7-17) mg/dL Creatinine (0.52-1.04) mg/dL Est GFR (CKD-EPI)AfAm (>60 ml/min/1.73 sqM) Est GFR (CKD-EPI)NonAf (>60 ml/min/1.73 sqM) Glucose (74-99) mg/dL Calcium (8.4-10.2) mg/dL Magnesium (1.6-2.3) mg/dL Total Bilirubin (0.2-1.3) mg/dL AST (14-36) U/L ALT (4-34) U/L Alkaline Phosphatase (38-126) U/L Troponin I <0.012 (0.000-0.034) ng/mL NT-Pro-B Natriuret Pep pg/mL Total Protein (6.3-8.2) g/dL Albumin (3.5-5.0) g/dL Urine Color Colorless Urine Appearance Turbid H (Clear) Urine pH 7.5 (5.0-8.0) Ur Specific [place] 1.007 (1.001-1.035) Urine Protein Trace H (Negative) Urine Glucose (UA) Negative (Negative) Urine Ketones Negative (Negative) Urine Blood Small H (Negative) Urine Nitrite Negative (Negative) Urine Bilirubin Negative (Negative) Urine Urobilinogen <2.0 (<2.0) mg/dL Ur Leukocyte Esterase Large H (Negative) Urine RBC 16 H (0-5) /hpf Urine WBC >182 H (0-5) /hpf Urine WBC Clumps Many H (None) /hpf Urine Bacteria Moderate H (None) /hpf Disposition Clinical Impression: UTI (urinary tract infection), Confusion, Chronic hypercapnic respiratory failure Disposition: HOME SELF-CARE Condition: Good Instructions (If sedation given, give patient instructions): Urinary Tract Infection in Women (ED) Additional Instructions: Return to the emergency department if symptoms worsen or not improve. Complete full course of antibiotics as prescribed. Recommend follow-up with primary care provider in a week for further evaluation. Prescriptions: Cephalexin [Keflex] 500 mg PO Q6HR #40 cap Is patient prescribed a controlled substance at d/c from ED?: No Referrals: Naif Negron MD [Primary Care Provider] - 1-2 days Time of Disposition: 13:12
[2024-04-15] MEDS: methylPREDNISolone SOD SUCCI 125 MG/2 ML VIAL IV STA (11:31)
[2024-04-15 11:38] LABS: ALT 10 U/L (4-34); AST 17 U/L (14-36); African American GFR (CKD) 59 (>60 ml/min/1.73 sqM); Albumin 3.4 g/dL (3.5-5.0); Alkaline Phosphatase 79 U/L (38-126); Blood Urea Nitrogen 18 mg/dL (7-17); Calcium 8.7 mg/dL (8.4-10.2); Chloride 100 mmol/L (98-107); Glucose 111 mg/dL (74-99); Magnesium 2.4 mg/dL (1.6-2.3); Non-African American GFR(CKD) 51 (>60 ml/min/1.73 sqM); Potassium 4.4 mmol/L (3.5-5.1); Sodium 142 mmol/L (137-145); Total Bilirubin 0.4 mg/dL (0.2-1.3); Total Protein 5.5 g/dL (6.3-8.2)
[2024-04-15 11:44] LABS: Anion Gap 4 mmol/L
[2024-04-15 11:49] LABS: NT-Pro-B-Type Natriuretic Pept 1500 pg/mL
[2024-04-15 11:55] LABS: Basophils % (A) 0 %; Eosinophils # (A) 0.2 k/uL (0-0.7); Eosinophils % (A) 2 %; HCT 28.4 % (34.0-46.0); HGB 8.6 gm/dL (11.4-16.0); Hypochromasia Marked; INR 0.9 (<1.2); Lymphocytes % (A) 12 %; MCH 27.5 pg (25.0-35.0); MCHC 30.3 g/dL (31.0-37.0); MCV 90.9 fL (80.0-100.0); Monocytes # (A) 0.5 k/uL (0-1.0); Monocytes % (A) 6 %; Neutrophils # (A) 6.9 k/uL (1.3-7.7); Neutrophils % (A) 79 %; Partial Thromboplastin Time 22.7 sec (22.0-30.0); Platelet Count 202 k/uL (150-450); Prothrombin Time 9.9 sec (10.0-12.5); RBC 3.13 m/uL (3.80-5.40); RDW 15.1 % (11.5-15.5); WBC 8.6 k/uL (3.8-10.6)
[2024-04-15 12:00] LABS: Carbon Dioxide 38 mmol/L (22-30)
--- NOTE | 2024-04-15 12:12 | XR ---
EXAMINATION TYPE: XR chest 2V DATE OF EXAM: 04/15/2024 COMPARISON: 03/19/2022 HISTORY: 83-year-old female shortest of breath, difficulty breathing TECHNIQUE: PA and lateral views FINDINGS: Heart mildly enlarged. Diffuse interstitial density. Arthroscopic cartilage calcifications. No consol idation or pleural effusion. IMPRESSION: Correlate for CHF with mild pulmonary vascular congestion.
[2024-04-15] MEDS: IPRATROPIUM-ALBUTEROL 3 ML NEB INHALATION STA (12:41)
[2024-04-15] MEDS: FUROSEMIDE 10 MG/ML 4 ML VIAL IV STA (12:44)
[2024-04-15 12:55] LABS: Appearance,Urine Turbid (Clear); Bacteria,Urine Moderate /hpf; Bilirubin,Urine Negative (Negative); Blood,Urine Small (Negative); Color,Urine Colorless; Glucose,Urine (UA) Negative (Negative); Ketones,Urine Negative (Negative); Leukocyte Esterase,Urine Large (Negative); Nitrite,Urine Negative (Negative); PH, Urine 7.5 (5.0-8.0); Protein,Urine Trace (Negative); RBC,Urine 16 /hpf (0-5); Specific Gravity,Urine 1.007 (1.001-1.035); Urobilinogen,Urine <2.0 mg/dL (<2.0); WBC,Urine >182 /hpf (0-5)
[2024-04-15] MEDS: cefTRIAXone IN SWFI 1,000 MG/10 ML SYRINGE IVP STA (14:01)
[2024-04-15 15:29] VITALS: BP 130/76; PULSE 72
== END 2024-04-15 15:29 | disposition home or self-care (01) ==
LOC: EC 10:12
DX: J96.12 Chronic respiratory failure with hypercapnia (principal); N39.0 Urinary tract infection, site not specified; R41.0 Disorientation, unspecified; J44.9 Chronic obstructive pulmonary disease, unspecified; I11.0 Hypertensive heart disease with heart failure; I50.9 Heart failure, unspecified; D64.9 Anemia, unspecified; Z79.899 Other long term (current) drug therapy; Z88.0 Allergy status to penicillin; Z88.5 Allergy status to narcotic agent; Z88.2 Allergy status to sulfonamides; Z99.81 Dependence on supplemental oxygen
CPT/HCPCS: 36415; 94640; 93005; 83880; 80053; 83735; 84484; 85025; 85610; 85730; 81001; 87086; 71046; 99285; 96374; 96375 ×2; J1940; J0696; J2919

== ENCOUNTER 2024-08-13 08:03 | Inpatient (IN) | payer MEDICARE, OTHER ==
[2024-08-13] MEDS ORDERED: VANCOMYCIN IV PER PHARMACY 1 EACH MISC MISCELLANE PRN (08:16)
[2024-08-13 08:17] LABS: Glucose,Whole Blood 111 mg/dL (70-110)
[2024-08-13] MEDS: SODIUM CHLORIDE 0.9% 1,000 ML IV ONE (08:22)
[2024-08-13] MEDS: ACETAMINOPHEN SUPPOSITORY 650 MG SUPP RECTAL STA (08:24)
[2024-08-13] MEDS: methylPREDNISolone SOD SUCCI 125 MG/2 ML VIAL IV STA (08:30)
[2024-08-13 08:38] LABS: Basophils # (A) 0.1 k/uL (0-0.2); Basophils % (A) 1 %; Eosinophils % (A) 0 %; HCT 37.3 % (34.0-46.0); Hypochromasia Marked; Lymphocytes # (A) 1.2 k/uL (1.0-4.8); Lymphocytes % (A) 7 %; MCH 26.1 pg (25.0-35.0); MCHC 29.4 g/dL (31.0-37.0); MCV 88.9 fL (80.0-100.0); Mean Platelet Volume 7.9; Monocytes # (A) 1.2 k/uL (0-1.0); Monocytes % (A) 6 %; Neutrophils # (A) 15.6 k/uL (1.3-7.7); Neutrophils % (A) 85 %; Platelet Count 253 k/uL (150-450); RDW 15.7 % (11.5-15.5); WBC 18.3 k/uL (3.8-10.6)
[2024-08-13 08:48] LABS: Amorphous Sediment,Urine Rare /hpf; Appearance,Urine Turbid (Clear); Bacteria,Urine Few /hpf; Bilirubin,Urine Negative (Negative); Blood,Urine Small (Negative); Color,Urine Light Yellow; Glucose,Urine (UA) Negative (Negative); Ketones,Urine Negative (Negative); Leukocyte Esterase,Urine Large (Negative); Mucus,Urine Occasional /hpf; Nitrite,Urine Positive (Negative); PH, Urine 7.5 (5.0-8.0); Protein,Urine 1+ (Negative); RBC,Urine 8 /hpf (0-5); Specific Gravity,Urine 1.013 (1.001-1.035); Squamous Epithelial Cell,Urine 3 /hpf (0-4); Urobilinogen,Urine <2.0 mg/dL (<2.0); WBC,Urine 40 /hpf (0-5)
[2024-08-13 08:51] LABS: Cocaine Screen,Urine Not Detected (NotDetected); Phencyclidine Screen,Urine Not Detected (NotDetected); Urn Cannabinoid Scrn Not Detected (NotDetected)
[2024-08-13 08:52] LABS: Amphetamine Screen,Urine Not Detected (NotDetected); Barbiturate Screen,Urine Not Detected (NotDetected); Benzodiazepines Screen,Urine Detected (NotDetected); Methadone Screen, Urine Not Detected (NotDetected); Opiate Screen,Urine Not Detected (NotDetected); Oxycodone Screen, Urine Not Detected (NotDetected); Tricyclic Antidepressant,Urine Not Detected (NotDetected)
[2024-08-13] MEDS: SODIUM CHLORIDE 0.9% 1,000 ML IV STA ×2 (08:55→09:56)
[2024-08-13 08:56] LABS: African American GFR (CKD) 21 (>60 ml/min/1.73 sqM); Albumin 4.3 g/dL (3.5-5.0); Alcohol <10 mg/dL; Alkaline Phosphatase 100 U/L (38-126); Anion Gap 8 mmol/L; Blood Urea Nitrogen 49 mg/dL (7-17); Carbon Dioxide 30 mmol/L (22-30); Chloride 107 mmol/L (98-107); Glucose 105 mg/dL (74-99); Non-African American GFR(CKD) 18 (>60 ml/min/1.73 sqM); Sodium 145 mmol/L (137-145); Total Bilirubin 1.1 mg/dL (0.2-1.3); Total Protein 6.4 g/dL (6.3-8.2)
[2024-08-13 09:00] LABS: INR 1.3 (<1.2); Partial Thromboplastin Time 23.7 sec (22.0-30.0); Prothrombin Time 13.4 sec (10.0-12.5)
[2024-08-13 09:09] LABS: Glucose,Whole Blood 98 mg/dL (70-110)
[2024-08-13] MEDS: CEFEPIME 2 GM in SODIUM CHLORIDE 0.9% 100 ML IVPB SCH (09:11)
[2024-08-13] MEDS: METOPROLOL TARTRATE 5 MG/5 ML VIAL IVP STA ×2 (09:28→09:52)
[2024-08-13 09:37] LABS: ALT 1376 U/L (4-34); Potassium 7.4 mmol/L (3.5-5.1)
[2024-08-13] MEDS ORDERED: HEPARIN SODIUM 1,000 UN/ML (10ML VL) IV PRN (09:39)
[2024-08-13] MEDS: VANCOMYCIN 1,500 MG in SODIUM CHLORIDE 0.9% 500 ML 500 ML IVPB ONE (09:57)
--- NOTE | 2024-08-13 10:04 | XR ---
EXAMINATION TYPE: XR chest 1V portable DATE OF EXAM: 08/13/2024 9:16 AM COMPARISON: Chest radiographs from 04/15/2024. CLINICAL INDICATION: Female, 83 years old with history of altered mental status; [facility] TECHNIQUE: XR chest 1V portable Frontal view of the chest. FINDINGS: Lungs/Pleura: There is no evidence of pleural effusion, focal consolidation, or pneumothorax. Pulmonary vascularity: Unremarkable. Heart/mediastinum: Cardiomediastinal silhouette is enlarged. Atherosclerotic calcifications are seen in the aorta. Musculoskeletal: No acute osseous pathology. Other findings: None IMPRESSION: Cardiomegaly and mild pulmonary vascular congestion. Correlate with BNP for congestive heart failure. [facility], , 08/13/2024 10:02 AM
[2024-08-13] MEDS ORDERED: NALOXONE 0.4 MG/ML 1 ML VIAL IV PRN ×2 (10:05→10:11)
[2024-08-13] MEDS ORDERED: ACETAMINOPHEN SUPPOSITORY 650 MG SUPP RECTAL PRN (10:05)
[2024-08-13 10:10] LABS: AST 1758 U/L (14-36)
[2024-08-13] MEDS: DEXTROSE 50% SYRINGE 50 ML IVP ONE (10:19)
[2024-08-13] MEDS: INSULIN REGULAR 100 UNIT/ML VIAL (IV) IV ONE ×2 (10:19→14:54)
[2024-08-13] MEDS: SODIUM BICARB 8.4% 50 ML SYR (1 MEQ/ML) IV ONE (10:22)
[2024-08-13] MEDS: CALCIUM GLUCONATE IN NACL 1 GM in SALINE 1 100ML.BAG IVPB ONE (10:24)
[2024-08-13] MEDS: SODIUM ZIRCONIUM CYCLOSILICATE 10 GM PACKET PO ONE (10:25)
[2024-08-13 10:26] LABS: ABG Base Excess -2.9 mmol/L; ABG HCO3 24 mmol/L (21-25); ABG Oxygen Saturation 94.1 % (94-97); ABG PCO2 53 mmHg (35-45); ABG PH 7.27 (7.35-7.45); ABG PO2 80 mmHg (83-108); ABG TCO2 26 mmol/L (19-24); Allen Test Performed? Yes
[2024-08-13] MEDS: ASPIRIN 300 MG SUPP RECTAL STA (10:27)
--- NOTE | 2024-08-13 10:28 | CT ---
EXAMINATION TYPE: CT brain wo con CT DLP: 1154.6 mGycm, Automated exposure control for dose reduction was used. DATE OF EXAM: 08/13/2024 10:17 AM COMPARISON: Prior CT Brain from 03/16/2022, 10/21/2019, 10/04/2019 . CLINICAL INDICATION:Female, 83 years old with history of Altered mental status, Altered mental status TECHNIQUE: Brain: Multiple axial CT images of the brain were obtained without IV contrast. . Coronal and sagitta l reformats reviewed. FINDINGS: Brain: Extra-axial spaces: No abnormal extra-axial fluid collections. Ventricular system: Within normal limits Cerebral parenchyma: No acute intraparenchymal hemorrhage or mass effect. Age-appropriate cerebral v olume. The lackey-white junction is well differentiated. Confluent hypoattenuating areas are seen withi n the subcortical and periventricular white matter. Cerebellum: Unremarkable. Mass effect: No evidence of midline shift. Intracranial vasculature: Atherosclerotic calcifications of the intracranial vessels. Soft tissues: Normal. Calvarium/osseous structures: No depressed skull fracture. Paranasal sinuses and mastoid air cells: Clear Visualized orbits: Orbital contents are intact. IMPRESSION: 1. No acute intracranial process. 2. Extensive nonspecific white matter changes, likely secondary to chronic small vessel ischemic dise ase. [facility], , 08/13/2024 10:26 AM
[2024-08-13] MEDS: HEPARIN SODIUM 1,000 UN/ML (10ML VL) IV ONE (10:36)
[2024-08-13] MEDS: DEXTROSE 5% IN WATER 100 ML with AMIODARONE 150 MG IV ONE (10:37)
[2024-08-13] MEDS: AMIODARONE 360 MG in DEXTROSE 5% IN WATER 200 ML IV ONE (10:42)
--- NOTE | 2024-08-13 10:46 | ED ---
General Adult HPI - General Chief complaint: Altered Mental Status Stated complaint: AMS Time Seen by Provider: 08/13/24 08:03 Source: patient, EMS, RN notes reviewed, old records reviewed Mode of arrival: EMS Limitations: altered mental status - History of Present Illness Initial comments: Patient is an 83-year-old female presents emergency department from her nursing facility for altered mental status, hypoxic respiratory failure, febrile illness. Patient is baseline ANO x 3-4 however has been altered for the last week. EMS was finally called today as the patient had a fever and low blood pressures as well as low oxygen levels at the facility. Unknown the source of her infection however there was concern for possible UTI but patient was never started on antibiotics. Patient is unable to provide any history and all history is obtained from patient's son as well as daughter. Vital signs remarkable for A-fib with RVR on presentation, mild hypotension with blood pressures in the 80s to 90s systolic, as well as increased work of breathing and febrile illness upon presentation. Patient has a history of COPD, hypertension, hyperlipidemia. Presents for further evaluation at this time. She is a DNR/DNI which was confirmed with the patient's children. - Related Data Home Medications Medication Instructions Recorded Confirmed PARoxetine [Paxil] 20 mg PO DAILY@0800 07/03/16 08/13/24 Montelukast [Singulair] 10 mg PO HS@1700 10/21/19 08/13/24 Na Phos,M-B/Na Phos,Di-Ba [Fleet 133 ml RECTAL DAILY PRN 10/21/19 08/13/24 Adult] bisacodyL [Dulcolax] 10 mg RECTAL DAILY PRN 10/21/19 08/13/24 Acetaminophen Tab [Tylenol] 650 mg PO Q4H PRN 03/16/22 08/13/24 Magnesium Hydroxide [Milk of 7,200 mg PO DAILY PRN 03/16/22 08/13/24 Magnesia Concentrate] Sennosides/Docusate Sodium 2 tab PO DAILY@0800 03/16/22 08/13/24 [Senna-S 8.6-50 mg Tablet] Acetaminophen Suppository [Tylenol 650 mg RECTAL Q4H PRN 08/13/24 08/13/24 Suppository] Acetaminophen [Children's 650 mg PO Q4H PRN 08/13/24 08/13/24 Acetaminophen] Albuterol Nebulized [Ventolin 2.5 mg INHALATION RT-Q6H PRN 08/13/24 08/13/24 Nebulized] Budesonide-Formot 160-4.5 Mcg 2 puff INHALATION RT-BID@0800,1700 08/13/24 08/13/24 [Symbicort 160-4.5 Mcg Inhaler] Ensure Enlive 120 ml PO BID@0800,1700 08/13/24 08/13/24 Furosemide [Lasix] 40 mg PO BID@0800,1700 08/13/24 08/13/24 Ipratropium-Albuterol Nebulize 3 ml INHALATION RT-Q6H 08/13/24 08/13/24 [Duoneb 0.5 mg-3 mg/3 ml Soln] LORazepam [Ativan] 0.5 mg PO BID PRN 08/13/24 08/13/24 [place] Carbonate 300 mg PO BID@0800,1700 08/13/24 08/13/24 Loperamide [Imodium] 2 mg PO Q6H PRN 08/13/24 08/13/24 Potassium Chloride ER [K-Dur 20] 40 meq PO BID@0800,1700 08/13/24 08/13/24 Simvastatin [Zocor] 10 mg PO HS@1700 08/13/24 08/13/24 risperiDONE 0.5 mg PO HS@209908/13/24 08/13/24 traMADol HCL 50 mg PO Q6H PRN 08/13/24 08/13/24 traZODone HCL [Desyrel] 50 mg PO HS@2100 08/13/24 08/13/24 Previous Rx's Medication Instructions Recorded Aspirin 81 mg PO DAILY@0800 chew 10/24/19 Allergies Allergy/AdvReac Type Severity Reaction Status Date / Time levofloxacin [From Levaquin] Allergy Unknown Verified 08/13/24 09:36 Penicillins Allergy Rash/Hives Verified 08/13/24 09:36 hydrocodone [From [place]] AdvReac Nausea & Verified 08/13/24 09:36 Vomiting Sulfa (Sulfonamide AdvReac Nausea & Verified 08/13/24 09:36 Antibiotics) Vomiting Review of Systems ROS Statement: Those systems with pertinent positive or pertinent negative responses have been documented in the HPI. ROS Other: All systems not noted in ROS Statement are negative. Past Medical History Past Medical History: Cancer, COPD, Deep Vein Thrombosis (DVT), Eye Disorder, Hyperlipidemia, Hypertension, Pneumonia Additional Past Medical History / Comment(s): Recent kidney infection, L BREAST CANCER with SX , Bilateral MACULAR DEGENERATION, DVT R leg History of Any Multi-Drug Resistant Organisms: ESBL Date of last positivie culture/infection: 02/24/22 ESBL E.coli MDRO Source:: Urine Past Surgical History: Breast Surgery, Joint Replacement, Tonsillectomy, Tubal Ligation Additional Past Surgical History / Comment(s): 07/04/16 Total L knee arthroplasty. Other surgical hx: LEFT MASTECTOMY, R total knee arthroplasty, bilateral cataract removal. Past Anesthesia/Blood Transfusion Reactions: Motion Sickness Past Psychological History: Anxiety, Depression Smoking Status: Unknown if ever smoked Past Alcohol Use History: None Reported Past Drug Use History: None Reported - Past Family History Mother Family Medical History: Renal Disease Additional Family Medical History / Comment(s): Mother at the age of 84 yrs of kidney failure. Father Family Medical History: No Reported History Additional Family Medical History / Comment(s): Father at the age of 98yrs. General Exam - General Exam Comments Initial Comments: General: Increased work of breathing. HEAD: Normal with no signs of head trauma. EYES: PERRLA, EOMI, conjunctiva normal, no discharge. Pupils are 3 mm and equal bilaterally. ENT: normal oropharynx. RESPIRATORY: Mild end expiratory wheezing bilaterally. Mildly hypoxic on room air improved with BiPAP. C/V: Irregular rate and rhythm. S1 and S2 auscultated, , peripheral pulses 2+ and intact throughout ABD: Abd is soft, nontender, nondistended EXT: Normal range of motion, no obvious deformity SKIN: No rashes or lesions observed on exposed skin. NEURO: Not alert or oriented. Will spontaneously move extremities. Patient is altered. Limitations: altered mental status Course Vital Signs 08/13/24 08/13/24 08/13/24 08:04 08:05 08:39 Temperature 102.1 F H Pulse Rate 77 152 H Respiratory 20 28 H Rate Blood Pressure 121/82 O2 Sat by Pulse 98 Oximetry Fraction of 40 Inspired Oxygen (FIO2) 08/13/24 08/13/24 08/13/24 09:22 09:42 09:56 Temperature Pulse Rate 156 H 134 H Respiratory 28 H 30 H Rate Blood Pressure 100/72 103/68 O2 Sat by Pulse 80 L 97 Oximetry Fraction of 30 Inspired Oxygen (FIO2) 08/13/24 08/13/24 08/13/24 10:23 10:50 11:11 Temperature 100.3 F H Pulse Rate 102 H 102 H Respiratory 30 H 30 H Rate Blood Pressure 92/62 92/62 O2 Sat by Pulse 97 100 Oximetry Fraction of 30 Inspired Oxygen (FIO2) 08/13/24 11:40 Temperature Pulse Rate Respiratory Rate Blood Pressure O2 Sat by Pulse Oximetry Fraction of 30 Inspired Oxygen (FIO2) Medical Decision Making - Medical Decision Making Was pt. sent in by a medical professional or institution (, PA, CENTRAL OFFICE MAINTAINER, urgent care, hospital, or fpc...) When possible be specific @ -Patient transferred from her nursing facility for 1 week of altered mentation, hypoxia, low blood pressures. Did you speak to anyone other than the patient for history (EMS, parent, family, police, friend...)? What history was obtained from this source @ -Spoke with patient's family, son and daughter who provide patient's past medical history as well as the fact the patient is DNR/DNI. Provide the HPI as well. Did you review nursing and triage notes (agree or disagree)? Why? @ -I reviewed and agree with nursing and triage notes Were old charts reviewed (outside hosp., previous admission, EMS record, old EKG, old radiological studies, urgent care reports/EKG's, fpc records)? Report findings @ -Reviewed old EKGs, no evidence of prior A-fib with RVR. Reviewed urine culture from 08-05 which showed a resistant organism was grown. It is susceptible to cefepime. Differential Diagnosis (chest pain, altered mental status, abdominal pain women, abdominal pain men, vaginal bleeding, weakness, fever, dyspnea, syncope, headache, dizziness, GI bleed, back pain, seizure, CVA, palpatations, mental health, musculoskeletal)? @ -Differential Altered Mental Status: Hypoglycemia, DKA, hypercapnia, ETOH, overdose, CO poisoning, trauma, myxedema coma, HTN encephalopathy, infection, encephalitis, psychosis, intercranial hemorrhage, hepatic encephalopathy, meningitis, CVA, this is not meant to be an all-inclusive list EKG interpreted by me (3pts min.). @ -As above X-rays interpreted by me (1pt min.). @ -Chest x-ray reveals cardiomegaly and mild pulmonary vascular congestion which appears to be chronic. CT interpreted by me (1pt min.). @ -CT brain reveals no obvious acute intracranial abnormality U/S interpreted by me (1pt. min.). @ -None done What testing was considered but not performed or refused? (CT, X-rays, U/S, labs)? Why? @ -Considered CT PE but due to the patient's RITIKA we will defer at this time for VQ scan which was ordered. Highly suspect that elevated D-dimer is likely from infectious process, UTI. Venous ultrasounds ordered as well. What meds were considered but not given or refused? Why? @ -None Did you discuss the management of the patient with other professionals (professionals i.e. , PA, CENTRAL OFFICE MAINTAINER, lab, RT, psych nurse, social services, humanities and languages professor, teacher, liaison officer, porter sample case)? Give summary @ -Discussed with the ICU attending, Dr. William who accepted the admission. Spoke with Dr. Leyva of [facility] who is covering for Dr. Negron who accepted the admission. Discussed with the washer repairman on-call, Dr. Armstrong who was in [facility] ement with the current workup and will continue to monitor the patient. Was smoking cessation discussed for >3mins.? @ -No Was critical care preformed (if so, how long)? @ -Yes, 51 minutes. Were there social determinants of health that impacted care today? How? (Homelessness, low income, unemployed, alcoholism, drug addiction, transportation, low edu. Level, literacy, decrease access to med. care, custodial, rehab)? @ -No Was there de-escalation of care discussed even if they declined (Discuss DNR or withdrawal of care, Hospice)? DNR status @ -Patient's children reiterated patient is DNR/DNI. What co-morbidities impacted this encounter? (DM, HTN, Smoking, COPD, CAD, Cancer, CVA, ARF, Chemo, Hep., AIDS, mental health diagnosis, sleep apnea, morbid obesity)? @ -None Was patient admitted / discharged? Hospital course, mention meds given and route, prescriptions, significant lab abnormalities, going to OR and other pertinent info. @ -Patient presents for what appears to be sepsis and altered mental status. Suspected source is a UTI. Patient has had new onset A-fib with RVR. Patient d oes have softer blood pressures as well on presentation. Blood cultures obtained and sent. Urine culture obtained and sent. Patient empirically started on vancomycin and cefepime on presentation. Patient ordered 2 L fluid bolus as well as placed on maintenance infusion. We will attempt metoprolol pushes for her heart rate if the fluids do not improve it. She is given Tylenol for her fever. Patient and family were in agreement this plan. Discussed at this time and patient is a DNR/DNI per patient's son and daughters. Laboratory studies remarkable for leukocytosis of 18.3, mild anemia with a hemoglobin of 11.0, D-dimer elevated to 19.9, hyperkalemia of 7.4, RITIKA with a BUN of 49 and creatinine of 2.42, elevated AST and ALT, elevated troponin at 0.244. Urinalysis shows a UTI. ABG reveals a respiratory acidosis with an elevated pCO2 of 53 likely secondary to her hypoxic respiratory failure and COPD. She is post be on BiPAP at her facility but she has not been using it. On reevaluation, heart rate is minimally improved with metoprolol and symptomatic treatment. She will be started on amiodarone drip. CT brain at this time was obtained and revealed no obvious acute intracranial process. Discussed CT PE but due to the RITIKA, we will defer at this time and VQ scan and ultrasound DVTs of the lower extremities were ordered. Patient started on heparin for NSTEMI and new onset A-fib. We will continue with IV fluids. For the hyperkalemia, patient given hyperkalemia cocktail including calcium, Lokelma, bicarb push, albuterol ordered. Will continue with IV steroids as well as breathing treatments for patient's COPD. Discussed the findings with patient's family, they were in agreement this plan. Patient will be admitted to the ICU after discussion with ICU attending Dr. Muñoz who was in agreement plan for workup. VQ scan is pending. Spoke with washer repairman, Dr. Armstrong who was in agreement with the current treatment for the hyperkalemia. Cardiology consulted. Infectious disease consulted. I spoke with the admitting provider, Dr. Leyva who accepted the admission. Patient is DNR/DNI and therefore will not be intubated and no CPR performed if she goes into cardiac arrest. Family reiterated these are the patient's wishes. Undiagnosed new problem with uncertain prognosis? @ -No Drug Therapy requiring intensive monitoring for toxicity (Heparin, Nitro, I nsulin, Cardizem)? @ -No Were any procedures done? @ -No Diagnosis/symptom? @ -NSTEMI, sepsis, UTI, altered mental status, COPD, hyperkalemia, RITIKA, hypoxic respiratory failure on BiPAP, new onset A-fib with RVR Acute, or Chronic, or Acute on Chronic? @ -Acute Uncomplicated (without systemic symptoms) or Complicated (systemic symptoms)? @ -Complicated Side effects of treatment? @ -No Exacerbation, Progression, or Severe Exacerbation? @ -No Poses a threat to life or bodily function? How? (Chest pain, USA, NM, pneumonia, PE, COPD, DKA, ARF, appy, cholecystitis, CVA, Diverticulitis, Homicidal, Suicidal, threat to staff... and all critical care pts) @ -Yes - Lab Data Result diagrams: 08/13/24 08:27 08/13/24 08:28 Lab Results 08/13/24 08/13/24 08/13/24 Range/Units 08:16 08:27 08:27 WBC 18.3 H (3.8-10.6) k/uL RBC 4.20 (3.80-5.40) m/uL Hgb 11.0 L (11.4-16.0) gm/dL Hct 37.3 (34.0-46.0) % MCV 88.9 (80.0-100.0) fL MCH 26.1 (25.0-35.0) pg MCHC 29.4 L (31.0-37.0) g/dL RDW 15.7 H (11.5-15.5) % Plt Count 253 (150-450) k/uL MPV 7.9 Neutrophils % 85 % Lymphocytes % 7 % Monocytes % 6 % Eosinophils % 0 % Basophils % 1 % Neutrophils # 15.6 H (1.3-7.7) k/uL Lymphocytes # 1.2 (1.0-4.8) k/uL Monocytes # 1.2 H (0-1.0) k/uL Eosinophils # 0.0 (0-0.7) k/uL Basophils # 0.1 (0-0.2) k/uL Hypochromasia Marked PT 13.4 H (10.0-12.5) sec INR 1.3 H (<1.2) APTT 23.7 (22.0-30.0) sec D-Dimer 19.97 H (<0.60) mg/L FEU Sodium (137-145) mmol/L Potassium (3.5-5.1) mmol/L Chloride (98-107) mmol/L Carbon Dioxide (22-30) mmol/L Anion Gap mmol/L BUN (7-17) mg/dL Creatinine (0.52-1.04) mg/dL Est GFR (CKD-EPI)AfAm (>60 ml/min/1.73 sqM) Est GFR (CKD-EPI)NonAf (>60 ml/min/1.73 sqM) Glucose (74-99) mg/dL POC Glucose (mg/dL) 111 H (70-110) mg/dL POC Glu Ruby [employer] Rails Software Developer ID December Calcium (8.4-10.2) mg/dL Total Bilirubin (0.2-1.3) mg/dL AST (14-36) U/L ALT (4-34) U/L Alkaline Phosphatase (38-126) U/L Ammonia (<30) umol/L Troponin I (0.000-0.034) ng/mL Total Protein (6.3-8.2) g/dL Albumin (3.5-5.0) g/dL Urine Color Urine Appearance (Clear) Urine pH (5.0-8.0) Ur Specific [place] (1.001-1.035) Urine Protein (Negative) Urine Glucose (UA) (Negative) Urine Ketones (Negative) Urine Blood (Negative) Urine Nitrite (Negative) Urine Bilirubin (Negative) Urine Urobilinogen (<2.0) mg/dL Ur Leukocyte Esterase (Negative) Urine RBC (0-5) /hpf Urine WBC (0-5) /hpf Urine WBC Clumps (None) /hpf Ur Squamous Epith Cells (0-4) /hpf Amorphous Sediment (None) /hpf Urine Bacteria (None) /hpf Urine Mucus (None) /hpf Urine Opiates Screen (NotDetected) Ur Oxycodone Screen (NotDetected) Urine Methadone Screen (NotDetected) Ur Barbiturates Screen (NotDetected) U Tricyclic Antidepress (NotDetected) Ur Phencyclidine Scrn (NotDetected) Ur Amphetamines Screen (NotDetected) U Methamphetamines Scrn (NotDetected) U Benzodiazepines Scrn (NotDetected) Urine Cocaine Screen (NotDetected) U Marijuana (THC) Screen (NotDetected) Serum Alcohol mg/dL Influenza Type A (PCR) (Not Detectd) Influenza Type B (PCR) (Not Detectd) RSV (PCR) (Not Detectd) SARS-CoV-2 (PCR) (Not Detectd) 08/13/24 08/13/24 08/13/24 Range/Units 08:27 08:27 08:27 WBC (3.8-10.6) k/uL RBC (3.80-5.40) m/uL Hgb (11.4-16.0) gm/dL Hct (34.0-46.0) % MCV (80.0-100.0) fL MCH (25.0-35.0) pg MCHC (31.0-37.0) g/dL RDW (11.5-15.5) % Plt Count (150-450) k/uL MPV Neutrophils % % Lymphocytes % % Monocytes % % Eosinophils % % Basophils % % Neutrophils # (1.3-7.7) k/uL Lymphocytes # (1.0-4.8) k/uL Monocytes # (0-1.0) k/uL Eosinophils # (0-0.7) k/uL Basophils # (0-0.2) k/uL Hypochromasia PT (10.0-12.5) sec INR (<1.2) APTT (22.0-30.0) sec D-Dimer (<0.60) mg/L FEU Sodium (137-145) mmol/L Potassium (3.5-5.1) mmol/L Chloride (98-107) mmol/L Carbon Dioxide (22-30) mmol/L Anion Gap mmol/L BUN (7-17) mg/dL Creatinine (0.52-1.04) mg/dL Est GFR (CKD-EPI)AfAm (>60 ml/min/1.73 sqM) Est GFR (CKD-EPI)NonAf (>60 ml/min/1.73 sqM) Glucose (74-99) mg/dL POC Glucose (mg/dL) (70-110) mg/dL POC Glu Ruby [employer] Rails Software Developer ID Calcium (8.4-10.2) mg/dL Total Bilirubin (0.2-1.3) mg/dL AST (14-36) U/L ALT (4-34) U/L Alkaline Phosphatase (38-126) U/L Ammonia (<30) umol/L Troponin I 0.244 H* (0.000-0.034) ng/mL Total Protein (6.3-8.2) g/dL Albumin (3.5-5.0) g/dL Urine Color Light Yellow Urine Appearance Turbid H (Clear) Urine pH 7.5 (5.0-8.0) Ur Specific [place] 1.013 (1.001-1.035) Urine Protein 1+ H (Negative) Urine Glucose (UA) Negative (Negative) Urine Ketones Negative (Negative) Urine Blood Small H (Negative) Urine Nitrite Positive H (Negative) Urine Bilirubin Negative (Negative) Urine Urobilinogen <2.0 (<2.0) mg/dL Ur Leukocyte Esterase Large H (Negative) Urine RBC 8 H (0-5) /hpf Urine WBC 40 H (0-5) /hpf Urine WBC Clumps Few H (None) /hpf Ur Squamous Epith Cells 3 (0-4) /hpf Amorphous Sediment Rare H (None) /hpf Urine Bacteria Few H (None) /hpf Urine Mucus Occasional H (None) /hpf Urine Opiates Screen Not Detected (NotDetected) Ur Oxycodone Screen Not Detected (NotDetected) Urine Methadone Screen Not Detected (NotDetected) Ur Barbiturates Screen Not Detected (NotDetected) U Tricyclic Antidepress Not Detected (NotDetected) Ur Phencyclidine Scrn Not Detected (NotDetected) Ur Amphetamines Screen Not Detected (NotDetected) U Methamphetamines Scrn Not Detected (NotDetected) U Benzodiazepines Scrn Detected H (NotDetected) Urine Cocaine Screen Not Detected (NotDetected) U Marijuana (THC) Screen Not Detected (NotDetected) Serum Alcohol mg/dL Influenza Type A (PCR) Not Detected (Not Detectd) Influenza Type B (PCR) Not Detected (Not Detectd) RSV (PCR) Not Detected (Not Detectd) SARS-CoV-2 (PCR) Not Detected (Not Detectd) 08/13/24 08/13/24 08/13/24 Range/Units 08:28 09:06 09:39 WBC (3.8-10.6) k/uL RBC (3.80-5.40) m/uL Hgb (11.4-16.0) gm/dL Hct (34.0-46.0) % MCV (80.0-100.0) fL MCH (25.0-35.0) pg MCHC (31.0-37.0) g/dL RDW (11.5-15.5) % Plt Count (150-450) k/uL MPV Neutrophils % % Lymphocytes % % Monocytes % % Eosinophils % % Basophils % % Neutrophils # (1.3-7.7) k/uL Lymphocytes # (1.0-4.8) k/uL Monocytes # (0-1.0) k/uL Eosinophils # (0-0.7) k/uL Basophils # (0-0.2) k/uL Hypochromasia PT (10.0-12.5) sec INR (<1.2) APTT (22.0-30.0) sec D-Dimer (<0.60) mg/L FEU Sodium 145 (137-145) mmol/L Potassium 7.4 H* (3.5-5.1) mmol/L Chloride 107 (98-107) mmol/L Carbon Dioxide 30 (22-30) mmol/L Anion Gap 8 mmol/L BUN 49 H (7-17) mg/dL Creatinine 2.42 H (0.52-1.04) mg/dL Est GFR (CKD-EPI)AfAm 21 (>60 ml/min/1.73 sqM) Est GFR (CKD-EPI)NonAf 18 (>60 ml/min/1.73 sqM) Glucose 105 H (74-99) mg/dL POC Glucose (mg/dL) 98 (70-110) mg/dL POC Glu Ruby On Rails Software Developer ID Kellyrger Kemar Calcium 9.0 (8.4-10.2) mg/dL Total Bilirubin 1.1 (0.2-1.3) mg/dL AST 1758 H (14-36) U/L ALT 1376 H (4-34) U/L Alkaline Phosphatase 100 (38-126) U/L Ammonia 39 H (<30) umol/L Troponin I (0.000-0.034) ng/mL Total Protein 6.4 (6.3-8.2) g/dL Albumin 4.3 (3.5-5.0) g/dL Urine Color Urine Appearance (Clear) Urine pH (5.0-8.0) Ur Specific [place] (1.001-1.035) Urine Protein (Negative) Urine Glucose (UA) (Negative) Urine Ketones (Negative) Urine Blood (Negative) Urine Nitrite (Negative) Urine Bilirubin (Negative) Urine Urobilinogen (<2.0) mg/dL Ur Leukocyte Esterase (Negative) Urine RBC (0-5) /hpf Urine WBC (0-5) /hpf Urine WBC Clumps (None) /hpf Ur Squamous Epith Cells (0-4) /hpf Amorphous Sediment (None) /hpf Urine Bacteria (None) /hpf Urine Mucus (None) /hpf Urine Opiates Screen (NotDetected) Ur Oxycodone Screen (NotDetected) Urine Methadone Screen (NotDetected) Ur Barbiturates Screen (NotDetected) U Tricyclic Antidepress (NotDetected) Ur Phencyclidine Scrn (NotDetected) Ur Amphetamines Screen (NotDetected) U Methamphetamines Scrn (NotDetected) U Benzodiazepines Scrn (NotDetected) Urine Cocaine Screen (NotDetected) U Marijuana (THC) Screen (NotDetected) Serum Alcohol <10 mg/dL Influenza Type A (PCR) (Not Detectd) Influenza Type B (PCR) (Not Detectd) RSV (PCR) (Not Detectd) SARS-CoV-2 (PCR) (Not Detectd) - EKG Data -: EKG Interpreted by Me EKG Comments: 12-lead Electrocardiogram Interpretation Note EKG was reviewed and interpreted by myself. 12-lead ECG performed at 0807 is interpreted by me as revealing atrial fibrillation with RVR at a rate of 163 beats per minute. [place] is normal. QRS duration is 106 ms, QTc is 350 ms.. There were no ST or T wave abnormalities to suggest myocardial ischemia or injury. R wave progression across the precordium was satisfactory. By my interpretation this EKG is non-diagnostic for acute ischemia. Critical Care Time Critical Care Time: Yes Total Critical Care Time: 51 Disposition Clinical Impression: Sepsis, UTI (urinary tract infection), Hypoxic respiratory failure, COPD (chronic obstructive pulmonary disease), Hyperkalemia, RITIKA (acute kidney injury), Atrial fibrillation with RVR, Altered mental status Disposition: ADMITTED IP TO THIS HOSP Condition: Serious Time of Disposition: 09:58
[2024-08-13] MEDS: HEPARIN SOD,PORK IN 0.45% NACL 25,000 UNIT in 0.45% NACL 1 250ML.BAG IV SCH ×2 (10:47→12:28)
[2024-08-13 11:17] LABS: Glucose,Whole Blood 220 mg/dL (70-110)
[2024-08-13] MEDS: IPRATROPIUM-ALBUTEROL 3 ML NEB INHALATION STA (11:19)
--- NOTE | 2024-08-13 11:40 | P.NPCON ---
History of Present Illness - Reason for Consult hyperkalemia - History of Present Illness Patient is an 83-year-old female with history of hypertension, sleep apnea and breast cancer who is admitted to the hospital with altered mentation. Patient resides at a nursing facility and family had noticed that over the past 1 week she had become less interactive. Patient was noted to have a fever at the facil ity along with hypotension and was sent into the hospital. There is concern for underlying UTI. Blood pressure was low with systolic in the 90s and patient was also noted to be in A. fib with RVR. Chest x-ray showed pulmonary vascular congestion and patient is currently maintained on BiPAP. Labs showed serum potassium off 7.4 and serum creatinine at 2.4 mg/dL. Previous creatinine 1.5 on 06/20/2024. Currently with indwelling Zepeda catheter. Family is present at bedside and code status is currently no code no intubation. Maintained on Lasix and potassium supplementation prior to admission, currently on hold. Past Medical History Past Medical History: Cancer, COPD, Deep Vein Thrombosis (DVT), Eye Disorder, Hyperlipidemia, Hypertension, Pneumonia Additional Past Medical History / Comment(s): Recent kidney infection, L BREAST CANCER with SX , Bilateral MACULAR DEGENERATION, DVT R leg History of Any Multi-Drug Resistant Organisms: ESBL Date of last positivie culture/infection: 02/24/22 ESBL E.coli MDRO Source:: Urine Past Surgical History: Breast Surgery, Joint Replacement, Tonsillectomy, Tubal Ligation Additional Past Surgical History / Comment(s): 07/04/16 Total L knee arthroplasty. Other surgical hx: LEFT MASTECTOMY, R total knee arthroplasty, bilateral cataract removal. Past Anesthesia/Blood Transfusion Reactions: Motion Sickness Past Psychological History: Anxiety, Depression Smoking Status: Unknown if ever smoked Past Alcohol Use History: None Reported Past Drug Use History: None Reported - Past Family History Mother Family Medical History: Renal Disease Additional Family Medical History / Comment(s): Mother at the age of 84 yrs of kidney failure. Father Family Medical History: No Reported History Additional Family Medical History / Comment(s): Father at the age of 98yrs. Medications and Allergies Home Medications Medication Instructions Recorded Confirmed Type PARoxetine [Paxil] 20 mg PO DAILY@0800 07/03/16 08/13/24 History Montelukast [Singulair] 10 mg PO HS@1700 10/21/19 08/13/24 History Na Phos,M-B/Na Phos,Di-Ba [Fleet 133 ml RECTAL DAILY PRN 10/21/19 08/13/24 History Adult] bisacodyL [Dulcolax] 10 mg RECTAL DAILY PRN 10/21/19 08/13/24 History Aspirin 81 mg PO DAILY@0800 chew 10/24/19 08/13/24 Rx Acetaminophen Tab [Tylenol] 650 mg PO Q4H PRN 03/16/22 08/13/24 History Magnesium Hydroxide [Milk of 7,200 mg PO DAILY PRN 03/16/22 08/13/24 History Magnesia Concentrate] Sennosides/Docusate Sodium 2 tab PO DAILY@0800 03/16/22 08/13/24 History [Senna-S 8.6-50 mg Tablet] Acetaminophen Suppository [Tylenol 650 mg RECTAL Q4H PRN 08/13/24 08/13/24 History Suppository] Acetaminophen [Children's 650 mg PO Q4H PRN 08/13/24 08/13/24 History Acetaminophen] Albuterol Nebulized [Ventolin 2.5 mg INHALATION RT-Q6H PRN 08/13/24 08/13/24 History Nebulized] Budesonide-Formot 160-4.5 Mcg 2 puff INHALATION RT-BID@0800,0 08/13/24 08/13/24 History [Symbicort 160-4.5 Mcg Inhaler] Ensure Enlive 120 ml PO BID@0800,1700 08/13/24 08/13/24 History Furosemide [Lasix] 40 mg PO BID@0800,1700 08/13/24 08/13/24 History Ipratropium-Albuterol Nebulize 3 ml INHALATION RT-Q6H 08/13/24 08/13/24 History [Duoneb 0.5 mg-3 mg/3 ml Soln] LORazepam [Ativan] 0.5 mg PO BID PRN 08/13/24 08/13/24 History [place] Carbonate 300 mg PO BID@0800,1700 08/13/24 08/13/24 History Loperamide [Imodium] 2 mg PO Q6H PRN 08/13/24 08/13/24 History Potassium Chloride ER [K-Dur 20] 40 meq PO BID@0800,1700 08/13/24 08/13/24 History Simvastatin [Zocor] 10 mg PO HS@1700 08/13/24 08/13/24 History risperiDONE 0.5 mg PO HS@2100 08/13/24 08/13/24 History traMADol HCL 50 mg PO Q6H PRN 08/13/24 08/13/24 History traZODone HCL [Desyrel] 50 mg PO HS@2100 08/13/24 08/13/24 History Allergies Allergy/AdvReac Type Severity Reaction Status Date / Time levofloxacin [From Levaquin] Allergy Unknown Verified 08/13/24 09:36 Penicillins Allergy Rash/Hives Verified 08/13/24 09:36 hydrocodone [From [place]] AdvReac Nausea & Verified 08/13/24 09:36 Vomiting Sulfa (Sulfonamide AdvReac Nausea & Verified 08/13/24 09:36 Antibiotics) Vomiting Physical Exam Vitals: Vital Signs Temp Pulse Resp BP Pulse Ox FiO2 08/13/24 11:11 102 H 30 H 92/62 100 08/13/24 10:50 100.3 F H 102 H 30 H 92/62 97 08/13/24 10:23 30 08/13/24 09:56 30 08/13/24 09:42 134 H 30 H 103/68 97 08/13/24 09:22 156 H 28 H 100/72 80 L 08/13/24 08:39 102.1 F H 152 H 28 H 121/82 08/13/24 08:05 40 08/13/24 08:04 77 20 98 Intake and Output 08/12/24 08/13/24 08/13/24 22:59 06:59 14:59 Other: Weight 117.934 kg patient is on BiPAP, appears comfortable Examination of the heart S1 and S2 Examination of the lungs bilateral breath sounds are heard Abdomen is soft obese Examination of lower extremities shows trace edema Results - Lab Results Most recent lab results ABG pH 7.27 (7.35-7.45) L 08/13/24 10:21 ABG pCO2 53 mmHg (35-45) H 08/13/24 10:21 ABG pO2 80 mmHg (83-108) L 08/13/24 10:21 ABG HCO3 24 mmol/L (21-25) 08/13/24 10:21 ABG O2 Saturation 94.1 % (94-97) 08/13/24 10:21 Calcium 9.0 mg/dL (8.4-10.2) 08/13/24 08:28 08/13/24 08:27 08/13/24 08:28 Assessment and Plan Assessment: 1. Acute kidney injury, ATN secondary to hypotension. Nonoliguric. UA is suggestive of UTI with WBCs and WBC clumps. 1+ protein. Check ultrasound of the kidneys. 2. Hyperkalemia associated with acute kidney injury and potassium supplementation although patient was also on loop diuretics. Status post IV treatment. Blood sugar is not significantly elevated and no evidence of active GI bleed. 3. Pyuria rule out UTI 4. Acute hypoxic respiratory failure currently on BiPAP 5. Chronic use of lithium. Calcium not elevated. 6. CK D stage III a with baseline creatinine around 1-1.1 mg/dL. Etiology likely nephrosclerosis and possible chronic interstitial nephropathy if patient has been taking lithium for many years. Plan: Continue with IV fluids and IV antibiotics. IV Lasix 1 Repeat potassium in 2-3 hours Continue with Zepeda catheter Avoid nephrotoxic agents Check ultrasound of the kidneys. Thank you for the consultation. We will continue to follow the patient with you during her hospitalization.
--- NOTE | 2024-08-13 11:47 | P.CNPUL ---
History of Present Illness Consult date: 08/13/24 Requesting physician: Naif Negron Reason for consult: other (Acute hypoxic respiratory failure, urosepsis) Chief complaint: Shortness of breath History of present illness: This is an 83-year-old female with history of multiple medical problems, patient [facility] in a [facility], brought into the ER with altered mental status, shortness of breath, hypotension, atrial fibrillation with RVR, hypoxia and hypercapnia with a pCO2 in the range of 53 and pH of 7.27 on BiPAP, patient was also noted to be hyperkalemic and developed what seems to be a picture of acute kidney injury. Drug screen seems to be positive for benzodiazepines, patient tested negative for influenza A, influenza B, RSV and SARS. Her urinalysis showed evidence of bacteriuria and pyuria, troponin was elevated as high as 0.244, ammonia level was elevated at 39, potassium elevated at 7.4 D- dimer value be elevated at 19.97 patient was also noted to have leukocytosis, with WBC count of 18.3, chest x-ray showed cardiomegaly and minimal pulmonary vascular congestion no clear-cut evidence of pneumonia or significant pulmonary edema. Brain CT showed extensive nonspecific white matter changes, no acute intracranial process noted blood pressure was noted to be marginal 92/62 patient required fluids but did not require pressors. I evaluated the patient in the ER, she seems to be extremely, and critically ill advised BiPAP on this patient advised amiodarone for atrial fibrillation with RVR advised transfer to ICU with nephrology consultation and cardiology consultation. Touch bases on CODE STATUS with the family, apparently family wishes DNR CODE STATUS. Considering the patient is noted to have elevated D-dimer, she will ideally need further scanning to rule out thromboembolic disease, but she is not stable enough for VQ scan I am recommending that we heparinize the patient empirically check venous Doppler, and will address VQ scan once the patient is stabilized. In the meantime considering the patient has evidence of urinary tract infection/urosepsis, I am recommending empiric treatment with antibiotics for presumptive UTI. Her last urine culture from couple of months ago was positive for Enterococcus faecalis, and she also had Morganella morganii in the urine previously, patient will be covered with antibiotics in the form of vancomycin and cefepime for now. Review of Systems ROS unobtainable: due to mental status (Could not get much history from the patient, she is obtunded family is at bedside but did not contribute much to history since the patient is a prison resident) Past Medical History Past Medical History: Cancer, COPD, Deep Vein Thrombosis (DVT), Eye Disorder, Hyperlipidemia, Hypertension, Pneumonia Additional Past Medical History / Comment(s): Recent kidney infection, L BREAST CANCER with SX , Bilateral MACULAR DEGENERATION, DVT R leg History of Any Multi-Drug Resistant Organisms: ESBL Date of last positivie culture/infection: 02/24/22 ESBL E.coli MDRO Source:: Urine Past Surgical History: Breast Surgery, Joint Replacement, Tonsillectomy, Tubal Ligation Additional Past Surgical History / Comment(s): 07/04/16 Total L knee arthrop lasty. Other surgical hx: LEFT MASTECTOMY, R total knee arthroplasty, bilateral cataract removal. Past Anesthesia/Blood Transfusion Reactions: Motion Sickness Past Psychological History: Anxiety, Depression Smoking Status: Unknown if ever smoked Past Alcohol Use History: None Reported Past Drug Use History: None Reported - Past Family History Mother Family Medical History: Renal Disease Additional Family Medical History / Comment(s): Mother at the age of 84 yrs of kidney failure. Father Family Medical History: No Reported History Additional Family Medical History / Comment(s): Father at the age of 98yrs. Medications and Allergies Home Medications Medication Instructions Recorded Confirmed Type PARoxetine [Paxil] 20 mg PO DAILY@0800 07/03/16 08/13/24 History Montelukast [Singulair] 10 mg PO HS@1700 10/21/19 08/13/24 History Na Phos,M-B/Na Phos,Di-Ba [Fleet 133 ml RECTAL DAILY PRN 10/21/19 08/13/24 History Adult] bisacodyL [Dulcolax] 10 mg RECTAL DAILY PRN 10/21/19 08/13/24 History Aspirin 81 mg PO DAILY@0800 chew 10/24/19 08/13/24 Rx Acetaminophen Tab [Tylenol] 650 mg PO Q4H PRN 03/16/22 08/13/24 History Magnesium Hydroxide [Milk of 7,200 mg PO DAILY PRN 03/16/22 08/13/24 History Magnesia Concentrate] Sennosides/Docusate Sodium 2 tab PO DAILY@0800 03/16/22 08/13/24 History [Senna-S 8.6-50 mg Tablet] Acetaminophen Suppository [Tylenol 650 mg RECTAL Q4H PRN 08/13/24 08/13/24 History Suppository] Acetaminophen [Children's 650 mg PO Q4H PRN 08/13/24 08/13/24 History Acetaminophen] Albuterol Nebulized [Ventolin 2.5 mg INHALATION RT-Q6H PRN 08/13/24 08/13/24 History Nebulized] Budesonide-Formot 160-4.5 Mcg 2 puff INHALATION RT-BID@0800,1700 08/13/24 08/13/24 History [Symbicort 160-4.5 Mcg Inhaler] Ensure Enlive 120 ml PO BID@0800,1700 08/13/24 08/13/24 History Furosemide [Lasix] 40 mg PO BID@0800,1700 08/13/24 08/13/24 History Ipratropium-Albuterol Nebulize 3 ml INHALATION RT-Q6H 08/13/24 08/13/24 History [Duoneb 0.5 mg-3 mg/3 ml Soln] LORazepam [Ativan] 0.5 mg PO BID PRN 08/13/24 08/13/24 History [place] Carbonate 300 mg PO BID@0800,0 08/13/24 08/13/24 History Loperamide [Imodium] 2 mg PO Q6H PRN 08/13/24 08/13/24 History Potassium Chloride ER [K-Dur 20] 40 meq PO BID@0800,1700 08/13/24 08/13/24 History Simvastatin [Zocor] 10 mg PO HS@0 08/13/24 08/13/24 History risperiDONE 0.5 mg PO HS@209908/13/24 08/13/24 History traMADol HCL 50 mg PO Q6H PRN 08/13/24 08/13/24 History traZODone HCL [Desyrel] 50 mg PO HS@209908/13/24 08/13/24 History Allergies Allergy/AdvReac Type Severity Reaction Status Date / Time levofloxacin [From Levaquin] Allergy Unknown Verified 08/13/24 09:36 Penicillins Allergy Rash/Hives Verified 08/13/24 09:36 hydrocodone [From [place]] AdvReac Nausea & Verified 08/13/24 09:36 Vomiting Sulfa (Sulfonamide AdvReac Nausea & Verified 08/13/24 09:36 Antibiotics) Vomiting Physical Exam Vitals: Vital Signs Temp Pulse Resp BP Pulse Ox FiO2 08/13/24 11:11 102 H 30 H 92/62 100 08/13/24 10:50 100.3 F H 102 H 30 H 92/62 97 08/13/24 10:23 30 08/13/24 09:56 30 08/13/24 09:42 134 H 30 H 103/68 97 08/13/24 09:22 156 H 28 H 100/72 80 L 08/13/24 08:39 102.1 F H 152 H 28 H 121/82 08/13/24 08:05 40 08/13/24 08:04 77 20 98 Intake and Output 08/12/24 08/13/24 08/13/24 22:59 06:59 14:59 Other: Weight 117.934 kg Physical Exam: Revealed 83-year-old female on BiPAP, obtunded, seen in the ER Head: Atraumatic, normocephalic. HEENT:[Neck is supple.] [No neck masses.] [No thyromegaly.] [No JVD.] Dry mucou s membranes noted. Chest: Diminished breath sound bilaterally minimal crackles at the bases no rhonchi no wheezes Cardiac Exam: Irregular irregular rhythm distant S1 and S2, no S3 gallop. 2/6 systolic murmur throughout the precordium Abdomen: [Soft, nontender, no megaly, no rebound, no guarding, normal bowel sounds.] Extremities: [No clubbing, no edema, no cyanosis.] Multiple areas of ecchymosis noted bilaterally. Neurological Exam: [No focal neurologic deficit.] Alert oriented 3, patient is rather slow. Skin: Multiple areas of ecchymosis and she has extremely dry skin. Psychiatric: Cannot assess, obtunded not responding to any stimuli neurologic: Could not assess, obtunded Results - Laboratory Findings CBC and BMP: 08/13/24 08:27 08/13/24 08:28 ABG ABG pH 7.27 (7.35-7.45) L 08/13/24 10:21 ABG pCO2 53 mmHg (35-45) H 08/13/24 10:21 ABG pO2 80 mmHg (83-108) L 08/13/24 10:21 ABG O2 Saturation 94.1 % (94-97) 08/13/24 10:21 PT/INR, D-dimer PT 13.4 sec (10.0-12.5) H 08/13/24 08:27 INR 1.3 (<1.2) H 08/13/24 08:27 D-Dimer 19.97 mg/L FEU (<0.60) H 08/13/24 08:27 Abnormal lab findings: Abnormal Labs 08/13/24 08/13/24 08/13/24 08:16 08:27 08:27 WBC 18.3 H Hgb 11.0 L MCHC 29.4 L RDW 15.7 H Neutrophils # 15.6 H Monocytes # 1.2 H PT 13.4 H INR 1.3 H D-Dimer 19.97 H ABG pH ABG pCO2 ABG pO2 ABG Total CO2 Hemoglobin Potassium BUN Creatinine Glucose POC Glucose (mg/dL) 111 H AST ALT Ammonia Troponin I Urine Appearance Urine Protein Urine Blood Urine Nitrite Ur Leukocyte Esterase Urine RBC Urine WBC Urine WBC Clumps Amorphous Sediment Urine Bacteria Urine Mucus U Benzodiazepines Scrn 08/13/24 08/13/24 08/13/24 08:27 08:27 08:28 WBC Hgb MCHC RDW Neutrophils # Monocytes # PT INR D-Dimer ABG pH ABG pCO2 ABG pO2 ABG Total CO2 Hemoglobin Potassium 7.4 H* BUN 49 H Creatinine 2.42 H Glucose 105 H POC Glucose (mg/dL) AST 1758 H ALT 1376 H Ammonia Troponin I 0.244 H* Urine Appearance Turbid H Urine Protein 1+ H Urine Blood Small H Urine Nitrite Positive H Ur Leukocyte Esterase Large H Urine RBC 8 H Urine WBC 40 H Urine WBC Clumps Few H Amorphous Sediment Rare H Urine Bacteria Few H Urine Mucus Occasional H U Benzodiazepines Scrn Detected H 08/13/24 08/13/24 08/13/24 09:39 10:21 11:13 WBC Hgb MCHC RDW Neutrophils # Monocytes # PT INR D-Dimer ABG pH 7.27 L ABG pCO2 53 H ABG pO2 80 L ABG Total CO2 26 H Hemoglobin 9.4 L Potassium BUN Creatinine Glucose POC Glucose (mg/dL) 220 H AST ALT Ammonia 39 H Troponin I Urine Appearance Urine Protein Urine Blood Urine Nitrite Ur Leukocyte Esterase Urine RBC Urine WBC Urine WBC Clumps Amorphous Sediment Urine Bacteria Urine Mucus U Benzodiazepines Scrn - Diagnostic Findings Chest x-ray: image reviewed (As noted in HPI) Additional studies: CT brain as noted in HPI Assessment and Plan Assessment: Impression: Acute on chronic hypoxic and hypercapnic respiratory failure most likely secondary to severe COPD/underlying COPD with acute exacerbation Chronic hypoxic and chronic hypercapnic respiratory failure patient is supposedly on [facility] prison Altered mental status secondary to acute metabolic encephalopathy Urinary tract infection, strongly suspect sepsis with hypotension Acute kidney injury with hyperkalemia secondary to acute kidney injury and secondary to acute respiratory acidosis with a pH of 7.27 Elevated D-dimer possible thromboembolic disease Leukocytosis secondary to urinary tract infection and urosepsis History of deep vein thrombosis supposedly on long-term anticoagulation therapy, questionable compliance Benign essential hypertension Dyslipidemia History of macular degeneration History of breast cancer and previous left-sided mastectomy Recommendation: Seen in the ER and recommended transferring patient to ICU Continue BiPAP 16/6/50% and titrate FiO2 accordingly Broad-spectrum antibiotics including cefepime and vancomycin Patient to be placed on heparin empirically specially with her elevated D-dimer and her previous history of DVT Check blood cultures and urine cultures GI and DVT prophylaxis Will address the nutritional support in the next 24 hours. Bronchodilators in the form of DuoNeb Solu-Medrol/steroids for underlying COPD IV fluids/IV fluid boluses given in the ER Amiodarone for atrial fibrillation with RVR and consult cardiology Treat hyperkalemia as per protocol, initiated in the ER, patient will also need to be seen by nephrology in consultation Discussed CODE STATUS with family at bedside Family wishes DNR CODE STATUS. Prognosis is extremely poor Will continue to follow, patient is critically ill Time with Patient: Greater than 30
[2024-08-13] MEDS: HYDROCORTISONE SUCCINATE 100 MG/2 ML VIAL IV SCH (12:30)
[2024-08-13] MEDS: FUROSEMIDE 10 MG/ML 4 ML VIAL IV STA (12:30)
--- NOTE | 2024-08-13 12:43 | P.CRDCN ---
History of Present Illness Consult date: 08/13/24 History of present illness: History of Present Illness: The patient is an 83-year-old female, [facility] of a [facility] who presented with change in mental status, worsening dyspnea and was noted to have a urosepsis, exacerbation of COPD as well as atrial fibrillation with rapid ventricular response. The history is obtained from her son. The patient is somnolent on a BiPAP not answering questions. She has a known history of significant COPD, on home oxygen, very limited in her physical activity in the wheelchair. She has questionable history of CHF in the past but no history of atrial fibrillation, documented obstructive CAD or myocardial infarction. She h as a prior history of UTI, frequent. She is on IV amiodarone and was started on IV heparin. She is on no vasopressors. She has poor urinary output. The family is a DNR. She underwent a CT scan of the head that showed no acute intracranial process with white matter changes, likely secondary to small vessel disease. Her EKG showed atrial fibrillation with rapid ventricular response, nonspecific ST-T wave changes, cannot exclude anterior wall myocardial infarction of unknown timing. In March 2024 she was in sinus mechanism. She has a history of hyperlipidemia, prior history of smoking but no history of diabetes. In 2019 she had a normal left ventricular systolic function Medications: Prior to admission trazodone, simvastatin, risperidone, Paxil, Ativan, Lasix 40 mg twice a day, budesonide, aspirin Review of Systems: Could not be obtained, patient is somnolent on BiPAP not answering questions Physical Examination: 83-year-old female, somnolent and obtunded, on BiPAP,Blood pressure 95/70, Heart rate 108 Head: Normocephalic. Eyes: Sclerae nonicteric. Neck: Good carotid upstroke, no bruit, unable to evaluate jugular venous pressure. Lungs: Clear to auscultation anteriorly. Heart: Irregular rate and rhythm, S1-S2, no S3, no rub. Systolic ejection murmur. Abdomen: Soft nontender, positive bowel sounds no organomegaly. Extremities: No edema, diffuse ecchymosis. Labs: WBC 18.3, D-dimer 19.9, pH 7.27 with pCO2 of 80. Potassium 7.4, BUN 49, creatinine 2.42. AST 1758, ALT 1376. Troponin 0.244. Ammonia 39. Urine analysis was positive for nitrate and large leukocyte esterase EKG: Atrial fibrillation with nonspecific ST-T wave changes, cannot exclude anterior wall myocardial infarction of unknown duration Impression: 1. Change in mental status with encephalopathy, probable secondary to infection with acute hypoxemia 2. Urinary tract infection 3. Atrial fibrillation with rapid ventricle worsened by the infection, not documented in March. 4. Chronic obstructive lung disease on home oxygen 5. Acute renal injury 6. Acute liver injury 7. History of hyperlipidemia 8. Prior history of DVT 9. Elevated D dimer, could be related to infectious process or acute in flammation, rule out PE or recurrent DVT Plan: 1. Continue IV amiodarone and IV heparin 2. Obtain an echocardiogram with Doppler 3. Duplex scan of the lower extremities rule out acute DVT 4. Continue supportive care 5. Prognosis is poor, discussed with the son. Thank you for this consult we w ill follow with you. Past Medical History Past Medical History: Cancer, COPD, Deep Vein Thrombosis (DVT), Eye Disorder, Hyperlipidemia, Hypertension, Pneumonia Additional Past Medical History / Comment(s): Recent kidney infection, L BREAST CANCER with SX , Bilateral MACULAR DEGENERATION, DVT R leg History of Any Multi-Drug Resistant Organisms: ESBL Date of last positivie culture/infection: 02/24/22 ESBL E.coli MDRO Source:: Urine Past Surgical History: Breast Surgery, Joint Replacement, Tonsillectomy, Tubal Ligation Additional Past Surgical History / Comment(s): 07/04/16 Total L knee arthroplasty. Other surgical hx: LEFT MASTECTOMY, R total knee arthroplasty, bilateral cataract removal. Past Anesthesia/Blood Transfusion Reactions: Motion Sickness Past Psychological History: Anxiety, Depression Smoking Status: Unknown if ever smoked Past Alcohol Use History: None Reported Past Drug Use History: None Reported - Past Family History Mother Family Medical History: Renal Disease Additional Family Medical History / Comment(s): Mother at the age of 84 yrs of kidney failure. Father Family Medical History: No Reported History Additional Family Medical History / Comment(s): Father at the age of 98yrs. Medications and Allergies Home Medications Medication Instructions Recorded Confirmed Type PARoxetine [Paxil] 20 mg PO DAILY@0800 07/03/16 08/13/24 History Montelukast [Singulair] 10 mg PO HS@1700 10/21/19 08/13/24 History Na Phos,M-B/Na Phos,Di-Ba [Fleet 133 ml RECTAL DAILY PRN 10/21/19 08/13/24 History Adult] bisacodyL [Dulcolax] 10 mg RECTAL DAILY PRN 10/21/19 08/13/24 History Aspirin 81 mg PO DAILY@0800 chew 10/24/19 08/13/24 Rx Acetaminophen Tab [Tylenol] 650 mg PO Q4H PRN 03/16/22 08/13/24 History Magnesium Hydroxide [Milk of 7,200 mg PO DAILY PRN 03/16/22 08/13/24 History Magnesia Concentrate] Sennosides/Docusate Sodium 2 tab PO DAILY@0800 03/16/22 08/13/24 History [Senna-S 8.6-50 mg Tablet] Acetaminophen Suppository [Tylenol 650 mg RECTAL Q4H PRN 08/13/24 08/13/24 History Suppository] Acetaminophen [Children's 650 mg PO Q4H PRN 08/13/24 08/13/24 History Acetaminophen] Albuterol Nebulized [Ventolin 2.5 mg INHALATION RT-Q6H PRN 08/13/24 08/13/24 History Nebulized] Budesonide-Formot 160-4.5 Mcg 2 puff INHALATION RT-BID@0800,1700 08/13/24 08/13/24 History [Symbicort 160-4.5 Mcg Inhaler] Ensure Enlive 120 ml PO BID@0800,1700 08/13/24 08/13/24 History Furosemide [Lasix] 40 mg PO BID@0800,1700 08/13/24 08/13/24 History Ipratropium-Albuterol Nebulize 3 ml INHALATION RT-Q6H 08/13/24 08/13/24 History [Duoneb 0.5 mg-3 mg/3 ml Soln] LORazepam [Ativan] 0.5 mg PO BID PRN 08/13/24 08/13/24 History [place] Carbonate 300 mg PO BID@0800,1700 08/13/24 08/13/24 History Loperamide [Imodium] 2 mg PO Q6H PRN 08/13/24 08/13/24 History Potassium Chloride ER [K-Dur 20] 40 meq PO BID@0800,1700 08/13/24 08/13/24 History Simvastatin [Zocor] 10 mg PO HS@1700 08/13/24 08/13/24 History risperiDONE 0.5 mg PO HS@2100 08/13/24 08/13/24 History traMADol HCL 50 mg PO Q6H PRN 08/13/24 08/13/24 History traZODone HCL [Desyrel] 50 mg PO HS@2100 08/13/24 08/13/24 History Allergies Allergy/AdvReac Type Severity Reaction Status Date / Time levofloxacin [From Levaquin] Allergy Unknown Verified 08/13/24 09:36 Penicillins Allergy Rash/Hives Verified 08/13/24 09:36 hydrocodone [From [place]] AdvReac Nausea & Verified 08/13/24 09:36 Vomiting Sulfa (Sulfonamide AdvReac Nausea & Verified 08/13/24 09:36 Antibiotics) Vomiting Physical Exam Vitals: Vital Signs Temp Pulse Resp BP Pulse Ox FiO2 08/13/24 11:40 30 08/13/24 11:11 102 H 30 H 92/62 100 08/13/24 10:50 100.3 F H 102 H 30 H 92/62 97 08/13/24 10:23 30 08/13/24 09:56 30 08/13/24 09:42 134 H 30 H 103/68 97 08/13/24 09:22 156 H 28 H 100/72 80 L 08/13/24 08:39 102.1 F H 152 H 28 H 121/82 08/13/24 08:05 40 08/13/24 08:04 77 20 98 Intake and Output 08/12/24 08/13/24 08/13/24 22:59 06:59 14:59 Other: Weight 117.934 kg Results 08/13/24 08:27 08/13/24 08:28 Cardiac Enzymes 08/13/24 08/13/24 Range/Units 08:27 08:28 AST 1758 H (14-36) U/L Troponin I 0.244 H* (0.000-0.034) ng/mL Coagulation 08/13/24 Range/Units 08:27 PT 13.4 H (10.0-12.5) sec APTT 23.7 (22.0-30.0) sec CBC 08/13/24 Range/Units 08:27 WBC 18.3 H (3.8-10.6) k/uL RBC 4.20 (3.80-5.40) m/uL Hgb 11.0 L (11.4-16.0) gm/dL Hct 37.3 (34.0-46.0) % Plt Count 253 (150-450) k/uL Comprehensive Metabolic Panel 08/13/24 Range/Units 08:28 Sodium 145 (137-145) mmol/L Potassium 7.4 H* (3.5-5.1) mmol/L Chloride 107 (98-107) mmol/L Carbon Dioxide 30 (22-30) mmol/L BUN 49 H (7-17) mg/dL Creatinine 2.42 H (0.52-1.04) mg/dL Glucose 105 H (74-99) mg/dL Calcium 9.0 (8.4-10.2) mg/dL AST 1758 H (14-36) U/L ALT 1376 H (4-34) U/L Alkaline Phosphatase 100 (38-126) U/L Total Protein 6.4 (6.3-8.2) g/dL Albumin 4.3 (3.5-5.0) g/dL Current Medications Generic Name Dose Route Start Last Admin Trade Name Freq PRN Reason Stop Dose Admin Acetaminophen 650 mg 08/13/24 10:05 Acetaminophen Suppository 650 Mg Supp RECTAL Q4HR PRN Fever And/ Or Mild Pain Albuterol/Ipratropium 3 ml 08/13/24 10:05 Ipratropium-Albuterol 3 Ml Neb INHALATION RT-Q4H PRN Shortness Of Breath Or Wheezing Hydrocortisone Sodium Succinate 100 mg 08/13/24 12:00 08/13/24 12:30 Hydrocortisone Succinate 100 Mg/2 Ml Vial IV 100 mg Q8H VENKATA Administration Sodium Chloride 1,000 mls @ 130 mls/hr 08/13/24 08:45 08/13/24 09:56 Saline 0.9% IV 08/13/24 16:26 130 mls/hr .Q7H42M STA Administration Vancomycin HCl 1,500 mg/ 500 mls @ 167 mls/hr 08/14/24 10:00 Sodium Chloride IVPB 08/14/24 12:59 ONCE ONE Amiodarone HCl 360 mg/ 200 mls @ 33.333 mls/hr 08/13/24 10:19 08/13/24 10:42 Dextrose/Water IV 08/13/24 16:18 1 mg/min .Q6H ONE 33.333 mls/hr Administration Protocol 1 MG/MIN Amiodarone HCl 450 mg/ 250 mls @ 16.667 mls/hr 08/13/24 16:18 Dextrose/Water IV 08/14/24 10:17 .Q15H VENKATA Protocol 0.5 MG/MIN Cefepime HCl 1 gm/ Sodium 50 mls @ 12.5 mls/hr 08/13/24 20:00 Chloride IVPB Q12H VENKATA Protocol Heparin Sodium/Sodium Chloride 250 mls @ 21.228 mls/hr 08/13/24 12:15 08/13/24 12:28 25,000 unit/ Sodium Chloride IV 18 units/kg/hr .[id number] VENKATA 21.228 mls/hr Administration Protocol 18 UNITS/KG/HR Miscellaneous Information 1 each 08/13/24 08:16 Vancomycin Iv Per Pharmacy 1 Each Misc MISCELLANE DIRECTED PRN Per Protocol Protocol Naloxone HCl 0.2 mg 08/13/24 10:05 Naloxone 0.4 Mg/Ml 1 Ml Vial IV Q2M PRN Opioid Reversal Pantoprazole Sodium 40 mg 08/14/24 09:00 Pantoprazole 40 Mg/10 Ml Vial IV DAILY VENKATA Intake and Output 08/12/24 08/13/24 08/13/24 22:59 06:59 14:59 Other: Weight 117.934 kg Patient Weight 08/14/24 06:59 Weight 117.934 kg 08/13/24 08:27 08/13/24 08:28
--- NOTE | 2024-08-13 13:05 | US ---
EXAMINATION TYPE: US venous doppler duplex LE DATE OF EXAM: 08/13/2024 12:53 PM COMPARISON: NONE CLINICAL INDICATION: Female, 83 years old with history of elevated dimer, eval for dvt; Elevated D Di constantine. , TECHNIQUE: The lower extremity deep venous system is examined utilizing real time linear array sonog jillian with graded compression, color doppler sonography, and spectral doppler. SIDE PERFORMED: Bilateral FINDINGS: VESSELS IMAGED: Common Femoral Vein Deep Femoral Vein Greater Saphenous Vein * Femoral Vein Popliteal Vein Small Saphenous Vein * Right only Proximal Calf Veins Left only (* superficial vessels) Right Leg: Difficult exam, RN had to hold patient's leg up to scan behind the knee. Limited evalua tion of popliteal vein. *Possible color defect and internal echoes within popliteal vein versus limit ed due to positioning. Question non-occlusive thrombus in popliteal vein. Unable to visualize prox calf veins, PTV and peroneal veins in calf/ankle. Left Leg: SSV not seen. No evidence of DVT, however, exam is limited. Unable to visualize PTV and peroneal veins in calf/ankle. IMPRESSION: Limited exam due to patient participation. Evidence of possible nonocclusive thrombus in the right po pliteal vein. [facility], , 08/13/2024 1:03 PM
--- NOTE | 2024-08-13 13:37 | US ---
EXAMINATION TYPE: US kidneys/renal and bladder DATE OF EXAM: 08/13/2024 COMPARISON: CT 2010 CLINICAL INDICATION: Female, 83 years old with history of ritika; RITIKA TECHNIQUE: Grayscale imaging of the bilateral kidneys and urinary bladder: FINDINGS: EXAM MEASUREMENTS: Right Kidney: 9.1 x 4.2 x 4.7 cm Left Kidney: Obscured Right Kidney: 2 anechoic areas seen lower pole. #1= 2.5 x 2.1 x 2.4 cm. #2= 2.2 x 2.1 x 2.2 cm. *Hyperechoic focus seen lower pole= 0.7 x 0.6 x 0.6 cm. Left Kidney: Obscured Bladder: Unable to visualize. Bilateral Jets seen: No IMPRESSION: 1. No evidence for obstructive uropathy. 2. Right renal cyst. 3. Right nonobstructing calculus. 4. Nonvisualization of left kidney due to bowel gas [facility], , 08/13/2024 1:35 PM
--- NOTE | 2024-08-13 14:32 | P.HPIM ---
History of Present Illness H&P Date: 08/13/24 History of present illness: 83-year-old female with past medical history significant for multiple medical conditions lives in a assisted facility was brought to the ER for altered mental status for the last few days, shortness of breath, low blood pressure, recently was found to have UTI. Patient has history of COPD, DVT, hypertension, hyperlipidemia, history of ESBL. Son at the bedside. Patient currently on BiPAP on FiO2 30%, poor historian due to altered mental status. Son reported that patient was confused for the last few days, had poor p.o. intake. In the ER patient was found to be with altered mental status, hypoxia, hypotensive, had A-fib with RVR hypercapnia with CO2 53 required BiPAP, was also noted to have acute kidney injury with hyperkalemia with potassium of 7.5. Urine drug screen was positive for benzodiazepine. Influenza RSV and COVID was negative. UA showed bacteriuria and pyuria. Troponin mildly elevated at 0.244, ammonia was 39. D-dimer was elevated at 19.97. Patient was noted to have WBCs 8.3, chest x-ray concerning for cardiomegaly and pulmonary venous congestion. CT head showed extensive nonspecific white matter changes, no acute intracranial pro cess. Patient was given IV fluids in the ED. Family at bedside confirmed the CODE STATUS to be DNR limited. Last urine culture for few months ago showed Enterococcus faecalis, Morganella. REVIEW OF SYSTEMS: Limited review of system due to altered mental status PHYSICAL EXAMINATION: GENERAL: The patient is A&O x0 on BiPAP. Ill-appearing. HEENT: EOMI, Sclerae anicteric, Moist Mucous membranes Neck: Supple, Non tender, No JVD PULMONARY: Equal breath souds B/L, No wheezing, No crackles. CARDIOVASCULAR: S1, S2 present. No murmurs, rubs, or gallops. ABDOMEN: Soft, nontender, nondistended, normoactive bowel sounds. No guarding or rebound tenderness. MUSCULOSKELETAL: +edema, No cyanosis. No clubbing. Normal ROM. Intact peripheral pulses. NEUROLOGICAL: CN 2-12 grossly intact. No FND Assessment and plan: Acute on chronic hypoxic hypercapnic respiratory failure Severe COPD with acute exacerbation Chronic hypoxic hypercapnic respiratory failure, reportedly on BiPAP at assisted Acute metabolic encephalopathy Severe sepsis Hypotension Elevated D-dimer Right lower extremity DVT A-fib with RVR NSTEMI RITIKA Hyperkalemia Hypertension Hyperlipidemia History of macular degeneration History of breast cancer and previous left-sided mastectomy Plan: Current in the ICU Continue BiPAP Broad-spectrum antibiotics vancomycin and cefepime Continue heparin drip Amiodarone Blood culture, urine culture Bronchodilator, Solu-Medrol per pulmonary Ultrasound venouslimited exam, evidence of possible nonocclusive thrombus in the right popliteal vein VQ scan IV fluids Echocardiogram Ultrasound of the kidneysno hydronephrosis Cardiology consult Nephrology consult Infectious disease consult ICU consult Poor prognosis DVT prophylaxis Anticoagulated Monitor vital signs and labs Labs and medication were reviewed. Continue same treatment. Further recommendations as per clinical course of the patient Dictation was produced using [employer] dictation software. please excuse any grammatical, word or spelling errors. Past Medical History Past Medical History: Cancer, COPD, Deep Vein Thrombosis (DVT), Eye Disorder, Hyperlipidemia, Hypertension, Pneumonia Additional Past Medical History / Comment(s): Recent kidney infection, L BREAST CANCER with SX , Bilateral MACULAR DEGENERATION, DVT R leg History of Any Multi-Drug Resistant Organisms: ESBL Date of last positivie culture/infection: 02/24/22 ESBL E.coli MDRO Source:: Urine Past Surgical History: Breast Surgery, Joint Replacement, Tonsillectomy, Tubal Ligation Additional Past Surgical History / Comment(s): 07/04/16 Total L knee arthroplasty. Other surgical hx: LEFT MASTECTOMY, R total knee arthroplasty, bilateral cataract removal. Past Anesthesia/Blood Transfusion Reactions: Motion Sickness Past Psychological History: Anxiety, Depression Smoking Status: Unknown if ever smoked Past Alcohol Use History: None Reported Past Drug Use History: None Reported - Past Family History Mother Family Medical History: Renal Disease Additional Family Medical History / Comment(s): Mother at the age of 84 yrs of kidney failure. Father Family Medical History: No Reported History Additional Family Medical History / Comment(s): Father at the age of 98yrs. Medications and Allergies Home Medications Medication Instructions Recorded Confirmed Type PARoxetine [Paxil] 20 mg PO DAILY@0800 07/03/16 08/13/24 History Montelukast [Singulair] 10 mg PO HS@1700 10/21/19 08/13/24 History Na Phos,M-B/Na Phos,Di-Ba [Fleet 133 ml RECTAL DAILY PRN 10/21/19 08/13/24 History Adult] bisacodyL [Dulcolax] 10 mg RECTAL DAILY PRN 10/21/19 08/13/24 History Aspirin 81 mg PO DAILY@0800 chew 10/24/19 08/13/24 Rx Acetaminophen Tab [Tylenol] 650 mg PO Q4H PRN 03/16/22 08/13/24 History Magnesium Hydroxide [Milk of 7,200 mg PO DAILY PRN 03/16/22 08/13/24 History Magnesia Concentrate] Sennosides/Docusate Sodium 2 tab PO DAILY@0800 03/16/22 08/13/24 History [Senna-S 8.6-50 mg Tablet] Acetaminophen Suppository [Tylenol 650 mg RECTAL Q4H PRN 08/13/24 08/13/24 History Suppository] Acetaminophen [Children's 650 mg PO Q4H PRN 08/13/24 08/13/24 History Acetaminophen] Albuterol Nebulized [Ventolin 2.5 mg INHALATION RT-Q6H PRN 08/13/24 08/13/24 History Nebulized] Budesonide-Formot 160-4.5 Mcg 2 puff INHALATION RT-BID@0800,1700 08/13/24 08/13/24 History [Symbicort 160-4.5 Mcg Inhaler] Ensure Enlive 120 ml PO BID@0800,1700 08/13/24 08/13/24 History Furosemide [Lasix] 40 mg PO BID@0800,1700 08/13/24 08/13/24 History Ipratropium-Albuterol Nebulize 3 ml INHALATION RT-Q6H 08/13/24 08/13/24 History [Duoneb 0.5 mg-3 mg/3 ml Soln] LORazepam [Ativan] 0.5 mg PO BID PRN 08/13/24 08/13/24 History [place] Carbonate 300 mg PO BID@0800,1700 08/13/24 08/13/24 History Loperamide [Imodium] 2 mg PO Q6H PRN 08/13/24 08/13/24 History Potassium Chloride ER [K-Dur 20] 40 meq PO BID@0800,1700 08/13/24 08/13/24 History Simvastatin [Zocor] 10 mg PO HS@1700 08/13/24 08/13/24 History risperiDONE 0.5 mg PO HS@2100 08/13/24 08/13/24 History traMADol HCL 50 mg PO Q6H PRN 08/13/24 08/13/24 History traZODone HCL [Desyrel] 50 mg PO HS@2100 08/13/24 08/13/24 History Allergies Allergy/AdvReac Type Severity Reaction Status Date / Time levofloxacin [From Levaquin] Allergy Unknown Verified 08/13/24 09:36 Penicillins Allergy Rash/Hives Verified 08/13/24 09:36 hydrocodone [From [place]] AdvReac Nausea & Verified 08/13/24 09:36 Vomiting Sulfa (Sulfonamide AdvReac Nausea & Verified 08/13/24 09:36 Antibiotics) Vomiting Physical Exam Vitals: Vital Signs Temp Pulse Resp BP Pulse Ox FiO2 08/13/24 13:00 102 H 26 H 96/75 100 08/13/24 12:50 118 H 25 H 96/75 100 08/13/24 12:40 116 H 24 78/64 99 08/13/24 12:30 98 30 H 92/63 98 08/13/24 12:20 115 H 28 H 92/63 99 08/13/24 12:10 110 H 26 H 85/70 99 08/13/24 12:00 105 H 30 H 85/66 98 08/13/24 11:50 110 H 29 H 85/66 98 08/13/24 11:40 106 H 25 H 87/64 98 30 08/13/24 11:30 101.6 F H 112 H 23 88/63 90 L 30 08/13/24 11:22 25 H 08/13/24 11:11 102 H 30 H 92/62 100 08/13/24 10:50 100.3 F H 102 H 30 H 92/62 97 08/13/24 10:23 30 08/13/24 09:56 30 08/13/24 09:42 134 H 30 H 103/68 97 08/13/24 09:22 156 H 28 H 100/72 80 L 08/13/24 08:39 102.1 F H 152 H 28 H 121/82 08/13/24 08:05 40 08/13/24 08:04 77 20 98 Intake and Output 08/12/24 08/13/24 08/13/24 22:59 06:59 14:59 Intake Total 130 Output Total 80 Balance 50 Intake: Intake, IV Titration 130 Amount Sodium Chloride 0.9% 1, 130 000 ml @ 130 mls/hr IV . Q7H42M STA Rx#:[id number] Output: Urine 80 Other: Weight 117.934 kg Results CBC & Chem 7: 08/13/24 08:27 08/13/24 11:50 Labs: Abnormal Lab Results - Last 24 Hours (Table) 08/13/24 08/13/24 08/13/24 Range/Units 08:16 08:27 08:27 WBC 18.3 H (3.8-10.6) k/uL Hgb 11.0 L (11.4-16.0) gm/dL MCHC 29.4 L (31.0-37.0) g/dL RDW 15.7 H (11.5-15.5) % Neutrophils # 15.6 H (1.3-7.7) k/uL Monocytes # 1.2 H (0-1.0) k/uL PT 13.4 H (10.0-12.5) sec INR 1.3 H (<1.2) D-Dimer 19.97 H (<0.60) mg/L FEU ABG pH (7.35-7.45) ABG pCO2 (35-45) mmHg ABG pO2 (83-108) mmHg ABG Total CO2 (19-24) mmol/L Hemoglobin (11.4-16.0) gm/dL Potassium (3.5-5.1) mmol/L BUN (7-17) mg/dL Creatinine (0.52-1.04) mg/dL Glucose (74-99) mg/dL POC Glucose (mg/dL) 111 H (70-110) mg/dL AST (14-36) U/L ALT (4-34) U/L Ammonia (<30) umol/L Troponin I (0.000-0.034) ng/mL Urine Appearance (Clear) Urine Protein (Negative) Urine Blood (Negative) Urine Nitrite (Negative) Ur Leukocyte Esterase (Negative) Urine RBC (0-5) /hpf Urine WBC (0-5) /hpf Urine WBC Clumps (None) /hpf Amorphous Sediment (None) /hpf Urine Bacteria (None) /hpf Urine Mucus (None) /hpf U Benzodiazepines Scrn (NotDetected) 08/13/24 08/13/24 08/13/24 Range/Units 08:27 08:27 08:28 WBC (3.8-10.6) k/uL Hgb (11.4-16.0) gm/dL MCHC (31.0-37.0) g/dL RDW (11.5-15.5) % Neutrophils # (1.3-7.7) k/uL Monocytes # (0-1.0) k/uL PT (10.0-12.5) sec INR (<1.2) D-Dimer (<0.60) mg/L FEU ABG pH (7.35-7.45) ABG pCO2 (35-45) mmHg ABG pO2 (83-108) mmHg ABG Total CO2 (19-24) mmol/L Hemoglobin (11.4-16.0) gm/dL Potassium 7.4 H* (3.5-5.1) mmol/L BUN 49 H (7-17) mg/dL Creatinine 2.42 H (0.52-1.04) mg/dL Glucose 105 H (74-99) mg/dL POC Glucose (mg/dL) (70-110) mg/dL AST 1758 H (14-36) U/L ALT 1376 H (4-34) U/L Ammonia (<30) umol/L Troponin I 0.244 H* (0.000-0.034) ng/mL Urine Appearance Turbid H (Clear) Urine Protein 1+ H (Negative) Urine Blood Small H (Negative) Urine Nitrite Positive H (Negative) Ur Leukocyte Esterase Large H (Negative) Urine RBC 8 H (0-5) /hpf Urine WBC 40 H (0-5) /hpf Urine WBC Clumps Few H (None) /hpf Amorphous Sediment Rare H (None) /hpf Urine Bacteria Few H (None) /hpf Urine Mucus Occasional H (None) /hpf U Benzodiazepines Scrn Detected H (NotDetected) 08/13/24 08/13/24 08/13/24 Range/Units 09:39 10:21 11:13 WBC (3.8-10.6) k/uL Hgb (11.4-16.0) gm/dL MCHC (31.0-37.0) g/dL RDW (11.5-15.5) % Neutrophils # (1.3-7.7) k/uL Monocytes # (0-1.0) k/uL PT (10.0-12.5) sec INR (<1.2) D-Dimer (<0.60) mg/L FEU ABG pH 7.27 L (7.35-7.45) ABG pCO2 53 H (35-45) mmHg ABG pO2 80 L (83-108) mmHg ABG Total CO2 26 H (19-24) mmol/L Hemoglobin 9.4 L (11.4-16.0) gm/dL Potassium (3.5-5.1) mmol/L BUN (7-17) mg/dL Creatinine (0.52-1.04) mg/dL Glucose (74-99) mg/dL POC Glucose (mg/dL) 220 H (70-110) mg/dL AST (14-36) U/L ALT (4-34) U/L Ammonia 39 H (<30) umol/L Troponin I (0.000-0.034) ng/mL Urine Appearance (Clear) Urine Protein (Negative) Urine Blood (Negative) Urine Nitrite (Negative) Ur Leukocyte Esterase (Negative) Urine RBC (0-5) /hpf Urine WBC (0-5) /hpf Urine WBC Clumps (None) /hpf Amorphous Sediment (None) /hpf Urine Bacteria (None) /hpf Urine Mucus (None) /hpf U Benzodiazepines Scrn (NotDetected) 08/13/24 08/13/24 Range/Units 11:50 11:50 WBC (3.8-10.6) k/uL Hgb (11.4-16.0) gm/dL MCHC (31.0-37.0) g/dL RDW (11.5-15.5) % Neutrophils # (1.3-7.7) k/uL Monocytes # (0-1.0) k/uL PT (10.0-12.5) sec INR (<1.2) D-Dimer (<0.60) mg/L FEU ABG pH (7.35-7.45) ABG pCO2 (35-45) mmHg ABG pO2 (83-108) mmHg ABG Total CO2 (19-24) mmol/L Hemoglobin (11.4-16.0) gm/dL Potassium 6.4 H* (3.5-5.1) mmol/L BUN (7-17) mg/dL Creatinine (0.52-1.04) mg/dL Glucose (74-99) mg/dL POC Glucose (mg/dL) (70-110) mg/dL AST (14-36) U/L ALT (4-34) U/L Ammonia (<30) umol/L Troponin I 0.348 H* (0.000-0.034) ng/mL Urine Appearance (Clear) Urine Protein (Negative) Urine Blood (Negative) Urine Nitrite (Negative) Ur Leukocyte Esterase (Negative) Urine RBC (0-5) /hpf Urine WBC (0-5) /hpf Urine WBC Clumps (None) /hpf Amorphous Sediment (None) /hpf Urine Bacteria (None) /hpf Urine Mucus (None) /hpf U Benzodiazepines Scrn (NotDetected)
[2024-08-13] MEDS: DEXTROSE 50% SYRINGE 50 ML IVP STA (14:54)
[2024-08-13] MEDS: FUROSEMIDE 10 MG/ML 10 ML VIAL IV STA (16:15)
[2024-08-13] MEDS: SODIUM CHLORIDE 0.9% 500 ML 500 ML IV ONE (16:42)
[2024-08-13] MEDS: AMIODARONE 450 MG in DEXTROSE 5% IN WATER 250 ML IV SCH (16:48)
[2024-08-13 18:08] LABS: Glucose,Whole Blood 163 mg/dL (70-110)
[2024-08-13] MEDS ORDERED: DEXTROSE 50% SYRINGE 50 ML IVP PRN ×2 (18:34)
[2024-08-13] MEDS: IPRATROPIUM-ALBUTEROL 3 ML NEB INHALATION PRN (20:13)
[2024-08-13] MEDS: CEFEPIME 1 GM in SODIUM CHLORIDE 0.9% 50 ML IVPB SCH (20:13)
[2024-08-13 21:22] LABS: Glucose,Whole Blood 139 mg/dL (70-110)
[2024-08-13] MEDS: INSULIN ASPART (NovoLOG) 100 UNIT/ML VIAL SQ SCH (21:23)
[2024-08-14 00:31] LABS: Glucose,Whole Blood 144 mg/dL (70-110)
[2024-08-14] MEDS: SODIUM CHLORIDE 0.9% 1,000 ML IV SCH (01:16)
[2024-08-14 06:34] LABS: Glucose,Whole Blood 165 mg/dL (70-110)
--- NOTE | 2024-08-14 07:27 | P.PN ---
Subjective Progress Note Date: 08/14/24 PROGRESS NOTE The patient is an 83-year-old female, resident of a [facility] who presented with change in mental status, worsening dyspnea and was noted to have a urosepsis, exacerbation of COPD as well as atrial fibrillation with rapid ventricular response. The history is obtained from her son. The patient is somnolent on a BiPAP not answering questions. She has a known history of significant COPD, on home oxygen, very limited in her physical activity in the wheelchair. She has questionable history of CHF in the past but no history of atrial fibrillation, documented obstructive CAD or myocardial infarction. She has a prior history of UTI, frequent. She is on IV amiodarone and was started on IV heparin. She is on no vasopressors. She has poor urinary output. The family is a DNR. She underwent a CT scan of the head that showed no acute intracranial process with white matter changes, likely secondary to small vessel disease. Her EKG showed atrial fibrillation with rapid ventricular response, nonspecific ST-T wave changes, cannot exclude anterior wall myocardial infarction of unknown timing. In March 2024 she was in sinus mechanism. She has a history of hyperlipidemia, prior history of smoking but no history of diabetes. In 2019 she had a normal left ventricular systolic function August 14: The patient remains on the BiPAP, obtunded, appears to be in atrial flutter with 2:1 conduction on IV amiodarone, IV heparin as well as antibiotics. Her urinary output is good. There is no evidence of ventricular ectopic activity. She was admitted yesterday with change in mental status, urosepsis and exacerbation of her COPD. Her duplex scan of the lower extremity showed possible nonocclusive thrombus in the right popliteal vein but the study was suboptimal. Medications: IV amiodarone, IV heparin, insulin, Protonix, vancomycin PHYSICAL EXAMINATION: Blood pressure 96/67 heart rate 129 LUNGS: Clear to auscultation anteriorly HEART: Tachycardic, S1, S2. No S3. Systolic ejection murmur ABDOMEN: Soft, nontender, no organomegaly, obese, on BiPAP and obtunded EXTREMETIES: Bilateral ecchymosis, mild edema LAB: Troponin 0.348, 0.328. Renal functions pending. IMPRESSION: 1. Atrial fibrillationatrial flutter with rapid ventricular response 2. Change in mental status with encephalopathy 3. Urinary tract infection 4. Chronic obstructive lung disease 5. Acute renal injury with hyperkalemia 6. Acute liver injury PLAN: 1. Obtain an echocardiogram with Doppler 2. Add IV Lopressor to control rate 3. Continue IV heparin and IV amiodarone 4. Prognosis remains poor Objective - Vital Signs Vital signs: Vital Signs Temp 99.5 F 08/14/24 04:00 Pulse 129 H 08/14/24 07:00 Resp 19 08/14/24 07:00 BP 96/67 08/14/24 07:00 Pulse Ox 97 08/14/24 07:00 FiO2 30 08/14/24 04:00 Intake & Output 08/13/24 08/14/24 08/14/24 18:59 06:59 18:59 Intake Total 1405.599 658.277 75 Output Total 250 960 50 Balance 1155.599 -301.723 25 Weight 117.934 kg Intake: IV 555.0 75 Cefepime 1 gm In Sodium 50.0 Chloride 0.9% 50 ml @ 12. 5 mls/hr IVPB Q12H [facility] Rx #:[id number] Sodium Chloride 0.9% 1, 130 000 ml @ 130 mls/hr IV . Q7H42M [facility] Rx#:[id number] Sodium Chloride 0.9% 1, 375 75 000 ml @ 75 mls/hr IV . [id number] [facility] Rx#:[id number] Intake, IV Titration 1405.599 103.277 Amount Heparin Sod,Pork in 0.45% 125.599 103.277 NaCl 25,000 unit In 0.45 % NaCl 1 250ml.bag @ 18 UNITS/KG/HR 21.228 mls/hr IV .[id number] [facility] Rx#: [id number] Sodium Chloride 0.9% 1, 780 000 ml @ 130 mls/hr IV . Q7H42M [facility] Rx#:[id number] Sodium Chloride 0.9% 500 500 ml 500 ml @ 999 mls/hr IV .Q31M [facility] Rx#:[id number] Output: Urine 250 960 50 Other: Voiding Method Indwelling Catheter Indwelling Catheter - Labs CBC & Chem 7: 08/13/24 08:27 08/14/24 03:57 Labs: Abnormal Lab Results - Last 24 Hours (Table) 11/08/13/24 08/13/24 Range/Units 08:16 08:27 08:27 WBC 18.3 H (3.8-10.6) k/uL Hgb 11.0 L (11.4-16.0) gm/dL MCHC 29.4 L (31.0-37.0) g/dL RDW 15.7 H (11.5-15.5) % Neutrophils # 15.6 H (1.3-7.7) k/uL Monocytes # 1.2 H (0-1.0) k/uL PT 13.4 H (10.0-12.5) sec INR 1.3 H (<1.2) APTT (22.0-30.0) sec D-Dimer 19.97 H (<0.60) mg/L FEU ABG pH (7.35-7.45) ABG pCO2 (35-45) mmHg ABG pO2 (83-108) mmHg ABG Total CO2 (19-24) mmol/L Hemoglobin (11.4-16.0) gm/dL Potassium (3.5-5.1) mmol/L BUN (7-17) mg/dL Creatinine (0.52-1.04) mg/dL Glucose (74-99) mg/dL POC Glucose (mg/dL) 111 H (70-110) mg/dL AST (14-36) U/L ALT (4-34) U/L Ammonia (<30) umol/L Troponin I (0.000-0.034) ng/mL Urine Appearance (Clear) Urine Protein (Negative) Urine Blood (Negative) Urine Nitrite (Negative) Ur Leukocyte Esterase (Negative) Urine RBC (0-5) /hpf Urine WBC (0-5) /hpf Urine WBC Clumps (None) /hpf Amorphous Sediment (None) /hpf Urine Bacteria (None) /hpf Urine Mucus (None) /hpf U Benzodiazepines Scrn (NotDetected) 08/13/24 08/13/24 08/13/24 Range/Units 08:27 08:27 08:28 WBC (3.8-10.6) k/uL Hgb (11.4-16.0) gm/dL MCHC (31.0-37.0) g/dL RDW (11.5-15.5) % Neutrophils # (1.3-7.7) k/uL Monocytes # (0-1.0) k/uL PT (10.0-12.5) sec INR (<1.2) APTT (22.0-30.0) sec D-Dimer (<0.60) mg/L FEU ABG pH (7.35-7.45) ABG pCO2 (35-45) mmHg ABG pO2 (83-108) mmHg ABG Total CO2 (19-24) mmol/L Hemoglobin (11.4-16.0) gm/dL Potassium 7.4 H* (3.5-5.1) mmol/L BUN 49 H (7-17) mg/dL Creatinine 2.42 H (0.52-1.04) mg/dL Glucose 105 H (74-99) mg/dL POC Glucose (mg/dL) (70-110) mg/dL AST 1758 H (14-36) U/L ALT 1376 H (4-34) U/L Ammonia (<30) umol/L Troponin I 0.244 H* (0.000-0.034) ng/mL Urine Appearance Turbid H (Clear) Urine Protein 1+ H (Negative) Urine Blood Small H (Negative) Urine Nitrite Positive H (Negative) Ur Leukocyte Esterase Large H (Negative) Urine RBC 8 H (0-5) /hpf Urine WBC 40 H (0-5) /hpf Urine WBC Clumps Few H (None) /hpf Amorphous Sediment Rare H (None) /hpf Urine Bacteria Few H (None) /hpf Urine Mucus Occasional H (None) /hpf U Benzodiazepines Scrn Detected H (NotDetected) 08/13/24 08/13/24 08/13/24 Range/Units 09:39 10:21 11:13 WBC (3.8-10.6) k/uL Hgb (11.4-16.0) gm/dL MCHC (31.0-37.0) g/dL RDW (11.5-15.5) % Neutrophils # (1.3-7.7) k/uL Monocytes # (0-1.0) k/uL PT (10.0-12.5) sec INR (<1.2) APTT (22.0-30.0) sec D-Dimer (<0.60) mg/L FEU ABG pH 7.27 L (7.35-7.45) ABG pCO2 53 H (35-45) mmHg ABG pO2 80 L (83-108) mmHg ABG Total CO2 26 H (19-24) mmol/L Hemoglobin 9.4 L (11.4-16.0) gm/dL Potassium (3.5-5.1) mmol/L BUN (7-17) mg/dL Creatinine (0.52-1.04) mg/dL Glucose (74-99) mg/dL POC Glucose (mg/dL) 220 H (70-110) mg/dL AST (14-36) U/L ALT (4-34) U/L Ammonia 39 H (<30) umol/L Troponin I (0.000-0.034) ng/mL Urine Appearance (Clear) Urine Protein (Negative) Urine Blood (Negative) Urine Nitrite (Negative) Ur Leukocyte Esterase (Negative) Urine RBC (0-5) /hpf Urine WBC (0-5) /hpf Urine WBC Clumps (None) /hpf Amorphous Sediment (None) /hpf Urine Bacteria (None) /hpf Urine Mucus (None) /hpf U Benzodiazepines Scrn (NotDetected) 08/13/24 08/13/24 08/13/24 Range/Units 11:50 11:50 16:05 WBC (3.8-10.6) k/uL Hgb (11.4-16.0) gm/dL MCHC (31.0-37.0) g/dL RDW (11.5-15.5) % Neutrophils # (1.3-7.7) k/uL Monocytes # (0-1.0) k/uL PT (10.0-12.5) sec INR (<1.2) APTT (22.0-30.0) sec D-Dimer (<0.60) mg/L FEU ABG pH (7.35-7.45) ABG pCO2 (35-45) mmHg ABG pO2 (83-108) mmHg ABG Total CO2 (19-24) mmol/L Hemoglobin (11.4-16.0) gm/dL Potassium 6.4 H* (3.5-5.1) mmol/L BUN (7-17) mg/dL Creatinine (0.52-1.04) mg/dL Glucose (74-99) mg/dL POC Glucose (mg/dL) (70-110) mg/dL AST (14-36) U/L ALT (4-34) U/L Ammonia (<30) umol/L Troponin I 0.348 H* 0.328 H* (0.000-0.034) ng/mL Urine Appearance (Clear) Urine Protein (Negative) Urine Blood (Negative) Urine Nitrite (Negative) Ur Leukocyte Esterase (Negative) Urine RBC (0-5) /hpf Urine WBC (0-5) /hpf Urine WBC Clumps (None) /hpf Amorphous Sediment (None) /hpf Urine Bacteria (None) /hpf Urine Mucus (None) /hpf U Benzodiazepines Scrn (NotDetected) 08/13/24 08/13/24 08/13/24 Range/Units 16:05 17:36 17:36 WBC (3.8-10.6) k/uL Hgb (11.4-16.0) gm/dL MCHC (31.0-37.0) g/dL RDW (11.5-15.5) % Neutrophils # (1.3-7.7) k/uL Monocytes # (0-1.0) k/uL PT (10.0-12.5) sec INR (<1.2) APTT >200.0 H* >200.0 H* (22.0-30.0) sec D-Dimer (<0.60) mg/L FEU ABG pH (7.35-7.45) ABG pCO2 (35-45) mmHg ABG pO2 (83-108) mmHg ABG Total CO2 (19-24) mmol/L Hemoglobin (11.4-16.0) gm/dL Potassium 5.7 H (3.5-5.1) mmol/L BUN (7-17) mg/dL Creatinine (0.52-1.04) mg/dL Glucose (74-99) mg/dL POC Glucose (mg/dL) (70-110) mg/dL AST (14-36) U/L ALT (4-34) U/L Ammonia (<30) umol/L Troponin I (0.000-0.034) ng/mL Urine Appearance (Clear) Urine Protein (Negative) Urine Blood (Negative) Urine Nitrite (Negative) Ur Leukocyte Esterase (Negative) Urine RBC (0-5) /hpf Urine WBC (0-5) /hpf Urine WBC Clumps (None) /hpf Amorphous Sediment (None) /hpf Urine Bacteria (None) /hpf Urine Mucus (None) /hpf U Benzodiazepines Scrn (NotDetected) 08/13/24 08/13/24 08/14/24 Range/Units 18:06 21:21 00:29 WBC (3.8-10.6) k/uL Hgb (11.4-16.0) gm/dL MCHC (31.0-37.0) g/dL RDW (11.5-15.5) % Neutrophils # (1.3-7.7) k/uL Monocytes # (0-1.0) k/uL PT (10.0-12.5) sec INR (<1.2) APTT (22.0-30.0) sec D-Dimer (<0.60) mg/L FEU ABG pH (7.35-7.45) ABG pCO2 (35-45) mmHg ABG pO2 (83-108) mmHg ABG Total CO2 (19-24) mmol/L Hemoglobin (11.4-16.0) gm/dL Potassium (3.5-5.1) mmol/L BUN (7-17) mg/dL Creatinine (0.52-1.04) mg/dL Glucose (74-99) mg/dL POC Glucose (mg/dL) 163 H 139 H 144 H (70-110) mg/dL AST (14-36) U/L ALT (4-34) U/L Ammonia (<30) umol/L Troponin I (0.000-0.034) ng/mL Urine Appearance (Clear) Urine Protein (Negative) Urine Blood (Negative) Urine Nitrite (Negative) Ur Leukocyte Esterase (Negative) Urine RBC (0-5) /hpf Urine WBC (0-5) /hpf Urine WBC Clumps (None) /hpf Amorphous Sediment (None) /hpf Urine Bacteria (None) /hpf Urine Mucus (None) /hpf U Benzodiazepines Scrn (NotDetected) 08/14/24 08/14/24 Range/Units 00:41 06:33 WBC (3.8-10.6) k/uL Hgb (11.4-16.0) gm/dL MCHC (31.0-37.0) g/dL RDW (11.5-15.5) % Neutrophils # (1.3-7.7) k/uL Monocytes # (0-1.0) k/uL PT (10.0-12.5) sec INR (<1.2) APTT 193.1 H* (22.0-30.0) sec D-Dimer (<0.60) mg/L FEU ABG pH (7.35-7.45) ABG pCO2 (35-45) mmHg ABG pO2 (83-108) mmHg ABG Total CO2 (19-24) mmol/L Hemoglobin (11.4-16.0) gm/dL Potassium (3.5-5.1) mmol/L BUN (7-17) mg/dL Creatinine (0.52-1.04) mg/dL Glucose (74-99) mg/dL POC Glucose (mg/dL) 165 H (70-110) mg/dL AST (14-36) U/L ALT (4-34) U/L Ammonia (<30) umol/L Troponin I (0.000-0.034) ng/mL Urine Appearance (Clear) Urine Protein (Negative) Urine Blood (Negative) Urine Nitrite (Negative) Ur Leukocyte Esterase (Negative) Urine RBC (0-5) /hpf Urine WBC (0-5) /hpf Urine WBC Clumps (None) /hpf Amorphous Sediment (None) /hpf Urine Bacteria (None) /hpf Urine Mucus (None) /hpf U Benzodiazepines Scrn (NotDetected)
[2024-08-14 08:01] LABS: HCT 28.8 % (34.0-46.0); Hypochromasia Marked; MCH 26.2 pg (25.0-35.0); MCHC 28.3 g/dL (31.0-37.0); MCV 92.4 fL (80.0-100.0); Mean Platelet Volume 9.6; RBC 3.11 m/uL (3.80-5.40); RDW 15.8 % (11.5-15.5); WBC 13.4 k/uL (3.8-10.6)
[2024-08-14 08:13] LABS: HGB 8.1 gm/dL (11.4-16.0)
[2024-08-14 08:19] LABS: African American GFR (CKD) 19 (>60 ml/min/1.73 sqM); Albumin 3.3 g/dL (3.5-5.0); Alkaline Phosphatase 70 U/L (38-126); Anion Gap 8 mmol/L; Blood Urea Nitrogen 67 mg/dL (7-17); Calcium 8.1 mg/dL (8.4-10.2); Carbon Dioxide 25 mmol/L (22-30); Chloride 115 mmol/L (98-107); Glucose 127 mg/dL (74-99); Non-African American GFR(CKD) 17 (>60 ml/min/1.73 sqM); Potassium 4.1 mmol/L (3.5-5.1); Sodium 148 mmol/L (137-145); Total Bilirubin 0.7 mg/dL (0.2-1.3); Total Protein 5.3 g/dL (6.3-8.2)
--- NOTE | 2024-08-14 08:45 | P.CONS ---
History of Present Illness - Reason for Consult Consult date: 08/13/24 Sepsis, UTI Requesting physician: Yobany Pettit - Chief Complaint Fever mental status changes x 1 day - History of Present Illness Patient is a 84-year-old female with a past medical history significant for COPD DVT hypertension hyperlipidemia pneumonia and left breast cancer patient is a group home resident patient has been brought into the hospital for evaluation of fever and mental status changes in this patient apparently was consulted for UTI and did have recent urine culture done as reported by the family however the patient was not started on antibiotics patient subsequently developing fever did have a low blood pressure and mental status changes for the patient has been transferred to the hospital on arrival to the ER patient did have a fever of 102.1 F patient was tachycardic and hypertensive requiring admission to the ICU and is currently on a BiPAP and cannot provide any history most information has been obtained from the daughter- in-law at the bedside patient on arrival to the ER did have a white count of 18.3 with a left shift BUN and creatinine has been mildly elevated also noticed to have elevated liver enzymes troponin was mildly elevated did have significantly positive UA urine drug screen was positive for benzo influenza RSV and COVID testing was negative patient did have a chest x-ray cardiomegaly mild pulmonary vascular congestion correlate with BNP for congestive heart failure patient did have abdominal bladder ultrasound no evidence for obstructive uropathy right renal cyst no comments on the liver patient was started on cefepime and vancomycin infectious disease was consulted for further management of antibiotic therapy most information has been obtained from review the chart talking to the daughter as the patient was unable to provide any information Review of Systems Positive points has been mentioned in HPI complete review could not be obtained because of his underlying mental status Past Medical History Past Medical History: Cancer, COPD, Deep Vein Thrombosis (DVT), Eye Disorder, Hyperlipidemia, Hypertension, Pneumonia Additional Past Medical History / Comment(s): Recent kidney infection, L BREAST CANCER with SX , Bilateral MACULAR DEGENERATION, DVT R leg History of Any Multi-Drug Resistant Organisms: ESBL Year Discovered:: 02/24/22 ESBL E.coli MDRO Source:: Urine Past Surgical History: Breast Surgery, Joint Replacement, Tonsillectomy, Tubal Ligation Additional Past Surgical History / Comment(s): 07/04/16 Total L knee arthroplasty. Other surgical hx: LEFT MASTECTOMY, R total knee arthroplasty, bilateral cataract removal. Past Anesthesia/Blood Transfusion Reactions: Motion Sickness Past Psychological History: Anxiety, Depression Smoking Status: Unknown if ever smoked Past Alcohol Use History: None Reported Past Drug Use History: None Reported - Past Family History Mother Family Medical History: Renal Disease Additional Family Medical History / Comment(s): Mother at the age of 84 yrs of kidney failure. Father Family Medical History: No Reported History Additional Family Medical History / Comment(s): Father at the age of 98yrs. Medications and Allergies Home Medications Medication Instructions Recorded Confirmed Type PARoxetine [Paxil] 20 mg PO DAILY@0800 07/03/16 08/13/24 History Montelukast [Singulair] 10 mg PO HS@1700 10/21/19 08/13/24 History Na Phos,M-B/Na Phos,Di-Ba [Fleet 133 ml RECTAL DAILY PRN 10/21/19 08/13/24 His tory Adult] bisacodyL [Dulcolax] 10 mg RECTAL DAILY PRN 10/21/19 08/13/24 History Aspirin 81 mg PO DAILY@0800 chew 10/24/19 08/13/24 Rx Acetaminophen Tab [Tylenol] 650 mg PO Q4H PRN 03/16/22 08/13/24 History Magnesium Hydroxide [Milk of 7,200 mg PO DAILY PRN 03/16/22 08/13/24 History Magnesia Concentrate] Sennosides/Docusate Sodium 2 tab PO DAILY@0800 03/16/22 08/13/24 History [Senna-S 8.6-50 mg Tablet] Acetaminophen Suppository [Tylenol 650 mg RECTAL Q4H PRN 08/13/24 08/13/24 History Suppository] Acetaminophen [Children's 650 mg PO Q4H PRN 08/13/24 08/13/24 History Acetaminophen] Albuterol Nebulized [Ventolin 2.5 mg INHALATION RT-Q6H PRN 08/13/24 08/13/24 History Nebulized] Budesonide-Formot 160-4.5 Mcg 2 puff INHALATION RT-BID@0800,1700 08/13/24 08/13/24 History [Symbicort 160-4.5 Mcg Inhaler] Ensure Enlive 120 ml PO BID@0800,1700 08/13/24 08/13/24 History Furosemide [Lasix] 40 mg PO BID@0800,1700 08/13/24 08/13/24 History Ipratropium-Albuterol Nebulize 3 ml INHALATION RT-Q6H 08/13/24 08/13/24 History [Duoneb 0.5 mg-3 mg/3 ml Soln] LORazepam [Ativan] 0.5 mg PO BID PRN 08/13/24 08/13/24 History [place] Carbonate 300 mg PO BID@0800,1700 08/13/24 08/13/24 History Loperamide [Imodium] 2 mg PO Q6H PRN 08/13/24 08/13/24 History Potassium Chloride ER [K-Dur 20] 40 meq PO BID@0800,1700 08/13/24 08/13/24 History Simvastatin [Zocor] 10 mg PO HS@1700 08/13/24 08/13/24 History risperiDONE 0.5 mg PO HS@2100 08/13/24 08/13/24 History traMADol HCL 50 mg PO Q6H PRN 08/13/24 08/13/24 History traZODone HCL [Desyrel] 50 mg PO HS@2100 08/13/24 08/13/24 History Allergies Allergy/AdvReac Type Severity Reaction Status Date / Time levofloxacin [From Levaquin] Allergy Unknown Verified 08/13/24 09:36 Penicillins Allergy Rash/Hives Verified 08/13/24 09:36 hydrocodone [From [place]] AdvReac Nausea & Verified 08/13/24 09:36 Vomiting Sulfa (Sulfonamide AdvReac Nausea & Verified 08/13/24 09:36 Antibiotics) Vomiting Physical Exam Vitals: Vital Signs Temp Pulse Resp BP Pulse Ox FiO2 08/13/24 12:40 116 H 24 78/64 99 08/13/24 12:30 98 30 H 92/63 98 08/13/24 12:20 115 H 28 H 92/63 99 08/13/24 12:10 110 H 26 H 85/70 99 08/13/24 12:00 105 H 30 H 85/66 98 08/13/24 11:50 110 H 29 H 85/66 98 08/13/24 11:40 106 H 25 H 87/64 98 30 08/13/24 11:30 101.6 F H 112 H 23 88/63 90 L 30 11/13/24 11:22 25 H 08/13/24 11:11 102 H 30 H 92/62 100 08/13/24 10:50 100.3 F H 102 H 30 H 92/62 97 08/13/24 10:23 30 08/13/24 09:56 30 08/13/24 09:42 134 H 30 H 103/68 97 08/13/24 09:22 156 H 28 H 100/72 80 L 08/13/24 08:39 102.1 F H 152 H 28 H 121/82 08/13/24 08:05 40 08/13/24 08:04 77 20 98 Intake and Output 08/12/24 08/13/24 08/13/24 22:59 06:59 14:59 Other: Weight 117.934 kg GENERAL DESCRIPTION: Elderly female lethargic on the BiPAP HEENT: Shows Pallor , no scleral icterus. Oral mucous membrane is dry. NECK: Trachea central, no thyromegaly. LUNGS: Unlabored breathing. Decreased breath sounds at the base HEART: S1, S2, regular rate and rhythm. No loud murmur ABDOMEN: Soft, no tenderness , guarding or rigidity, no organomegaly EXTREMITIES: No edema of feet. SKIN: No rash, no masses palpable. NEUROLOGICAL: The patient is unresponsive orientation could not be determined Results CBC & Chem 7: 08/14/24 07:35 08/14/24 03:57 Labs: Abnormal Lab Results - Last 24 Hours (Table) 08/13/24 08/13/24 08/13/24 Range/Units 08:16 08:27 08:27 WBC 18.3 H (3.8-10.6) k/uL Hgb 11.0 L (11.4-16.0) gm/dL MCHC 29.4 L (31.0-37.0) g/dL RDW 15.7 H (11.5-15.5) % Neutrophils # 15.6 H (1.3-7.7) k/uL Monocytes # 1.2 H (0-1.0) k/uL PT 13.4 H (10.0-12.5) sec INR 1.3 H (<1.2) D-Dimer 19.97 H (<0.60) mg/L FEU ABG pH (7.35-7.45) ABG pCO2 (35-45) mmHg ABG pO2 (83-108) mmHg ABG Total CO2 (19-24) mmol/L Hemoglobin (11.4-16.0) gm/dL Potassium (3.5-5.1) mmol/L BUN (7-17) mg/dL Creatinine (0.52-1.04) mg/dL Glucose (74-99) mg/dL POC Glucose (mg/dL) 111 H (70-110) mg/dL AST (14-36) U/L ALT (4-34) U/L Ammonia (<30) umol/L Troponin I (0.000-0.034) ng/mL Urine Appearance (Clear) Urine Protein (Negative) Urine Blood (Negative) Urine Nitrite (Negative) Ur Leukocyte Esterase (Negative) Urine RBC (0-5) /hpf Urine WBC (0-5) /hpf Urine WBC Clumps (None) /hpf Amorphous Sediment (None) /hpf Urine Bacteria (None) /hpf Urine Mucus (None) /hpf U Benzodiazepines Scrn (NotDetected) 08/13/24 08/13/24 08/13/24 Range/Units 08:27 08:27 08:28 WBC (3.8-10.6) k/uL Hgb (11.4-16.0) gm/dL MCHC (31.0-37.0) g/dL RDW (11.5-15.5) % Neutrophils # (1.3-7.7) k/uL Monocytes # (0-1.0) k/uL PT (10.0-12.5) sec INR (<1.2) D-Dimer (<0.60) mg/L FEU ABG pH (7.35-7.45) ABG pCO2 (35-45) mmHg ABG pO2 (83-108) mmHg ABG Total CO2 (19-24) mmol/L Hemoglobin (11.4-16.0) gm/dL Potassium 7.4 H* (3.5-5.1) mmol/L BUN 49 H (7-17) mg/dL Creatinine 2.42 H (0.52-1.04) mg/dL Glucose 105 H (74-99) mg/dL POC Glucose (mg/dL) (70-110) mg/dL AST 1758 H (14-36) U/L ALT 1376 H (4-34) U/L Ammonia (<30) umol/L Troponin I 0.244 H* (0.000-0.034) ng/mL Urine Appearance Turbid H (Clear) Urine Protein 1+ H (Negative) Urine Blood Small H (Negative) Urine Nitrite Positive H (Negative) Ur Leukocyte Esterase Large H (Negative) Urine RBC 8 H (0-5) /hpf Urine WBC 40 H (0-5) /hpf Urine WBC Clumps Few H (None) /hpf Amorphous Sediment Rare H (None) /hpf Urine Bacteria Few H (None) /hpf Urine Mucus Occasional H (None) /hpf U Benzodiazepines Scrn Detected H (NotDetected) 08/13/24 08/13/24 08/13/24 Range/Units 09:39 10:21 11:13 WBC (3.8-10.6) k/uL Hgb (11.4-16.0) gm/dL MCHC (31.0-37.0) g/dL RDW (11.5-15.5) % Neutrophils # (1.3-7.7) k/uL Monocytes # (0-1.0) k/uL PT (10.0-12.5) sec INR (<1.2) D-Dimer (<0.60) mg/L FEU ABG pH 7.27 L (7.35-7.45) ABG pCO2 53 H (35-45) mmHg ABG pO2 80 L (83-108) mmHg ABG Total CO2 26 H (19-24) mmol/L Hemoglobin 9.4 L (11.4-16.0) gm/dL Potassium (3.5-5.1) mmol/L BUN (7-17) mg/dL Creatinine (0.52-1.04) mg/dL Glucose (74-99) mg/dL POC Glucose (mg/dL) 220 H (70-110) mg/dL AST (14-36) U/L ALT (4-34) U/L Ammonia 39 H (<30) umol/L Troponin I (0.000-0.034) ng/mL Urine Appearance (Clear) Urine Protein (Negative) Urine Blood (Negative) Urine Nitrite (Negative) Ur Leukocyte Esterase (Negative) Urine RBC (0-5) /hpf Urine WBC (0-5) /hpf Urine WBC Clumps (None) /hpf Amorphous Sediment (None) /hpf Urine Bacteria (None) /hpf Urine Mucus (None) /hpf U Benzodiazepines Scrn (NotDetected) Assessment and Plan (1) Allergy to multiple antibiotics Current Visit: Yes Status: Acute Code(s): Z88.1 - ALLERGY STATUS TO OTHER ANTIBIOTIC AGENTS SNOMED Code(s): 489036726 (2) Sepsis Current Visit: Yes Status: Acute Code(s): A41.9 - SEPSIS, UNSPECIFIED ORGANISM SNOMED Code(s): 90251917 (3) UTI (urinary tract infection) Current Visit: Yes Status: Acute Code(s): N39.0 - URINARY TRACT INFECTION, SITE NOT SPECIFIED SNOMED Code(s): 92660952 Plan: 1patient presented to hospital with sepsis in this patient who did have fever tachycardia elevated white count and hypotension meeting currently for SIRS so urce is likely UTI and this patient did have significantly positive UA with recent urine culture done in the outpatient setting was positive for Morganella that was sensitive to cefepime and prior to that she did grow Enterococcus faecalis that was sensitive to penicillin as well as vancomycin and if these 2 pathogen could be the likely source of this UTI and sepsis. 2patient with multiple antibiotic ALLERGIES that would limit the number of antibiotic safe to use. 3patient with a elevated creatinine high risk of nephrotoxicity. 4patient to be empirically treated with cefepime and vancomycin while waiting for the culture to finalize and need to monitor her kidney function closely. Family at the bedside question concern answered. We will follow on clinical condition and cultures to further adjust medication if needed Thank you for this consultation we will follow the patient along with you Dictation was produced using t-Art dictation software. please excuse any grammatical, word or spelling errors. Time with Patient: Greater than 30
[2024-08-14 08:56] LABS: Platelet Count 97 k/uL (150-450)
--- NOTE | 2024-08-14 09:02 | XR ---
EXAMINATION TYPE: XR chest 1V DATE OF EXAM: 08/14/2024 5:15 AM COMPARISON: Chest radiograph from one day prior. CLINICAL INDICATION: Female, 84 years old with history of sob; [facility] TECHNIQUE: XR chest 1V Frontal view of the chest. FINDINGS: Lungs/Pleura: There is no evidence of pleural effusion, focal consolidation, or pneumothorax. Pulmonary vascularity: Unremarkable. Heart/mediastinum: Cardiomediastinal silhouette is enlarged. Atherosclerotic calcifications are seen in the aorta. Musculoskeletal: No acute osseous pathology. Other findings: None IMPRESSION: Stable exam with Cardiomegaly and mild pulmonary vascular congestion. [facility], , 08/14/2024 9:00 AM
[2024-08-14 09:15] LABS: Band Neutrophils % 1 %; Lymphocytes # (M) 1.47 k/uL (1.0-4.8); Metamyelocytes # (M) 0.13 k/uL (0); Metamyelocytes % 1 %; Neutrophils % (M) 82 %; Nucleated Red Blood Cells 0 /100 WBC (0-0); Total Cells Counted 200
[2024-08-14 09:17] LABS: Anisocytosis (M) Present; Ovalocytes Present; Poikilocytosis (M) Present
[2024-08-14 09:18] LABS: ALT 2609 U/L (4-34); AST 2970 U/L (14-36)
[2024-08-14] MEDS: PANTOPRAZOLE 40 MG/10 ML VIAL IV SCH (09:53)
[2024-08-14] MEDS: METOPROLOL TARTRATE 5 MG/5 ML VIAL IVP SCH ×2 (09:53→16:11)
[2024-08-14] MEDS: DEXTROSE 5% IN WATER 1,000 ML IV SCH (09:53)
[2024-08-14] MEDS: VANCOMYCIN 1,500 MG in SODIUM CHLORIDE 0.9% 500 ML 500 ML IVPB ONE (10:40)
[2024-08-14 11:26] LABS: Glucose,Whole Blood 132 mg/dL (70-110)
--- NOTE | 2024-08-14 11:27 | P.PN ---
Subjective patient is seen for follow-up for acute kidney injury. She has been maintained on IV fluids. Urine output has improved. Serum creatinine 2.58 today from 2.4 yesterday. Patient remains on BiPAP. Mentation has improved. Serum sodium was 148 today and IV fluids have been changed to D5W. Urine culture on 08/05/2024 is growing Morganella. This was done at [facility]. Objective - Vital Signs Vital signs: Vital Signs Temp 99.2 F 08/14/24 09:00 Pulse 120 H 08/14/24 11:00 Resp 18 08/14/24 11:00 BP 81/52 08/14/24 11:00 Pulse Ox 99 08/14/24 11:00 FiO2 30 08/14/24 11:01 Intake & Output 08/13/24 08/14/24 08/14/24 18:59 06:59 18:59 Intake Total 1405.599 376.113 1630.649 Output Total 250 960 200 Balance 1155.599 -950.887 7379.649 Weight 117.934 kg Intake: IV 555.0 925 Cefepime 1 gm In Sodium 50.0 50 Chloride 0.9% 50 ml @ 12. 5 mls/hr IVPB Q12H [facility] Rx #:[id number] Sodium Chloride 0.9% 1, 130 000 ml @ 130 mls/hr IV . Q7H42M [facility] Rx#:[id number] Sodium Chloride 0.9% 1, 375 375 000 ml @ 75 mls/hr IV . [id number] [facility] Rx#:[id number] Vancomycin 1,500 mg In 500 Sodium Chloride 0.9% 500 ml 500 ml @ 167 mls/hr IVPB ONCE ONE Rx#: [id number] Intake, IV Titration 1405.599 103.277 339.649 Amount Amiodarone 450 mg In 250 Dextrose 5% in Water 250 ml @ 0.5 MG/MIN 16.667 mls/hr IV .Q15H [facility] Rx#: [id number] Heparin Sod,Pork in 0.45% 125.599 103.277 89.649 NaCl 25,000 unit In 0.45 % NaCl 1 250ml.bag @ 18 UNITS/KG/HR 21.228 mls/hr IV .[id number] [facility] Rx#: [id number] Sodium Chloride 0.9% 1, 780 000 ml @ 130 mls/hr IV . Q7H42M [facility] Rx#:[id number] Sodium Chloride 0.9% 500 500 ml 500 ml @ 999 mls/hr IV .Q31M [facility] Rx#:[id number] Output: Urine 250 960 200 Other: Voiding Method Indwelling Catheter Indwelling Catheter - Exam patient is on BiPAP, appears comfortable Awake Examination of the heart S1 and S2 Examination of the lungs bilateral breath sounds are heard Abdomen is soft obese Examination of lower extremities shows trace edema Moving all 4 extremities - Labs CBC & Chem 7: 08/14/24 07:35 08/14/24 07:35 Labs: Abnormal Lab Results - Last 24 Hours (Table) 08/13/24 08/13/24 08/13/24 Range/Units 11:50 11:50 16:05 WBC (3.8-10.6) k/uL RBC (3.80-5.40) m/uL Hgb (11.4-16.0) gm/dL Hct (34.0-46.0) % MCHC (31.0-37.0) g/dL RDW (11.5-15.5) % Plt Count (150-450) k/uL Neutrophils # (Manual) (1.3-7.7) k/uL Metamyelocytes # (Man) (0) k/uL APTT (22.0-30.0) sec Sodium (137-145) mmol/L Potassium 6.4 H* (3.5-5.1) mmol/L Chloride (98-107) mmol/L BUN (7-17) mg/dL Creatinine (0.52-1.04) mg/dL Glucose (74-99) mg/dL POC Glucose (mg/dL) (70-110) mg/dL Calcium (8.4-10.2) mg/dL AST (14-36) U/L ALT (4-34) U/L Troponin I 0.348 H* 0.328 H* (0.000-0.034) ng/mL Total Protein (6.3-8.2) g/dL Albumin (3.5-5.0) g/dL 08/13/24 08/13/24 08/13/24 Range/Units 16:05 17:36 17:36 WBC (3.8-10.6) k/uL RBC (3.80-5.40) m/uL Hgb (11.4-16.0) gm/dL Hct (34.0-46.0) % MCHC (31.0-37.0) g/dL RDW (11.5-15.5) % Plt Count (150-450) k/uL Neutrophils # (Manual) (1.3-7.7) k/uL Metamyelocytes # (Man) (0) k/uL APTT >200.0 H* >200.0 H* (22.0-30.0) sec Sodium (137-145) mmol/L Potassium 5.7 H (3.5-5.1) mmol/L Chloride (98-107) mmol/L BUN (7-17) mg/dL Creatinine (0.52-1.04) mg/dL Glucose (74-99) mg/dL POC Glucose (mg/dL) (70-110) mg/dL Calcium (8.4-10.2) mg/dL AST (14-36) U/L ALT (4-34) U/L Troponin I (0.000-0.034) ng/mL Total Protein (6.3-8.2) g/dL Albumin (3.5-5.0) g/dL 08/13/24 08/13/24 08/14/24 Range/Units 18:06 21:21 00:29 WBC (3.8-10.6) k/uL RBC (3.80-5.40) m/uL Hgb (11.4-16.0) gm/dL Hct (34.0-46.0) % MCHC (31.0-37.0) g/dL RDW (11.5-15.5) % Plt Count (150-450) k/uL Neutrophils # (Manual) (1.3-7.7) k/uL Metamyelocytes # (Man) (0) k/uL APTT (22.0-30.0) sec Sodium (137-145) mmol/L Potassium (3.5-5.1) mmol/L Chloride (98-107) mmol/L BUN (7-17) mg/dL Creatinine (0.52-1.04) mg/dL Glucose (74-99) mg/dL POC Glucose (mg/dL) 163 H 139 H 144 H (70-110) mg/dL Calcium (8.4-10.2) mg/dL AST (14-36) U/L ALT (4-34) U/L Troponin I (0.000-0.034) ng/mL Total Protein (6.3-8.2) g/dL Albumin (3.5-5.0) g/dL 08/14/24 08/14/24 08/14/24 Range/Units 00:41 06:33 07:35 WBC (3.8-10.6) k/uL RBC (3.80-5.40) m/uL Hgb (11.4-16.0) gm/dL Hct (34.0-46.0) % MCHC (31.0-37.0) g/dL RDW (11.5-15.5) % Plt Count (150-450) k/uL Neutrophils # (Manual) (1.3-7.7) k/uL Metamyelocytes # (Man) (0) k/uL APTT 193.1 H* (22.0-30.0) sec Sodium 148 H (137-145) mmol/L Potassium (3.5-5.1) mmol/L Chloride 115 H (98-107) mmol/L BUN 67 H (7-17) mg/dL Creatinine 2.58 H (0.52-1.04) mg/dL Glucose 127 H (74-99) mg/dL POC Glucose (mg/dL) 165 H (70-110) mg/dL Calcium 8.1 L (8.4-10.2) mg/dL AST 2970 H (14-36) U/L ALT 2609 H (4-34) U/L Troponin I (0.000-0.034) ng/mL Total Protein 5.3 L (6.3-8.2) g/dL Albumin 3.3 L (3.5-5.0) g/dL 08/14/24 08/14/24 Range/Units 07:35 07:35 WBC 13.4 H (3.8-10.6) k/uL RBC 3.11 L (3.80-5.40) m/uL Hgb 8.1 L D (11.4-16.0) gm/dL Hct 28.8 L (34.0-46.0) % MCHC 28.3 L (31.0-37.0) g/dL RDW 15.8 H (11.5-15.5) % Plt Count 97 L D (150-450) k/uL Neutrophils # (Manual) 11.10 H (1.3-7.7) k/uL Metamyelocytes # (Man) 0.13 H (0) k/uL APTT >200.0 H* (22.0-30.0) sec Sodium (137-145) mmol/L Potassium (3.5-5.1) mmol/L Chloride (98-107) mmol/L BUN (7-17) mg/dL Creatinine (0.52-1.04) mg/dL Glucose (74-99) mg/dL POC Glucose (mg/dL) (70-110) mg/dL Calcium (8.4-10.2) mg/dL AST (14-36) U/L ALT (4-34) U/L Troponin I (0.000-0.034) ng/mL Total Protein (6.3-8.2) g/dL Albumin (3.5-5.0) g/dL Microbiology - Last 24 Hours (Table) 08/13/24 08:27 Urine Culture - Preliminary Urine,Catheterized Gram Neg Bacilli Assessment and Plan Assessment: 1. Acute kidney injury, ATN secondary to hypotension. Nonoliguric. UA is suggestive of UTI with WBCs and WBC clumps. 1+ protein. Utrasound of the kidneys shows right kidney 9.1 cm with 2 cysts. Left kidney could not be seen due to bowel gas.. 2. Hyperkalemia associated with acute kidney injury and potassium supplementation although patient was also on loop diuretics. Status post IV treatment. Blood sugar is not significantly elevated and no evidence of active GI bleed. 3. UTI with urine culture growing Morganella from 08/05/2024 as outpatient. 4. Acute hypoxic respiratory failure currently on BiPAP 5. Chronic use of lithium. Calcium not elevated. 6. CK D stage III a with baseline creatinine around 1-1.1 mg/dL. Etiology likely nephrosclerosis and possible chronic interstitial nephropathy if patient has been taking lithium for many years. Plan: Continue with IV fluids and IV antibiotics. Agree with changing to D5W Continue with Zepeda catheter Avoid nephrotoxic agents
[2024-08-14] MEDS: SODIUM CHLORIDE 0.9% 500 ML 500 ML IV ONE (11:45)
[2024-08-14 12:42] VITALS: BMI 46.0
--- NOTE | 2024-08-14 12:59 | P.PN ---
Subjective Progress Note Date: 08/14/24 Principal diagnosis: Acute sepsis This is an 83-year-old female with history of multiple medical problems, patient lives in a [facility] facility, brought into the ER with altered mental status, shortness of breath, hypotension, atrial fibrillation with RVR, hypoxia and hypercapnia with a pCO2 in the range of 53 and pH of 7.27 on BiPAP, patient was also noted to be hyperkalemic and developed what seems to be a picture of acute kidney injury. Drug screen seems to be positive for benzodiazepines, patient tested negative for influenza A, influenza B, RSV and SARS. Her ur inalysis showed evidence of bacteriuria and pyuria, troponin was elevated as high as 0.244, ammonia level was elevated at 39, potassium elevated at 7.4 D- dimer value be elevated at 19.97 patient was also noted to have leukocytosis, with WBC count of 18.3, chest x-ray showed cardiomegaly and minimal pulmonary vascular congestion no clear-cut evidence of pneumonia or significant pulmonary edema. Brain CT showed extensive nonspecific white matter changes, no acute intracranial process noted blood pressure was noted to be marginal 92/62 patient required fluids but did not require pressors. I evaluated the patient in the ER, she seems to be extremely, and critically ill advised BiPAP on this patient advised amiodarone for atrial fibrillation with RVR advised transfer to ICU with nephrology consultation and cardiology consultation. Touch bases on CODE STATUS with the family, apparently family wishes DNR CODE STATUS. Considering the patient is noted to have elevated D-dimer, she will ideally need further scanning to rule out thromboembolic disease, but she is not stable enough for VQ scan I am recommending that we heparinize the patient empirically check venous Doppler, and will address VQ scan once the patient is stabilized. In the meantime considering the patient has evidence of urinary tract infection/urosepsis, I am recommending empiric treatment with antibiotics for presumptive UTI. Her last urine culture from couple of months ago was positive for Enterococcus faecalis, and she also had Morganella morganii in the urine previously, patient will be covered with antibiotics in the form of vancomycin and cefepime for now. Patient was seen today on 08/14/2024, remains in the ICU, remains on BiPAP 16//30% remains on heparin, remains on amiodarone at 0.5 mg/min patient remains on Solu-Cortef, she is also on cefepime and vancomycin, her IV fluid is now D5W at 75 cc/h. Patient did not require any pressors overnight, apparently responded to antibiotics and fluid boluses as well as Solu-Cortef. Patient is hemodynamically stable today, remains on BiPAP, remains critically ill. WBC count 13.4 hemoglobin 8.1 PTT is over 200 patient is on the protocol for heparin, she does have atrial fibrillation she does have possible pulmonary embolism however could not order a CT angiogram on this patient, I kept her on heparin she does have elevated D-dimer. Sodium is elevated at 148 BUN is 67 creatinine 2.58, being followed by nephrology for her acute kidney injury Objective - Vital Signs Vital signs: Vital Signs Temp 99.2 F 08/14/24 09:00 Pulse 120 H 08/14/24 11:00 Resp 18 08/14/24 11:00 BP 81/52 08/14/24 11:00 Pulse Ox 99 08/14/24 11:00 FiO2 30 08/14/24 11:01 Intake & Output 08/13/24 08/14/24 08/14/24 18:59 06:59 18:59 Intake Total 1405.599 979.633 1016.649 Output Total 250 960 200 Balance 1155.599 -670.987 9941.649 Weight 117.934 kg 117.934 kg Intake: IV 555.0 925 Cefepime 1 gm In Sodium 50.0 50 Chloride 0.9% 50 ml @ 12. 5 mls/hr IVPB Q12H [facility] Rx #:[id number] Sodium Chloride 0.9% 1, 130 000 ml @ 130 mls/hr IV . Q7H42M [facility] Rx#:[id number] Sodium Chloride 0.9% 1, 375 375 000 ml @ 75 mls/hr IV . [id number] [facility] Rx#:[id number] Vancomycin 1,500 mg In 500 Sodium Chloride 0.9% 500 ml 500 ml @ 167 mls/hr IVPB ONCE ONE Rx#: [id number] Intake, IV Titration 1405.599 103.277 339.649 Amount Amiodarone 450 mg In 250 Dextrose 5% in Water 250 ml @ 0.5 MG/MIN 16.667 mls/hr IV .Q15H [facility] Rx#: [id number] Heparin Sod,Pork in 0.45% 125.599 103.277 89.649 NaCl 25,000 unit In 0.45 % NaCl 1 250ml.bag @ 18 UNITS/KG/HR 21.228 mls/hr IV .[id number] [facility] Rx#: [id number] Sodium Chloride 0.9% 1, 780 000 ml @ 130 mls/hr IV . Q7H42M [facility] Rx#:[id number] Sodium Chloride 0.9% 500 500 ml 500 ml @ 999 mls/hr IV .Q31M [facility] Rx#:[id number] Output: Urine 250 960 200 Other: Voiding Method Indwelling Catheter Indwelling Catheter - Exam Physical Exam: Revealed 83-year-old female on BiPAP, awake, moaning but does not follow any instructions Head: Atraumatic, normocephalic. HEENT:[Neck is supple.] [No neck masses.] [No thyromegaly.] [No JVD.] Dry mucous membranes noted. Chest: Diminished breath sound bilaterally minimal crackles at the bases no rhonchi no wheezes Cardiac Exam: Irregular irregular rhythm distant S1 and S2, no S3 gallop. 2/6 systolic murmur throughout the precordium Abdomen: [Soft, nontender, no megaly, no rebound, no guarding, normal bowel sounds.] Extremities: [No clubbing, no edema, no cyanosis.] Multiple areas of ecchymosis noted bilaterally. Neurological Exam: [No focal neurologic deficit.] Alert oriented 3, patient is rather slow. Skin: Multiple areas of ecchymosis and she has extremely dry skin. Psychiatric: Moaning, could not assess neurologic: Patient does not follow any instructions but seems to be moaning - Labs CBC & Chem 7: 08/14/24 07:35 08/14/24 07:35 Labs: Abnormal Lab Results - Last 24 Hours (Table) 08/13/24 08/13/24 08/13/24 Range/Units 11:50 11:50 16:05 WBC (3.8-10.6) k/uL RBC (3.80-5.40) m/uL Hgb (11.4-16.0) gm/dL Hct (34.0-46.0) % MCHC (31.0-37.0) g/dL RDW (11.5-15.5) % Plt Count (150-450) k/uL Neutrophils # (Manual) (1.3-7.7) k/uL Metamyelocytes # (Man) (0) k/uL APTT (22.0-30.0) sec Sodium (137-145) mmol/L Potassium 6.4 H* (3.5-5.1) mmol/L Chloride (98-107) mmol/L BUN (7-17) mg/dL Creatinine (0.52-1.04) mg/dL Glucose (74-99) mg/dL POC Glucose (mg/dL) (70-110) mg/dL Calcium (8.4-10.2) mg/dL AST (14-36) U/L ALT (4-34) U/L Troponin I 0.348 H* 0.328 H* (0.000-0.034) ng/mL Total Protein (6.3-8.2) g/dL Albumin (3.5-5.0) g/dL 08/13/24 08/13/24 08/13/24 Range/Units 16:05 17:36 17:36 WBC (3.8-10.6) k/uL RBC (3.80-5.40) m/uL Hgb (11.4-16.0) gm/dL Hct (34.0-46.0) % MCHC (31.0-37.0) g/dL RDW (11.5-15.5) % Plt Count (150-450) k/uL Neutrophils # (Manual) (1.3-7.7) k/uL Metamyelocytes # (Man) (0) k/uL APTT >200.0 H* >200.0 H* (22.0-30.0) sec Sodium (137-145) mmol/L Potassium 5.7 H (3.5-5.1) mmol/L Chloride (98-107) mmol/L BUN (7-17) mg/dL Creatinine (0.52-1.04) mg/dL Glucose (74-99) mg/dL POC Glucose (mg/dL) (70-110) mg/dL Calcium (8.4-10.2) mg/dL AST (14-36) U/L ALT (4-34) U/L Troponin I (0.000-0.034) ng/mL Total Protein (6.3-8.2) g/dL Albumin (3.5-5.0) g/dL 08/13/24 08/13/24 08/14/24 Range/Units 18:06 21:21 00:29 WBC (3.8-10.6) k/uL RBC (3.80-5.40) m/uL Hgb (11.4-16.0) gm/dL Hct (34.0-46.0) % MCHC (31.0-37.0) g/dL RDW (11.5-15.5) % Plt Count (150-450) k/uL Neutrophils # (Manual) (1.3-7.7) k/uL Metamyelocytes # (Man) (0) k/uL APTT (22.0-30.0) sec Sodium (137-145) mmol/L Potassium (3.5-5.1) mmol/L Chloride (98-107) mmol/L BUN (7-17) mg/dL Creatinine (0.52-1.04) mg/dL Glucose (74-99) mg/dL POC Glucose (mg/dL) 163 H 139 H 144 H (70-110) mg/dL Calcium (8.4-10.2) mg/dL AST (14-36) U/L ALT (4-34) U/L Troponin I (0.000-0.034) ng/mL Total Protein (6.3-8.2) g/dL Albumin (3.5-5.0) g/dL 08/14/24 08/14/24 08/14/24 Range/Units 00:41 06:33 07:35 WBC (3.8-10.6) k/uL RBC (3.80-5.40) m/uL Hgb (11.4-16.0) gm/dL Hct (34.0-46.0) % MCHC (31.0-37.0) g/dL RDW (11.5-15.5) % Plt Count (150-450) k/uL Neutrophils # (Manual) (1.3-7.7) k/uL Metamyelocytes # (Man) (0) k/uL APTT 193.1 H* (22.0-30.0) sec Sodium 148 H (137-145) mmol/L Potassium (3.5-5.1) mmol/L Chloride 115 H (98-107) mmol/L BUN 67 H (7-17) mg/dL Creatinine 2.58 H (0.52-1.04) mg/dL Glucose 127 H (74-99) mg/dL POC Glucose (mg/dL) 165 H (70-110) mg/dL Calcium 8.1 L (8.4-10.2) mg/dL AST 2970 H (14-36) U/L ALT 2609 H (4-34) U/L Troponin I (0.000-0.034) ng/mL Total Protein 5.3 L (6.3-8.2) g/dL Albumin 3.3 L (3.5-5.0) g/dL 08/14/24 08/14/24 08/14/24 Range/Units 07:35 07:35 11:24 WBC 13.4 H (3.8-10.6) k/uL RBC 3.11 L (3.80-5.40) m/uL Hgb 8.1 L D (11.4-16.0) gm/dL Hct 28.8 L (34.0-46.0) % MCHC 28.3 L (31.0-37.0) g/dL RDW 15.8 H (11.5-15.5) % Plt Count 97 L D (150-450) k/uL Neutrophils # (Manual) 11.10 H (1.3-7.7) k/uL Metamyelocytes # (Man) 0.13 H (0) k/uL APTT >200.0 H* (22.0-30.0) sec Sodium (137-145) mmol/L Potassium (3.5-5.1) mmol/L Chloride (98-107) mmol/L BUN (7-17) mg/dL Creatinine (0.52-1.04) mg/dL Glucose (74-99) mg/dL POC Glucose (mg/dL) 132 H (70-110) mg/dL Calcium (8.4-10.2) mg/dL AST (14-36) U/L ALT (4-34) U/L Troponin I (0.000-0.034) ng/mL Total Protein (6.3-8.2) g/dL Albumin (3.5-5.0) g/dL Microbiology - Last 24 Hours (Table) 08/13/24 08:27 Urine Culture - Preliminary Urine,Catheterized Gram Neg Bacilli Assessment and Plan Assessment: Impression: Acute on chronic hypoxic and hypercapnic respiratory failure most likely secondary to severe COPD/underlying COPD with acute exacerbation Chronic hypoxic and chronic hypercapnic respiratory failure patient is supposedly on [facility] at [facility] Altered mental status secondary to acute metabolic encephalopathy Urinary tract infection, strongly suspect sepsis with hypotension, urine is showing gram-negative bacilli final culture is pending Acute kidney injury with hyperkalemia secondary to acute kidney injury and secondary to acute respiratory acidosis with a pH of 7.27 Elevated D-dimer possible thromboembolic disease Leukocytosis secondary to urinary tract infection and urosepsis History of deep vein thrombosis supposedly on long-term anticoagulation therapy, questionable compliance Benign essential hypertension Dyslipidemia History of macular degeneration History of breast cancer and previous left-sided mastectomy Recommendation: Continue BiPAP 16/6/50% and titrate FiO2 accordingly Broad-spectrum antibiotics including cefepime and vancomycin, will adjust once we have the final culture from the urine or the blood Continue heparin, follow protocol GI and DVT prophylaxis Consider enteral feeding unless the patient is able to swallow on her own. Continue DuoNeb Continue Solu-Cortef, patient is normally on prednisone for underlying COPD ho wever I will cut down the dose Continue IV fluid and changed to D5W Continue amiodarone as per cardiology Continue DNR CODE STATUS Prognosis is extremely poor Will continue to follow, patient is critically ill Time with Patient: Less than 30
[2024-08-14] MEDS: SODIUM CHLORIDE 0.9% 1,000 ML IV ONE (13:01)
--- NOTE | 2024-08-14 14:12 | P.PN ---
Subjective Progress Note Date: 08/14/24 Principal diagnosis: Reason for follow-up is sepsis UTI Patient is a 84-year-old female with a past medical history significant for COPD DVT hypertension hyperlipidemia pneumonia and left breast cancer patient is a [facility] resident patient has been brought into the hospital for evaluation of fever and mental status changes, admitted to ICU concerning for sepsis secondary to urinary tract infection. On today's evaluation that is 08/14/2024, the patient did have improving her fever pattern and is afebrile at noon the patient is requiring low-dose pressor support and slightly more awake responding to her name as reported by the nursing staff no vomiting or diarrhea has been reported. Objective - Vital Signs Vital signs: Vital Signs Temp 99.2 F 08/14/24 09:00 Pulse 105 H 08/14/24 10:00 Resp 13 08/14/24 10:00 BP 85/63 08/14/24 10:00 Pulse Ox 100 08/14/24 10:00 FiO2 30 08/14/24 09:00 Intake & Output 08/13/24 08/14/24 08/14/24 18:59 06:59 18:59 Intake Total 1405.599 658.277 639.649 Output Total 250 960 175 Balance 1155.599 -301.723 464.649 Weight 117.934 kg Intake: IV 555.0 300 Cefepime 1 gm In Sodium 50.0 Chloride 0.9% 50 ml @ 12. 5 mls/hr IVPB Q12H [facility] Rx #:[id number] Sodium Chloride 0.9% 1, 130 000 ml @ 130 mls/hr IV . Q7H42M [facility] Rx#:[id number] Sodium Chloride 0.9% 1, 375 300 000 ml @ 75 mls/hr IV . [id number] [facility] Rx#:[id number] Intake, IV Titration 1405.599 103.277 339.649 Amount Amiodarone 450 mg In 250 Dextrose 5% in Water 250 ml @ 0.5 MG/MIN 16.667 mls/hr IV .Q15H [facility] Rx#: [id number] Heparin Sod,Pork in 0.45% 125.599 103.277 89.649 NaCl 25,000 unit In 0.45 % NaCl 1 250ml.bag @ 18 UNITS/KG/HR 21.228 mls/hr IV .[id number] [facility] Rx#: [id number] Sodium Chloride 0.9% 1, 780 000 ml @ 130 mls/hr IV . Q7H42M [facility] Rx#:[id number] Sodium Chloride 0.9% 500 500 ml 500 ml @ 999 mls/hr IV .Q31M [facility] Rx#:[id number] Output: Urine 250 960 175 Other: Voiding Method Indwelling Catheter Indwelling Catheter - Exam GENERAL DESCRIPTION: An elderly female lying in bed in no distress RESPIRATORY SYSTEM: Unlabored breathing , decreased breath sounds at bases HEART: S1 S2 regular rate and rhythm , ABDOMEN: Soft , no tenderness EXTREMITIES: No edema feet - Labs CBC & Chem 7: 08/14/24 07:35 08/14/24 07:35 Labs: Abnormal Lab Results - Last 24 Hours (Table) 08/13/24 08/13/24 08/13/24 Range/Units 10:21 11:13 11:50 WBC (3.8-10.6) k/uL RBC (3.80-5.40) m/uL Hgb (11.4-16.0) gm/dL Hct (34.0-46.0) % MCHC (31.0-37.0) g/dL RDW (11.5-15.5) % Plt Count (150-450) k/uL Neutrophils # (Manual) (1.3-7.7) k/uL Metamyelocytes # (Man) (0) k/uL APTT (22.0-30.0) sec ABG pH 7.27 L (7.35-7.45) ABG pCO2 53 H (35-45) mmHg ABG pO2 80 L (83-108) mmHg ABG Total CO2 26 H (19-24) mmol/L Hemoglobin 9.4 L (11.4-16.0) gm/dL Sodium (137-145) mmol/L Potassium (3.5-5.1) mmol/L Chloride (98-107) mmol/L BUN (7-17) mg/dL Creatinine (0.52-1.04) mg/dL Glucose (74-99) mg/dL POC Glucose (mg/dL) 220 H (70-110) mg/dL Calcium (8.4-10.2) mg/dL AST (14-36) U/L ALT (4-34) U/L Troponin I 0.348 H* (0.000-0.034) ng/mL Total Protein (6.3-8.2) g/dL Albumin (3.5-5.0) g/dL 08/13/24 08/13/24 08/13/24 Range/Units 11:50 16:05 16:05 WBC (3.8-10.6) k/uL RBC (3.80-5.40) m/uL Hgb (11.4-16.0) gm/dL Hct (34.0-46.0) % MCHC (31.0-37.0) g/dL RDW (11.5-15.5) % Plt Count (150-450) k/uL Neutrophils # (Manual) (1.3-7.7) k/uL Metamyelocytes # (Man) (0) k/uL APTT >200.0 H* (22.0-30.0) sec ABG pH (7.35-7.45) ABG pCO2 (35-45) mmHg ABG pO2 (83-108) mmHg ABG Total CO2 (19-24) mmol/L Hemoglobin (11.4-16.0) gm/dL Sodium (137-145) mmol/L Potassium 6.4 H* (3.5-5.1) mmol/L Chloride (98-107) mmol/L BUN (7-17) mg/dL Creatinine (0.52-1.04) mg/dL Glucose (74-99) mg/dL POC Glucose (mg/dL) (70-110) mg/dL Calcium (8.4-10.2) mg/dL AST (14-36) U/L ALT (4-34) U/L Troponin I 0.328 H* (0.000-0.034) ng/mL Total Protein (6.3-8.2) g/dL Albumin (3.5-5.0) g/dL 08/13/24 08/13/24 08/13/24 Range/Units 17:36 17:36 18:06 WBC (3.8-10.6) k/uL RBC (3.80-5.40) m/uL Hgb (11.4-16.0) gm/dL Hct (34.0-46.0) % MCHC (31.0-37.0) g/dL RDW (11.5-15.5) % Plt Count (150-450) k/uL Neutrophils # (Manual) (1.3-7.7) k/uL Metamyelocytes # (Man) (0) k/uL APTT >200.0 H* (22.0-30.0) sec ABG pH (7.35-7.45) ABG pCO2 (35-45) mmHg ABG pO2 (83-108) mmHg ABG Total CO2 (19-24) mmol/L Hemoglobin (11.4-16.0) gm/dL Sodium (137-145) mmol/L Potassium 5.7 H (3.5-5.1) mmol/L Chloride (98-107) mmol/L BUN (7-17) mg/dL Creatinine (0.52-1.04) mg/dL Glucose (74-99) mg/dL POC Glucose (mg/dL) 163 H (70-110) mg/dL Calcium (8.4-10.2) mg/dL AST (14-36) U/L ALT (4-34) U/L Troponin I (0.000-0.034) ng/mL Total Protein (6.3-8.2) g/dL Albumin (3.5-5.0) g/dL 08/13/24 08/14/24 08/14/24 Range/Units 21:21 00:29 00:41 WBC (3.8-10.6) k/uL RBC (3.80-5.40) m/uL Hgb (11.4-16.0) gm/dL Hct (34.0-46.0) % MCHC (31.0-37.0) g/dL RDW (11.5-15.5) % Plt Count (150-450) k/uL Neutrophils # (Manual) (1.3-7.7) k/uL Metamyelocytes # (Man) (0) k/uL APTT 193.1 H* (22.0-30.0) sec ABG pH (7.35-7.45) ABG pCO2 (35-45) mmHg ABG pO2 (83-108) mmHg ABG Total CO2 (19-24) mmol/L Hemoglobin (11.4-16.0) gm/dL Sodium (137-145) mmol/L Potassium (3.5-5.1) mmol/L Chloride (98-107) mmol/L BUN (7-17) mg/dL Creatinine (0.52-1.04) mg/dL Glucose (74-99) mg/dL POC Glucose (mg/dL) 139 H 144 H (70-110) mg/dL Calcium (8.4-10.2) mg/dL AST (14-36) U/L ALT (4-34) U/L Troponin I (0.000-0.034) ng/mL Total Protein (6.3-8.2) g/dL Albumin (3.5-5.0) g/dL 08/14/24 08/14/24 08/14/24 Range/Units 06:33 07:35 07:35 WBC 13.4 H (3.8-10.6) k/uL RBC 3.11 L (3.80-5.40) m/uL Hgb 8.1 L D (11.4-16.0) gm/dL Hct 28.8 L (34.0-46.0) % MCHC 28.3 L (31.0-37.0) g/dL RDW 15.8 H (11.5-15.5) % Plt Count 97 L D (150-450) k/uL Neutrophils # (Manual) 11.10 H (1.3-7.7) k/uL Metamyelocytes # (Man) 0.13 H (0) k/uL APTT (22.0-30.0) sec ABG pH (7.35-7.45) ABG pCO2 (35-45) mmHg ABG pO2 (83-108) mmHg ABG Total CO2 (19-24) mmol/L Hemoglobin (11.4-16.0) gm/dL Sodium 148 H (137-145) mmol/L Potassium (3.5-5.1) mmol/L Chloride 115 H (98-107) mmol/L BUN 67 H (7-17) mg/dL Creatinine 2.58 H (0.52-1.04) mg/dL Glucose 127 H (74-99) mg/dL POC Glucose (mg/dL) 165 H (70-110) mg/dL Calcium 8.1 L (8.4-10.2) mg/dL AST 2970 H (14-36) U/L ALT 2609 H (4-34) U/L Troponin I (0.000-0.034) ng/mL Total Protein 5.3 L (6.3-8.2) g/dL Albumin 3.3 L (3.5-5.0) g/dL 08/14/24 Range/Units 07:35 WBC (3.8-10.6) k/uL RBC (3.80-5.40) m/uL Hgb (11.4-16.0) gm/dL Hct (34.0-46.0) % MCHC (31.0-37.0) g/dL RDW (11.5-15.5) % Plt Count (150-450) k/uL Neutrophils # (Manual) (1.3-7.7) k/uL Metamyelocytes # (Man) (0) k/uL APTT >200.0 H* (22.0-30.0) sec ABG pH (7.35-7.45) ABG pCO2 (35-45) mmHg ABG pO2 (83-108) mmHg ABG Total CO2 (19-24) mmol/L Hemoglobin (11.4-16.0) gm/dL Sodium (137-145) mmol/L Potassium (3.5-5.1) mmol/L Chloride (98-107) mmol/L BUN (7-17) mg/dL Creatinine (0.52-1.04) mg/dL Glucose (74-99) mg/dL POC Glucose (mg/dL) (70-110) mg/dL Calcium (8.4-10.2) mg/dL AST (14-36) U/L ALT (4-34) U/L Troponin I (0.000-0.034) ng/mL Total Protein (6.3-8.2) g/dL Albumin (3.5-5.0) g/dL Assessment and Plan (1) Allergy to multiple antibiotics Current Visit: Yes Status: Acute Code(s): Z88.1 - ALLERGY STATUS TO OTHER ANTIBIOTIC AGENTS SNOMED Code(s): 524767283 (2) Sepsis Current Visit: Yes Status: Acute Code(s): A41.9 - SEPSIS, UNSPECIFIED ORGANISM SNOMED Code(s): 04257986 (3) UTI (urinary tract infection) Current Visit: Yes Status: Acute Code(s): N39.0 - URINARY TRACT INFECTION, SITE NOT SPECIFIED SNOMED Code(s): 57804503 Plan: 1patient presented to hospital with sepsis in this patient who did have fever tachycardia elevated white count and hypotension meeting currently for SIRS source is likely UTI and this patient did have significantly positive UA with recent urine culture done in the outpatient setting was positive for Morganella that was sensitive to cefepime and prior to that she did grow Enterococcus faecalis that was sensitive to penicillin as well as vancomycin and if these 2 pathogen could be the likely source of this UTI and sepsis. 2patient with multiple antibiotic ALLERGIES that would limit the number of antibiotic safe to use. 3patient with a elevated creatinine high risk of nephrotoxicity. 4patient will be continued on cefepime while waiting for the culture to fin kristin however discontinue vancomycin to decrease risk of nephrotoxicity. Daughter at the bedside questions answered Dictation was produced using [employer] dictation software. please excuse any grammatical, word or spelling errors. Time with Patient: Less than 30
--- NOTE | 2024-08-14 14:15 | P.PN ---
Subjective Progress Note Date: 08/14/24 83-year-old female with past medical history significant for multiple medical conditions lives in a long-term facility was brought to the ER for altered mental status for the last few days, shortness of breath, low blood pressure, recently was found to have UTI. Patient has history of COPD, DVT, hypertension, hyperlipidemia, history of ESBL. Son at the bedside. Patient currently on BiPAP on FiO2 30%, poor historian due to altered mental status. Son reported that patient was confused for the last few days, had poor p.o. intake. In the ER patient was found to be with altered mental status, hypoxia, hypotensive, had A-fib with RVR hypercapnia with CO2 53 required BiPAP, was also noted to have acute kidney injury with hyperkalemia with potassium of 7.5. Urine drug screen was positive for benzodiazepine. Influenza RSV and COVID was negative. UA showed bacteriuria and pyuria. Troponin mildly elevated at 0.244, ammonia was 39. D-dimer was elevated at 19.97. Patient was noted to have WBCs 8.3, chest x-ray concerning for cardiomegaly and pulmonary venous congestion. CT head showed extensive nonspecific white matter changes, no acute intracranial process. Patient was given IV fluids in the ED. Family at bedside confirmed the CODE STATUS to be DNR limited. Last urine culture for few months ago showed Enterococcus faecalis, Morganella. 08/14. Patient seen and examined. Currently on BiPAP, vitals are heart rate 105, respirations 13, blood pressure 85/63. Lab work done showed WBC 13.4, hemoglobin 8.1, platelet count 97, sodium 148, potassium 4.1, BUN 67, creatinine 2.58. AST 2970 ALT 11/06/2008. REVIEW OF SYSTEMS: CONSTITUTIONAL: No fever, no malaise,. CARDIOVASCULAR: No chest pain, no palpitations, no syncope. PULMONARY: No shortness of breath, no cough, GASTROINTESTINAL: No diarrhea, no nausea, no vomiting, no abdominal pain. NEUROLOGICAL: No headaches, no weakness, PHYSICAL EXAMINATION: GENERAL: The patient is alert to self HEENT: Pupils are round and equally reacting to light. EOMI. No scleral icterus. No conjunctival pallor. Normocephalic, atraumatic. No pharyngeal erythema. No thyromegaly. CARDIOVASCULAR: S1 and S2 present. No murmurs, rubs, or gallops. PULMONARY: Chest is clear to auscultation, no wheezing or crackles. ABDOMEN: Soft, nontender, nondistended, normoactive bowel sounds. No palpable organomegaly. MUSCULOSKELETAL: No joint swelling or deformity. EXTREMITIES: No cyanosis, clubbing, or pedal edema. NEUROLOGICAL: Gross neurological examination did not reveal any focal deficits. SKIN: No rashes. Assessment and plan Acute on chronic hypoxic hypercapnic respiratory failure Severe COPD with acute exacerbation Atrial fibrillation/flutter with rapid ventricular response Chronic hypoxic hypercapnic respiratory failure, reportedly on BiPAP at long-term Acute transaminitis Acute metabolic encephalopathy Severe sepsis Hypotension Elevated D-dimer Right lower extremity DVT A-fib with RVR NSTEMI RITIKA Hyperkalemia Hypertension Hyperlipidemia History of macular degeneration History of breast cancer and previous left-sided mastectomy Plan: Monitor vital sign Monitor CBC Monitor CMP Continue oxygen by mentation Aggressive bronchopulmonary hygiene Continue BiPAP Broad-spectrum antibiotics vancomycin and cefepime Continue heparin drip Continue amiodarone Blood culture, urine culture Bronchodilator, Solu-Medrol per pulmonary Ultrasound venouslimited exam, evidence of possible nonocclusive thrombus in the right popliteal vein 2D echo pending Cardiology following Nephrology following ID following Labs and medication were reviewed.. Continue same treatment. Continue with symptomatic treatment. Resume home medication. Monitor labs and vitals. DVT and GI prophylaxis. Further recommendations as per clinical course of the patient Dictation was produced using [employer] dictation software. please excuse any gra mmatical, word or spelling errors. Objective - Vital Signs Vital signs: Vital Signs Temp 99.2 F 08/14/24 09:00 Pulse 105 H 08/14/24 10:00 Resp 13 08/14/24 10:00 BP 85/63 08/14/24 10:00 Pulse Ox 100 08/14/24 10:00 FiO2 30 08/14/24 09:00 Intake & Output 08/13/24 08/14/24 08/14/24 18:59 06:59 18:59 Intake Total 1405.599 658.277 300 Output Total 250 960 175 Balance 1155.599 -301.723 125 Weight 117.934 kg Intake: IV 555.0 300 Cefepime 1 gm In Sodium 50.0 Chloride 0.9% 50 ml @ 12. 5 mls/hr IVPB Q12H [facility] Rx #:[id number] Sodium Chloride 0.9% 1, 130 000 ml @ 130 mls/hr IV . Q7H42M [facility] Rx#:[id number] Sodium Chloride 0.9% 1, 375 300 000 ml @ 75 mls/hr IV . [id number] [facility] Rx#:[id number] Intake, IV Titration 1405.599 103.277 Amount Heparin Sod,Pork in 0.45% 125.599 103.277 NaCl 25,000 unit In 0.45 % NaCl 1 250ml.bag @ 18 UNITS/KG/HR 21.228 mls/hr IV .[id number] [facility] Rx#: [id number] Sodium Chloride 0.9% 1, 780 000 ml @ 130 mls/hr IV . Q7H42M [facility] Rx#:[id number] Sodium Chloride 0.9% 500 500 ml 500 ml @ 999 mls/hr IV .Q31M [facility] Rx#:[id number] Output: Urine 250 960 175 Other: Voiding Method Indwelling Catheter Indwelling Catheter - Labs CBC & Chem 7: 08/14/24 07:35 08/14/24 07:35 Labs: Abnormal Lab Results - Last 24 Hours (Table) 08/13/24 08/13/24 08/13/24 Range/Units 08:28 09:39 10:21 WBC (3.8-10.6) k/uL RBC (3.80-5.40) m/uL Hgb (11.4-16.0) gm/dL Hct (34.0-46.0) % MCHC (31.0-37.0) g/dL RDW (11.5-15.5) % Plt Count (150-450) k/uL Neutrophils # (Manual) (1.3-7.7) k/uL Metamyelocytes # (Man) (0) k/uL APTT (22.0-30.0) sec ABG pH 7.27 L (7.35-7.45) ABG pCO2 53 H (35-45) mmHg ABG pO2 80 L (83-108) mmHg ABG Total CO2 26 H (19-24) mmol/L Hemoglobin 9.4 L (11.4-16.0) gm/dL Sodium (137-145) mmol/L Potassium (3.5-5.1) mmol/L Chloride (98-107) mmol/L BUN (7-17) mg/dL Creatinine (0.52-1.04) mg/dL Glucose (74-99) mg/dL POC Glucose (mg/dL) (70-110) mg/dL Calcium (8.4-10.2) mg/dL AST 1758 H (14-36) U/L ALT (4-34) U/L Ammonia 39 H (<30) umol/L Troponin I (0.000-0.034) ng/mL Total Protein (6.3-8.2) g/dL Albumin (3.5-5.0) g/dL 08/13/24 08/13/24 08/13/24 Range/Units 11:13 11:50 11:50 WBC (3.8-10.6) k/uL RBC (3.80-5.40) m/uL Hgb (11.4-16.0) gm/dL Hct (34.0-46.0) % MCHC (31.0-37.0) g/dL RDW (11.5-15.5) % Plt Count (150-450) k/uL Neutrophils # (Manual) (1.3-7.7) k/uL Metamyelocytes # (Man) (0) k/uL APTT (22.0-30.0) sec ABG pH (7.35-7.45) ABG pCO2 (35-45) mmHg ABG pO2 (83-108) mmHg ABG Total CO2 (19-24) mmol/L Hemoglobin (11.4-16.0) gm/dL Sodium (137-145) mmol/L Potassium 6.4 H* (3.5-5.1) mmol/L Chloride (98-107) mmol/L BUN (7-17) mg/dL Creatinine (0.52-1.04) mg/dL Glucose (74-99) mg/dL POC Glucose (mg/dL) 220 H (70-110) mg/dL Calcium (8.4-10.2) mg/dL AST (14-36) U/L ALT (4-34) U/L Ammonia (<30) umol/L Troponin I 0.348 H* (0.000-0.034) ng/mL Total Protein (6.3-8.2) g/dL Albumin (3.5-5.0) g/dL 08/13/24 08/13/24 08/13/24 Range/Units 16:05 16:05 17:36 WBC (3.8-10.6) k/uL RBC (3.80-5.40) m/uL Hgb (11.4-16.0) gm/dL Hct (34.0-46.0) % MCHC (31.0-37.0) g/dL RDW (11.5-15.5) % Plt Count (150-450) k/uL Neutrophils # (Manual) (1.3-7.7) k/uL Metamyelocytes # (Man) (0) k/uL APTT >200.0 H* >200.0 H* (22.0-30.0) sec ABG pH (7.35-7.45) ABG pCO2 (35-45) mmHg ABG pO2 (83-108) mmHg ABG Total CO2 (19-24) mmol/L Hemoglobin (11.4-16.0) gm/dL Sodium (137-145) mmol/L Potassium (3.5-5.1) mmol/L Chloride (98-107) mmol/L BUN (7-17) mg/dL Creatinine (0.52-1.04) mg/dL Glucose (74-99) mg/dL POC Glucose (mg/dL) (70-110) mg/dL Calcium (8.4-10.2) mg/dL AST (14-36) U/L ALT (4-34) U/L Ammonia (<30) umol/L Troponin I 0.328 H* (0.000-0.034) ng/mL Total Protein (6.3-8.2) g/dL Albumin (3.5-5.0) g/dL 08/13/24 08/13/24 08/13/24 Range/Units 17:36 18:06 21:21 WBC (3.8-10.6) k/uL RBC (3.80-5.40) m/uL Hgb (11.4-16.0) gm/dL Hct (34.0-46.0) % MCHC (31.0-37.0) g/dL RDW (11.5-15.5) % Plt Count (150-450) k/uL Neutrophils # (Manual) (1.3-7.7) k/uL Metamyelocytes # (Man) (0) k/uL APTT (22.0-30.0) sec ABG pH (7.35-7.45) ABG pCO2 (35-45) mmHg ABG pO2 (83-108) mmHg ABG Total CO2 (19-24) mmol/L Hemoglobin (11.4-16.0) gm/dL Sodium (137-145) mmol/L Potassium 5.7 H (3.5-5.1) mmol/L Chloride (98-107) mmol/L BUN (7-17) mg/dL Creatinine (0.52-1.04) mg/dL Glucose (74-99) mg/dL POC Glucose (mg/dL) 163 H 139 H (70-110) mg/dL Calcium (8.4-10.2) mg/dL AST (14-36) U/L ALT (4-34) U/L Ammonia (<30) umol/L Troponin I (0.000-0.034) ng/mL Total Protein (6.3-8.2) g/dL Albumin (3.5-5.0) g/dL 08/14/24 08/14/24 08/14/24 Range/Units 00:29 00:41 06:33 WBC (3.8-10.6) k/uL RBC (3.80-5.40) m/uL Hgb (11.4-16.0) gm/dL Hct (34.0-46.0) % MCHC (31.0-37.0) g/dL RDW (11.5-15.5) % Plt Count (150-450) k/uL Neutrophils # (Manual) (1.3-7.7) k/uL Metamyelocytes # (Man) (0) k/uL APTT 193.1 H* (22.0-30.0) sec ABG pH (7.35-7.45) ABG pCO2 (35-45) mmHg ABG pO2 (83-108) mmHg ABG Total CO2 (19-24) mmol/L Hemoglobin (11.4-16.0) gm/dL Sodium (137-145) mmol/L Potassium (3.5-5.1) mmol/L Chloride (98-107) mmol/L BUN (7-17) mg/dL Creatinine (0.52-1.04) mg/dL Glucose (74-99) mg/dL POC Glucose (mg/dL) 144 H 165 H (70-110) mg/dL Calcium (8.4-10.2) mg/dL AST (14-36) U/L ALT (4-34) U/L Ammonia (<30) umol/L Troponin I (0.000-0.034) ng/mL Total Protein (6.3-8.2) g/dL Albumin (3.5-5.0) g/dL 08/14/24 08/14/24 08/14/24 Range/Units 07:35 07:35 07:35 WBC 13.4 H (3.8-10.6) k/uL RBC 3.11 L (3.80-5.40) m/uL Hgb 8.1 L D (11.4-16.0) gm/dL Hct 28.8 L (34.0-46.0) % MCHC 28.3 L (31.0-37.0) g/dL RDW 15.8 H (11.5-15.5) % Plt Count 97 L D (150-450) k/uL Neutrophils # (Manual) 11.10 H (1.3-7.7) k/uL Metamyelocytes # (Man) 0.13 H (0) k/uL APTT >200.0 H* (22.0-30.0) sec ABG pH (7.35-7.45) ABG pCO2 (35-45) mmHg ABG pO2 (83-108) mmHg ABG Total CO2 (19-24) mmol/L Hemoglobin (11.4-16.0) gm/dL Sodium 148 H (137-145) mmol/L Potassium (3.5-5.1) mmol/L Chloride 115 H (98-107) mmol/L BUN 67 H (7-17) mg/dL Creatinine 2.58 H (0.52-1.04) mg/dL Glucose 127 H (74-99) mg/dL POC Glucose (mg/dL) (70-110) mg/dL Calcium 8.1 L (8.4-10.2) mg/dL AST 2970 H (14-36) U/L ALT 2609 H (4-34) U/L Ammonia (<30) umol/L Troponin I (0.000-0.034) ng/mL Total Protein 5.3 L (6.3-8.2) g/dL Albumin 3.3 L (3.5-5.0) g/dL
[2024-08-14] MEDS: NOREPINEPHRINE 4 MG in SODIUM CHLORIDE 0.9% 250 ML IV SCH (16:09)
[2024-08-14 17:59] LABS: Glucose,Whole Blood 157 mg/dL (70-110)
[2024-08-14 20:41] LABS: Glucose,Whole Blood 144 mg/dL (70-110)
[2024-08-14 23:39] LABS: Glucose,Whole Blood 156 mg/dL (70-110)
[2024-08-15] MEDS: INSULIN ASPART (NovoLOG) 100 UNIT/ML VIAL SQ SCH (00:38)
[2024-08-15 03:37] LABS: Anisocytosis Slight; Basophils % (A) 0 %; Eosinophils % (A) 0 %; HCT 30.2 % (34.0-46.0); HGB 8.8 gm/dL (11.4-16.0); Hypochromasia Marked; Lymphocytes % (A) 7 %; MCH 26.7 pg (25.0-35.0); MCV 91.9 fL (80.0-100.0); Mean Platelet Volume 9.3; Monocytes # (A) 0.7 k/uL (0-1.0); Monocytes % (A) 5 %; Neutrophils % (A) 87 %; Platelet Count 129 k/uL (150-450); RBC 3.29 m/uL (3.80-5.40); WBC 13.7 k/uL (3.8-10.6)
[2024-08-15 04:24] LABS: African American GFR (CKD) 19 (>60 ml/min/1.73 sqM); Albumin 3.3 g/dL (3.5-5.0); Alkaline Phosphatase 75 U/L (38-126); Anion Gap 9 mmol/L; Blood Urea Nitrogen 74 mg/dL (7-17); Calcium 7.9 mg/dL (8.4-10.2); Carbon Dioxide 19 mmol/L (22-30); Chloride 112 mmol/L (98-107); Glucose 140 mg/dL (74-99); Non-African American GFR(CKD) 17 (>60 ml/min/1.73 sqM); Potassium 3.7 mmol/L (3.5-5.1); Sodium 140 mmol/L (137-145); Total Bilirubin 0.9 mg/dL (0.2-1.3); Total Protein 5.2 g/dL (6.3-8.2)
[2024-08-15 05:01] LABS: ALT 2542 U/L (4-34); AST 1553 U/L (14-36)
[2024-08-15 05:29] LABS: Glucose,Whole Blood 151 mg/dL (70-110)
--- NOTE | 2024-08-15 07:03 | CA ---
Transthoracic Echo Report Name: Teri Borrego Age: 84 Gender: F : 1940 Exam Date: 08/14/2024 08:02 Exam Location: [facility] Ht (in): 63 Wt (lb): 260 Ordering Physician: Masoud Mckeon MD ([id number]) Attending/Referring Phys: Vp Training Jamila Galindo RDCS Procedure CPT: Indications: afib Cardiac Hx: Technical Quality: Technically difficult study Contrast 1: Definity Total Dose (mL): 2 Contrast 2: Total Dose (mL): MEASUREMENTS (Male / Female) Normal Values 2D ECHO LV Diastolic Diameter PLAX 4.0 cm 4.2 - 5.9 / 3.9 - 5.3 cm LV Systolic Diameter PLAX 3.4 cm IVS Diastolic Thickness 1.3 cm 0.6 - 1.0 / 0.6 - 0.9 cm LVPW Diastolic Thickness 1.3 cm 0.6 - 1.0 / 0.6 - 0.9 cm LV Relative Wall Thickness 0.7 LVOT Diameter 2.1 cm LV Diastolic Volume MOD BP 127.1 cm??? 67 - 155 / 56 - 104 cm??? LV Systolic Volume MOD BP 86.7 cm??? 22 - 58 / 19 - 49 cm??? LV Ejection Fraction MOD BP 31.8 % >= 55 % LV Cardiac Index MOD BP 2194.4 cm???/min???m??? LV Diastolic Volume MOD 4C 124.1 cm??? LV Systolic Volume MOD 4C 82.2 cm??? LV Ejection Fraction MOD 4C 33.8 % LV Cardiac Index MOD 4C 2273.1 cm???/min???m??? LV Diastolic Length 4C 7.7 cm LV Systolic Length 4C 6.7 cm LV Diastolic Volume MOD 2C 129.5 cm??? LV Systolic Volume MOD 2C 88.5 cm??? LV Ejection Fraction MOD 2C 31.7 % LV Cardiac Index MOD 2C 2224.5 cm???/min???m??? LV Diastolic Length 2C 7.6 cm LV Systolic Length 2C 6.9 cm LA Volume 111.6 cm??? 18 - 58 / 22 - 52 cm??? LA Volume Index 47.3 cm???/m??? 16 - 28 cm???/m??? Ascending Aorta Diameter 4.2 cm DOPPLER AV Peak Velocity 131.2 cm/s AV Peak Gradient 6.9 mmHg AV Mean Velocity 99.9 cm/s AV Mean Gradient 4.3 mmHg AV Velocity Time Integral 22.9 cm LVOT Peak Velocity 83.5 cm/s LVOT Peak Gradient 2.8 mmHg LVOT Velocity Time Integral 14.8 cm LVOT Stroke Volume 50.6 cm??? LVOT Stroke Volume Index 23.4 ml/m??? LVOT Cardiac Index 2745.3 cm???/min???m??? AV Area Cont Eq vti 2.2 cm??? AV Area Cont Eq pk 2.2 cm??? MR Peak Velocity 424.8 cm/s MR Peak Gradient 72.2 mmHg TR Peak Velocity 218.2 cm/s TR Peak Gradient 19.0 mmHg Right Atrial Pressure 20.0 mmHg Pulmonary Artery Systolic Pressu 39.0 mmHg Right Ventricular Systolic Press 39.0 mmHg PV Peak Velocity 42.2 cm/s PV Peak Gradient 0.7 mmHg FINDINGS Left Ventricle Left ventricular ejection fraction is estimated at 15-20 %. Mildly increased septal wall thickness. Moderately increased posterior wall thickness. Moderately increased left ventricular diastolic volume. Severely increased left ventricular systolic volume. Moderately decreased left ventricular ejection fraction. Right Ventricle Severe right ventricular dilatation with moderately reduced function. Mild pulmonary hypertension. Right Atrium Severe right atrial dilatation. Left Atrium Severely increased left atrial volume. Mildly increased left atrial area. Mitral Valve Mitral valve thickened. Mitral annular calcification. No evidence for mitral valve prolapse. No mitral stenosis. Moderate mitral regurgitation. Aortic Valve Trileaflet aortic valve. Aortic valve sclerosis. No aortic stenosis. Trace aortic regurgitation. Tricuspid Valve Structurally normal tricuspid valve. No tricuspid stenosis. Moderate tricuspid regurgitation. Pulmonic Valve Pulmonic valve not well visualized. No pulmonic stenosis. No pulmonic regurgitation. Pericardium No pericardial effusion. Aorta Mildly dilated proximal ascending aorta (tube). CONCLUSIONS Severely impaired LV function with EF between 15 to 20% with dilated left ventricle Moderate mitral regurgitation Mild pulmonary hypertension Enlarged right ventricle Mildly dilated ascending aorta Previewed by: Dr. Kamlesh Armando MD (Electronically Signed) Final Date: 15 August 2024 07:02
--- NOTE | 2024-08-15 07:14 | P.PN ---
Subjective Progress Note Date: 08/15/24 PROGRESS NOTE The patient is an 83-year-old female, [place] a detention who presented with change in mental status, worsening dyspnea and was noted to have a urosepsis, exacerbation of COPD as well as atrial fibrillation with rapid ventricular response. The history is obtained from her son. The patient is somnolent on a BiPAP not answering questions. She has a known history of significant COPD, on home oxygen, very limited in her physical activity in the wheelchair. She has questionable history of CHF in the past but no history of atrial fibrillation, documented obstructive CAD or myocardial infarction. She has a prior history of UTI, frequent. She is on IV amiodarone and was started on IV heparin. She is on no vasopressors. She has poor urinary output. The family is a DNR. She underwent a CT scan of the head that showed no acute intracranial process with white matter changes, likely secondary to small vessel disease. Her EKG showed atrial fibrillation with rapid ventricular response, nonspecific ST-T wave changes, cannot exclude anterior wall myocardial infarction of unknown timing. In March 2024 she was in sinus mechanism. She has a history of hyperlipidemia, prior history of smoking but no history of diabetes. In 2019 she had a normal left ventricular systolic function August 14: The patient remains on the BiPAP, obtunded, appears to be in atrial flutter with 2:1 conduction on IV amiodarone, IV heparin as well as antibiotics. Her urinary output is good. There is no evidence of ventricular ectopic activity. She was admitted yesterday with change in mental status, urosepsis and exacerbation of her COPD. Her duplex scan of the lower extremity showed possible nonocclusive thrombus in the right popliteal vein but the study was suboptimal. August 15: The patient remains on the BiPAP, appears to be more alert, following commands. She continues to be in atrial flutter with 2:1 conduction. Her IV amiodarone was stopped because worsening LFTs. Her blood pressure is stable. Urine output has been good. There is no evidence of ventricular tachyarrhythmia. Her heart rate remains in the 120s to 130s. Her echocardiogram done yesterday showed a se verely impaired low ventricle systolic function with an ejection fraction of 15 to 20% with dilated left ventricle and moderate mitral regurgitation. Medications: IV metoprolol, IV heparin, insulin, Protonix, vancomycin, Solu-Cortef, norepinephrine PHYSICAL EXAMINATION: Blood pressure 109/70 heart rate 129, on BiPAP but more alert and oriented LUNGS: Clear to auscultation anteriorly HEART: Tachycardic, S1, S2. No S3. Systolic ejection murmur ABDOMEN: Soft, nontender, no organomegaly, obese, EXTREMETIES: Bilateral ecchymosis, mild edema LAB: Hemoglobin 8.8, WBC 13.7, BUN 74, creatinine 2.59, potassium 3.7. AST 1553 ALT 2542 IMPRESSION: 1. Atrial flutter with rapid ventricular response 2. Change in mental status with encephalopathy, improving 3. Urinary tract infection 4. Chronic obstructive lung disease 5. Acute renal injury with hyperkalemia 6. Acute liver injury 7. Severe cardiomyopathy of unknown duration or etiology PLAN: 1. Continue IV heparin and IV beta-mercedes 2. I will discuss her case with intensive care service to see if she is a candidate for LAURA guided cardioversion in view of her pulmonary status 3. Continue to follow renal function and liver function test 4. Prognosis remains guarded Objective - Vital Signs Vital signs: Vital Signs Temp 97.8 F 08/15/24 04:00 Pulse 129 H 08/15/24 07:00 Resp 18 08/15/24 07:00 BP 109/70 08/15/24 07:00 Pulse Ox 100 08/15/24 07:00 FiO2 30 08/15/24 04:00 Intake & Output 08/14/24 08/15/24 08/15/24 18:59 06:59 18:59 Intake Total 3639.649 1290.503 75 Output Total 425 350 30 Balance 3214.649 940.503 45 Weight 117.934 kg 86.2 kg Intake: IV 3300 900 75 Cefepime 1 gm In Sodium 50 Chloride 0.9% 50 ml @ 12. 5 mls/hr IVPB Q12H [facility] Rx #:[id number] Sodium Chloride 0.9% 1, 750 900 75 000 ml @ 75 mls/hr IV . [id number] [facility] Rx#:[id number] Sodium Chloride 0.9% 500 2000 ml 500 ml @ 999 mls/hr IV .Q31M [facility] Rx#:[id number] Vancomycin 1,500 mg In 500 Sodium Chloride 0.9% 500 ml 500 ml @ 167 mls/hr IVPB ONCE [facility] Rx#: [id number] Intake, IV Titration 339.649 390.503 Amount Amiodarone 450 mg In 250 Dextrose 5% in Water 250 ml @ 0.5 MG/MIN 16.667 mls/hr IV .Q15H [facility] Rx#: [id number] Heparin Sod,Pork in 0.45% 89.649 136.503 NaCl 25,000 unit In 0.45 % NaCl 1 250ml.bag @ 18 UNITS/KG/HR 21.228 mls/hr IV .[id number] [facility] Rx#: [id number] Norepinephrine 4 mg In 254.000 Sodium Chloride 0.9% 250 ml @ 0.03 MCG/KG/MIN 13. 48 mls/hr IV .[id number] [facility] Rx#:[id number] Output: Urine 425 350 30 Other: Voiding Method Indwelling Catheter Indwelling Catheter # Bowel Movements 1 - Labs CBC & Chem 7: 08/15/24 03:18 08/15/24 03:18 Labs: Abnormal Lab Results - Last 24 Hours (Table) 08/14/24 08/14/24 08/14/24 Range/Units 07:35 07:35 07:35 WBC 13.4 H (3.8-10.6) k/uL RBC 3.11 L (3.80-5.40) m/uL Hgb 8.1 L D (11.4-16.0) gm/dL Hct 28.8 L (34.0-46.0) % MCHC 28.3 L (31.0-37.0) g/dL RDW 15.8 H (11.5-15.5) % Plt Count 97 L D (150-450) k/uL Neutrophils # (1.3-7.7) k/uL Neutrophils # (Manual) 11.10 H (1.3-7.7) k/uL Metamyelocytes # (Man) 0.13 H (0) k/uL APTT >200.0 H* (22.0-30.0) sec Sodium 148 H (137-145) mmol/L Chloride 115 H (98-107) mmol/L Carbon Dioxide (22-30) mmol/L BUN 67 H (7-17) mg/dL Creatinine 2.58 H (0.52-1.04) mg/dL Glucose 127 H (74-99) mg/dL POC Glucose (mg/dL) (70-110) mg/dL Calcium 8.1 L (8.4-10.2) mg/dL AST 2970 H (14-36) U/L ALT 2609 H (4-34) U/L Total Protein 5.3 L (6.3-8.2) g/dL Albumin 3.3 L (3.5-5.0) g/dL 08/14/24 08/14/24 08/14/24 Range/Units 11: 17:47 17:58 WBC (3.8-10.6) k/uL RBC (3.80-5.40) m/uL Hgb (11.4-16.0) gm/dL Hct (34.0-46.0) % MCHC (31.0-37.0) g/dL RDW (11.5-15.5) % Plt Count (150-450) k/uL Neutrophils # (1.3-7.7) k/uL Neutrophils # (Manual) (1.3-7.7) k/uL Metamyelocytes # (Man) (0) k/uL APTT 92.7 H (22.0-30.0) sec Sodium (137-145) mmol/L Chloride (98-107) mmol/L Carbon Dioxide (22-30) mmol/L BUN (7-17) mg/dL Creatinine (0.52-1.04) mg/dL Glucose (74-99) mg/dL POC Glucose (mg/dL) 132 H 157 H (70-110) mg/dL Calcium (8.4-10.2) mg/dL AST (14-36) U/L ALT (4-34) U/L Total Protein (6.3-8.2) g/dL Albumin (3.5-5.0) g/dL 08/14/24 08/14/24 08/15/24 Range/Units 20:40 23:38 03:09 WBC (3.8-10.6) k/uL RBC (3.80-5.40) m/uL Hgb (11.4-16.0) gm/dL Hct (34.0-46.0) % MCHC (31.0-37.0) g/dL RDW (11.5-15.5) % Plt Count (150-450) k/uL Neutrophils # (1.3-7.7) k/uL Neutrophils # (Manual) (1.3-7.7) k/uL Metamyelocytes # (Man) (0) k/uL APTT 68.3 H (22.0-30.0) sec Sodium (137-145) mmol/L Chloride (98-107) mmol/L Carbon Dioxide (22-30) mmol/L BUN (7-17) mg/dL Creatinine (0.52-1.04) mg/dL Glucose (74-99) mg/dL POC Glucose (mg/dL) 144 H 156 H (70-110) mg/dL Calcium (8.4-10.2) mg/dL AST (14-36) U/L ALT (4-34) U/L Total Protein (6.3-8.2) g/dL Albumin (3.5-5.0) g/dL 08/15/24 08/15/24 08/15/24 Range/Units 03:18 03:18 05:28 WBC 13.7 H (3.8-10.6) k/uL RBC 3.29 L (3.80-5.40) m/uL Hgb 8.8 L (11.4-16.0) gm/dL Hct 30.2 L (34.0-46.0) % MCHC 29.0 L (31.0-37.0) g/dL RDW 16.0 H (11.5-15.5) % Plt Count 129 L (150-450) k/uL Neutrophils # 12.0 H (1.3-7.7) k/uL Neutrophils # (Manual) (1.3-7.7) k/uL Metamyelocytes # (Man) (0) k/uL APTT (22.0-30.0) sec Sodium (137-145) mmol/L Chloride 112 H (98-107) mmol/L Carbon Dioxide 19 L (22-30) mmol/L BUN 74 H (7-17) mg/dL Creatinine 2.59 H (0.52-1.04) mg/dL Glucose 140 H (74-99) mg/dL POC Glucose (mg/dL) 151 H (70-110) mg/dL Calcium 7.9 L (8.4-10.2) mg/dL AST 1553 H (14-36) U/L ALT 2542 H (4-34) U/L Total Protein 5.2 L (6.3-8.2) g/dL Albumin 3.3 L (3.5-5.0) g/dL Microbiology - Last 24 Hours (Table) 08/13/24 09:00 Blood Culture Gram Stain - Preliminary Blood Blood Culture - Preliminary Molecular ID 08/13/24 08:27 Urine Culture - Preliminary Urine,Catheterized Gram Neg Bacilli
--- NOTE | 2024-08-15 08:44 | XR ---
EXAMINATION TYPE: XR chest 1V DATE OF EXAM: 08/15/2024 5:15 AM COMPARISON: 08/14/2024 CLINICAL INDICATION: Female, 84 years old with history of sob; [facility] TECHNIQUE: XR chest 1V Frontal view of the chest. FINDINGS: Lungs/Pleura: There is no evidence of pleural effusion, focal consolidation, or pneumothorax. Pulmonary vascularity: Unremarkable. Heart/mediastinum: Cardiomediastinal silhouette is enlarged. Atherosclerotic calcifications are seen in the aorta. Musculoskeletal: No acute osseous pathology. Other findings: None IMPRESSION: Stable exam with Cardiomegaly and mild pulmonary vascular congestion. [facility], , 08/15/2024 8:41 AM
[2024-08-15] MEDS: FUROSEMIDE 10 MG/ML 4 ML VIAL IV ONE (09:56)
[2024-08-15] MEDS: POTASSIUM CHLORIDE 10 MEQ in WATER FOR INJECTION 1 100ML.BAG IVPB SCH (09:58)
[2024-08-15] MEDS: SODIUM CHLORIDE 0.9% 1,000 ML IV SCH (10:00)
[2024-08-15] MEDS ORDERED: fentaNYL (PF) 50 MCG/ML 2 ML AMP IVP PRN (10:21)
[2024-08-15] MEDS ORDERED: MIDAZOLAM 2 MG/2 ML VIAL IV PRN (10:21)
[2024-08-15] MEDS ORDERED: BENZOCAINE SPRAY 1 CAN TOPICAL PRN (10:21)
[2024-08-15] MEDS ORDERED: LIDOCAINE 1% INJ 10MG/ML (20 ML MDV) ONE (10:34)
[2024-08-15] MEDS ORDERED: PHENYLEPHRINE 10 MG/ML VIAL ONE (10:34)
[2024-08-15] MEDS ORDERED: PROPOFOL 10 MG/ML 20 ML VIAL IV ONE (10:34)
[2024-08-15] MEDS ORDERED: MIDAZOLAM 2 MG/2 ML VIAL ONE (10:34)
[2024-08-15] MEDS ORDERED: fentaNYL (PF) 50 MCG/ML 2 ML AMP ONE (10:34)
--- NOTE | 2024-08-15 10:45 | P.PN ---
Subjective patient is seen for follow-up for acute kidney injury. She has been maintained on IV fluids. Patient remains on BiPAP. Mentation has improved. Off of BiPAP Serum creatinine at 2.59 today. Urine output about 30-40 mL an hour. Status post IV Lasix this morning. Urine culture is growing gram-negative bacilli and blood cultures growing coagul ase-negative staph. Objective - Vital Signs Vital signs: Vital Signs Temp 97.8 F 08/15/24 04:00 Pulse 129 H 08/15/24 07:00 Resp 18 08/15/24 07:00 BP 109/70 08/15/24 07:00 Pulse Ox 98 08/15/24 08:12 FiO2 30 08/15/24 08:05 Intake & Output 08/14/24 08/15/24 08/15/24 18:59 06:59 18:59 Intake Total 3639.649 1290.503 75 Output Total 425 350 30 Balance 3214.649 940.503 45 Weight 117.934 kg 86.2 kg Intake: IV 3300 900 75 Cefepime 1 gm In Sodium 50 Chloride 0.9% 50 ml @ 12. 5 mls/hr IVPB Q12H [facility] Rx #:[id number] Sodium Chloride 0.9% 1, 750 900 75 000 ml @ 75 mls/hr IV . [id number] [facility] Rx#:[id number] Sodium Chloride 0.9% 500 2000 ml 500 ml @ 999 mls/hr IV .Q31M [facility] Rx#:[id number] Vancomycin 1,500 mg In 500 Sodium Chloride 0.9% 500 ml 500 ml @ 167 mls/hr IVPB ONCE [facility] Rx#: [id number] Intake, IV Titration 339.649 390.503 Amount Amiodarone 450 mg In 250 Dextrose 5% in Water 250 ml @ 0.5 MG/MIN 16.667 mls/hr IV .Q15H [facility] Rx#: [id number] Heparin Sod,Pork in 0.45% 89.649 136.503 NaCl 25,000 unit In 0.45 % NaCl 1 250ml.bag @ 18 UNITS/KG/HR 21.228 mls/hr IV .[id number] [facility] Rx#: [id number] Norepinephrine 4 mg In 254.000 Sodium Chloride 0.9% 250 ml @ 0.03 MCG/KG/MIN 13. 48 mls/hr IV .[id number] [facility] Rx#:[id number] Output: Urine 425 350 30 Other: Voiding Method Indwelling Catheter Indwelling Catheter # Bowel Movements 1 - Exam patient is awake, appears comfortable Awake Examination of the heart S1 and S2 Examination of the lungs bilateral breath sounds are heard Abdomen is soft obese Examination of lower extremities shows trace edema Moving all 4 extremities - Labs CBC & Chem 7: 08/15/24 03:18 08/15/24 03:18 Labs: Abnormal Lab Results - Last 24 Hours (Table) 08/14/24 08/14/24 08/14/24 Range/Units : 17:47 17:58 WBC (3.8-10.6) k/uL RBC (3.80-5.40) m/uL Hgb (11.4-16.0) gm/dL Hct (34.0-46.0) % MCHC (31.0-37.0) g/dL RDW (11.5-15.5) % Plt Count (150-450) k/uL Neutrophils # (1.3-7.7) k/uL APTT 92.7 H (22.0-30.0) sec Chloride (98-107) mmol/L Carbon Dioxide (22-30) mmol/L BUN (7-17) mg/dL Creatinine (0.52-1.04) mg/dL Glucose (74-99) mg/dL POC Glucose (mg/dL) 132 H 157 H (70-110) mg/dL Calcium (8.4-10.2) mg/dL AST (14-36) U/L ALT (4-34) U/L Total Protein (6.3-8.2) g/dL Albumin (3.5-5.0) g/dL 08/14/24 08/14/24 08/15/24 Range/Units 20:40 23:38 03:09 WBC (3.8-10.6) k/uL RBC (3.80-5.40) m/uL Hgb (11.4-16.0) gm/dL Hct (34.0-46.0) % MCHC (31.0-37.0) g/dL RDW (11.5-15.5) % Plt Count (150-450) k/uL Neutrophils # (1.3-7.7) k/uL APTT 68.3 H (22.0-30.0) sec Chloride (98-107) mmol/L Carbon Dioxide (22-30) mmol/L BUN (7-17) mg/dL Creatinine (0.52-1.04) mg/dL Glucose (74-99) mg/dL POC Glucose (mg/dL) 144 H 156 H (70-110) mg/dL Calcium (8.4-10.2) mg/dL AST (14-36) U/L ALT (4-34) U/L Total Protein (6.3-8.2) g/dL Albumin (3.5-5.0) g/dL 08/15/24 08/15/24 08/15/24 Range/Units 03:18 03:18 05:28 WBC 13.7 H (3.8-10.6) k/uL RBC 3.29 L (3.80-5.40) m/uL Hgb 8.8 L (11.4-16.0) gm/dL Hct 30.2 L (34.0-46.0) % MCHC 29.0 L (31.0-37.0) g/dL RDW 16.0 H (11.5-15.5) % Plt Count 129 L (150-450) k/uL Neutrophils # 12.0 H (1.3-7.7) k/uL APTT (22.0-30.0) sec Chloride 112 H (98-107) mmol/L Carbon Dioxide 19 L (22-30) mmol/L BUN 74 H (7-17) mg/dL Creatinine 2.59 H (0.52-1.04) mg/dL Glucose 140 H (74-99) mg/dL POC Glucose (mg/dL) 151 H (70-110) mg/dL Calcium 7.9 L (8.4-10.2) mg/dL AST 1553 H (14-36) U/L ALT 2542 H (4-34) U/L Total Protein 5.2 L (6.3-8.2) g/dL Albumin 3.3 L (3.5-5.0) g/dL Microbiology - Last 24 Hours (Table) 08/13/24 09:00 Blood Culture Gram Stain - Preliminary Blood Blood Culture - Preliminary Coagulase Negative Staph Molecular ID 08/13/24 08:27 Urine Culture - Preliminary Urine,Catheterized Gram Neg Bacilli Assessment and Plan Assessment: 1. Acute kidney injury, ATN secondary to hypotension. Nonoliguric. UA is suggestive of UTI with WBCs and WBC clumps. 1+ protein. Utrasound of the kidneys shows right kidney 9.1 cm with 2 cysts. Left kidney could not be seen due to bowel gas.. 2. Hyperkalemia associated with acute kidney injury and potassium supplementation although patient was also on loop diuretics. Status post IV treatment. Blood sugar is not significantly elevated and no evidence of active GI bleed. 3. UTI with urine culture growing Morganella from 08/05/2024 as outpatient. 4. Acute hypoxic respiratory failure currently on BiPAP 5. Chronic use of lithium. Calcium not elevated. 6. CK D stage III a with baseline creatinine around 1-1.1 mg/dL. Etiology likely nephrosclerosis and possible chronic interstitial nephropathy if patient has been taking lithium for many years. 7. Atrial flutter with RVR Plan: can change IV fluids to normal saline as sodium has improved to 140 and blood pressure remains low. Continue with antibiotics Avoid nephrotoxic agents
--- NOTE | 2024-08-15 10:57 | P.PCN ---
Date of Procedure: 08/15/24 Description of Procedure: Indication: Atrial flutter with rapid ventricular response and cardiomyopathy Procedure Description: After explaining the procedure to the patient and daughter, it's risk and complications, blood pressure, heart rate and O2 saturation were monitored. The throat was sprayed with Cetacaine. Patient received sedation per anesthesia department . The probe was introduced into the esophagus without difficulty. Images were obtained. Following that, the probe was removed. There was no immediate complication. Findings: Left atrial size is mildly dilated, left atrial appendage is normal. Left ventricular systolic function is estimated at 30 to 35% with global hypokinesis. The aortic valve revealed fibrocalcific changes with preserved opening. Mitral annulus calcification was noted. Tricuspid valve appears to be normal. Descending thoracic aorta appears to be normal. Contrast bubble study revealed late shunting across the septum. No pericardial effusion was noted. Doppler: Pulse wave and color Doppler were obtained, and revealed moderate mitral and tricuspid regurgitation, there was no shunting by color Doppler study Conclusion: 1. Normal appearance of the left atrial appendage 2. Severe global hypokinesis of the left ventricle with ejection fraction of 30 to 35% 3. Moderate mitral and tricuspid regurgitation 4. No pericardial effusion 5. Normal appearance of the descending thoracic aorta Cardioversion: After obtaining LAURA and sedated state per anesthesia department a synchronized biphasic cardioversion using 150 J was performed with sikh of sinus mechanism. There was no immediate complications.
[2024-08-15 11:26] LABS: Glucose,Whole Blood 122 mg/dL (70-110)
--- NOTE | 2024-08-15 11:36 | P.PN ---
Subjective Progress Note Date: 08/15/24 Principal diagnosis: Acute sepsis This is an 83-year-old female with history of multiple medical problems, patient lives in a detention facility, brought into the ER with altered mental status, shortness of breath, hypotension, atrial fibrillation with RVR, hypoxia and hypercapnia with a pCO2 in the range of 53 and pH of 7.27 on BiPAP, patient was also noted to be hyperkalemic and developed what seems to be a picture of acute kidney injury. Drug screen seems to be positive for benzodiazepines, patient tested negative for influenza A, influenza B, RSV and SARS. Her ur inalysis showed evidence of bacteriuria and pyuria, troponin was elevated as high as 0.244, ammonia level was elevated at 39, potassium elevated at 7.4 D- dimer value be elevated at 19.97 patient was also noted to have leukocytosis, with WBC count of 18.3, chest x-ray showed cardiomegaly and minimal pulmonary vascular congestion no clear-cut evidence of pneumonia or significant pulmonary edema. Brain CT showed extensive nonspecific white matter changes, no acute intracranial process noted blood pressure was noted to be marginal 92/62 patient required fluids but did not require pressors. I evaluated the patient in the ER, she seems to be extremely, and critically ill advised BiPAP on this patient advised amiodarone for atrial fibrillation with RVR advised transfer to ICU with nephrology consultation and cardiology consultation. Touch bases on CODE STATUS with the family, apparently family wishes DNR CODE STATUS. Considering the patient is noted to have elevated D-dimer, she will ideally need further scanning to rule out thromboembolic disease, but she is not stable enough for VQ scan I am recommending that we heparinize the patient empirically check venous Doppler, and will address VQ scan once the patient is stabilized. In the meantime considering the patient has evidence of urinary tract infection/urosepsis, I am recommending empiric treatment with antibiotics for presumptive UTI. Her last urine culture from couple of months ago was positive for Enterococcus faecalis, and she also had Morganella morganii in the urine previously, patient will be covered with antibiotics in the form of vancomycin and cefepime for now. Patient was seen today on 08/14/2024, remains in the ICU, remains on BiPAP 16//30% remains on heparin, remains on amiodarone at 0.5 mg/min patient remains on Solu-Cortef, she is also on cefepime and vancomycin, her IV fluid is now D5W at 75 cc/h. Patient did not require any pressors overnight, apparently responded to antibiotics and fluid boluses as well as Solu-Cortef. Patient is hemodynamically stable today, remains on BiPAP, remains critically ill. WBC count 13.4 hemoglobin 8.1 PTT is over 200 patient is on the protocol for heparin, she does have atrial fibrillation she does have possible pulmonary embolism however could not order a CT angiogram on this patient, I kept her on heparin she does have elevated D-dimer. Sodium is elevated at 148 BUN is 67 creatinine 2.58, being followed by nephrology for her acute kidney injury Patient was evaluated today on 08/15/2024, patient remains in the ICU, she is now on nasal cannula, off BiPAP. Patient received multiple fluid boluses yesterday, continued to have low blood pressure, she is now on norepinephrine at 0.02 D5W at 75 cc/h she is also on Solu-Cortef, cefepime, she did receive 1 dose of Lasix today 40 mg IV push x 1. Her cultures of the urine came back positive for gram-negative bacilli, blood cultures are positive for gram-positive cocci, however seen by infectious disease and felt that her blood cultures are contaminated. Patient is now on cefepime for her UTI which is secondary to gram-negative patient, final identification is pending. Patient also developed worsening liver profile and amiodarone was discontinued. Patient is supposed to have LAURA today and cardioversion because of her ongoing atrial flutter. This will be done by Dr. Mckeon. Neurological rojo, patient is confused, nonverbal WBC count today 13.7 hemoglobin 8.8 basic metabolic profile is normal bicarb is 19 BUN is 74 creatinine 2.59 Objective - Vital Signs Vital signs: Vital Signs Temp 97.8 F 08/15/24 04:00 Pulse 129 H 08/15/24 07:00 Resp 18 08/15/24 07:00 BP 109/70 08/15/24 07:00 Pulse Ox 98 08/15/24 08:12 FiO2 30 08/15/24 08:05 Intake & Output 08/14/24 08/15/24 08/15/24 18:59 06:59 18:59 Intake Total 3639.649 1290.503 75 Output Total 425 350 30 Balance 3214.649 940.503 45 Weight 117.934 kg 86.2 kg Intake: IV 3300 900 75 Cefepime 1 gm In Sodium 50 Chloride 0.9% 50 ml @ 12. 5 mls/hr IVPB Q12H [facility] Rx #:[id number] Sodium Chloride 0.9% 1, 750 900 75 000 ml @ 75 mls/hr IV . [id number] [facility] Rx#:[id number] Sodium Chloride 0.9% 500 2000 ml 500 ml @ 999 mls/hr IV .Q31M [facility] Rx#:[id number] Vancomycin 1,500 mg In 500 Sodium Chloride 0.9% 500 ml 500 ml @ 167 mls/hr IVPB ONCE ONE Rx#: [id number] Intake, IV Titration 339.649 390.503 Amount Amiodarone 450 mg In 250 Dextrose 5% in Water 250 ml @ 0.5 MG/MIN 16.667 mls/hr IV .Q15H [facility] Rx#: [id number] Heparin Sod,Pork in 0.45% 89.649 136.503 NaCl 25,000 unit In 0.45 % NaCl 1 250ml.bag @ 18 UNITS/KG/HR 21.228 mls/hr IV .[id number] [facility] Rx#: [id number] Norepinephrine 4 mg In 254.000 Sodium Chloride 0.9% 250 ml @ 0.03 MCG/KG/MIN 13. 48 mls/hr IV .[id number] [facility] Rx#:[id number] Output: Urine 425 350 30 Other: Voiding Method Indwelling Catheter Indwelling Catheter # Bowel Movements 1 - Exam Physical Exam: Revealed 83-year-old female on 2 L nasal cannula Head: Atraumatic, normocephalic. HEENT:[Neck is supple.] [No neck masses.] [No thyromegaly.] [No JVD.] Dry mucous membranes noted. Patient is nonverbal Chest: Minimal crackles at the bases rhonchi no wheezes Cardiac: Tachycardic, 2/6 systolic murmur throughout the precordium Abdomen: [Soft, nontender, no megaly, no rebound, no guarding, normal bowel sounds.] Extremities: [No clubbing, no edema, no cyanosis.] Multiple areas of ecchymosis noted bilaterally. Neurological Exam: Patient is nonverbal, confused, otherwise no gross focal deficit. Skin: Multiple areas of ecchymosis and she has extremely dry skin. Psychiatric: Could not assess, patient seems to be a bit restless and anxious - Labs CBC & Chem 7: 08/15/24 03:18 08/15/24 03:18 Labs: Abnormal Lab Results - Last 24 Hours (Table) 08/14/24 08/14/24 08/14/24 Range/Units 17:47 17:58 20:40 WBC (3.8-10.6) k/uL RBC (3.80-5.40) m/uL Hgb (11.4-16.0) gm/dL Hct (34.0-46.0) % MCHC (31.0-37.0) g/dL RDW (11.5-15.5) % Plt Count (150-450) k/uL Neutrophils # (1.3-7.7) k/uL APTT 92.7 H (22.0-30.0) sec Chloride (98-107) mmol/L Carbon Dioxide (22-30) mmol/L BUN (7-17) mg/dL Creatinine (0.52-1.04) mg/dL Glucose (74-99) mg/dL POC Glucose (mg/dL) 157 H 144 H (70-110) mg/dL Calcium (8.4-10.2) mg/dL AST (14-36) U/L ALT (4-34) U/L Total Protein (6.3-8.2) g/dL Albumin (3.5-5.0) g/dL 08/14/24 08/15/24 08/15/24 Range/Units 23:38 03:09 03:18 WBC (3.8-10.6) k/uL RBC (3.80-5.40) m/uL Hgb (11.4-16.0) gm/dL Hct (34.0-46.0) % MCHC (31.0-37.0) g/dL RDW (11.5-15.5) % Plt Count (150-450) k/uL Neutrophils # (1.3-7.7) k/uL APTT 68.3 H (22.0-30.0) sec Chloride 112 H (98-107) mmol/L Carbon Dioxide 19 L (22-30) mmol/L BUN 74 H (7-17) mg/dL Creatinine 2.59 H (0.52-1.04) mg/dL Glucose 140 H (74-99) mg/dL POC Glucose (mg/dL) 156 H (70-110) mg/dL Calcium 7.9 L (8.4-10.2) mg/dL AST 1553 H (14-36) U/L ALT 2542 H (4-34) U/L Total Protein 5.2 L (6.3-8.2) g/dL Albumin 3.3 L (3.5-5.0) g/dL 08/15/24 08/15/24 08/15/24 Range/Units 03:18 05:28 11:24 WBC 13.7 H (3.8-10.6) k/uL RBC 3.29 L (3.80-5.40) m/uL Hgb 8.8 L (11.4-16.0) gm/dL Hct 30.2 L (34.0-46.0) % MCHC 29.0 L (31.0-37.0) g/dL RDW 16.0 H (11.5-15.5) % Plt Count 129 L (150-450) k/uL Neutrophils # 12.0 H (1.3-7.7) k/uL APTT (22.0-30.0) sec Chloride (98-107) mmol/L Carbon Dioxide (22-30) mmol/L BUN (7-17) mg/dL Creatinine (0.52-1.04) mg/dL Glucose (74-99) mg/dL POC Glucose (mg/dL) 151 H 122 H (70-110) mg/dL Calcium (8.4-10.2) mg/dL AST (14-36) U/L ALT (4-34) U/L Total Protein (6.3-8.2) g/dL Albumin (3.5-5.0) g/dL Microbiology - Last 24 Hours (Table) 08/13/24 09:00 Blood Culture Gram Stain - Preliminary Blood Blood Culture - Preliminary Coagulase Negative Staph Molecular ID 08/13/24 08:27 Urine Culture - Preliminary Urine,Catheterized Gram Neg Bacilli Assessment and Plan Assessment: Impression: Septic shock, primary source is UTI Acute on chronic hypoxic and hypercapnic respiratory failure most likely secondary to severe COPD/underlying COPD with acute exacerbation, and suspect some component of acute systolic congestive heart failure. Chronic hypoxic and chronic hypercapnic respiratory failure patient is supposedly on BiPAP at detention Altered mental status secondary to acute metabolic encephalopathy Acute systolic congestive heart failure Urinary tract infection, strongly suspect sepsis with hypotension, urine is showing gram-negative bacilli final culture is pending Acute kidney injury with hyperkalemia secondary to acute kidney injury Elevated D-dimer possible thromboembolic disease Leukocytosis secondary to urinary tract infection and urosepsis History of deep vein thrombosis supposedly on long-term anticoagulation therapy, questionable compliance Benign essential hypertension Dyslipidemia History of macular degeneration History of breast cancer and previous left-sided mastectomy Hypotension secondary to sepsis and septic shock, now the patient is requiring norepinephrine. Recommendation: Continue to monitor in ICU Continue hemodynamic support patient is on norepinephrine, 0.02 mcg/kg/min Patient is scheduled to undergo LAURA and cardioversion today by cardiology discussed this issue with Dr. Mckeon over the phone. Continue cefepime for UTI/urosepsis final identification of gram-negative bacilli is pending Continue heparin, follow protocol GI and DVT prophylaxis Swallow evaluation otherwise may have to consider placement of the nasogastric tube and enteral feeding Continue DuoNeb Patient will be given more diuretics as her chest x-ray is showing mild pulmonary vascular congestion and she does have severe LV dysfunction ejection fraction of 30 to 35% Taper down the Solu-Cortef Continue to monitor daily electrolytes Continue to monitor liver profile and discontinue amiodarone ntinue amiodarone as per cardiology Continue DNR CODE STATUS Prognosis is extremely poor Patient is critically ill. Critical care time is over 30 minutes Time with Patient: Greater than 30
--- NOTE | 2024-08-15 12:44 | CDI ---
Documentation Clarification Form Date: 08/14/2024 11:04:00 AM From: Nadia Orozco RN CCDS Phone: [phone] Admit Date: 08/13/2024 10:11:00 AM Patient Name: Teri Borrego Visit Number: [id number] Discharge Date: ATTENTION: The Clinical Documentation Specialists (CDI) and [facility] Coding Staff appreciate your assistance in clarifying documentation. Please respond to the clarification below the line at the bottom and electronically sign. The CDI & [facility] Coding staff will review the response and follow-up if needed. Please note: Queries are made part of the Legal Health Record. If you have any questions, please contact the author of this message via ITS. Doctor: Karthikeyan Watkins A right buttock stage 2 pressure ulcer is documented by Nursing, 08/13, Pressure injury assessment. Based on this information and the findings below, is there an additional diagnosis that is clinically appropriate for this patient? History/Risk Factors: 83 year old female [facility] ED [facility] for altered mental status the last few days, shortness of breath and low blood pressure, recently found to have UTI. Medical History: ESBL, HTN, COPD, DVT and chronic hypoxic respiratory failure. 08/13, HP. Clinical Indicators: Location: Right Buttock Wound description: matilde color erythema, drainage purulent, drainage amount scan, Treatment: Saline irrigant, foam with border, turn 2qh, Absorbant underpad, Check hourly, Specialty bed Is there an additional diagnosis that is clinically appropriate for this patient? [ x ] Right Buttock Pressure Ulcer Stage 2 [ ] Other condition, please specify [ ] Unable to determine Clinical Definitions: Stage 1 Pressure Ulcer: intact skin, non-blanching redness of local area Stage 2 Pressure Ulcer: Partial thickness, loss of dermis, pink wound bed Stage 3 Pressure Ulcer: Full thickness tissue loss Stage 4 Pressure Ulcer: Full thickness tissue loss with exposed bone, tendon, or muscle. Unstageable pressure ulcer: Full thickness tissue loss in which the base of the ulcer is covered by slough (yellow, lopez, lackey, green or brown) and/or eschar (lopez, brown or black) in the wound bed. (Template Last Revised: November 2020) MTDD
--- NOTE | 2024-08-15 12:55 | P.PN ---
Subjective Progress Note Date: 08/15/24 83-year-old female with past medical history significant for multiple medical conditions lives in a long term facility was brought to the ER for altered mental status for the last few days, shortness of breath, low blood pressure, recently was found to have UTI. Patient has history of COPD, DVT, hypertension, hyperlipidemia, history of ESBL. Son at the bedside. Patient currently on BiPAP on FiO2 30%, poor historian due to altered mental status. Son reported that patient was confused for the last few days, had poor p.o. intake. In the ER patient was found to be with altered mental status, hypoxia, hypotensive, had A-fib with RVR hypercapnia with CO2 53 required BiPAP, was also noted to have acute kidney injury with hyperkalemia with potassium of 7.5. Urine drug screen was positive for benzodiazepine. Influenza RSV and COVID was negative. UA showed bacteriuria and pyuria. Troponin mildly elevated at 0.244, ammonia was 39. D-dimer was elevated at 19.97. Patient was noted to have WBCs 8.3, chest x-ray concerning for cardiomegaly and pulmonary venous congestion. CT head showed extensive nonspecific white matter changes, no acute intracranial process. Patient was given IV fluids in the ED. Family at bedside confirmed the CODE STATUS to be DNR limited. Last urine culture for few months ago showed Enterococcus faecalis, Morganella. 08/14. Patient seen and examined. Currently on BiPAP, vitals are heart rate 105, respirations 13, blood pressure 85/63. Lab work done showed WBC 13.4, hemoglobin 8.1, platelet count 97, sodium 148, potassium 4.1, BUN 67, creatinine 2.58. AST 2970 ALT 11/06/2008. 08/15. Patient seen and examined. Blood work done this morning showed WBC 8 1,000, hemoglobin 8.8, sodium 140, testing 3.7, BUN 74, creatinine 2.59, AST 1553, ALT 254. Patient had cardioversion done this morning. Currently on BiPAP. REVIEW OF SYSTEMS: CONSTITUTIONAL: No fever, no malaise,. CARDIOVASCULAR: No chest pain, no palpitations, no syncope. PULMONARY: No shortness of breath, no cough, GASTROINTESTINAL: No diarrhea, no nausea, no vomiting, no abdominal pain. NEUROLOGICAL: No headaches, no weakness, PHYSICAL EXAMINATION: GENERAL: The patient is alert to self HEENT: Pupils are round and equally reacting to light. EOMI. No scleral icterus. No conjunctival pallor. Normocephalic, atraumatic. No pharyngeal erythema. No thyromegaly. CARDIOVASCULAR: S1 and S2 present. No murmurs, rubs, or gallops. PULMONARY: Chest is clear to auscultation, no wheezing or crackles. ABDOMEN: Soft, nontender, nondistended, normoactive bowel sounds. No palpable organomegaly. MUSCULOSKELETAL: No joint swelling or deformity. EXTREMITIES: No cyanosis, clubbing, or pedal edema. NEUROLOGICAL: Gross neurological examination did not reveal any focal deficits. SKIN: No rashes. Assessment and plan Acute on chronic hypoxic hypercapnic respiratory failure Severe COPD with acute exacerbation Atrial fibrillation/flutter with rapid ventricular response Right buttock pressure ulcer stage II Chronic hypoxic hypercapnic respiratory failure, reportedly on BiPAP at long term Acute transaminitis Acute metabolic encephalopathy Severe sepsis Hypotension Elevated D-dimer Right lower extremity DVT A-fib with RVR NSTEMI RITIKA Hyperkalemia Hypertension Hyperlipidemia History of macular degeneration History of breast cancer and previous left-sided mastectomy Plan: Monitor vital sign Monitor CBC Monitor CMP Continue oxygen supplementation Aggressive bronchopulmonary hygiene Continue BiPAP Continue cefepime Status post LAURA with cardioversion Heparin switched to Eliquis Blood culture, urine culture Bronchodilator, Solu-Medrol per pulmonary Ultrasound venouslimited exam, evidence of possible nonocclusive thrombus in the right popliteal vein Cardiology following Nephrology following ID following Critical care following Labs and medication were reviewed.. Continue same treatment. Continue with symptomatic treatment. Resume home medication. Monitor labs and vitals. DVT and GI prophylaxis. Further recommendations as per clinical course of the patient Dictation was produced using [employer] dictation software. please excuse any grammatical, word or spelling errors. Objective - Vital Signs Vital signs: Vital Signs Temp 97.8 F 08/15/24 04:00 Pulse 129 H 08/15/24 07:00 Resp 18 08/15/24 07:00 BP 109/70 08/15/24 07:00 Pulse Ox 98 08/15/24 08:12 FiO2 30 08/15/24 08:05 Intake & Output 08/14/24 08/15/24 08/15/24 18:59 06:59 18:59 Intake Total 3639.649 1290.503 125.700 Output Total 425 350 35 Balance 3214.649 940.503 90.700 Weight 117.934 kg 86.2 kg Intake: IV 3300 900 75 Cefepime 1 gm In Sodium 50 Chloride 0.9% 50 ml @ 12. 5 mls/hr IVPB Q12H [facility] Rx #:[id number] Sodium Chloride 0.9% 1, 750 900 75 000 ml @ 75 mls/hr IV . [id number] [facility] Rx#:[id number] Sodium Chloride 0.9% 500 2000 ml 500 ml @ 999 mls/hr IV .Q31M [facility] Rx#:[id number] Vancomycin 1,500 mg In 500 Sodium Chloride 0.9% 500 ml 500 ml @ 167 mls/hr IVPB ONCE [facility] Rx#: [id number] Intake, IV Titration 339.649 390.503 50.700 Amount Amiodarone 450 mg In 250 Dextrose 5% in Water 250 ml @ 0.5 MG/MIN 16.667 mls/hr IV .Q15H [facility] Rx#: [id number] Heparin Sod,Pork in 0.45% 89.649 136.503 NaCl 25,000 unit In 0.45 % NaCl 1 250ml.bag @ 18 UNITS/KG/HR 21.228 mls/hr IV .[id number] [facility] Rx#: [id number] Norepinephrine 4 mg In 254.000 50.700 Sodium Chloride 0.9% 250 ml @ 0.03 MCG/KG/MIN 13. 48 mls/hr IV .[id number] [facility] Rx#:[id number] Output: Urine 425 350 35 Other: Voiding Method Indwelling Catheter Indwelling Catheter # Bowel Movements 1 - Labs CBC & Chem 7: 08/15/24 03:18 08/15/24 03:18 Labs: Abnormal Lab Results - Last 24 Hours (Table) 08/14/24 08/14/24 08/14/24 Range/Units 17:47 17:58 20:40 WBC (3.8-10.6) k/uL RBC (3.80-5.40) m/uL Hgb (11.4-16.0) gm/dL Hct (34.0-46.0) % MCHC (31.0-37.0) g/dL RDW (11.5-15.5) % Plt Count (150-450) k/uL Neutrophils # (1.3-7.7) k/uL APTT 92.7 H (22.0-30.0) sec Chloride (98-107) mmol/L Carbon Dioxide (22-30) mmol/L BUN (7-17) mg/dL Creatinine (0.52-1.04) mg/dL Glucose (74-99) mg/dL POC Glucose (mg/dL) 157 H 144 H (70-110) mg/dL Calcium (8.4-10.2) mg/dL AST (14-36) U/L ALT (4-34) U/L Total Protein (6.3-8.2) g/dL Albumin (3.5-5.0) g/dL 08/14/24 08/15/24 08/15/24 Range/Units 23:38 03:09 03:18 WBC (3.8-10.6) k/uL RBC (3.80-5.40) m/uL Hgb (11.4-16.0) gm/dL Hct (34.0-46.0) % MCHC (31.0-37.0) g/dL RDW (11.5-15.5) % Plt Count (150-450) k/uL Neutrophils # (1.3-7.7) k/uL APTT 68.3 H (22.0-30.0) sec Chloride 112 H (98-107) mmol/L Carbon Dioxide 19 L (22-30) mmol/L BUN 74 H (7-17) mg/dL Creatinine 2.59 H (0.52-1.04) mg/dL Glucose 140 H (74-99) mg/dL POC Glucose (mg/dL) 156 H (70-110) mg/dL Calcium 7.9 L (8.4-10.2) mg/dL AST 1553 H (14-36) U/L ALT 2542 H (4-34) U/L Total Protein 5.2 L (6.3-8.2) g/dL Albumin 3.3 L (3.5-5.0) g/dL 08/15/24 08/15/24 08/15/24 Range/Units 03:18 05:28 11:24 WBC 13.7 H (3.8-10.6) k/uL RBC 3.29 L (3.80-5.40) m/uL Hgb 8.8 L (11.4-16.0) gm/dL Hct 30.2 L (34.0-46.0) % MCHC 29.0 L (31.0-37.0) g/dL RDW 16.0 H (11.5-15.5) % Plt Count 129 L (150-450) k/uL Neutrophils # 12.0 H (1.3-7.7) k/uL APTT (22.0-30.0) sec Chloride (98-107) mmol/L Carbon Dioxide (22-30) mmol/L BUN (7-17) mg/dL Creatinine (0.52-1.04) mg/dL Glucose (74-99) mg/dL POC Glucose (mg/dL) 151 H 122 H (70-110) mg/dL Calcium (8.4-10.2) mg/dL AST (14-36) U/L ALT (4-34) U/L Total Protein (6.3-8.2) g/dL Albumin (3.5-5.0) g/dL Microbiology - Last 24 Hours (Table) 08/13/24 09:00 Blood Culture Gram Stain - Preliminary Blood Blood Culture - Preliminary Coagulase Negative Staph Molecular ID 08/13/24 08:27 Urine Culture - Preliminary Urine,Catheterized Gram Neg Bacilli
--- NOTE | 2024-08-15 14:49 | P.PN ---
Subjective Progress Note Date: 08/15/24 Principal diagnosis: Reason for follow-up is sepsis UTI Patient is a 84-year-old female with a past medical history significant for COPD DVT hypertension hyperlipidemia pneumonia and left breast cancer patient is a senior living resident patient has been brought into the hospital for evaluation of fever and mental status changes, admitted to ICU concerning for sepsis secondary to urinary tract infection. On today's evaluation that is 08/15/2024, patient has been afebrile, patient did have a LAURA and cardioversion completed this morning currently lethargic on BiPAP not providing any history no vomiting diarrhea or any changes reported by the nursing staff. Patient white count is 13.7, creatinine is 2.59 white count was 13.7 urine with Morganella sensitive to cefepime blood culture with coagulase-negative staph Objective - Vital Signs Vital signs: Vital Signs Temp 97.8 F 08/15/24 04:00 Pulse 129 H 08/15/24 07:00 Resp 18 08/15/24 07:00 BP 109/70 08/15/24 07:00 Pulse Ox 98 08/15/24 08:12 FiO2 30 08/15/24 08:05 Intake & Output 08/14/24 08/15/24 08/15/24 18:59 06:59 18:59 Intake Total 3639.649 1290.503 75 Output Total 425 350 30 Balance 3214.649 940.503 45 Weight 117.934 kg 86.2 kg Intake: IV 3300 900 75 Cefepime 1 gm In Sodium 50 Chloride 0.9% 50 ml @ 12. 5 mls/hr IVPB Q12H [facility] Rx #:[id number] Sodium Chloride 0.9% 1, 750 900 75 000 ml @ 75 mls/hr IV . Q60H60H [facility] Rx#:[id number] Sodium Chloride 0.9% 500 2000 ml 500 ml @ 999 mls/hr IV .Q31M [facility] Rx#:[id number] Vancomycin 1,500 mg In 500 Sodium Chloride 0.9% 500 ml 500 ml @ 167 mls/hr IVPB [facility] Rx#: [id number] Intake, IV Titration 339.649 390.503 Amount Amiodarone 450 mg In 250 Dextrose 5% in Water 250 ml @ 0.5 MG/MIN 16.667 mls/hr IV .Q15H [facility] Rx#: [id number] Heparin Sod,Pork in 0.45% 89.649 136.503 NaCl 25,000 unit In 0.45 % NaCl 1 250ml.bag @ 18 UNITS/KG/HR 21.228 mls/hr IV .[id number] [facility] Rx#: [id number] Norepinephrine 4 mg In 254.000 Sodium Chloride 0.9% 250 ml @ 0.03 MCG/KG/MIN 13. 48 mls/hr IV .[id number] [facility] Rx#:[id number] Output: Urine 425 350 30 Other: Voiding Method Indwelling Catheter Indwelling Catheter # Bowel Movements 1 - Exam GENERAL DESCRIPTION: An elderly female lying in bed in no distress RESPIRATORY SYSTEM: Unlabored breathing , decreased breath sounds at bases HEART: S1 S2 regular rate and rhythm , ABDOMEN: Soft , no tenderness EXTREMITIES: No edema feet - Labs CBC & Chem 7: 08/15/24 03:18 08/15/24 03:18 Labs: Abnormal Lab Results - Last 24 Hours (Table) 08/14/24 08/14/24 08/14/24 Range/Units : 17:47 17:58 WBC (3.8-10.6) k/uL RBC (3.80-5.40) m/uL Hgb (11.4-16.0) gm/dL Hct (34.0-46.0) % MCHC (31.0-37.0) g/dL RDW (11.5-15.5) % Plt Count (150-450) k/uL Neutrophils # (1.3-7.7) k/uL APTT 92.7 H (22.0-30.0) sec Chloride (98-107) mmol/L Carbon Dioxide (22-30) mmol/L BUN (7-17) mg/dL Creatinine (0.52-1.04) mg/dL Glucose (74-99) mg/dL POC Glucose (mg/dL) 132 H 157 H (70-110) mg/dL Calcium (8.4-10.2) mg/dL AST (14-36) U/L ALT (4-34) U/L Total Protein (6.3-8.2) g/dL Albumin (3.5-5.0) g/dL 08/14/24 08/14/24 08/15/24 Range/Units 20:40 23:38 03:09 WBC (3.8-10.6) k/uL RBC (3.80-5.40) m/uL Hgb (11.4-16.0) gm/dL Hct (34.0-46.0) % MCHC (31.0-37.0) g/dL RDW (11.5-15.5) % Plt Count (150-450) k/uL Neutrophils # (1.3-7.7) k/uL APTT 68.3 H (22.0-30.0) sec Chloride (98-107) mmol/L Carbon Dioxide (22-30) mmol/L BUN (7-17) mg/dL Creatinine (0.52-1.04) mg/dL Glucose (74-99) mg/dL POC Glucose (mg/dL) 144 H 156 H (70-110) mg/dL Calcium (8.4-10.2) mg/dL AST (14-36) U/L ALT (4-34) U/L Total Protein (6.3-8.2) g/dL Albumin (3.5-5.0) g/dL 08/15/24 08/15/24 08/15/24 Range/Units 03:18 03:18 05:28 WBC 13.7 H (3.8-10.6) k/uL RBC 3.29 L (3.80-5.40) m/uL Hgb 8.8 L (11.4-16.0) gm/dL Hct 30.2 L (34.0-46.0) % MCHC 29.0 L (31.0-37.0) g/dL RDW 16.0 H (11.5-15.5) % Plt Count 129 L (150-450) k/uL Neutrophils # 12.0 H (1.3-7.7) k/uL APTT (22.0-30.0) sec Chloride 112 H (98-107) mmol/L Carbon Dioxide 19 L (22-30) mmol/L BUN 74 H (7-17) mg/dL Creatinine 2.59 H (0.52-1.04) mg/dL Glucose 140 H (74-99) mg/dL POC Glucose (mg/dL) 151 H (70-110) mg/dL Calcium 7.9 L (8.4-10.2) mg/dL AST 1553 H (14-36) U/L ALT 2542 H (4-34) U/L Total Protein 5.2 L (6.3-8.2) g/dL Albumin 3.3 L (3.5-5.0) g/dL Microbiology - Last 24 Hours (Table) 08/13/24 09:00 Blood Culture Gram Stain - Preliminary Blood Blood Culture - Preliminary Coagulase Negative Staph Molecular ID 08/13/24 08:27 Urine Culture - Preliminary Urine,Catheterized Gram Neg Bacilli Assessment and Plan (1) Allergy to multiple antibiotics Current Visit: Yes Status: Acute Code(s): Z88.1 - ALLERGY STATUS TO OTHER ANTIBIOTIC AGENTS SNOMED Code(s): 001774989 (2) Sepsis Current Visit: Yes Status: Acute Code(s): A41.9 - SEPSIS, UNSPECIFIED ORGANISM SNOMED Code(s): 49608863 (3) UTI (urinary tract infection) Current Visit: Yes Status: Acute Code(s): N39.0 - URINARY TRACT INFECTION, SITE NOT SPECIFIED SNOMED Code(s): 82352415 Plan: 1patient presented to hospital with sepsis in this patient who did have fever tachycardia elevated white count and hypotension meeting currently for SIRS source is likely UTI and this patient did have significantly positive UA with recent urine culture done in the outpatient setting was positive for Morganella that was sensitive to cefepime and prior to that she did grow Enterococcus faecalis that was sensitive to penicillin as well as vancomycin and if these 2 pathogen could be the likely source of this UTI and sepsis. 2patient with multiple antibiotic ALLERGIES that would limit the number of antibiotic safe to use. 3patient with a elevated creatinine high risk of nephrotoxicity. 4patient urine has been finalized with Morganella that is sensitive to cefepime to continue 5positive blood culture with coagulase-negative staph likely skin contamination no need for vancomycin which was discontinued yesterday Dictation was produced using [employer] dictation software. please excuse any grammatical, word or spelling errors. Time with Patient: Less than 30
[2024-08-15] MEDS: SODIUM CHLORIDE 0.9% 1,000 ML IV ONE (15:49)
[2024-08-15 18:15] LABS: Glucose,Whole Blood 98 mg/dL (70-110)
[2024-08-15] MEDS: APIXABAN 2.5 MG TABLET PO SCH (20:39)
[2024-08-15] MEDS: METOPROLOL TARTRATE 25 MG TAB PO SCH (21:04)
[2024-08-15] MEDS: HYDROCORTISONE SUCCINATE 100 MG/2 ML VIAL IV SCH (21:08)
[2024-08-15] MEDS ORDERED: HEPARIN SODIUM 1,000 UN/ML (10ML VL) IV PRN (21:20)
[2024-08-15] MEDS ORDERED: HEPARIN SOD,PORK IN 0.45% NACL 25,000 UNIT in 0.45% NACL 1 250ML.BAG IV SCH (21:30)
[2024-08-15 23:12] LABS: Glucose,Whole Blood 103 mg/dL (70-110)
[2024-08-16 04:43] LABS: Anisocytosis Slight; HCT 25.9 % (34.0-46.0); HGB 7.4 gm/dL (11.4-16.0); Hypochromasia Marked; MCHC 28.8 g/dL (31.0-37.0); MCV 90.4 fL (80.0-100.0); Mean Platelet Volume 9.9; Poikilocytosis Slight; RBC 2.86 m/uL (3.80-5.40); RDW 16.6 % (11.5-15.5); WBC 8.5 k/uL (3.8-10.6)
[2024-08-16 05:04] LABS: Platelet Count 61 k/uL (150-450)
[2024-08-16 05:36] LABS: AST 701 U/L (14-36); African American GFR (CKD) 16 (>60 ml/min/1.73 sqM); Albumin 3.1 g/dL (3.5-5.0); Alkaline Phosphatase 74 U/L (38-126); Anion Gap 13 mmol/L; Blood Urea Nitrogen 81 mg/dL (7-17); Calcium 8.4 mg/dL (8.4-10.2); Carbon Dioxide 12 mmol/L (22-30); Chloride 118 mmol/L (98-107); Glucose 104 mg/dL (74-99); Non-African American GFR(CKD) 14 (>60 ml/min/1.73 sqM); Sodium 143 mmol/L (137-145); Total Bilirubin 0.8 mg/dL (0.2-1.3); Total Protein 4.9 g/dL (6.3-8.2)
[2024-08-16 05:39] LABS: ALT >750 U/L (4-34)
[2024-08-16 05:40] LABS: Glucose,Whole Blood 112 mg/dL (70-110)
[2024-08-16 08:04] VITALS: TEMP 98.2
--- NOTE | 2024-08-16 08:12 | XR ---
EXAMINATION TYPE: XR chest 1V portable DATE OF EXAM: 08/16/2024 5:14 AM COMPARISON: None. CLINICAL INDICATION: Female, 84 years old with history of Bipap, resp failure, TECHNIQUE: XR chest 1V portable view(s) obtained. FINDINGS: The heart size is enlarged. The pulmonary vasculature is normal. Mild infiltrate medially at the left base. Follow-up as clinically indicated. IMPRESSION: 1. There may be a mild lateral left lung base infiltrate. Follow-up as clinically indicated [facility], , 08/16/2024 8:09 AM
--- NOTE | 2024-08-16 09:54 | P.PN ---
Subjective Progress Note Date: 08/16/24 PROGRESS NOTE The patient is an 83-year-old female, resident of a [facility] who presented with change in mental status, worsening dyspnea and was noted to have a urosepsis, exacerbation of COPD as well as atrial fibrillation with rapid ventricular response. The history is obtained from her son. The patient is somnolent on a BiPAP not answering questions. She has a known history of significant COPD, on home oxygen, very limited in her physical activity in the wheelchair. She has questionable history of CHF in the past but no history of atrial fibrillation, documented obstructive CAD or myocardial infarction. She has a prior history of UTI, frequent. She is on IV amiodarone and was started on IV heparin. She is on no vasopressors. She has poor urinary output. The family is a DNR. She underwent a CT scan of the head that showed no acute intracranial process with white matter changes, likely secondary to small vessel disease. Her EKG showed atrial fibrillation with rapid ventricular response, nonspecific ST-T wave changes, cannot exclude anterior wall myocardial infarction of unknown timing. In March 2024 she was in sinus mechanism. She has a history of hyperlipidemia, prior history of smoking but no history of diabetes. In 2019 she had a normal left ventricular systolic function August 14: The patient remains on the BiPAP, obtunded, appears to be in atrial flutter with 2:1 conduction on IV amiodarone, IV heparin as well as antibiotics. Her urinary output is good. There is no evidence of ventricular ectopic activity. She was admitted yesterday with change in mental status, urosepsis and exacerbation of her COPD. Her duplex scan of the lower extremity showed possible nonocclusive thrombus in the right popliteal vein but the study was suboptimal. August 15: The patient remains on the BiPAP, appears to be more alert, following commands. She continues to be in atrial flutter with 2:1 conduction. Her IV amiodarone was stopped because worsening LFTs. Her blood pressure is stable. Urine output has been good. There is no evidence of ventricular tachyarrhythmia. Her heart rate remains in the 120s to 130s. Her echocardiogram done yesterday showed a se verely impaired low ventricle systolic function with an ejection fraction of 15 to 20% with dilated left ventricle and moderate mitral regurgitation. August 16: The patient underwent LAURA guided cardioversion yesterday, she remains in sinus mechanism. She is off vasopressors. She continues to be on BiPAP, minimally opening her eyes to verbal stimulation and not following commands. She has poor urinary output, she is not able to take any oral medication. She has been evaluated for possible comfort care status. Her renal function are worse and she is anemic Medications: IV metoprolol, IV heparin, insulin, Protonix, vancomycin, Solu-Cortef, norepinephrine, IV Lasix 40 mg every 12 hours PHYSICAL EXAMINATION: Blood pressure 106/60 heart rate 55, on BiPAP LUNGS: Clear to auscultation anteriorly HEART: Tachycardic, S1, S2. No S3. Systolic ejection murmur ABDOMEN: Soft, nontender, no organomegaly, obese, EXTREMETIES: Bilateral ecchymosis, mild edema, ecchymosis and swelling in the up per extremities LAB: Hemoglobin 7.4, WBC 8.5, BUN 81, creatinine 2.97, potassium 4.0. IMPRESSION: 1. Atrial flutter with rapid ventricular response, post cardioversion in sinus mechanism 2. Change in mental status with encephalopathy, 3. Urinary tract infection 4. Chronic obstructive lung disease 5. Acute renal injury with hyperkalemia, worsening 6. Acute liver injury 7. Severe cardiomyopathy of unknown duration or etiology PLAN: 1. Continue IV heparin and IV beta-mercedes 2. Patient overall status is not improving, prognosis is very poor and she is getting and worsening renal function and anuria 3. There is reasonable to discuss CODE STATUS and hospice care. Case was discussed with intensive care service Objective - Vital Signs Vital signs: Vital Signs Temp 98.2 F 08/16/24 08:00 Pulse 55 L 08/16/24 08:00 Resp 25 H 08/16/24 08:00 BP 106/58 08/16/24 08:00 Pulse Ox 96 08/16/24 08:00 FiO2 30 08/16/24 08:00 Intake & Output 08/15/24 08/16/24 08/16/24 18:59 06:59 18:59 Intake Total 6898.133 3998.980 150 Output Total 60 87 25 Balance 9286.154 8823.980 125 Weight 86.7 kg Intake: IV 925 675 75 Potassium Chloride 10 meq 200 In Water For Injection 1 100ml.bag @ 100 mls/hr IVPB Q1HR [facility] Rx#: [id number] Sodium Chloride 0.9% 1, 150 000 ml @ 75 mls/hr IV . [id number] [facility] Rx#:[id number] Sodium Chloride 0.9% 1, 575 675 75 000 ml @ 999 mls/hr IV . Q1H1M [facility] Rx#:[id number] Intake, IV Titration 298.633 424.980 75 Amount Heparin Sod,Pork in 0.45% 121.703 NaCl 25,000 unit In 0.45 % NaCl 1 250ml.bag @ 18 UNITS/KG/HR 21.228 mls/hr IV .[id number] [facility] Rx#: [id number] Norepinephrine 4 mg In 298.633 303.277 Sodium Chloride 0.9% 250 ml @ 0.03 MCG/KG/MIN 13. 48 mls/hr IV .[id number] [facility] Rx#:[id number] Sodium Chloride 0.9% 1, 75 000 ml @ 75 mls/hr IV . [id number] [facility] Rx#:[id number] Output: Urine 60 87 25 Other: Voiding Method Indwelling Catheter - Labs CBC & Chem 7: 08/16/24 04:19 08/16/24 04:19 Labs: Abnormal Lab Results - Last 24 Hours (Table) 08/15/24 08/16/24 08/16/24 Range/Units 11: 03:37 04:19 RBC 2.86 L (3.80-5.40) m/uL Hgb 7.4 L (11.4-16.0) gm/dL Hct 25.9 L (34.0-46.0) % MCHC 28.8 L (31.0-37.0) g/dL RDW 16.6 H (11.5-15.5) % Plt Count 61 L D (150-450) k/uL APTT 31.5 H (22.0-30.0) sec Chloride (98-107) mmol/L Carbon Dioxide (22-30) mmol/L BUN (7-17) mg/dL Creatinine (0.52-1.04) mg/dL Glucose (74-99) mg/dL POC Glucose (mg/dL) 122 H (70-110) mg/dL AST (14-36) U/L ALT (4-34) U/L Total Protein (6.3-8.2) g/dL Albumin (3.5-5.0) g/dL 08/16/24 08/16/24 08/16/24 Range/Units 04:19 04:19 05:39 RBC (3.80-5.40) m/uL Hgb (11.4-16.0) gm/dL Hct (34.0-46.0) % MCHC (31.0-37.0) g/dL RDW (11.5-15.5) % Plt Count (150-450) k/uL APTT 35.3 H (22.0-30.0) sec Chloride 118 H (98-107) mmol/L Carbon Dioxide 12 L (22-30) mmol/L BUN 81 H (7-17) mg/dL Creatinine 2.97 H (0.52-1.04) mg/dL Glucose 104 H (74-99) mg/dL POC Glucose (mg/dL) 112 H (70-110) mg/dL AST 701 H (14-36) U/L ALT >750 H (4-34) U/L Total Protein 4.9 L (6.3-8.2) g/dL Albumin 3.1 L (3.5-5.0) g/dL Microbiology - Last 24 Hours (Table) 08/13/24 08:27 Urine Culture - Final Urine,Catheterized Morganella morganii 08/13/24 09:00 Blood Culture Gram Stain - Preliminary Blood Blood Culture - Preliminary Coagulase Negative Staph Molecular ID
--- NOTE | 2024-08-16 11:22 | US ---
EXAMINATION TYPE: US venous doppler duplex UE BI DATE OF EXAM: 08/16/2024 COMPARISON: NONE CLINICAL INDICATION: Female, 84 years old with history of Upper extremity edema bilateral; Extensive bruising and swelling to bilateral upper extremities - patient is in ICU and unable to respond TECHNIQUE: Grayscale, color Doppler and spectral Doppler imaging of the upper extremity. SIDE PERFORMED: Bilateral FINDINGS: Right Arm: Negative for DVT; Chronic / resolving clot seen within the antecubital portion of the ceph alic vein Left Arm: Negative for DVT Grayscale, color doppler, spectral doppler imaging performed of the deep veins of the upper extremiti es. IMPRESSION: 1. 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 2. No right upper extremity deep venous thrombosis. 3. Left upper extremity negative for deep venous thrombosis. [facility], , 08/16/2024 11:20 AM
--- NOTE | 2024-08-16 11:46 | P.PN ---
Subjective Progress Note Date: 08/16/24 Principal diagnosis: Acute sepsis This is an 83-year-old female with history of multiple medical problems, patient lives in a snf facility, brought into the ER with altered mental status, shortness of breath, hypotension, atrial fibrillation with RVR, hypoxia and hypercapnia with a pCO2 in the range of 53 and pH of 7.27 on BiPAP, patient was also noted to be hyperkalemic and developed what seems to be a picture of acute kidney injury. Drug screen seems to be positive for benzodiazepines, patient tested negative for influenza A, influenza B, RSV and SARS. Her ur inalysis showed evidence of bacteriuria and pyuria, troponin was elevated as high as 0.244, ammonia level was elevated at 39, potassium elevated at 7.4 D- dimer value be elevated at 19.97 patient was also noted to have leukocytosis, with WBC count of 18.3, chest x-ray showed cardiomegaly and minimal pulmonary vascular congestion no clear-cut evidence of pneumonia or significant pulmonary edema. Brain CT showed extensive nonspecific white matter changes, no acute intracranial process noted blood pressure was noted to be marginal 92/62 patient required fluids but did not require pressors. I evaluated the patient in the ER, she seems to be extremely, and critically ill advised BiPAP on this patient advised amiodarone for atrial fibrillation with RVR advised transfer to ICU with nephrology consultation and cardiology consultation. Touch bases on CODE STATUS with the family, apparently family wishes DNR CODE STATUS. Considering the patient is noted to have elevated D-dimer, she will ideally need further scanning to rule out thromboembolic disease, but she is not stable enough for VQ scan I am recommending that we heparinize the patient empirically check venous Doppler, and will address VQ scan once the patient is stabilized. In the meantime considering the patient has evidence of urinary tract infection/urosepsis, I am recommending empiric treatment with antibiotics for presumptive UTI. Her last urine culture from couple of months ago was positive for Enterococcus faecalis, and she also had Morganella morganii in the urine previously, patient will be covered with antibiotics in the form of vancomycin and cefepime for now. Patient was seen today on 08/14/2024, remains in the ICU, remains on BiPAP 13/02/30% remains on heparin, remains on amiodarone at 0.5 mg/min patient remains on Solu-Cortef, she is also on cefepime and vancomycin, her IV fluid is now D5W at 75 cc/h. Patient did not require any pressors overnight, apparently responded to antibiotics and fluid boluses as well as Solu-Cortef. Patient is hemodynamically stable today, remains on BiPAP, remains critically ill. WBC count 13.4 hemoglobin 8.1 PTT is over 200 patient is on the protocol for heparin, she does have atrial fibrillation she does have possible pulmonary embolism however could not order a CT angiogram on this patient, I kept her on heparin she does have elevated D-dimer. Sodium is elevated at 148 BUN is 67 creatinine 2.58, being followed by nephrology for her acute kidney injury Patient was evaluated today on 08/15/2024, patient remains in the ICU, she is now on nasal cannula, off BiPAP. Patient received multiple fluid boluses yesterday, continued to have low blood pressure, she is now on norepinephrine at 0.02 D5W at 75 cc/h she is also on Solu-Cortef, cefepime, she did receive 1 dose of Lasix today 40 mg IV push x 1. Her cultures of the urine came back positive for gram-negative bacilli, blood cultures are positive for gram-positive cocci, however seen by infectious disease and felt that her blood cultures are contaminated. Patient is now on cefepime for her UTI which is secondary to gram-negative patient, final identification is pending. Patient also developed worsening liver profile and amiodarone was discontinued. Patient is supposed to have LAURA today and cardioversion because of her ongoing atrial flutter. This will be done by Dr. Mckeon. Neurological rojo, patient is confused, nonverbal WBC count today 13.7 hemoglobin 8.8 basic metabolic profile is normal bicarb is 19 BUN is 74 creatinine 2.59 Patient was evaluated today on 08/16/2024, remains in the ICU, off norepinephrine, on BiPAP 13/02/%, IV fluid at 75 cc/h patient developed worsening thrombocytopenia and drop in her hemoglobin down to 7.5, no evidence of active bleeding, hence I am stopping the heparin, and transitioning the patient to Eliquis. Patient seems to have possible DVT in the left upper extremity hence ultrasound was ordered, patient does have swelling and redness/erythema and warmth in the left upper extremity. Venous Doppler is pending. Patient had previous history of DVT, and on this admission she was not a good candidate to have CT angiogram of the chest, mostly because of her renal functioning which remains poor, hence I am recommending that we change heparin which is on hold now to Eliquis. Will check Doppler of upper extremities today. Patient seems to be failure to thrive, does not seem to be making much improvement, I think the family should be approached regarding possible comfort care measures. Patient is a DNR CODE STATUS, I believe comfort care will probably be appropriate labs today hemoglobin is 7.4 WBC is 8.5 PTT is 35.3 electrolytes are normal BUN is 81 creatinine 2.97 bicarb is 12 and the patient will receive sodium bicarb orally however if she cannot swallow will recommend a nasogastric tube placement and give medication through the nasogastric tube including bicarb and Eliquis. Ultrasound of the extremities was done patient has right upper extremity chronic superficial venous thrombosis within the cephalic vein only no deep vein thrombosis, there was no evidence of left upper extremity DVT chest x-ray is showing mostly atelectasis possible infiltrate in the left lower lobe, however I favor atelectasis Objective - Vital Signs Vital signs: Vital Signs Temp 98.2 F 08/16/24 08:00 Pulse 55 L 08/16/24 08:00 Resp 25 H 08/16/24 08:00 BP 106/58 08/16/24 08:00 Pulse Ox 96 08/16/24 08:00 FiO2 30 08/16/24 11:21 Intake & Output 08/15/24 08/16/24 08/16/24 18:59 06:59 18:59 Intake Total 2545.545 4441.980 150 Output Total 60 87 25 Balance 8928.318 8680.980 125 Weight 86.7 kg Intake: IV 925 675 75 Potassium Chloride 10 meq 200 In Water For Injection 1 100ml.bag @ 100 mls/hr IVPB Q1HR [facility] Rx#: [id number] Sodium Chloride 0.9% 1, 150 000 ml @ 75 mls/hr IV . [id number] [facility] Rx#:[id number] Sodium Chloride 0.9% 1, 575 675 75 000 ml @ 999 mls/hr IV . Q1H1M [facility] Rx#:[id number] Intake, IV Titration 298.633 424.980 75 Amount Heparin Sod,Pork in 0.45% 121.703 NaCl 25,000 unit In 0.45 % NaCl 1 250ml.bag @ 18 UNITS/KG/HR 21.228 mls/hr IV .[id number] [facility] Rx#: [id number] Norepinephrine 4 mg In 298.633 303.277 Sodium Chloride 0.9% 250 ml @ 0.03 MCG/KG/MIN 13. 48 mls/hr IV .[id number] [facility] Rx#:[id number] Sodium Chloride 0.9% 1, 75 000 ml @ 75 mls/hr IV . [id number] [facility] Rx#:[id number] Output: Urine 60 87 25 Other: Voiding Method Indwelling Catheter - Exam Physical Exam: Revealed 83-year-old female on BiPAP 13/02/30% Head: Atraumatic, normocephalic. HEENT:[Neck is supple.] [No neck masses.] [No thyromegaly.] [No JVD.] Dry mucous membranes noted. Patient is nonverbal Chest: Minimal crackles at the bases rhonchi no wheezes Cardiac: Normal S1 and S2 2/6 systolic murmur throughout the precordium Abdomen: [Soft, nontender, no megaly, no rebound, no guarding, normal bowel sounds.] Extremities: [No clubbing, no edema, no cyanosis.] Multiple areas of ecchymosis noted bilaterally. Neurological Exam: Patient is nonverbal, confused, otherwise no gross focal deficit. Skin: Multiple areas of ecchymosis and she has extremely dry skin. Swelling and erythema noted in upper extremities bilaterally Psychiatric: Could not assess, patient is quite confused - Labs CBC & Chem 7: 08/16/24 04:19 08/16/24 04:19 Labs: Abnormal Lab Results - Last 24 Hours (Table) 08/16/24 08/16/24 08/16/24 Range/Units 03:37 04:19 04:19 RBC 2.86 L (3.80-5.40) m/uL Hgb 7.4 L (11.4-16.0) gm/dL Hct 25.9 L (34.0-46.0) % MCHC 28.8 L (31.0-37.0) g/dL RDW 16.6 H (11.5-15.5) % Plt Count 61 L D (150-450) k/uL APTT 31.5 H (22.0-30.0) sec Chloride 118 H (98-107) mmol/L Carbon Dioxide 12 L (22-30) mmol/L BUN 81 H (7-17) mg/dL Creatinine 2.97 H (0.52-1.04) mg/dL Glucose 104 H (74-99) mg/dL POC Glucose (mg/dL) (70-110) mg/dL AST 701 H (14-36) U/L ALT >750 H (4-34) U/L Total Protein 4.9 L (6.3-8.2) g/dL Albumin 3.1 L (3.5-5.0) g/dL 08/16/24 08/16/24 Range/Units 04:19 05:39 RBC (3.80-5.40) m/uL Hgb (11.4-16.0) gm/dL Hct (34.0-46.0) % MCHC (31.0-37.0) g/dL RDW (11.5-15.5) % Plt Count (150-450) k/uL APTT 35.3 H (22.0-30.0) sec Chloride (98-107) mmol/L Carbon Dioxide (22-30) mmol/L BUN (7-17) mg/dL Creatinine (0.52-1.04) mg/dL Glucose (74-99) mg/dL POC Glucose (mg/dL) 112 H (70-110) mg/dL AST (14-36) U/L ALT (4-34) U/L Total Protein (6.3-8.2) g/dL Albumin (3.5-5.0) g/dL Microbiology - Last 24 Hours (Table) 08/13/24 08:27 Urine Culture - Final Urine,Catheterized Morganella morganii 08/13/24 09:00 Blood Culture Gram Stain - Preliminary Blood Blood Culture - Preliminary Coagulase Negative Staph Molecular ID Assessment and Plan Assessment: Impression: Septic shock, primary source is UTI Acute on chronic hypoxic and hypercapnic respiratory failure most likely secondary to severe COPD/underlying COPD with acute exacerbation, and suspect some component of acute systolic congestive heart failure. Chronic hypoxic and chronic hypercapnic respiratory failure patient is supposedly on BiPAP at snf Altered mental status secondary to acute metabolic encephalopathy Acute systolic congestive heart failure Urinary tract infection, strongly suspect sepsis with hypotension, urine is showing gram-negative bacilli final culture is pending Acute kidney injury with hyperkalemia secondary to acute kidney injury Elevated D-dimer possible thromboembolic disease Leukocytosis secondary to urinary tract infection and urosepsis History of deep vein thrombosis supposedly on long-term anticoagulation therapy, questionable compliance Benign essential hypertension Dyslipidemia History of macular degeneration History of breast cancer and previous left-sided mastectomy Hypotension secondary to sepsis and septic shock, off norepinephrine today. Resolved Thrombocytopenia, possibly heparin-induced, heparin is on hold, patient will be given Eliquis Severe dementia Failure to thrive positive Coagulase-negative staph bacteremia, likely contamination. Status post LAURA and cardioversion Recommendation: Family should be approached regarding considering comfort care As the patient has multiple issues and failure to thrive. Continue to monitor in ICU Continue hemodynamic support presently off norepinephrine today compared to yesterday Continue cefepime for UTI/urosepsis secondary to Morganella morganii Discontinue heparin and transition to Eliquis continue to monitor platelet and hemoglobin GI and DVT prophylaxis Swallow evaluation otherwise may have to consider placement of the nasogastric tube and enteral feeding Continue DuoNeb Intermittent diuresis Continue tapering Solu-Cortef Continue to monitor daily electrolytes Continue to monitor liver profile and discontinue amiodarone ntinue amiodarone as per cardiology Continue DNR CODE STATUS, consider comfort care if family is agreeable Prognosis is extremely poor Patient is critically ill. Critical care time is over 30 minutes Time with Patient: Greater than 30
[2024-08-16] MEDS: APIXABAN 2.5 MG TABLET PO SCH (12:16)
[2024-08-16 12:25] LABS: Glucose,Whole Blood 93 mg/dL (70-110)
--- NOTE | 2024-08-16 12:53 | P.PN ---
Subjective Progress Note Date: 08/16/24 Patient is seen for follow-up for acute kidney injury. Maintained on IVF. Given Laisx yesterday with drop in BP. Also episode of cardioversion yesterday. Patient planning on going hospice today. Patient is NAD, lethargic Examination of the heart S1 and S2 Examination of the lungs bilateral breath sounds are heard Abdomen is soft obese Examination of lower extremities shows trace edema Objective - Vital Signs Vital signs: Vital Signs Temp 98.2 F 08/16/24 08:00 Pulse 55 L 08/16/24 08:00 Resp 25 H 08/16/24 08:00 BP 106/58 08/16/24 08:00 Pulse Ox 96 08/16/24 08:00 FiO2 30 08/16/24 08:00 Intake & Output 08/15/24 08/16/24 08/16/24 18:59 06:59 18:59 Intake Total 1590.649 9148.980 150 Output Total 60 87 25 Balance 4016.461 9868.980 125 Weight 86.7 kg Intake: IV 925 675 75 Potassium Chloride 10 meq 200 In Water For Injection 1 100ml.bag @ 100 mls/hr IVPB Q1HR [facility] Rx#: [id number] Sodium Chloride 0.9% 1, 150 000 ml @ 75 mls/hr IV . [id number] [facility] Rx#:[id number] Sodium Chloride 0.9% 1, 575 675 75 000 ml @ 999 mls/hr IV . Q1H1M [facility] Rx#:[id number] Intake, IV Titration 298.633 424.980 75 Amount Heparin Sod,Pork in 0.45% 121.703 NaCl 25,000 unit In 0.45 % NaCl 1 250ml.bag @ 18 UNITS/KG/HR 21.228 mls/hr IV .[id number] [facility] Rx#: [id number] Norepinephrine 4 mg In 298.633 303.277 Sodium Chloride 0.9% 250 ml @ 0.03 MCG/KG/MIN 13. 48 mls/hr IV .[id number] [facility] Rx#:[id number] Sodium Chloride 0.9% 1, 75 000 ml @ 75 mls/hr IV . [id number] [facility] Rx#:[id number] Output: Urine 60 87 25 Other: Voiding Method Indwelling Catheter - Labs CBC & Chem 7: 08/16/24 04:19 08/16/24 04:19 Labs: Abnormal Lab Results - Last 24 Hours (Table) 08/15/24 08/16/24 08/16/24 Range/Units 11: 03:37 04:19 RBC 2.86 L (3.80-5.40) m/uL Hgb 7.4 L (11.4-16.0) gm/dL Hct 25.9 L (34.0-46.0) % MCHC 28.8 L (31.0-37.0) g/dL RDW 16.6 H (11.5-15.5) % Plt Count 61 L D (150-450) k/uL APTT 31.5 H (22.0-30.0) sec Chloride (98-107) mmol/L Carbon Dioxide (22-30) mmol/L BUN (7-17) mg/dL Creatinine (0.52-1.04) mg/dL Glucose (74-99) mg/dL POC Glucose (mg/dL) 122 H (70-110) mg/dL AST (14-36) U/L ALT (4-34) U/L Total Protein (6.3-8.2) g/dL Albumin (3.5-5.0) g/dL 08/16/24 08/16/24 08/16/24 Range/Units 04:19 04:19 05:39 RBC (3.80-5.40) m/uL Hgb (11.4-16.0) gm/dL Hct (34.0-46.0) % MCHC (31.0-37.0) g/dL RDW (11.5-15.5) % Plt Count (150-450) k/uL APTT 35.3 H (22.0-30.0) sec Chloride 118 H (98-107) mmol/L Carbon Dioxide 12 L (22-30) mmol/L BUN 81 H (7-17) mg/dL Creatinine 2.97 H (0.52-1.04) mg/dL Glucose 104 H (74-99) mg/dL POC Glucose (mg/dL) 112 H (70-110) mg/dL AST 701 H (14-36) U/L ALT >750 H (4-34) U/L Total Protein 4.9 L (6.3-8.2) g/dL Albumin 3.1 L (3.5-5.0) g/dL Microbiology - Last 24 Hours (Table) 08/13/24 08:27 Urine Culture - Final Urine,Catheterized Lindsey flynnii 08/13/24 09:00 Blood Culture Gram Stain - Preliminary Blood Blood Culture - Preliminary Coagulase Negative Staph Molecular ID Assessment and Plan Assessment: 1. Acute kidney injury, ATN secondary to hypotension. Nonoliguric. UA is suggestive of UTI with WBCs and WBC clumps. 1+ protein. Utrasound of the kidneys shows right kidney 9.1 cm with 2 cysts. Left kidney could not be seen due to bowel gas. 2. Hyperkalemia associated with acute kidney injury and potassium supplementation although patient was also on loop diuretics. Status post IV treatment. Blood sugar is not significantly elevated and no evidence of active GI bleed. 3. UTI with urine culture growing Morganella from 08/05/2024 as outpatient. 4. Acute hypoxic respiratory failure currently on BiPAP 5. Chronic use of lithium. Calcium not elevated. 6. CKD stage III a with baseline creatinine around 1-1.1 mg/dL. Etiology likely nephrosclerosis and possible chronic interstitial nephropathy if patient has been taking lithium for many years. 7. Atrial flutter with RVR 8. Metabolic Acidosis likely due to RITIKA Plan: Renal function worsened after BP drop and cardioversion. Family opted for hospice, will sign off
[2024-08-16] MEDS: MORPHINE SULFATE 2 MG/ML SYRINGE IVP PRN (13:28)
--- NOTE | 2024-08-16 14:06 | P.PN ---
Subjective Progress Note Date: 08/16/24 83-year-old female with past medical history significant for multiple medical conditions lives in a long-term facility was brought to the ER for altered mental status for the last few days, shortness of breath, low blood pressure, recently was found to have UTI. Patient has history of COPD, DVT, hypertension, hyperlipidemia, history of ESBL. Son at the bedside. Patient currently on BiPAP on FiO2 30%, poor historian due to altered mental status. Son reported that patient was confused for the last few days, had poor p.o. intake. In the ER patient was found to be with altered mental status, hypoxia, hypotensive, had A-fib with RVR hypercapnia with CO2 53 required BiPAP, was also noted to have acute kidney injury with hyperkalemia with potassium of 7.5. Urine drug screen was positive for benzodiazepine. Influenza RSV and COVID was negative. UA showed bacteriuria and pyuria. Troponin mildly elevated at 0.244, ammonia was 39. D-dimer was elevated at 19.97. Patient was noted to have WBCs 8.3, chest x-ray concerning for cardiomegaly and pulmonary venous congestion. CT head showed extensive nonspecific white matter changes, no acute intracranial process. Patient was given IV fluids in the ED. Family at bedside confirmed the CODE STATUS to be DNR limited. Last urine culture for few months ago showed Enterococcus faecalis, Morganella. 08/14. Patient seen and examined. Currently on BiPAP, vitals are heart rate 105, respirations 13, blood pressure 85/63. Lab work done showed WBC 13.4, hemoglobin 8.1, platelet count 97, sodium 148, potassium 4.1, BUN 67, creatinine 2.58. AST 2970 ALT 11/06/2008. 08/15. Patient seen and examined. Blood work done this morning showed WBC 8 1,000, hemoglobin 8.8, sodium 140, testing 3.7, BUN 74, creatinine 2.59, AST 1553, ALT 254. Patient had cardioversion done this morning. Currently on BiPAP. 08/16. Patient seen and examined. Critical care team is discussed with patient's family regarding goals of care and poor prognosis, family at this time is leaning towards hospice REVIEW OF SYSTEMS: Review of system cannot be obtained as patient is currently lethargic PHYSICAL EXAMINATION: Patient is lethargic HEENT: Pupils are round and equally reacting to light. EOMI. No scleral icterus. No conjunctival pallor. Normocephalic, atraumatic. No pharyngeal erythema. No thyromegaly. CARDIOVASCULAR: S1 and S2 present. No murmurs, rubs, or gallops. PULMONARY: Chest is clear to auscultation, no wheezing or crackles. ABDOMEN: Soft, nontender, nondistended, normoactive bowel sounds. No palpable organomegaly. MUSCULOSKELETAL: No joint swelling or deformity. EXTREMITIES: No cyanosis, clubbing, or pedal edema. NEUROLOGICAL: Gross neurological examination did not reveal any focal deficits. SKIN: No rashes. Assessment and plan Acute on chronic hypoxic hypercapnic respiratory failure Severe COPD with acute exacerbation Atrial fibrillation/flutter with rapid ventricular response Right buttock pressure ulcer stage II Chronic hypoxic hypercapnic respiratory failure, reportedly on BiPAP at long-term Acute transaminitis Acute metabolic encephalopathy Severe sepsis Hypotension Elevated D-dimer Right lower extremity DVT A-fib with RVR NSTEMI RITIKA Hyperkalemia Hypertension Hyperlipidemia History of macular degeneration History of breast cancer and previous left-sided mastectomy Plan: Monitor vital sign Monitor CBC Monitor CMP Continue oxygen supplementation Aggressive bronchopulmonary hygiene Continue BiPAP Continue cefepime Status post LAURA with cardioversion Continue Eliquis ultrasound venouslimited exam, evidence of possible nonocclusive thrombus in the right popliteal vein Cardiology following Nephrology following ID following Critical care following Hospice consulted Labs and medication were reviewed.. Continue same treatment. Continue with symptomatic treatment. Resume home medication. Monitor labs and vitals. DVT and GI prophylaxis. Further recommendations as per clinical course of the patient Dictation was produced using [employer] dictation software. please excuse any grammatical, word or spelling errors. Objective - Vital Signs Vital signs: Vital Signs Temp 98.2 F 08/16/24 08:00 Pulse 55 L 08/16/24 08:00 Resp 25 H 08/16/24 08:00 BP 106/58 08/16/24 08:00 Pulse Ox 96 08/16/24 08:00 FiO2 30 08/16/24 08:00 Intake & Output 08/15/24 08/16/24 08/16/24 18:59 06:59 18:59 Intake Total 1449.411 3319.980 150 Output Total 60 87 25 Balance 0215.827 0592.980 125 Weight 86.7 kg Intake: IV 925 675 75 Potassium Chloride 10 meq 200 In Water For Injection 1 100ml.bag @ 100 mls/hr IVPB Q1HR [facility] Rx#: [id number] Sodium Chloride 0.9% 1, 150 000 ml @ 75 mls/hr IV . [id number] [facility] Rx#:[id number] Sodium Chloride 0.9% 1, 575 675 75 000 ml @ 999 mls/hr IV . Q1H1M [facility] Rx#:[id number] Intake, IV Titration 298.633 424.980 75 Amount Heparin Sod,Pork in 0.45% 121.703 NaCl 25,000 unit In 0.45 % NaCl 1 250ml.bag @ 18 UNITS/KG/HR 21.228 mls/hr IV .[id number] [facility] Rx#: [id number] Norepinephrine 4 mg In 298.633 303.277 Sodium Chloride 0.9% 250 ml @ 0.03 MCG/KG/MIN 13. 48 mls/hr IV .[id number] [facility] Rx#:[id number] Sodium Chloride 0.9% 1, 75 000 ml @ 75 mls/hr IV . [id number] [facility] Rx#:[id number] Output: Urine 60 87 25 Other: Voiding Method Indwelling Catheter - Labs CBC & Chem 7: 08/16/24 04:19 08/16/24 04:19 Labs: Abnormal Lab Results - Last 24 Hours (Table) 08/15/24 08/16/24 08/16/24 Range/Units 11: 03:37 04:19 RBC 2.86 L (3.80-5.40) m/uL Hgb 7.4 L (11.4-16.0) gm/dL Hct 25.9 L (34.0-46.0) % MCHC 28.8 L (31.0-37.0) g/dL RDW 16.6 H (11.5-15.5) % Plt Count 61 L D (150-450) k/uL APTT 31.5 H (22.0-30.0) sec Chloride (98-107) mmol/L Carbon Dioxide (22-30) mmol/L BUN (7-17) mg/dL Creatinine (0.52-1.04) mg/dL Glucose (74-99) mg/dL POC Glucose (mg/dL) 122 H (70-110) mg/dL AST (14-36) U/L ALT (4-34) U/L Total Protein (6.3-8.2) g/dL Albumin (3.5-5.0) g/dL 08/16/24 08/16/24 08/16/24 Range/Units 04:19 04:19 05:39 RBC (3.80-5.40) m/uL Hgb (11.4-16.0) gm/dL Hct (34.0-46.0) % MCHC (31.0-37.0) g/dL RDW (11.5-15.5) % Plt Count (150-450) k/uL APTT 35.3 H (22.0-30.0) sec Chloride 118 H (98-107) mmol/L Carbon Dioxide 12 L (22-30) mmol/L BUN 81 H (7-17) mg/dL Creatinine 2.97 H (0.52-1.04) mg/dL Glucose 104 H (74-99) mg/dL POC Glucose (mg/dL) 112 H (70-110) mg/dL AST 701 H (14-36) U/L ALT >750 H (4-34) U/L Total Protein 4.9 L (6.3-8.2) g/dL Albumin 3.1 L (3.5-5.0) g/dL Microbiology - Last 24 Hours (Table) 08/13/24 08:27 Urine Culture - Final Urine,Catheterized Morganella morganii 08/13/24 09:00 Blood Culture Gram Stain - Preliminary Blood Blood Culture - Preliminary Coagulase Negative Staph Molecular ID
[2024-08-16 15:13] VITALS: BP 99/49; PULSE 60; RESP 19
[2024-08-16] MEDS ORDERED: SODIUM BICARBONATE TAB 650 MG TAB PO SCH (21:00)
--- NOTE | 2024-08-17 09:42 | P.DS ---
Providers Date of admission: 08/13/24 10:11 Expected date of discharge: 08/16/24 Attending physician: Bright Goodman MD Consults: 08/13/24 10:05 Consult Physician Routine Consulting Provider: [facility] Consult Reason/Comments: nstemi, afib with rvr Do you want consulting provider notified?: Yes Consult Physician Routine Consulting Provider: Leo Ferreira Consult Reason/Comments: uti, sepsis Do you want consulting provider notified?: Yes Consult Physician Routine Consulting Provider: Lyubov Armstrong Consult Reason/Comments: hyperkalemia, ritika Do you want consulting provider notified?: Yes Consult Physician Stat Consulting Provider: Roland William Consult Reason/Comments: sepsis, acute hypoxic resp failure, uti, copd, afib with rvr, ritika, hyperK Do you want consulting provider notified?: Already Contacted Primary care physician: [facility] Course: Discharge diagnoses; Acute on chronic hypoxic hypercapnic respiratory failure Severe COPD with acute exacerbation Atrial fibrillation/flutter with rapid ventricular response Right buttock pressure ulcer stage II Chronic hypoxic hypercapnic respiratory failure, reportedly on BiPAP at correction Acute transaminitis Acute metabolic encephalopathy Severe sepsis Hypotension Elevated D-dimer Right lower extremity DVT A-fib with RVR NSTEMI RITIKA Hyperkalemia Hypertension Hyperlipidemia History of macular degeneration History of breast cancer and previous left-sided mastectomy Hospital course; 83-year-old female with past medical history significant for multiple medical conditions lives in a correction facility was brought to the ER for altered mental status for the last few days, shortness of breath, low blood pressure, recently was found to have UTI. Patient has history of COPD, DVT, hypertension, hyperlipidemia, history of ESBL. Son at the bedside. Patient currently on BiPAP on FiO2 30%, poor historian due to altered mental status. Son reported that patient was confused for the last few days, had poor p.o. intake. In the ER patient was found to be with altered mental status, hypoxia, hypotensive, had A-fib with RVR hypercapnia with CO2 53 required BiPAP, was also noted to have acute kidney injury with hyperkalemia with potassium of 7.5. Urine drug screen was positive for benzodiazepine. Influenza RSV and COVID was negative. UA showed bacteriuria and pyuria. Troponin mildly elevated at 0.244, ammonia was 39. D-dimer was elevated at 19.97. Patient was noted to have WBCs 8.3, chest x-ray concerning for cardiomegaly and pulmonary venous congestion. CT head showed extensive nonspecific white matter changes, no acute intracranial process. Patient was given IV fluids in the ED. Family at bedside confirmed the CODE STATUS to be DNR limited. Last urine culture for few months ago showed Enterococcus faecalis, Morganella. 08/14. Patient seen and examined. Currently on BiPAP, vitals are heart rate 105, respirations 13, blood pressure 85/63. Lab work done showed WBC 13.4, hemoglobin 8.1, platelet count 97, sodium 148, potassium 4.1, BUN 67, creatinine 2.58. AST 2970 ALT 11/06/2008. 08/15. Patient seen and examined. Blood work done this morning showed WBC 81,000, hemoglobin 8.8, sodium 140, testing 3.7, BUN 74, creatinine 2.59, AST 1553, ALT 254. Patient had cardioversion done this morning. Currently on BiPAP. 08/16. Patient seen and examined. Critical care team is discussed with patient's family regarding goals of care and poor prognosis, family at this time is leaning towards hospice. Hospice discussed with patient family and patient was transitioned to inpatient hospice PHYSICAL EXAMINATION: Patient is lethargic HEENT: Pupils are round and equally reacting to light. EOMI. No scleral icterus. No conjunctival pallor. Normocephalic, atraumatic. No pharyngeal erythema. No thyromegaly. CARDIOVASCULAR: S1 and S2 present. No murmurs, rubs, or gallops. PULMONARY coarse breath sound bilaterally, diminished at the bases. ABDOMEN: Soft, nontender, nondistended, normoactive bowel sounds. No palpable organomegaly. MUSCULOSKELETAL: No joint swelling or deformity. EXTREMITIES: No cyanosis, clubbing, or pedal edema. NEUROLOGICAL: Gross neurological examination did not reveal any focal deficits. SKIN: No rashes. Dictation was produced using [employer] dictation software. please excuse any grammatical, word or spelling errors. Patient Condition at Discharge: Serious Plan - Discharge Summary Discharge Rx Participant: Yes New Discharge Prescriptions: No Action PARoxetine [Paxil] 20 mg PO DAILY@0800 bisacodyL [Dulcolax] 10 mg RECTAL DAILY PRN PRN Reason: Constipation Montelukast [Singulair] 10 mg PO HS@1700 Na Phos,M-B/Na Phos,Di-Ba [Fleet Adult] 133 ml RECTAL DAILY PRN PRN Reason: Constipation Aspirin 81 mg PO DAILY@0800 chew Magnesium Hydroxide [Milk of Magnesia Concentrate] 7,200 mg PO DAILY PRN PRN Reason: No BM for 48 hours Acetaminophen Tab [Tylenol] 650 mg PO Q4H PRN PRN Reason: Fever And/ Or Pain Loperamide [Imodium] 2 mg PO Q6H PRN PRN Reason: Loose Stool Albuterol Nebulized [Ventolin Nebulized] 2.5 mg INHALATION RT-Q6H PRN PRN Reason: Respitory infection Potassium Chloride ER [K-Dur 20] 40 meq PO BID@0800,1700 [place] Carbonate 300 mg PO BID@0800,1700 Furosemide [Lasix] 40 mg PO BID@0800,1700 Budesonide-Formot 160-4.5 Mcg [Symbicort 160-4.5 Mcg Inhaler] 2 puff INHALATION RT-BID@0800,1700 traZODone HCL [Desyrel] 50 mg PO HS@2100 Simvastatin [Zocor] 10 mg PO HS@1700 Ipratropium-Albuterol Nebulize [Duoneb 0.5 mg-3 mg/3 ml Soln] 3 ml INHALATION RT-Q6H Sennosides/Docusate Sodium [Senna-S 8.6-50 mg Tablet] 2 tab PO DAILY@0800 traMADol HCL 50 mg PO Q6H PRN PRN Reason: Pain LORazepam [Ativan] 0.5 mg PO BID PRN PRN Reason: restlessness/anxiety Acetaminophen [Children's Acetaminophen] 650 mg PO Q4H PRN PRN Reason: Fever And/ Or Pain Acetaminophen Suppository [Tylenol Suppository] 650 mg RECTAL Q4H PRN PRN Reason: Fever And/ Or Pain risperiDONE 0.5 mg PO HS@2100 Ensure Enlive 120 ml PO BID@0800,1700 Discharge Medication List PARoxetine [Paxil] 20 mg PO DAILY@0800 07/03/16 [History] Montelukast [Singulair] 10 mg PO HS@1700 10/21/19 [History] Na Phos,M-B/Na Phos,Di-Ba [Fleet Adult] 133 ml RECTAL DAILY PRN 10/21/19 [History] bisacodyL [Dulcolax] 10 mg RECTAL DAILY PRN 10/21/19 [History] Aspirin 81 mg PO DAILY@0800 chew 10/24/19 [Rx] Acetaminophen Tab [Tylenol] 650 mg PO Q4H PRN 03/16/22 [History] Magnesium Hydroxide [Milk of Magnesia Concentrate] 7,200 mg PO DAILY PRN 03/16/22 [History] Sennosides/Docusate Sodium [Senna-S 8.6-50 mg Tablet] 2 tab PO DAILY@0800 03/16/22 [History] Acetaminophen Suppository [Tylenol Suppository] 650 mg RECTAL Q4H PRN 08/13/24 [History] Acetaminophen [Children's Acetaminophen] 650 mg PO Q4H PRN 08/13/24 [History] Albuterol Nebulized [Ventolin Nebulized] 2.5 mg INHALATION RT-Q6H PRN 08/13/24 [History] Budesonide-Formot 160-4.5 Mcg [Symbicort 160-4.5 Mcg Inhaler] 2 puff INHALATION RT-BID@0800,1700 08/13/24 [History] Ensure Enlive 120 ml PO BID@0800,169908/13/24 [History] Furosemide [Lasix] 40 mg PO BID@0800,169908/13/24 [History] Ipratropium-Albuterol Nebulize [Duoneb 0.5 mg-3 mg/3 ml Soln] 3 ml INHALATION RT-Q6H 08/13/24 [History] LORazepam [Ativan] 0.5 mg PO BID PRN 08/13/24 [History] [place] Carbonate 300 mg PO BID@0800,1700 08/13/24 [History] Loperamide [Imodium] 2 mg PO Q6H PRN 08/13/24 [History] Potassium Chloride ER [K-Dur 20] 40 meq PO BID@0800,1700 08/13/24 [History] Simvastatin [Zocor] 10 mg PO HS@1700 08/13/24 [History] risperiDONE 0.5 mg PO HS@2100 08/13/24 [History] traMADol HCL 50 mg PO Q6H PRN 08/13/24 [History] traZODone HCL [Desyrel] 50 mg PO HS@2100 08/13/24 [History] Follow up Appointment(s)/Referral(s): Naif Negron MD [Primary Care Provider] - 1 Week Discharge Disposition: DISCH TO HOSPICE MED FACILTY
--- NOTE | 2024-08-17 14:23 | P.PN ---
Subjective Progress Note Date: 08/16/24 Principal diagnosis: Reason for follow-up is sepsis UTI Patient is a 84-year-old female with a past medical history significant for COPD DVT hypertension hyperlipidemia pneumonia and left breast cancer patient is a care home resident patient has been brought into the hospital for evaluation of fever and mental status changes, admitted to ICU concerning for sepsis secondary to urinary tract infection. On today's evaluation that is 08/16/2024, Patient is afebrile this morning patient remains to be on the BiPAP patient apparently did have worsening of her thrombocytopenia to open hemoglobin and heparin has been discontinued ICU team has discussed with the family possible comfort related care and the family is thinking about it patient will report any history no vomiting or diarrhea reported by the nursing staff. Patient white count is 8.5, creatinine is 2.97 urine with Morganella blood culture with Staphylococcus hominis Objective - Vital Signs Vital signs: Vital Signs Temp 98.2 F 08/16/24 08:00 Pulse 60 08/16/24 13:00 Resp 25 H 08/16/24 13:00 BP 110/64 08/16/24 13:00 Pulse Ox 97 08/16/24 13:00 FiO2 30 08/16/24 12:00 Intake & Output 08/15/24 08/16/24 08/16/24 18:59 06:59 18:59 Intake Total 3450.909 9709.980 150 Output Total 60 87 55 Balance 1715.203 7680.980 95 Weight 86.7 kg Intake: IV 925 675 75 Potassium Chloride 10 meq 200 In Water For Injection 1 100ml.bag @ 100 mls/hr IVPB Q1HR [facility] Rx#: [id number] Sodium Chloride 0.9% 1, 150 000 ml @ 75 mls/hr IV . [id number] [facility] Rx#:[id number] Sodium Chloride 0.9% 1, 575 675 75 000 ml @ 999 mls/hr IV . Q1H1M [facility] Rx#:[id number] Intake, IV Titration 298.633 424.980 75 Amount Heparin Sod,Pork in 0.45% 121.703 NaCl 25,000 unit In 0.45 % NaCl 1 250ml.bag @ 18 UNITS/KG/HR 21.228 mls/hr IV .[id number] [facility] Rx#: [id number] Norepinephrine 4 mg In 298.633 303.277 Sodium Chloride 0.9% 250 ml @ 0.03 MCG/KG/MIN 13. 48 mls/hr IV .[id number] [facility] Rx#:[id number] Sodium Chloride 0.9% 1, 75 000 ml @ 75 mls/hr IV . [id number] [facility] Rx#:[id number] Output: Urine 60 87 55 Other: Voiding Method Indwelling Catheter - Exam GENERAL DESCRIPTION: An elderly female lying in bed in no distress RESPIRATORY SYSTEM: Unlabored breathing , decreased breath sounds at bases HEART: S1 S2 regular rate and rhythm , ABDOMEN: Soft , no tenderness EXTREMITIES: No edema feet - Labs CBC & Chem 7: 08/16/24 04:19 08/16/24 04:19 Labs: Abnormal Lab Results - Last 24 Hours (Table) 08/16/24 08/16/24 08/16/24 Range/Units 03:37 04:19 04:19 RBC 2.86 L (3.80-5.40) m/uL Hgb 7.4 L (11.4-16.0) gm/dL Hct 25.9 L (34.0-46.0) % MCHC 28.8 L (31.0-37.0) g/dL RDW 16.6 H (11.5-15.5) % Plt Count 61 L D (150-450) k/uL APTT 31.5 H (22.0-30.0) sec Chloride 118 H (98-107) mmol/L Carbon Dioxide 12 L (22-30) mmol/L BUN 81 H (7-17) mg/dL Creatinine 2.97 H (0.52-1.04) mg/dL Glucose 104 H (74-99) mg/dL POC Glucose (mg/dL) (70-110) mg/dL AST 701 H (14-36) U/L ALT >750 H (4-34) U/L Total Protein 4.9 L (6.3-8.2) g/dL Albumin 3.1 L (3.5-5.0) g/dL 08/16/24 08/16/24 Range/Units 04:19 05:39 RBC (3.80-5.40) m/uL Hgb (11.4-16.0) gm/dL Hct (34.0-46.0) % MCHC (31.0-37.0) g/dL RDW (11.5-15.5) % Plt Count (150-450) k/uL APTT 35.3 H (22.0-30.0) sec Chloride (98-107) mmol/L Carbon Dioxide (22-30) mmol/L BUN (7-17) mg/dL Creatinine (0.52-1.04) mg/dL Glucose (74-99) mg/dL POC Glucose (mg/dL) 112 H (70-110) mg/dL AST (14-36) U/L ALT (4-34) U/L Total Protein (6.3-8.2) g/dL Albumin (3.5-5.0) g/dL Microbiology - Last 24 Hours (Table) 08/13/24 08:27 Urine Culture - Final Urine,Catheterized Morganella morganii 08/13/24 09:00 Blood Culture Gram Stain - Preliminary Blood Blood Culture - Preliminary Coagulase Negative Staph Molecular ID Assessment and Plan (1) Allergy to multiple antibiotics Status: Acute Code(s): Z88.1 - ALLERGY STATUS TO OTHER ANTIBIOTIC AGENTS SNOMED Code(s): 356280324 (2) Sepsis Status: Acute Code(s): A41.9 - SEPSIS, UNSPECIFIED ORGANISM SNOMED Code(s): 93554533 (3) UTI (urinary tract infection) Status: Acute Code(s): N39.0 - URINARY TRACT INFECTION, SITE NOT SPECIFIED SNOMED Code(s): 30692382 Plan: 1patient presented to hospital with sepsis in this patient who did have fever tachycardia elevated white count and hypotension meeting currently for SIRS source is likely UTI and this patient did have significantly positive UA with recent urine culture done in the outpatient setting was positive for Morganella that was sensitive to cefepime and prior to that she did grow Enterococcus faecalis that was sensitive to penicillin as well as vancomycin and if these 2 pathogen could be the likely source of this UTI and sepsis. 2patient with multiple antibiotic ALLERGIES that would limit the number of antibiotic safe to use. 3patient with a elevated creatinine high risk of nephrotoxicity. 4patient urine has been finalized with Morganella that is sensitive to cefepime to continue however the family is possibly leaning towards hospice which may be appropriate in that case antibiotics can be discontinued 5positive blood culture with coagulase-negative staph likely skin contamination no need for vancomycin. Family at the bedside questions were answered Dictation was produced using [employer] dictation software. please excuse any grammatical, word or spelling errors. Time with Patient: Less than 30
== END 2024-08-16 15:20 | disposition hospice, inpatient (51) | DRG 871 ==
LOC: EC 08:03 → 2SICU 10:11
PROVIDERS: ADMIT Internal Medicine; ATTEND Internal Medicine
PROC: 5A09457 Assistance with Respiratory Ventilation, 24-96 Consecutive Hours, Continuous Positive Airway Pressure (ICD-10-PCS; 2024-08-13)
PROC: 3E033RZ Introduction of Antiarrhythmic into Peripheral Vein, Percutaneous Approach (ICD-10-PCS; 2024-08-14)
PROC: B24BZZ4 Ultrasonography of Heart with Aorta, Transesophageal (ICD-10-PCS; 2024-08-15)
PROC: 5A2204Z Restoration of Cardiac Rhythm, Single (ICD-10-PCS; principal; 2024-08-15 08:30)
DX: A41.9 Sepsis, unspecified organism (principal); G93.41 Metabolic encephalopathy; J96.22 Acute and chronic respiratory failure with hypercapnia; I21.4 Non-ST elevation (NSTEMI) myocardial infarction; J96.21 Acute and chronic respiratory failure with hypoxia; N17.0 Acute kidney failure with tubular necrosis; K72.00 Acute and subacute hepatic failure without coma; R65.21 Severe sepsis with septic shock; J44.1 Chronic obstructive pulmonary disease with (acute) exacerbation; I82.401 Acute embolism and thrombosis of unspecified deep veins of right lower extremity; N39.0 Urinary tract infection, site not specified; I48.92 Unspecified atrial flutter; I42.9 Cardiomyopathy, unspecified; E87.20 Acidosis, unspecified; I13.0 Hypertensive heart and chronic kidney disease with heart failure and stage 1 through stage 4 chronic kidney disease, or unspecified chronic kidney disease; F03.C3 Unspecified dementia, severe, with mood disturbance; F03.C4 Unspecified dementia, severe, with anxiety; I50.20 Unspecified systolic (congestive) heart failure; Z16.12 Extended spectrum beta lactamase (ESBL) resistance; I95.9 Hypotension, unspecified; I48.91 Unspecified atrial fibrillation; E87.5 Hyperkalemia; E78.5 Hyperlipidemia, unspecified; Z66 Do not resuscitate; D69.6 Thrombocytopenia, unspecified; I08.1 Rheumatic disorders of both mitral and tricuspid valves; L89.312 Pressure ulcer of right buttock, stage 2; Z51.5 Encounter for palliative care; R62.7 Adult failure to thrive; N18.31 Chronic kidney disease, stage 3a; Z88.0 Allergy status to penicillin; Z88.8 Allergy status to other drugs, medicaments and biological substances; Z88.2 Allergy status to sulfonamides; Z68.33 Body mass index [BMI] 33.0-33.9, adult; Z90.12 Acquired absence of left breast and nipple; Z79.82 Long term (current) use of aspirin; Z85.3 Personal history of malignant neoplasm of breast; Z88.1 Allergy status to other antibiotic agents; Z96.653 Presence of artificial knee joint, bilateral; Z99.81 Dependence on supplemental oxygen
CPT/HCPCS: 36415; 36600; 51702; 70450; 71045; 76770; 80053; 80202; 80306; 80320; 81001; 82140; 82805; 83036; 84132; 84484; 85025; 85027; 85379; 85610; 85730; 87040; 87077; 87086; 87186; 87636; 92960; 93005; 93306; 93312; 93320; 93325; 93970; 94640; 94660; 96365; 96367; 96368; 96375; 99291

== ENCOUNTER 2024-08-16 14:31 | Inpatient (IN) | payer MEDICAID, MEDICARE, OTHER ==
[2024-08-16] MEDS ORDERED: DRY MOUTH SPRAY 44.3 SPRAY/44.3 ML SPRAY MUCOUS MEM PRN (14:56)
[2024-08-16] MEDS ORDERED: GLYCOPYRROLATE 0.2 MG/ML 2 ML VIAL IVP PRN (14:56)
[2024-08-16] MEDS ORDERED: ONDANSETRON 4 MG/2 ML VIAL IVP PRN (14:56)
[2024-08-17] MEDS: MORPHINE SULFATE 2 MG/ML SYRINGE IV PRN (03:29)
[2024-08-17 03:32] VITALS: PULSE 70
[2024-08-17 10:05] VITALS: RESP 12
[2024-08-17] MEDS: MORPHINE SULFATE (100 MG/2 ML) 100 MG in SODIUM CHLORIDE 0.9% 100 ML IV SCH (12:51)
--- NOTE | 2024-08-17 13:48 | P.HPIM ---
History of Present Illness H&P Date: 08/17/24 History of present illness;83-year-old female with past medical history significant for multiple medical conditions lives in a fdc facility was brought to the ER for altered mental status for the last few days, shortness of breath, low blood pressure, recently was found to have UTI. Patient has history of COPD, DVT, hypertension, hyperlipidemia, history of ESBL. Patient was admitted to ICU for acute respiratory failure, was seen by multiple consultants like nephrology, pulmonary, ID, cardiology during the ICU stay. Because of patient poor prognosis, patient was transitioned to hospice and was admitted to inpatient hospice REVIEW OF SYSTEMS: Review of system cannot be obtained as patient is obtunded PHYSICAL EXAMINATION: Patient is lethargic HEENT: Pupils are round and equally reacting to light. EOMI. No scleral icterus. No conjunctival pallor. Normocephalic, atraumatic. No pharyngeal erythema. No thyromegaly. CARDIOVASCULAR: S1 and S2 present. No murmurs, rubs, or gallops. PULMONARY coarse breath sound bilaterally, diminished at the bases. ABDOMEN: Soft, nontender, nondistended, normoactive bowel sounds. No palpable organomegaly. MUSCULOSKELETAL: No joint swelling or deformity. EXTREMITIES: No cyanosis, clubbing, or pedal edema. NEUROLOGICAL: Gross neurological examination did not reveal any focal deficits. SKIN: No rashes. Assessment and plan Acute on chronic hypoxic hypercapnic respiratory failure Severe COPD with acute exacerbation Atrial fibrillation/flutter with rapid ventricular response Right buttock pressure ulcer stage II Chronic hypoxic hypercapnic respiratory failure, reportedly on BiPAP at [facility] Acute transaminitis Acute metabolic encephalopathy Severe sepsis Hypotension Elevated D-dimer Right lower extremity DVT A-fib with RVR NSTEMI RITIKA Hyperkalemia Hypertension Hyperlipidemia History of macular degeneration History of breast cancer and previous left-sided mastectomy Continue hospice care Labs and medication were reviewed. Continue same treatment. Further recommendations as per clinical course of the patient Dictation was produced using [employer] dictation software. please excuse any grammatical, word or spelling errors. Past Medical History Past Medical History: Cancer, COPD, Deep Vein Thrombosis (DVT), Eye Disorder, Hyperlipidemia, Hypertension, Pneumonia Additional Past Medical History / Comment(s): Recent kidney infection, L BREAST CANCER with SX , Bilateral MACULAR DEGENERATION, DVT R leg History of Any Multi-Drug Resistant Organisms: ESBL Date of last positivie culture/infection: 02/24/22 ESBL E.coli MDRO Source:: Urine Past Surgical History: Breast Surgery, Joint Replacement, Tonsillectomy, Tubal Ligation Additional Past Surgical History / Comment(s): 07/04/16 Total L knee arthroplasty. Other surgical hx: LEFT MASTECTOMY, R total knee arthroplasty, bilateral cataract removal. Past Anesthesia/Blood Transfusion Reactions: Motion Sickness Past Psychological History: Anxiety, Depression Smoking Status: Unknown if ever smoked Past Alcohol Use History: None Reported Past Drug Use History: None Reported - Past Family History Mother Family Medical History: Renal Disease Additional Family Medical History / Comment(s): Mother at the age of 84 yrs of kidney failure. Father Family Medical History: No Reported History Additional Family Medical History / Comment(s): Father at the age of 98yrs. Medications and Allergies Home Medications Medication Instructions Recorded Confirmed Type PARoxetine [Paxil] 20 mg PO DAILY@0800 07/03/16 08/16/24 History Montelukast [Singulair] 10 mg PO HS@1700 10/21/19 08/16/24 History Na Phos,M-B/Na Phos,Di-Ba [Fleet 133 ml RECTAL DAILY PRN 10/21/19 08/16/24 History Adult] bisacodyL [Dulcolax] 10 mg RECTAL DAILY PRN 10/21/19 08/16/24 History Aspirin 81 mg PO DAILY@0800 chew 10/24/19 08/16/24 Rx Acetaminophen Tab [Tylenol] 650 mg PO Q4H PRN 03/16/22 08/16/24 History Magnesium Hydroxide [Milk of 7,200 mg PO DAILY PRN 03/16/22 08/16/24 History Magnesia Concentrate] Sennosides/Docusate Sodium 2 tab PO DAILY@0800 03/16/22 08/16/24 History [Senna-S 8.6-50 mg Tablet] Acetaminophen Suppository [Tylenol 650 mg RECTAL Q4H PRN 08/13/24 08/16/24 History Suppository] Acetaminophen [Children's 650 mg PO Q4H PRN 08/13/24 08/16/24 History Acetaminophen] Albuterol Nebulized [Ventolin 2.5 mg INHALATION RT-Q6H PRN 08/13/24 08/16/24 History Nebulized] Budesonide-Formot 160-4.5 Mcg 2 puff INHALATION RT-BID@0800,1700 08/13/24 08/16/24 History [Symbicort 160-4.5 Mcg Inhaler] Ensure Enlive 120 ml PO BID@0800,1700 08/13/24 08/16/24 History Furosemide [Lasix] 40 mg PO BID@0800,1700 08/13/24 08/16/24 History Ipratropium-Albuterol Nebulize 3 ml INHALATION RT-Q6H 08/13/24 08/16/24 History [Duoneb 0.5 mg-3 mg/3 ml Soln] LORazepam [Ativan] 0.5 mg PO BID PRN 08/13/24 08/16/24 History [place] Carbonate 300 mg PO BID@0800,1700 08/13/24 08/16/24 History Loperamide [Imodium] 2 mg PO Q6H PRN 08/13/24 08/16/24 History Potassium Chloride ER [K-Dur 20] 40 meq PO BID@0800,1700 08/13/24 08/16/24 History Simvastatin [Zocor] 10 mg PO HS@1700 08/13/24 08/16/24 History risperiDONE 0.5 mg PO HS@2100 08/13/24 08/16/24 History traMADol HCL 50 mg PO Q6H PRN 08/13/24 08/16/24 History traZODone HCL [Desyrel] 50 mg PO HS@2100 08/13/24 08/16/24 History Allergies Allergy/AdvReac Type Severity Reaction Status Date / Time levofloxacin [From Levaquin] Allergy Unknown Verified 08/13/24 09:36 Penicillins Allergy Rash/Hives Verified 08/13/24 09:36 hydrocodone [From [place]] AdvReac Nausea & Verified 08/13/24 09:36 Vomiting Sulfa (Sulfonamide AdvReac Nausea & Verified 08/13/24 09:36 Antibiotics) Vomiting Physical Exam Vitals: Vital Signs Pulse Resp 08/17/24 02:00 70 18 08/16/24 19:47 61 15 08/16/24 14:56 56 L 15 Intake and Output 08/16/24 08/17/24 08/17/24 22:59 06:59 14:59 Output Total 10 35 Balance -10 -35 Output: Urine 10 35 Other: Voiding Method Indwelling Catheter
[2024-08-17] MEDS: SCOPOLAMINE 1 MG/72 HR PATCH TRANSDERM SCH (23:41)
[2024-08-18] MEDS: LORazepam 2 MG/ML INJ IV PRN (10:50)
--- NOTE | 2024-08-18 12:42 | P.PN ---
Subjective Progress Note Date: 08/18/24 83-year-old female with past medical history significant for multiple medical conditions lives in a longterm facility was brought to the ER for altered mental status for the last few days, shortness of breath, low blood pressure, recently was found to have UTI. Patient has history of COPD, DVT, hypertension, hyperlipidemia, history of ESBL. Patient was admitted to ICU for acute respiratory failure, was seen by multiple consultants like nephrology, pulmonary, ID, cardiology during the ICU stay. Because of patient poor prognosis, patient was transitioned to hospice and was admitted to inpatient hospice 08/18. Patient seen and examined. Family at the bedside. Currently on morphine drip for hospice REVIEW OF SYSTEMS: Review of system cannot be obtained as patient is obtunded PHYSICAL EXAMINATION: Patient is lethargic HEENT: Pupils are round and equally reacting to light. EOMI. No scleral icterus. No conjunctival pallor. Normocephalic, atraumatic. No pharyngeal erythema. No thyromegaly. CARDIOVASCULAR: Tachycardia S1 and S2 present. No murmurs, rubs, or gallops. PULMONARY coarse breath sound bilaterally, diminished at the bases. ABDOMEN: Soft, nontender, nondistended, normoactive bowel sounds. No palpable organomegaly. MUSCULOSKELETAL: No joint swelling or deformity. EXTREMITIES: No cyanosis, clubbing, or pedal edema. NEUROLOGICAL: Gross neurological examination did not reveal any focal deficits. SKIN: No rashes. Assessment and plan Acute on chronic hypoxic hypercapnic respiratory failure Severe COPD with acute exacerbation Atrial fibrillation/flutter with rapid ventricular response Right buttock pressure ulcer stage II Chronic hypoxic hypercapnic respiratory failure, reportedly on BiPAP at longterm Acute transaminitis Acute metabolic encephalopathy Severe sepsis Hypotension Elevated D-dimer Right lower extremity DVT A-fib with RVR NSTEMI RITIKA Hyperkalemia Hypertension Hyperlipidemia History of macular degeneration History of breast cancer and previous left-sided mastectomy Continue hospice care Labs and medication were reviewed.. Continue same treatment. Continue with symptomatic treatment. Resume home medication. Monitor labs and vitals. DVT and GI prophylaxis. Further recommendations as per clinical course of the patient Dictation was produced using [employer] dictation software. please excuse any grammatical, word or spelling errors. Objective - Vital Signs Vital signs: Vital Signs Temp Pulse 70 08/17/24 02:00 Resp 12 08/17/24 08:00 BP Pulse Ox 85 L 08/17/24 22:25 FiO2 Intake & Output 08/17/24 08/18/24 08/18/24 18:59 06:59 18:59 Intake Total 1.275 0 37.196 Balance 1.275 0 37.196 Intake: Intake, IV Titration 1.275 37.196 Amount Morphine Sulfate (100 mg/ 1.275 37.196 2 ml) 100 mg In Sodium Chloride 0.9% 100 ml @ 1 MG/HR 1.02 mls/hr IV . Q24H [facility] Rx#:[id number] Oral 0 0 Other: Voiding Method Indwelling Catheter Indwelling Catheter # Bowel Movements 1
[2024-08-18] MEDS: ATROPINE OPHTH SOLN 1% 5ML BTL SUBLINGUAL PRN (13:53)
--- NOTE | 2024-08-19 10:12 | P.DS ---
Providers Date of admission: 08/16/24 15:28 Expected date of discharge: 08/19/24 Attending physician: Bright Goodman MD [facility] Course: Discharge diagnoses; Acute on chronic hypoxic hypercapnic respiratory failure Severe COPD with acute exacerbation Atrial fibrillation/flutter with rapid ventricular response Right buttock pressure ulcer stage II Chronic hypoxic hypercapnic respiratory failure, reportedly on BiPAP at residential Acute transaminitis Acute metabolic encephalopathy Severe sepsis Hypotension Elevated D-dimer Right lower extremity DVT A-fib with RVR NSTEMI RITIKA Hyperkalemia Hypertension Hyperlipidemia History of macular degeneration History of breast cancer and previous left-sided mastectomy Hospital course; 83-year-old female with past medical history significant for multiple medical conditions lives in a residential facility was brought to the ER for altered mental status for the last few days, shortness of breath, low blood pressure, recently was found to have UTI. Patient has history of COPD, DVT, hypertension, hyperlipidemia, history of ESBL. Patient was admitted to ICU for acute respiratory failure, was seen by multiple consultants like nephrology, pulmonary, ID, cardiology during the ICU stay. Because of patient poor prognosis, patient was transitioned to hospice and was admitted to inpatient hospice 08/18. Patient seen and examined. Family at the bedside. Currently on morphine drip for hospice 08/19. Patient was under hospice care, patient was pronounced at 08/19/2024 at 7:02 AM Dictation was produced using [employer] dictation software. please excuse any grammatical, word or spelling errors. Patient Condition at Discharge: Poor Plan - Discharge Summary New Discharge Prescriptions: No Action PARoxetine [Paxil] 20 mg PO DAILY@0800 bisacodyL [Dulcolax] 10 mg RECTAL DAILY PRN PRN Reason: Constipation Montelukast [Singulair] 10 mg PO HS@1700 Na Phos,M-B/Na Phos,Di-Ba [Fleet Adult] 133 ml RECTAL DAILY PRN PRN Reason: Constipation Aspirin 81 mg PO DAILY@0800 chew Magnesium Hydroxide [Milk of Magnesia Concentrate] 7,200 mg PO DAILY PRN PRN Reason: No BM for 48 hours Acetaminophen Tab [Tylenol] 650 mg PO Q4H PRN PRN Reason: Fever And/ Or Pain Loperamide [Imodium] 2 mg PO Q6H PRN PRN Reason: Loose Stool Albuterol Nebulized [Ventolin Nebulized] 2.5 mg INHALATION RT-Q6H PRN PRN Reason: Respitory infection Potassium Chloride ER [K-Dur 20] 40 meq PO BID@0800,1700 [place] Carbonate 300 mg PO BID@0800,1700 Furosemide [Lasix] 40 mg PO BID@0800,1700 Budesonide-Formot 160-4.5 Mcg [Symbicort 160-4.5 Mcg Inhaler] 2 puff INHALATION RT-BID@0800,1700 traZODone HCL [Desyrel] 50 mg PO HS@2100 Simvastatin [Zocor] 10 mg PO HS@1700 Ipratropium-Albuterol Nebulize [Duoneb 0.5 mg-3 mg/3 ml Soln] 3 ml INHALATION RT-Q6H Sennosides/Docusate Sodium [Senna-S 8.6-50 mg Tablet] 2 tab PO DAILY@0800 traMADol HCL 50 mg PO Q6H PRN PRN Reason: Pain LORazepam [Ativan] 0.5 mg PO BID PRN PRN Reason: restlessness/anxiety Acetaminophen [Children's Acetaminophen] 650 mg PO Q4H PRN PRN Reason: Fever And/ Or Pain Acetaminophen Suppository [Tylenol Suppository] 650 mg RECTAL Q4H PRN PRN Reason: Fever And/ Or Pain risperiDONE 0.5 mg PO HS@2100 Ensure Enlive 120 ml PO BID@0800,1700 Discharge Medication List PARoxetine [Paxil] 20 mg PO DAILY@0800 07/03/16 [History] Montelukast [Singulair] 10 mg PO HS@1700 10/21/19 [History] Na Phos,M-B/Na Phos,Di-Ba [Fleet Adult] 133 ml RECTAL DAILY PRN 10/21/19 [History] bisacodyL [Dulcolax] 10 mg RECTAL DAILY PRN 10/21/19 [History] Aspirin 81 mg PO DAILY@0800 chew 10/24/19 [Rx] Acetaminophen Tab [Tylenol] 650 mg PO Q4H PRN 03/16/22 [History] Magnesium Hydroxide [Milk of Magnesia Concentrate] 7,200 mg PO DAILY PRN 03/16/22 [History] Sennosides/Docusate Sodium [Senna-S 8.6-50 mg Tablet] 2 tab PO DAILY@0800 03/16/22 [History] Acetaminophen Suppository [Tylenol Suppository] 650 mg RECTAL Q4H PRN 08/13/24 [History] Acetaminophen [Children's Acetaminophen] 650 mg PO Q4H PRN 08/13/24 [History] Albuterol Nebulized [Ventolin Nebulized] 2.5 mg INHALATION RT-Q6H PRN 08/13/24 [History] Budesonide-Formot 160-4.5 Mcg [Symbicort 160-4.5 Mcg Inhaler] 2 puff INHALATION RT-BID@0800,169908/13/24 [History] Ensure Enlive 120 ml PO BID@0800,169908/13/24 [History] Furosemide [Lasix] 40 mg PO BID@0800,169908/13/24 [History] Ipratropium-Albuterol Nebulize [Duoneb 0.5 mg-3 mg/3 ml Soln] 3 ml INHALATION RT-Q6H 08/13/24 [History] LORazepam [Ativan] 0.5 mg PO BID PRN 08/13/24 [History] [place] Carbonate 300 mg PO BID@0800,169908/13/24 [History] Loperamide [Imodium] 2 mg PO Q6H PRN 08/13/24 [History] Potassium Chloride ER [K-Dur 20] 40 meq PO BID@0800,169908/13/24 [History] Simvastatin [Zocor] 10 mg PO HS@169908/13/24 [History] risperiDONE 0.5 mg PO HS@209908/13/24 [History] traMADol HCL 50 mg PO Q6H PRN 08/13/24 [History] traZODone HCL [Desyrel] 50 mg PO HS@209908/13/24 [History] Discharge Disposition: - Preliminary Cause of Preliminary Cause of : COPD
== END 2024-08-19 09:10 | disposition expired | DRG 951 ==
LOC: 2SICU 15:28 → 5NMEDONC 08-17 07:27
PROVIDERS: ADMIT Internal Medicine; ATTEND Internal Medicine
DX: Z51.5 Encounter for palliative care (principal); J96.21 Acute and chronic respiratory failure with hypoxia; R65.20 Severe sepsis without septic shock; I21.4 Non-ST elevation (NSTEMI) myocardial infarction; G93.41 Metabolic encephalopathy; A41.9 Sepsis, unspecified organism; J96.22 Acute and chronic respiratory failure with hypercapnia; J44.1 Chronic obstructive pulmonary disease with (acute) exacerbation; I82.401 Acute embolism and thrombosis of unspecified deep veins of right lower extremity; I48.92 Unspecified atrial flutter; N17.9 Acute kidney failure, unspecified; N39.0 Urinary tract infection, site not specified; L89.312 Pressure ulcer of right buttock, stage 2; I48.91 Unspecified atrial fibrillation; I10 Essential (primary) hypertension; F32.A Depression, unspecified; F41.9 Anxiety disorder, unspecified; Z79.51 Long term (current) use of inhaled steroids; Z79.82 Long term (current) use of aspirin; E87.5 Hyperkalemia; R74.01 Elevation of levels of liver transaminase levels; E78.5 Hyperlipidemia, unspecified; Z79.899 Other long term (current) drug therapy; Z85.3 Personal history of malignant neoplasm of breast; Z86.19 Personal history of other infectious and parasitic diseases; Z90.12 Acquired absence of left breast and nipple; Z96.653 Presence of artificial knee joint, bilateral; Z98.51 Tubal ligation status; Z98.42 Cataract extraction status, left eye; Z98.41 Cataract extraction status, right eye; Z88.1 Allergy status to other antibiotic agents; Z88.0 Allergy status to penicillin; Z88.5 Allergy status to narcotic agent; Z88.2 Allergy status to sulfonamides